=== PATIENT | female | born 1955 | race Caucasian/White ===

== ENCOUNTER → 2018-07-14 | Day surgery (SDC) | payer BC ==
[2018-07-10 14:25] VITALS: BMI 18.8
[~2018-07-14] MED LIST: LACTATED RINGERS 1,000 ML IV SCH; LIDOCAINE 1% 20 ML VIAL (10MG/ML) FOR IV START INTRADERMA ONE; PROPOFOL 10 MG/ML 20 ML VIAL IV ONE
[2018-07-14 08:06] VITALS: RESP 16; TEMP 96.9
--- NOTE | 2018-07-14 08:54 | P.GSHP ---
History of Present Illness H&P Date: 07/14/18 Chief Complaint: Screening colonoscopy This is a 62-year-old female who presents today for screening colonoscopy. Her last colonoscopy was over 8 years ago. She has a history of diverticulitis. Past Medical History Past Medical History: Thyroid Disorder Additional Past Medical History / Comment(s): MIGRAINE HEADACHE, History of Any Multi-Drug Resistant Organisms: None Reported Past Surgical History: Tubal Ligation Additional Past Surgical History / Comment(s): NASAL SURGERY , BUNIONECTOMY RIGHT FOOT Past Anesthesia/Blood Transfusion Reactions: Motion Sickness, Postoperative Nausea & Vomiting (PONV) Smoking Status: Never smoker - Past Family History Mother Family Medical History: No Reported History Medications and Allergies Home Medications Medication Instructions Recorded Confirmed Type Fluticasone Nasal [place] [Flonase 2 spr EA NOSTRIL DAILY PRN 07/10/18 07/14/18 History Nasal [place]] SUMAtriptan SUCCINATE [Imitrex] 50 mg PO BID PRN 07/10/18 07/14/18 History Thyroid,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 Thyroid 120] 60 mg PO MOWEFR 07/10/18 07/14/18 History Thyroid,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 Thyroid 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] 90 mg PO DAILY 07/10/18 07/14/18 History Allergies Allergy/AdvReac Type Severity Reaction Status Date / Time amoxicillin Allergy Rash/Hives Verified 07/14/18 07:55 Sulfa (Sulfonamide Allergy Rash/Hives Verified 07/14/18 07:55 Antibiotics) Surgical - Exam Vital Signs Temp Pulse Resp BP Pulse Ox 96.9 F L 82 16 188/86 98 07/14/18 08:04 07/14/18 08:04 07/14/18 08:04 07/14/18 08:04 07/14/18 08:04 - General well developed, no distress - Eyes PERRL - ENT normal pinna - Neck no masses - Respiratory normal expansion - Cardiovascular Rhythm: regular - Abdomen Abdomen: soft, non tender Assessment and Plan Assessment: We'll perform screening colonoscopy.
--- NOTE | 2018-07-14 09:13 | P.OP ---
Date of Procedure: 07/14/18 Preoperative Diagnosis: Screening colonoscopy Postoperative Diagnosis: Diverticulosis Procedure(s) Performed: Colonoscopy Anesthesia: MAC Surgeon: Joesph Mireles Pathology: none sent Condition: stable Disposition: PACU Description of Procedure: The patient's placed on the endoscopy table in the lateral position. She received IV sedation. Digital rectal exam was performed which revealed no abnormalities. Flexible colonoscope was then placed patient anus through the entire colon. The ileocecal valve sutures. The cecum, ascending and transverse colon appeared normal. In the descending; there is moderate diverticulosis. Scope was then brought back the rectum and this appeared normal. Scope was withdrawn for patient.
[2018-07-14 09:17] VITALS: BP 146/86; PULSE 76
== END | disposition home or self-care (01) ==
LOC: ORWHC2ENDO 07:42
PROVIDERS: ATTEND Surgery
DX: Z12.11 Encounter for screening for malignant neoplasm of colon (principal); K57.30 Diverticulosis of large intestine without perforation or abscess without bleeding; E07.9 Disorder of thyroid, unspecified; Z79.890 Hormone replacement therapy; G43.909 Migraine, unspecified, not intractable, without status migrainosus; Z88.0 Allergy status to penicillin; Z88.2 Allergy status to sulfonamides
CPT/HCPCS: J2704; G0121

== ENCOUNTER 2018-08-19 08:50 | Inpatient (IN) | payer BC ==
[2018-08-19] MEDS ORDERED: ONDANSETRON 4 MG/2 ML VIAL IVP STA (09:07)
[2018-08-19] MEDS ORDERED: MORPHINE SULFATE 4 MG/ML SYRINGE IV STA (09:07)
[2018-08-19] MEDS ORDERED: SODIUM CHLORIDE 0.9% 1,000 ML IV STA (09:07)
--- NOTE | 2018-08-19 09:09 | ED ---
Abdominal Pain HPI - General Chief Complaint: Abdominal Pain Stated Complaint: abd pain Time Seen by Provider: 08/19/18 09:07 Source: patient, RN notes reviewed, old records reviewed Mode of arrival: wheelchair Limitations: no limitations - History of Present Illness Initial Comments: This is a 8-year-old female the ER for evaluation. Patient has a for evaluation of abdominal pain severe epigastric and diffuse abdominal pain no radiation. Patient has no recent history of fever. She does have history of diverticulitis but no abdominal surgical history. No current diarrhea no blood in her stool, no nausea vomiting MD Complaint: abdominal pain -: hour(s) Location: diffuse, epigastric, suprapubic Radiation: LLQ Migration to: no migration Severity scale (1-10): 9 Quality: stabbing, aching, fullness Consistency: constant Improves With: nothing Worsens With: nothing Associated Symptoms: nausea, anorexia - Related Data Home Medications Medication Instructions Recorded Confirmed Fluticasone Nasal [place] [Flonase 2 spr EA NOSTRIL DAILY PRN 07/10/18 08/19/18 Nasal [place]] Thyroid,Pork [Metal Cnc Operator Thyroid 120] 60 mg PO DAILY 07/10/18 08/19/18 Cholecalciferol [Vitamin D3] 1,000 unit PO DAILY 08/19/18 08/19/18 Doxycycline Monohydrate [Monodox] 100 mg PO Q12HR 08/19/18 08/19/18 Levothyroxine Sodium [Synthroid] 25 mcg PO DAILY 08/19/18 08/19/18 Montelukast [Singulair] 10 mg PO DAILY 08/19/18 08/19/18 Multivitamin,Therapeutic [Thera] 1 tab PO DAILY 08/19/18 08/19/18 Naproxen Sodium [Aleve] 220 mg PO DAILY PRN 08/19/18 08/19/18 SUMAtriptan SUCCINATE [Sumatriptan 100 mg PO DAILY PRN 08/19/18 08/19/18 Succinate] Vitamin B Complex 1 cap PO DAILY 08/19/18 08/19/18 Allergies Allergy/AdvReac Type Severity Reaction Status Date / Time amoxicillin Allergy Rash/Hives Verified 08/19/18 10:43 Sulfa (Sulfonamide Allergy Rash/Hives Verified 08/19/18 10:43 Antibiotics) Review of Systems ROS Statement: Those systems with pertinent positive or pertinent negative responses have been documented in the HPI. ROS Other: All systems not noted in ROS Statement are negative. Past Medical History Past Medical History: Thyroid Disorder Additional Past Medical History / Comment(s): MIGRAINE HEADACHE, History of Any Multi-Drug Resistant Organisms: None Reported Past Surgical History: Tubal Ligation Additional Past Surgical History / Comment(s): NASAL SURGERY , BUNIONECTOMY RIGHT FOOT Past Anesthesia/Blood Transfusion Reactions: Motion Sickness, Postoperative Nausea & Vomiting (PONV) Past Psychological History: No Psychological Hx Reported Smoking Status: Never smoker Past Alcohol Use History: None Reported Past Drug Use History: None Reported - Past Family History Mother Family Medical History: No Reported History General Exam Limitations: no limitations General appearance: alert, in no apparent distress, anxious Head exam: Present: atraumatic, normocephalic, normal inspection Eye exam: Present: normal appearance, PERRL, EOMI. Absent: scleral icterus, conjunctival injection, periorbital swelling ENT exam: Present: normal exam, mucous membranes moist Neck exam: Present: normal inspection. Absent: tenderness, meningismus, lymphadenopathy Respiratory exam: Present: normal lung sounds bilaterally. Absent: respiratory distress, wheezes, rales, rhonchi, stridor Cardiovascular Exam: Present: regular rate, normal rhythm, normal heart sounds. Absent: systolic murmur, diastolic murmur, rubs, gallop, clicks GI/Abdominal exam: Present: soft, tenderness, normal bowel sounds. Absent: distended, guarding, rebound, rigid Extremities exam: Present: normal inspection, full ROM, normal capillary refill. Absent: tenderness, pedal edema, joint swelling, calf tenderness Back exam: Present: normal inspection Neurological exam: Present: alert, oriented X3, CN II-XII intact Psychiatric exam: Present: normal affect, normal mood Skin exam: Present: warm, dry, intact, normal color. Absent: rash Course Vital Signs 08/19/18 09:03 Temperature 97.6 F Pulse Rate 76 Respiratory 18 Rate Blood Pressure 126/67 O2 Sat by Pulse 98 Oximetry - Reevaluation(s) Reevaluation #1: 08/19/18 11:44 Medical records thoroughly reviewed Reevaluation #2: 08/19/18 11:44 Patient currently has adequate pain control, patient states she has both penicillin ALLERGY as well as refusing to take Levaquin Medical Decision Making - Medical Decision Making 62 female the ER for evasive severe abdominal pain. Positive diverticulitis with likely perforation, patient will be admitted IV antibiotics for surgery consult, patient does have relationship prior with Dr. Mireles - Lab Data Result diagrams: 08/19/18 09:30 08/19/18 09:30 Lab Results 08/19/18 08/19/18 08/19/18 Range/Units 09:30 09:30 09:30 WBC 9.1 (3.8-10.6) k/uL RBC 4.80 (3.80-5.40) m/uL Hgb 14.9 (11.4-16.0) gm/dL Hct 45.0 (34.0-46.0) % MCV 93.8 (80.0-100.0) fL MCH 31.1 (25.0-35.0) pg MCHC 33.1 (31.0-37.0) g/dL RDW 12.8 (11.5-15.5) % Plt Count 246 (150-450) k/uL Neutrophils % 88 % Lymphocytes % 7 % Monocytes % 4 % Eosinophils % 0 % Basophils % 0 % Neutrophils # 8.0 H (1.3-7.7) k/uL Lymphocytes # 0.6 L (1.0-4.8) k/uL Monocytes # 0.3 (0-1.0) k/uL Eosinophils # 0.0 (0-0.7) k/uL Basophils # 0.0 (0-0.2) k/uL Sodium 139 (137-145) mmol/L Potassium 4.3 (3.5-5.1) mmol/L Chloride 104 (98-107) mmol/L Carbon Dioxide 25 (22-30) mmol/L Anion Gap 10 mmol/L BUN 14 (7-17) mg/dL Creatinine 0.41 L (0.52-1.04) mg/dL Est GFR (CKD-EPI)AfAm >90 (>60 ml/min/1.73 sqM) Est GFR (CKD-EPI)NonAf >90 (>60 ml/min/1.73 sqM) Glucose 127 H (74-99) mg/dL Plasma Lactic Acid Mickey (0.7-2.0) mmol/L Calcium 9.6 (8.4-10.2) mg/dL Total Bilirubin 0.8 (0.2-1.3) mg/dL AST 29 (14-36) U/L ALT 37 (9-52) U/L Alkaline Phosphatase 54 (38-126) U/L Total Creatine Kinase (30-135) U/L CK-MB (CK-2) (0.0-2.4) ng/mL CK-MB (CK-2) Rel Index Troponin I (0.000-0.034) ng/mL Total Protein 6.9 (6.3-8.2) g/dL Albumin 4.1 (3.5-5.0) g/dL Amylase 48 (30-110) U/L Lipase 35 (23-300) U/L Urine Color Yellow Urine Appearance Clear (Clear) Urine pH 6.5 (5.0-8.0) Ur Specific [place] 1.013 (1.001-1.035) Urine Protein Negative (Negative) Urine Glucose (UA) Negative (Negative) Urine Ketones 1+ H (Negative) Urine Blood Negative (Negative) Urine Nitrite Negative (Negative) Urine Bilirubin Negative (Negative) Urine Urobilinogen <2.0 (<2.0) mg/dL Ur Leukocyte Esterase Negative (Negative) 08/19/18 08/19/18 Range/Units 09:30 09:30 WBC (3.8-10.6) k/uL RBC (3.80-5.40) m/uL Hgb (11.4-16.0) gm/dL Hct (34.0-46.0) % MCV (80.0-100.0) fL MCH (25.0-35.0) pg MCHC (31.0-37.0) g/dL RDW (11.5-15.5) % Plt Count (150-450) k/uL Neutrophils % % Lymphocytes % % Monocytes % % Eosinophils % % Basophils % % Neutrophils # (1.3-7.7) k/uL Lymphocytes # (1.0-4.8) k/uL Monocytes # (0-1.0) k/uL Eosinophils # (0-0.7) k/uL Basophils # (0-0.2) k/uL Sodium (137-145) mmol/L Potassium (3.5-5.1) mmol/L Chloride (98-107) mmol/L Carbon Dioxide (22-30) mmol/L Anion Gap mmol/L BUN (7-17) mg/dL Creatinine (0.52-1.04) mg/dL Est GFR (CKD-EPI)AfAm (>60 ml/min/1.73 sqM) Est GFR (CKD-EPI)NonAf (>60 ml/min/1.73 sqM) Glucose (74-99) mg/dL Plasma Lactic Acid Mickey 1.7 (0.7-2.0) mmol/L Calcium (8.4-10.2) mg/dL Total Bilirubin (0.2-1.3) mg/dL AST (14-36) U/L ALT (9-52) U/L Alkaline Phosphatase (38-126) U/L Total Creatine Kinase 29 L (30-135) U/L CK-MB (CK-2) 0.5 (0.0-2.4) ng/mL CK-MB (CK-2) Rel Index 1.7 Troponin I <0.012 (0.000-0.034) ng/mL Total Protein (6.3-8.2) g/dL Albumin (3.5-5.0) g/dL Amylase (30-110) U/L Lipase (23-300) U/L Urine Color Urine Appearance (Clear) Urine pH (5.0-8.0) Ur Specific [place] (1.001-1.035) Urine Protein (Negative) Urine Glucose (UA) (Negative) Urine Ketones (Negative) Urine Blood (Negative) Urine Nitrite (Negative) Urine Bilirubin (Negative) Urine Urobilinogen (<2.0) mg/dL Ur Leukocyte Esterase (Negative) - Radiology Data Radiology results: report reviewed (CT abdomen and pelvis is positive for diverticulitis with free air), image reviewed Disposition Clinical Impression: Diverticulitis, Abdominal pain Disposition: HOME SELF-CARE Condition: Serious Is patient prescribed a controlled substance at d/c from ED?: No Referrals: Libertad Cintron DO [Primary Care Provider] - 1-2 days
[2018-08-19 10:08] LABS: Appearance,Urine Clear (Clear); Bilirubin,Urine Negative (Negative); Blood,Urine Negative (Negative); Color,Urine Yellow; Glucose,Urine (UA) Negative (Negative); Ketones,Urine 1+ (Negative); Leukocyte Esterase,Urine Negative (Negative); Nitrite,Urine Negative (Negative); PH, Urine 6.5 (5.0-8.0); Protein,Urine Negative (Negative); Specific Gravity,Urine 1.013 (1.001-1.035); Urobilinogen,Urine <2.0 mg/dL (<2.0)
[2018-08-19 10:16] LABS: Basophils % (A) 0 %; Eosinophils % (A) 0 %; HGB 14.9 gm/dL (11.4-16.0); Lymphocytes # (A) 0.6 k/uL (1.0-4.8); Lymphocytes % (A) 7 %; MCH 31.1 pg (25.0-35.0); MCHC 33.1 g/dL (31.0-37.0); MCV 93.8 fL (80.0-100.0); Mean Platelet Volume 7.4; Monocytes # (A) 0.3 k/uL (0-1.0); Monocytes % (A) 4 %; Neutrophils % (A) 88 %; Platelet Count 246 k/uL (150-450); RDW 12.8 % (11.5-15.5); WBC 9.1 k/uL (3.8-10.6)
[2018-08-19 10:18] LABS: ALT 37 U/L (9-52); AST 29 U/L (14-36); Albumin 4.1 g/dL (3.5-5.0); Alkaline Phosphatase 54 U/L (38-126); Amylase 48 U/L (30-110); Anion Gap 10 mmol/L; Blood Urea Nitrogen 14 mg/dL (7-17); Calcium 9.6 mg/dL (8.4-10.2); Carbon Dioxide 25 mmol/L (22-30); Chloride 104 mmol/L (98-107); Glucose 127 mg/dL (74-99); Lipase 35 U/L (23-300); Potassium 4.3 mmol/L (3.5-5.1); Sodium 139 mmol/L (137-145); Total Bilirubin 0.8 mg/dL (0.2-1.3); Total Protein 6.9 g/dL (6.3-8.2)
[2018-08-19 10:36] LABS: Creatine Kinase 29 U/L (30-135)
--- NOTE | 2018-08-19 10:43 | CT ---
EXAMINATION TYPE: CT abdomen pelvis w con DATE OF EXAM: 08/19/2018 COMPARISON: NONE HISTORY: 62-year-old female with abdominal pain TECHNIQUE: Contiguous axial scanning of the abdomen and pelvis following administration of 100 ml Iso ottoniel 300 IV contrast. Delayed images through the kidneys and coronal/sagittal reconstructions perform ed. CT DLP: 482.7 mGycm Automated exposure control for dose reduction was used. FINDINGS: Heart normal size without pericardial effusion. Given atelectasis posterior lung bases. No pleural ef fusion. Slightly patulous distal esophagus. Prominent fluid distending the stomach. No focal liver lesion or biliary ductal dilatation. Portal venous system is patent. Gallbladder, adrenal glands, kidneys, and spleen appear within normal limits. Pancreas shows prominen ce to the main pancreatic duct at 2 mm which is within acceptable limits. No dilated small bowel, free fluid, or free air. Scattered nonenlarged mesenteric lymph nodes are dem onstrated. A number of mid small bowel loops show circumferential wall thickening and edematous appearance as do es the low-lying transverse colon. Mild circumferential wall thickening of the sigmoid colon as well. There is surrounding fat stranding, mesenteric edema, and mild interloop ascites and moderate pelvic ascites. There is intraperitoneal air collection in the left paramedian lower abdomen measuring 1.7 cm AP by 2 .2 cm wide by 3.0 cm craniocaudal, reference axial image 61 and coronal image 31. The exact origin of the free air is not clear, and may be from an irregular, inflamed small bowel loop just adjacent, ax ial image 63 or from the adjacent distal sigmoid, axial image 61. While there is sigmoid diverticulosis, the overall inflammation seems to involve more than just the c olon where diverticular change is demonstrated. Normal appendix. Bladder urine distended. Uterus with underlying calcified fibroids. Neither ovary well seen. Bones: Mild degenerative changes at the hips. No osseous destructive process. IMPRESSION: 1. MODERATE TO SEVERE ENTEROCOLITIS INVOLVING MULTIPLE SMALL BOWEL LOOPS, TRANSVERSE COLON, AND SIGMO ID COLON. WHILE THERE IS SIGMOID DIVERTICULOSIS, THE BOWEL INFLAMMATION APPEARS TO INVOLVE MULTIPLE A REAS. ACUTE DIVERTICULITIS WITH PERFORATION IS ALSO POSSIBLE BUT GIVEN THE MULTIPLE INVOLVED BOWEL LO OPS, IT MAY BE LESS LIKELY. CLINICALLY CORRELATE. 2. PERFORATION INTO THE INTRAPERITONEAL CAVITY OF THE LEFT PARAMEDIAN LOWER ABDOMEN. THE AIR COLLECTI ON MEASURES 3.0 CM. THERE IS MODERATE TO SEVERE ASSOCIATED MESENTERIC EDEMA/INFLAMMATION AND MODERATE PELVIC ASCITES. CRITICAL FINDINGS CALLED TO DR. MELENDEZ IN THE ER AT 10:40 AM.
[2018-08-19 10:48] LABS: Creatine Kinase MB 0.5 ng/mL (0.0-2.4); Troponin I <0.012 ng/mL (0.000-0.034)
[2018-08-19] MEDS ORDERED: SODIUM CHLORIDE 0.9% 1,000 ML IV ONE ×2 (11:32→20:32)
[2018-08-19] MEDS ORDERED: SODIUM CHLORIDE 0.9% 500 ML 500 ML IV STA (11:39)
[2018-08-19] MEDS ORDERED: CEFEPIME 2 GM in SODIUM CHLORIDE 0.9% 50 ML IVPB STA (11:41)
[2018-08-19] MEDS ORDERED: metroNIDAZOLE-NS PMX 500 MG in SALINE 1 100ML.BAG IVPB STA (11:41)
[2018-08-19] MEDS: MORPHINE SULFATE 4 MG/ML SYRINGE IVP PRN ×2 (11:56→16:02)
--- NOTE | 2018-08-19 13:00 | P.HPIM ---
History of Present Illness H&P Date: 08/19/18 Chief Complaint: Abdominal pain This is a 62-year-old female, patient of [facility]. She has a known past medical history of diverticulosis, hypothyroidism and migraines. Patient presents to the emergency room with complaints of severe abdominal pain throughout her whole abdomen that started around 2:00 this morning. She was having chills and nausea. No vomiting. Reports normal bowel movements. No blood in the stools. Computed tomography scan of the abdomen and pelvis shows moderate to severe enterocolitis involving multiple small bowel loops, transverse colon and sigmoid colon. There is sigmoid diverticulosis the bowel inflammation appears to involve multiple areas. Acute diverticulitis with perforation is also possible. Perforation into the intraperitoneal cavity of the left paramedian lower abdomen. Air collection measuring 3.0 cm. There is [id number] associated mesenteric edema/inflammation and moderate pelvic ascites. Patient was given cefepime and Flagyl in the ER. Morphine for pain. Surgery has been consulted. Patient denies any chest pain or shortness of breath. Denies any bowel movement changes or urinary symptoms. Patient was seen and examined in the ER. Review of Systems Please refer to HPI otherwise unremarkable Past Medical History Past Medical History: Thyroid Disorder Additional Past Medical History / Comment(s): Pt currently has sinus infection and started antibiotic yesterday, 2017. Other hx: Occasional migraines, infrequent raynaulds, diverticular disease, hypothyroid. History of Any Multi-Drug Resistant Organisms: None Reported Past Surgical History: Orthopedic Surgery, Tubal Ligation Additional Past Surgical History / Comment(s): 07/14/18 colonoscopy, previous colonoscopy, sinus surgery, jaw surgery for overbite, cunionectomy R foot. Past Anesthesia/Blood Transfusion Reactions: Motion Sickness, Postoperative Nausea & Vomiting (PONV) Past Psychological History: No Psychological Hx Reported Additional Psychological History / Comment(s): Pt resides with her spouse. 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 Smoking Status: Never smoker Past Alcohol Use History: None Reported Past Drug Use History: None Reported - Past Family History Mother Family Medical History: Coronary Artery Disease (CAD) Additional Family Medical History / Comment(s): Mother with CABG at the age of 72 yrs. Father Family Medical History: Congestive Heart Failure (CHF) Additional Family Medical History / Comment(s): Father of CHF at the age of 72 yrs. Medications and Allergies Home Medications Medication Instructions Recorded Confirmed Type Fluticasone Nasal [place] [Flonase 2 spr EA NOSTRIL DAILY PRN 07/10/18 08/19/18 History Nasal [place]] Thyroid,Pork [Lining Stamper Thyroid 120] 60 mg PO DAILY 07/10/18 08/19/18 History Cholecalciferol [Vitamin D3] 1,000 unit PO DAILY 08/19/18 08/19/18 History Doxycycline Monohydrate [Monodox] 100 mg PO Q12HR 08/19/18 08/19/18 History Levothyroxine Sodium [Synthroid] 25 mcg PO DAILY 08/19/18 08/19/18 History Montelukast [Singulair] 10 mg PO DAILY 08/19/18 08/19/18 History Multivitamin,Therapeutic [Thera] 1 tab PO DAILY 08/19/18 08/19/18 History Naproxen Sodium [Aleve] 220 mg PO DAILY PRN 08/19/18 08/19/18 History SUMAtriptan SUCCINATE [Sumatriptan 100 mg PO DAILY PRN 08/19/18 08/19/18 History Succinate] Vitamin B Complex 1 cap PO DAILY 08/19/18 08/19/18 History Allergies Allergy/AdvReac Type Severity Reaction Status Date / Time amoxicillin Allergy Rash/Hives Verified 08/19/18 10:43 Sulfa (Sulfonamide Allergy Rash/Hives Verified 08/19/18 10:43 Antibiotics) Physical Exam Vitals: Vital Signs Temp Pulse Resp BP Pulse Ox 08/19/18 11:30 147/84 98 08/19/18 11:00 18 168/89 98 08/19/18 10:00 18 160/96 96 08/19/18 09:45 99 08/19/18 09:03 97.6 F 76 18 126/67 98 Intake and Output 08/18/18 08/19/18 08/19/18 22:59 06:59 14:59 Other: Weight 52.163 kg Head normocephalic Neck supple Lungs clear to auscultation bilaterally no wheezing or crackles Heart regular rate and rhythm S1-S2, no rub or gallop Abdomen is diffuse tenderness distended hypoactive bowel sounds Extremities no edema Neuro alert and orientated to 3 Results CBC & Chem 7: 08/19/18 09:30 08/19/18 09:30 Labs: Abnormal Lab Results - Last 24 Hours (Table) 08/19/18 08/19/18 08/19/18 Range/Units 09:30 09:30 09:30 Neutrophils # 8.0 H (1.3-7.7) k/uL Lymphocytes # 0.6 L (1.0-4.8) k/uL Creatinine 0.41 L (0.52-1.04) mg/dL Glucose 127 H (74-99) mg/dL Total Creatine Kinase (30-135) U/L Urine Ketones 1+ H (Negative) 08/19/18 Range/Units 09:30 Neutrophils # (1.3-7.7) k/uL Lymphocytes # (1.0-4.8) k/uL Creatinine (0.52-1.04) mg/dL Glucose (74-99) mg/dL Total Creatine Kinase 29 L (30-135) U/L Urine Ketones (Negative) Thrombosis Risk Factor Assmnt - Choose All That Apply Any of the Below Risk Factors Present?: Yes Each Factor Represents 1 point: Age 41-60 years Other Risk Factors: No Other congenital or acquired thrombophilia - If yes, enter type in comment: No Thrombosis Risk Factor Assessment Total Risk Factor Score: 1 Thrombosis Risk Factor Assessment Level: Low Risk Assessment and Plan Assessment: 1. Abdominal pain: Computed tomography scan showing severe enterocolitis involving multiple small bowel loops transfer: And sigmoid colon. Concerns of a possible acute diverticulitis with perforation. Patient started on Flagyl and cefepime in the ER. Surgery has been consulted. She is currently nothing by mouth. Continue with IV fluids normal saline at 100 2. History of diverticulitis 3. Hypothyroidism: Resume Synthroid supplements. If patient remains nothing by mouth tomorrow will need to switch oral Synthroid to IV 4. History of migraines GI prophylaxis Protonix and DVT prophylaxis SCDs until seen by surgeon. Time with Patient: Greater than 30 (Greater than 60% of the total time spent in counseling and coordination of care.I performed an examination of the patient and discussed their management with the physician [facility]ulatory [facility]. I have reviewed the Physician [facility]ulatory [facility]'s notes and agree with the documented findings and plan of care)
--- NOTE | 2018-08-19 13:35 | P.GSCN ---
History of Present Illness Consult date: 08/19/18 Reason for Consult: Reason for consult abdominal pain Hospital course 62-year-old female presented on the day of admission to the emergency room with a chief complaint of developing diffuse abdominal pain that did not radiate started at 2:00 in the morning with fever and chills patient stated there was diffuse cramping. With a nausea sensation no emesis. Patient stated that she had normal bowel movements but there was no blood in the stool. Patient gives a history of diverticulitis but there is been no abdominal surgery. Patient stated the pain was mostly in the left lower quadrant described as a sharp stabbing achy type pain with a nausea sensation patient stated that she felt bloated. Patient did have a colonoscopy in June 2018 reviewing the report in the descending there was moderate diverticulosis. Transverse colon appeared normal cecum in the ascending appeared normal as well in the emergency room the white count was 9 hemoglobin 14.9 AST and ALT were not elevated electrolytes within normal limits started in the emergency room with IV Flagyl and cefeprime patient states that she is been treated in the past diverticulitis but is not been this severe. Past surgical history tubal ligation, bunionectomy right foot Computed tomography scan of the abdomen pelvis with contrast was obtained in the emergency room reviewing the report showed moderate to severe endocolitis involving multiple small bowel loops, transverse colon and sigmoid colon with sigmoid diverticulosis. The bowel inflammation appears to involve multiple areas acute diverticulitis with perforation is also possible given the multiple involved bowel loops. Perforation into the intraperitoneal cavity. Air collection measures 3 cm moderate pelvic ascites noted Review of Systems Refer to HPI otherwise unremarkable Past Medical History Past Medical History: Thyroid Disorder Additional Past Medical History / Comment(s): Pt currently has sinus infection and started antibiotic yesterday, 2017. Other hx: Occasional migraines, infrequent raynaulds, diverticular disease, hypothyroid. History of Any Multi-Drug Resistant Organisms: None Reported Past Surgical History: Orthopedic Surgery, Tubal Ligation Additional Past Surgical History / Comment(s): 07/14/18 colonoscopy, previous colonoscopy, sinus surgery, jaw surgery for overbite, cunionectomy R foot. Past Anesthesia/Blood Transfusion Reactions: Motion Sickness, Postoperative Nausea & Vomiting (PONV) Past Psychological History: No Psychological Hx Reported Additional Psychological History / Comment(s): Pt resides with her spouse. 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 Smoking Status: Never smoker Past Alcohol Use History: None Reported Past Drug Use History: None Reported - Past Family History Mother Family Medical History: Coronary Artery Disease (CAD) Additional Family Medical History / Comment(s): Mother with CABG at the age of 72 yrs. Father Family Medical History: Congestive Heart Failure (CHF) Additional Family Medical History / Comment(s): Father of CHF at the age of 72 yrs. Medications and Allergies Home Medications Medication Instructions Recorded Confirmed Type Fluticasone Nasal [place] [Flonase 2 spr EA NOSTRIL DAILY PRN 07/10/18 08/19/18 History Nasal [place]] Thyroid,Pork [Chandelier Maker Thyroid 120] 60 mg PO DAILY 07/10/18 08/19/18 History Cholecalciferol [Vitamin D3] 1,000 unit PO DAILY 08/19/18 08/19/18 History Doxycycline Monohydrate [Monodox] 100 mg PO Q12HR 08/19/18 08/19/18 History Levothyroxine Sodium [Synthroid] 25 mcg PO DAILY 08/19/18 08/19/18 History Montelukast [Singulair] 10 mg PO DAILY 08/19/18 08/19/18 History Multivitamin,Therapeutic [Thera] 1 tab PO DAILY 08/19/18 08/19/18 History Naproxen Sodium [Aleve] 220 mg PO DAILY PRN 08/19/18 08/19/18 History SUMAtriptan SUCCINATE [Sumatriptan 100 mg PO DAILY PRN 08/19/18 08/19/18 History Succinate] Vitamin B Complex 1 cap PO DAILY 08/19/18 08/19/18 History Allergies Allergy/AdvReac Type Severity Reaction Status Date / Time amoxicillin Allergy Rash/Hives Verified 08/19/18 10:43 Sulfa (Sulfonamide Allergy Rash/Hives Verified 08/19/18 10:43 Antibiotics) Surgical - Exam Vital Signs Temp Pulse Resp BP Pulse Ox 97.6 F 76 18 126/67 98 08/19/18 09:03 08/19/18 09:03 08/19/18 09:03 08/19/18 09:03 08/19/18 09:03 GENERAL APPEARANCE: 62 year old female patient is alert, oriented, in no acute distress. VITAL SIGNS: Reviewed HEENT: Head is normocephalic and atraumatic. Pupils are equal and reactive. The nares are patent. Oropharynx is clear without lesions. NECK: Supple without lymphadenopathy. Traches midline. HEART: S1, S2. Regular rate and rhythm. Denies chest pain LUNGS: No crackles or wheezes are heard. Air movement ABDOMEN: Diffuse abdominal tenderness with distention few hypoactive bowel tones nausea sensation no emesis no stooling no difficulty in urinating. EXTREMITIES: Normal skin color and turgor. No cyanosis, rash, ulceration, clubbing or edema. Radial pedal pulses are 2/4 bilaterally. NEUROLOGICAL: No focal deficits. Strength and sensation are grossly intact. Results - Labs 08/19/18 09:30 08/19/18 09:30 Abnormal Lab Results - Last 24 Hours (Table) 08/19/18 08/19/18 08/19/18 Range/Units 09:30 09:30 09:30 Neutrophils # 8.0 H (1.3-7.7) k/uL Lymphocytes # 0.6 L (1.0-4.8) k/uL Creatinine 0.41 L (0.52-1.04) mg/dL Glucose 127 H (74-99) mg/dL Total Creatine Kinase (30-135) U/L Urine Ketones 1+ H (Negative) 08/19/18 Range/Units 09:30 Neutrophils # (1.3-7.7) k/uL Lymphocytes # (1.0-4.8) k/uL Creatinine (0.52-1.04) mg/dL Glucose (74-99) mg/dL Total Creatine Kinase 29 L (30-135) U/L Urine Ketones (Negative) Diabetes panel 08/19/18 Range/Units 09:30 Sodium 139 (137-145) mmol/L Potassium 4.3 (3.5-5.1) mmol/L Chloride 104 (98-107) mmol/L Carbon Dioxide 25 (22-30) mmol/L BUN 14 (7-17) mg/dL Creatinine 0.41 L (0.52-1.04) mg/dL Glucose 127 H (74-99) mg/dL Calcium 9.6 (8.4-10.2) mg/dL AST 29 (14-36) U/L ALT 37 (9-52) U/L Alkaline Phosphatase 54 (38-126) U/L Total Protein 6.9 (6.3-8.2) g/dL Albumin 4.1 (3.5-5.0) g/dL Calcium panel 08/19/18 Range/Units 09:30 Calcium 9.6 (8.4-10.2) mg/dL Albumin 4.1 (3.5-5.0) g/dL Pituitary panel 08/19/18 Range/Units 09:30 Sodium 139 (137-145) mmol/L Potassium 4.3 (3.5-5.1) mmol/L Chloride 104 (98-107) mmol/L Carbon Dioxide 25 (22-30) mmol/L BUN 14 (7-17) mg/dL Creatinine 0.41 L (0.52-1.04) mg/dL Glucose 127 H (74-99) mg/dL Calcium 9.6 (8.4-10.2) mg/dL Adrenal panel 08/19/18 Range/Units 09:30 Sodium 139 (137-145) mmol/L Potassium 4.3 (3.5-5.1) mmol/L Chloride 104 (98-107) mmol/L Carbon Dioxide 25 (22-30) mmol/L BUN 14 (7-17) mg/dL Creatinine 0.41 L (0.52-1.04) mg/dL Glucose 127 H (74-99) mg/dL Calcium 9.6 (8.4-10.2) mg/dL Total Bilirubin 0.8 (0.2-1.3) mg/dL AST 29 (14-36) U/L ALT 37 (9-52) U/L Alkaline Phosphatase 54 (38-126) U/L Total Protein 6.9 (6.3-8.2) g/dL Albumin 4.1 (3.5-5.0) g/dL Assessment and Plan Assessment: Impression Present on admission left lower quadrant abdominal pain suspect due to acute diverticulitis possible perforation CAT scan of the abdomen and pelvis obtained in the emergency room report indicates severe enterocolitis involving multiple small bowel loops in the sigmoid colon History of diverticulitis July 14 2018 colonoscopy done report cecum ascending and transverse colon appeared normal and the descending moderate diverticulosis no evidence of diverticulitis Plan IV fluid for hydration Keep nothing by mouth except for ice chips Continue IV antibiotics cefepime and Flagyl as ordered DVT and GI prophylaxis Repeat labs in the morning We'll follow with you with further surgical recommendations pending clinical course Surgical consultation note dictated for Dr. childers The above impression and plan of care have been discussed and directed by signing physician. Henny Graham nurse practitioner acting as scribe for signing physician.
[2018-08-19] MEDS: LACTATED RINGERS 1,000 ML IV SCH ×3 (14:05→17:23)
[2018-08-19] MEDS: PANTOPRAZOLE 40 MG/10 ML VIAL IVP SCH (14:09)
[2018-08-19] MEDS ORDERED: MORPHINE SULFATE 4 MG/ML SYRINGE ONE (16:01)
[2018-08-19] MEDS: ACETAMINOPHEN TAB 325 MG TAB PO PRN (18:21)
[2018-08-19] MEDS: HYDROmorphone 1 MG/ML 1 ML SYRINGE IVP PRN ×2 (18:22→21:12)
[2018-08-19] MEDS: metroNIDAZOLE-NS PMX 500 MG in SALINE 1 100ML.BAG IVPB SCH (18:23)
[2018-08-19 20:03] LABS: ALT 42 U/L (9-52); AST 21 U/L (14-36); Albumin 3.3 g/dL (3.5-5.0); Alkaline Phosphatase 37 U/L (38-126); Anion Gap 9 mmol/L; Blood Urea Nitrogen 9 mg/dL (7-17); Calcium 8.7 mg/dL (8.4-10.2); Carbon Dioxide 21 mmol/L (22-30); Chloride 105 mmol/L (98-107); Glucose 95 mg/dL (74-99); Potassium 3.9 mmol/L (3.5-5.1); Sodium 135 mmol/L (137-145); Total Bilirubin 1.1 mg/dL (0.2-1.3)
[2018-08-19 20:13] LABS: Basophils % (A) 0 %; Eosinophils % (A) 1 %; HCT 40.3 % (34.0-46.0); HGB 13.2 gm/dL (11.4-16.0); Lymphocytes # (A) 0.6 k/uL (1.0-4.8); Lymphocytes % (A) 14 %; MCH 30.8 pg (25.0-35.0); MCHC 32.7 g/dL (31.0-37.0); MCV 94.1 fL (80.0-100.0); Mean Platelet Volume 7.4; Monocytes # (A) 0.2 k/uL (0-1.0); Monocytes % (A) 4 %; Neutrophils # (A) 3.5 k/uL (1.3-7.7); Neutrophils % (A) 80 %; Platelet Count 218 k/uL (150-450); RBC 4.28 m/uL (3.80-5.40); RDW 12.9 % (11.5-15.5); WBC 4.4 k/uL (3.8-10.6)
--- NOTE | 2018-08-19 20:33 | P.CNPUL ---
History of Present Illness Consult date: 08/19/18 Chief complaint: abdominal pain History of present illness: 62-year-old female patient with known history of diverticulosis who underwent a recent colonoscopy in June 2018 and she was told to have uncomplicated diverticulosis. She has had previous bouts of diverticulitis treated with antibiotics. This morning, the patient woke up with diffuse abdominal pain and the pain was rather crampy associated with some chills and fever. She was also nauseated without any significant emesis. She did have a loose liquidy bowel movements and non-since. No bloody bowel movement or any melanotic stool. The patient came into the hospital and she was given a CAT scan of the abdomen which showed moderate to severe enterocolitis involving the multiple small bowel loops and transverse colon and sigmoid colon. While there is sigmoid diverticulosis and mild the bowel inflammation appears to involve multiple areas. Acute diverticulitis with perforation is considered. Perforation into the intraperitoneal cavity of the left paramedian lower abdomen was suspected. There are collection measures about 3 cm in size. There was moderate to severe associated mesenteric edema and inflammation and moderate degree of pelvic ascites. The patient is currently in the intensive care unit. She got transferred due to concerns of sepsis. She is tachycardic and she is in sinus tachycardia with a heart rate of 110. She is maintaining a low blood pressure. Most recent BP reading is 159/91. Pulse ox 98% on room air. She is producing adequate amount of urine output in the Malik catheter was inserted. I saw this patient in the ICU. She had lower abdominal tenderness. She was uncomfortable. Her pain was controlled for now. She is receiving Dilaudid for pain control. She also and accommodation of cefepime and Flagyl. This is a broad-spectrum antibiotics covering for acute diverticulitis. The patient will be fluid resuscitated. General surgery consultation to the been obtained. Discussed the case with the general surgeon. Review of Systems Constitutional: Reports chills, Reports fever, Reports poor appetite, Reports weakness Eyes: denies blurred vision, denies bulging eye, denies decreased vision Ears: deny: decreased hearing, ear discharge, earache, tinnitus Ears, nose, mouth and throat: Denies headache, Denies sore throat Cardiovascular: Reports rapid heart beat Respiratory: Denies cough Gastrointestinal: Reports abdominal pain, Reports nausea Genitourinary: Denies dysuria, Denies hematuria Menstruation: Reports as per HPI Musculoskeletal: Reports as per HPI Musculoskeletal: absent: ankle pain, ankle stiffness, ankle swelling Integumentary: Denies pruritus, Denies rash Neurological: Reports as per HPI Psychiatric: Reports as per HPI Hematologic/Lymphatic: Reports as per HPI Allergic/Immunologic: Reports as per HPI Past Medical History Past Medical History: Thyroid Disorder Additional Past Medical History / Comment(s): Pt currently has sinus infection and started antibiotic yesterday, August 18, 2018. Other hx: Occasional migraines, infrequent raynaulds, diverticular disease, hypothyroid. History of Any Multi-Drug Resistant Organisms: None Reported Past Surgical History: Orthopedic Surgery, Tubal Ligation Additional Past Surgical History / Comment(s): 07/14/18 colonoscopy, previous colonoscopy, sinus surgery, jaw surgery for overbite, cunionectomy R foot. Past Anesthesia/Blood Transfusion Reactions: Motion Sickness, Postoperative Nausea & Vomiting (PONV) Past Psychological History: No Psychological Hx Reported Additional Psychological History / Comment(s): Pt resides with her spouse. 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 Smoking Status: Never smoker Past Alcohol Use History: None Reported Past Drug Use History: None Reported - Past Family History Mother Family Medical History: Coronary Artery Disease (CAD) Additional Family Medical History / Comment(s): Mother with CABG at the age of 72 yrs. Father Family Medical History: Congestive Heart Failure (CHF) Additional Family Medical History / Comment(s): Father of CHF at the age of 72 yrs. 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 Writing Professor Thyroid 120] 60 mg PO DAILY 07/10/18 08/19/18 History Cholecalciferol [Vitamin D3] 1,000 unit PO DAILY 08/19/18 08/19/18 History Doxycycline Monohydrate [Monodox] 100 mg PO Q12HR 08/19/18 08/19/18 History Levothyroxine Sodium [Synthroid] 25 mcg PO DAILY 08/19/18 08/19/18 History Montelukast [Singulair] 10 mg PO DAILY 08/19/18 08/19/18 History Multivitamin,Therapeutic [Thera] 1 tab PO DAILY 08/19/18 08/19/18 History Naproxen Sodium [Aleve] 220 mg PO DAILY PRN 08/19/18 08/19/18 History SUMAtriptan SUCCINATE [Sumatriptan 100 mg PO DAILY PRN 08/19/18 08/19/18 History Succinate] Vitamin B Complex 1 cap PO DAILY 08/19/18 08/19/18 History Allergies Allergy/AdvReac Type Severity Reaction Status Date / Time amoxicillin Allergy Rash/Hives Verified 08/19/18 10:43 Sulfa (Sulfonamide Allergy Rash/Hives Verified 08/19/18 10:43 Antibiotics) Physical Exam Vitals: Vital Signs Temp Pulse Pulse Pulse Resp BP BP 08/19/18 17:05 100.6 F H 110 H 18 163/80 08/19/18 16:00 120 H 20 08/19/18 12:00 20 159/91 08/19/18 11:30 147/84 08/19/18 11:00 18 168/89 08/19/18 10:00 18 160/96 08/19/18 09:45 08/19/18 09:03 97.6 F 76 18 126/67 Pulse Ox 08/19/18 17:05 98 08/19/18 16:00 08/19/18 12:00 98 08/19/18 11:30 98 08/19/18 11:00 98 08/19/18 10:00 96 08/19/18 09:45 99 08/19/18 09:03 98 Intake and Output 08/19/18 08/19/18 08/19/18 06:59 14:59 22:59 Other: Voiding Method Toilet Toilet # Voids 1 1 Weight 52.163 kg Gen. appearance the patient is awake, comfortable and mild degree of distress secondary to abdominal pain. He is a bit apprehensive and anxious. Head exam was generally normal. There was no scleral icterus or corneal arcus. Mucous membranes were moist. Neck was supple and without jugular venous distension, thyromegaly, or carotid bruits. Carotids were easily palpable bilaterally. There was no adenopathy. Lungs were clear to auscultation and percussion, and with normal diaphragmatic excursion. No wheezes or rales were noted. Cardiac exam revealed the PMI to be normally situated and sized. The rhythm was regular and no extrasystoles were noted during several minutes of auscultation. The first and second heart sounds were normal and physiologic splitting of the second heart sound was noted. There were no murmurs, rubs, clicks, or gallops. Examination of the abdomen showed diffuse abdominal tenderness with more tenderness in lower quadrants bilaterally. No rebound tenderness. No guarding. Bowel sounds are hypoactive at this point in time. No ascites. Examination of the extremities revealed easily palpable radial, femoral and pedal pulses. There was no cyanosis, clubbing or edema. Examination of the skin revealed no evidence of significant rashes, suspicious appearing nevi or other concerning lesions. Neurologically awake and alert and is no focal neurological deficits. Results - Laboratory Findings CBC and BMP: 08/19/18 19:30 08/19/18 19:30 Abnormal lab findings: Abnormal Labs 08/19/18 08/19/18 08/19/18 09:30 09:30 09:30 Neutrophils # 8.0 H Lymphocytes # 0.6 L Sodium Carbon Dioxide Creatinine 0.41 L Glucose 127 H Alkaline Phosphatase Total Creatine Kinase Total Protein Albumin Urine Ketones 1+ H 08/19/18 08/19/18 08/19/18 09:30 19:30 19:30 Neutrophils # Lymphocytes # 0.6 L Sodium 135 L Carbon Dioxide 21 L Creatinine 0.41 L Glucose Alkaline Phosphatase 37 L Total Creatine Kinase 29 L Total Protein 6.0 L Albumin 3.3 L Urine Ketones Assessment and Plan Plan: Assessment 1 acute abdominal pain likely secondary to an acute complicated diverticulosis with perforation. 2 acute febrile illness in a sedation with tachycardia secondary to above. Suspect intra-abdominal source of septicemia 3 history of diverticulosis 4 hypothyroidism 5 history of migraines Plan Give the patient 2 L of bolus of normal saline now. Continue the maintenance fluid to 150 mL an hour. Continue the current antibiotic coverage which included a combination of cefepime and Flagyl. Dilaudid for pain control. IV Tylenol for fever. Monitor the heart rate. Monitor blood pressure. Monitor urine output. Malik catheter was inserted. Consulted with general surgery. The patient will need surgery. I saw the patient is to be taken to surgery sooner and I shared this with the general surgeon. His opening was proceed with the medical treatment for now as long as the patient is somewhat stable and consider surgery within next 24-48 hours depending on her progress. In his opinion this may lower the risk of obtaining a diverticular colostomy. It is very much likely the patient may end up with a colectomy diverticular colostomy. I am going to keep this patient has his care unit. Monitor the progress. Communicative general surgery and make further decisions accordingly. We'll continue to follow. Condition is critical at this point in time.
[2018-08-19] MEDS: SODIUM CHLORIDE 0.9% 1,000 ML IV SCH (21:00)
[2018-08-19 23:45] LABS: Glucose,Whole Blood 70 mg/dL (75-99)
[2018-08-20] MEDS: CEFEPIME 2 GM in SODIUM CHLORIDE 0.9% 50 ML IVPB SCH ×2 (00:23→14:45)
[2018-08-20] MEDS: metroNIDAZOLE-NS PMX 500 MG in SALINE 1 100ML.BAG IVPB SCH ×4 (00:23→18:20)
--- NOTE | 2018-08-20 00:31 | CONS ---
CONSULTATION DATE OF SERVICE: 08/19/2018. REASON FOR CONSULTATION: Diverticulitis and antibiotic recommendation. HISTORY OF PRESENT ILLNESS: The patient is a 62-year-old female with past medical history significant for hypothyroidism, migraine headaches, and diverticulosis. The patient is presenting to the ER at [facility] with chief complaints of abdominal pain that started around 2 in the morning. The patient's pain has been mostly in the lower abdominal area, has been sharp in intensity with pain almost 10/10, and severe. No significant radiation of the pain. The pain has been associated with nausea but no vomiting. Has slightly watery diarrhea. No constipation. With these symptoms, the patient presented to the [facility] ER. The patient was treated by the ER physician. On arrival, the patient was afebrile, however, subsequently did spike a fever of 100.6 to 101.2. The patient has been tachycardic and also noticed to be slightly hypertensive this evening. The patient's white count was not significantly elevated. UA was negative. The patient did have a CT of the abdomen and pelvis obtained. This has been suggestive of [id number] diverticulitis involving multiple small bowel loops. Sigmoid diverticulitis with bowel inflammation appears to involve multiple areas. Acute diverticulitis with perforation is also a possibility. The patient has been admitted to the hospital for subsequent hospitalization because of her hypertension. She did have allergy to amoxicillin. The patient has been started on cefepime and Flagyl. Patient was consulted for further recommendation regarding antibiotic therapy. REVIEW OF SYSTEMS: CONSTITUTIONAL: Positive for weakness along with fever. EYES: No complaints. ENT: No complaints. RESPIRATORY: No complaints. CARDIOVASCULAR: No complaints. GENITOURINARY: No complaint. GASTROINTESTINAL: As per HPI. MUSCULOSKELETAL: No complaint. ENDOCRINE: No complaint. PSYCHOLOGICAL: No complaint. NEUROLOGIC: No complaint. PAST MEDICAL HISTORY: Positive for hypothyroidism, diverticulosis, migraine headaches. PAST SURGICAL HISTORY: Tubal ligation, colonoscopy, sinus surgery, , bunionectomy right foot, jaw surgery for overbite. SOCIAL HISTORY: No history of smoking, drinking or drug use. FAMILY HISTORY: Mother with history of colon disease, at age of 72. Father has congestive heart failure, at age of 72 as well. ALLERGIES: AMOXICILLIN, SULFA, mostly with rash. No history of anaphylaxis. MEDICATION: 1. Tylenol. 2. Cefepime 2 g every 12 hours. 3. Flonase. 4. Dilaudid. 5. Synthroid. 6. Flagyl. 7. Morphine sulfate. 8. Protonix. 9. [place] thyroid. EXAMINATION: Blood pressure is 139/70 with a pulse of 109, temperature 98.7, T-max 101.2. She is 93% on 2 L nasal cannula. GENERAL DESCRIPTION: A middle-aged female, lying in bed in no distress. No tachypnea or accessory muscle of respiration use. HEENT: No pallor or scleral icterus. Oral mucosa is dry. No pharyngeal erythema or thrush. NECK: Trachea central, no thyromegaly. LUNGS: Unlabored breathing. Clear to auscultation anteriorly. No wheeze or crackle. HEART: S1, S2. Regular. Tachycardic. ABDOMEN: Soft, mildly distended, tender in lower quadrant area. No guarding. No rigidity. EXTREMITIES: No edema of the feet. SKIN: No rash or mass palpable. NEUROLOGICAL: The patient is awake, alert, oriented x3. Mood and affect normal. LABS: Hemoglobin 13.2, white count 4.4 with a BUN of 9, creatinine 0.41. UA has been negative. The blood culture obtained currently pending. DIAGNOSTIC IMPRESSION AND PLAN: 1. Patient admitted to the hospital with significant abdominal pain along with nausea. The patient did have a fever, tachycardia, source likely acute sigmoid diverticulitis with possible perforation and the likely organism to cover enteric gram-negative both aerobes and anaerobes. 2. The patient with multiple antibiotic allergies that will limit the number of antibiotics that could be safely used. PLAN: 1. Patient will be treated with cefepime 2 g every 12 hours and Flagyl 500 every 8 hours and provided coverage for enteric gram-negative both aerobes and anaerobes. 2. Aggressive IV fluids. 3. Surgery is on the case. If the patient has any further deterioration in clinical condition, may benefit from laparotomy and possible diverting colostomy at which time deep culture should be obtained. 4. We will follow up on the clinical condition and further adjust medication if needed. Thank you for this consultation. Will follow this patient along with you. MMODL / IJN: [id number] /
[2018-08-20] MEDS: HYDROmorphone 1 MG/ML 1 ML SYRINGE IVP PRN ×6 (00:49→20:07)
[2018-08-20 01:44] LABS: Glucose,Whole Blood 79 mg/dL (75-99)
[2018-08-20] MEDS ORDERED: NALOXONE 0.4 MG/ML 1 ML VIAL IV PRN (04:21)
[2018-08-20] MEDS: LEVOTHYROXINE 25 MCG TAB PO SCH ×2 (05:37→09:09)
[2018-08-20] MEDS: SODIUM CHLORIDE 0.9% 1,000 ML IV SCH ×2 (05:39→18:20)
[2018-08-20 05:52] LABS: HCT 39.2 % (34.0-46.0); HGB 12.6 gm/dL (11.4-16.0); MCHC 32.2 g/dL (31.0-37.0); MCV 96.2 fL (80.0-100.0); Mean Platelet Volume 7.5; Platelet Count 194 k/uL (150-450); RBC 4.07 m/uL (3.80-5.40); RDW 12.9 % (11.5-15.5); WBC 6.6 k/uL (3.8-10.6)
[2018-08-20 06:02] LABS: ALT 27 U/L (9-52); AST 24 U/L (14-36); Albumin 2.6 g/dL (3.5-5.0); Alkaline Phosphatase 28 U/L (38-126); Anion Gap 8 mmol/L; Blood Urea Nitrogen 8 mg/dL (7-17); Calcium 7.9 mg/dL (8.4-10.2); Carbon Dioxide 19 mmol/L (22-30); Chloride 109 mmol/L (98-107); Glucose 80 mg/dL (74-99); Magnesium 1.5 mg/dL (1.6-2.3); Phosphorus 2.8 mg/dL (2.5-4.5); Potassium 3.9 mmol/L (3.5-5.1); Sodium 136 mmol/L (137-145); Total Bilirubin 1.2 mg/dL (0.2-1.3); Total Protein 5.1 g/dL (6.3-8.2)
[2018-08-20 06:39] LABS: Band Neutrophils % 33 %; Eosinophils # (M) 0.07 k/uL (0-0.7); Lymphocytes # (M) 1.45 k/uL (1.0-4.8); Metamyelocytes # (M) 0.07 k/uL (0); Metamyelocytes % 1 %; Monocytes # (M) 0.13 k/uL (0-1.0); Neutrophils % (M) 41 %; Nucleated Red Blood Cells 0 /100 WBC (0-0); Total Cells Counted 100
[2018-08-20] MEDS ORDERED: POTASSIUM CHLORIDE ER 20 MEQ TAB.ER PO SCH (07:00)
[2018-08-20] MEDS: MAGNESIUM SULFATE-D5W PMX 1 GM in DEXTROSE/WATER 1 100ML.BAG IVPB SCH ×2 (07:06→14:44)
[2018-08-20] MEDS: POTASSIUM CHLORIDE 10 MEQ in WATER FOR INJECTION 1 100ML.BAG IVPB SCH ×2 (07:07→12:10)
[2018-08-20] MEDS: PANTOPRAZOLE 40 MG/10 ML VIAL IVP SCH (08:48)
[2018-08-20] MEDS ORDERED: THYROID, PORK 30 MG TAB PO SCH (09:00)
[2018-08-20] MEDS: IOPAMIDOL-300 CONTRAST 30 ML VIAL (ORAL USE) PO PRN ×3 (09:10→11:00)
--- NOTE | 2018-08-20 11:02 | P.PN ---
Subjective Progress Note Date: 08/20/18 62-year-old female patient with known history of diverticulosis who underwent a recent colonoscopy in June 2018 and she was told to have uncomplicated diverticulosis. She has had previous bouts of diverticulitis treated with antibiotics. This morning, the patient woke up with diffuse abdominal pain and the pain was rather crampy associated with some chills and fever. She was also nauseated without any significant emesis. She did have a loose liquidy bowel movements and non-since. No bloody bowel movement or any melanotic stool. The patient came into the hospital and she was given a CAT scan of the abdomen which showed moderate to severe enterocolitis involving the multiple small bowel loops and transverse colon and sigmoid colon. While there is sigmoid diverticulosis and mild the bowel inflammation appears to involve multiple areas. Acute diverticulitis with perforation is considered. Perforation into the intraperitoneal cavity of the left paramedian lower abdomen was suspected. There are collection measures about 3 cm in size. There was moderate to severe associated mesenteric edema and inflammation and moderate degree of pelvic ascites. The patient is currently in the intensive care unit. She got transferred due to concerns of sepsis. She is tachycardic and she is in sinus tachycardia with a heart rate of 110. She is maintaining a low blood pressure. Most recent BP reading is 159/91. Pulse ox 98% on room air. She is producing adequate amount of urine output in the Malik catheter was inserted. I saw this patient in the ICU. She had lower abdominal tenderness. She was uncomfortable. Her pain was controlled for now. She is receiving Dilaudid for pain control. She also and accommodation of cefepime and Flagyl. This is a broad-spectrum antibiotics covering for acute diverticulitis. The patient will be fluid resuscitated. General surgery consultation to the been obtained. Discussed the case with the general surgeon. On today's evaluation of 08/20/2018, the patient is being seen for a follow-up. She remains on IV antibiotics with a combination of cefepime and Flagyl. She was resuscitated IV fluids. She is afebrile for now. She is also less tachycardic. Abdominal pain is still present mainly in the lower quadrant bilaterally and there is direct tenderness there. Case was discussed again with the general surgeon. The patient will have a repeat CAT scan of the abdomen and pelvis. Meanwhile, she is hemodynamically stable. No chest pain. No shortness of breath. No nausea. No vomiting. White cell count today is at 6.6. She has developed some non-anion gap metabolic acidosis with a bicarb level of 19. Lactic acid level from yesterday was at 0.9. Rest of the blood work and electrolytes were all within normal limits with normal renal function and the patient is receiving IV fluids with normal saline today to 150 mL an hour. Objective - Vital Signs Vital signs: Vital Signs Temp 98.2 F 08/20/18 08:00 Pulse 94 08/20/18 09:00 Resp 22 08/20/18 09:00 BP 127/69 08/20/18 09:00 Pulse Ox 94 L 08/20/18 09:00 Intake & Output 08/19/18 08/20/18 08/20/18 18:59 06:59 18:59 Intake Total 2550 350 Output Total 1355 245 Balance 1195 105 Weight 52.163 kg 66.6 kg Intake: IV 2550 350 Cefepime 2 gm In Sodium 50 Chloride 0.9% 50 ml @ 100 mls/hr IVPB Q12H [facility] Rx# :[id number] Sodium Chloride 0.9% 1, 1300 350 000 ml @ 100 mls/hr IV . Q10H ONE Rx#:[id number] Sodium Chloride 0.9% 1, 1000 000 ml @ 999 mls/hr IV . Q1H1M ONE Rx#:[id number] metroNIDAZOLE-NS PMX 500 200 mg In Saline 1 100ml.bag @ 100 mls/hr IVPB ONCE STA Rx#:[id number] Output: Urine 1355 245 Other: Voiding Method Toilet Indwelling Catheter Indwelling Catheter # Voids 1 - Exam Gen. appearance the patient is awake, comfortable and mild degree of distress secondary to abdominal pain. He is a bit apprehensive and anxious. Head exam was generally normal. There was no scleral icterus or corneal arcus. Mucous membranes were moist. Neck was supple and without jugular venous distension, thyromegaly, or carotid bruits. Carotids were easily palpable bilaterally. There was no adenopathy. Lungs were clear to auscultation and percussion, and with normal diaphragmatic excursion. No wheezes or rales were noted. Cardiac exam revealed the PMI to be normally situated and sized. The rhythm was regular and no extrasystoles were noted during several minutes of auscultation. The first and second heart sounds were normal and physiologic splitting of the second heart sound was noted. There were no murmurs, rubs, clicks, or gallops. Examination of the abdomen showed diffuse abdominal tenderness with more tenderness in lower quadrants bilaterally. No rebound tenderness. No guarding. Bowel sounds are hypoactive at this point in time. No ascites. Examination of the extremities revealed easily palpable radial, femoral and pedal pulses. There was no cyanosis, clubbing or edema. Examination of the skin revealed no evidence of significant rashes, suspicious appearing nevi or other concerning lesions. Neurologically awake and alert and is no focal neurological deficits. - Labs CBC & Chem 7: 08/20/18 05:08 08/20/18 05:08 Labs: Abnormal Lab Results - Last 24 Hours (Table) 08/19/18 08/19/18 08/19/18 Range/Units 19:30 19:30 23:42 Lymphocytes # 0.6 L (1.0-4.8) k/uL Metamyelocytes # (Man) (0) k/uL Sodium 135 L (137-145) mmol/L Chloride (98-107) mmol/L Carbon Dioxide 21 L (22-30) mmol/L Creatinine 0.41 L (0.52-1.04) mg/dL POC Glucose (mg/dL) 70 L (75-99) mg/dL Calcium (8.4-10.2) mg/dL Magnesium (1.6-2.3) mg/dL Alkaline Phosphatase 37 L (38-126) U/L Total Protein 6.0 L (6.3-8.2) g/dL Albumin 3.3 L (3.5-5.0) g/dL 08/20/18 08/20/18 Range/Units 05:08 05:08 Lymphocytes # (1.0-4.8) k/uL Metamyelocytes # (Man) 0.07 H (0) k/uL Sodium 136 L (137-145) mmol/L Chloride 109 H (98-107) mmol/L Carbon Dioxide 19 L (22-30) mmol/L Creatinine 0.40 L (0.52-1.04) mg/dL POC Glucose (mg/dL) (75-99) mg/dL Calcium 7.9 L (8.4-10.2) mg/dL Magnesium 1.5 L (1.6-2.3) mg/dL Alkaline Phosphatase 28 L (38-126) U/L Total Protein 5.1 L (6.3-8.2) g/dL Albumin 2.6 L (3.5-5.0) g/dL Microbiology - Last 24 Hours (Table) 08/19/18 09:30 Urine Culture - Preliminary Urine,Voided Assessment and Plan Plan: Assessment 1 acute abdominal pain likely secondary to an acute complicated diverticulitis with perforation. The patient is currently on a combination of cefepime and Flagyl. Was assessed his IV fluids. White cell count is not elevated. Lactic acid level is within normal limits and the patient has a mild component of non- anion gap metabolic acidosis. Surgeries on the case. 2 acute febrile illness in a sedation with tachycardia secondary to above. Suspect intra-abdominal source of septicemia 3 history of diverticulosis 4 hypothyroidism 5 history of migraines Plan Continue the maintenance fluid to 150 mL an hour. Continue the current antibiotic coverage which included a combination of cefepime and Flagyl. Dilaudid for pain control. IV Tylenol for fever. Monitor the heart rate. Monitor blood pressure. Monitor urine output. Malik catheter was inserted. We will repeat CAT scan of the abdomen and pelvis and discussed the case with surgery in regards to surgical intervention for a complicated perforated diverticulitis.
--- NOTE | 2018-08-20 11:24 | P.PN ---
Subjective Progress Note Date: 08/20/18 This is a 62-year-old female, patient of [facility]. She has a known past medical history of diverticulosis, hypothyroidism and migraines. Patient presents to the emergency room with complaints of severe abdominal pain throughout her whole abdomen that started around 2:00 this morning. She was having chills and nausea. No vomiting. Reports normal bowel movements. No blood in the stools. Computed tomography scan of the abdomen and pelvis shows moderate to severe enterocolitis involving multiple small bowel loops, transverse colon and sigmoid colon. There is sigmoid diverticulosis the bowel inflammation appears to involve multiple areas. Acute diverticulitis with perforation is also possible. Perforation into the intraperitoneal cavity of the left paramedian lower abdomen. Air collection measuring 3.0 cm. There is [id number] associated mesenteric edema/inflammation and moderate pelvic ascites. Patient was given cefepime and Flagyl in the ER. Morphine for pain. Surgery has been consulted. Patient denies any chest pain or shortness of breath. Denies any bowel movement changes or urinary symptoms. Patient was seen and examined in the ER. 08/20/2018 patient has moved to the intensive care unit last night due to elevated temperature and increased heart rate. At this time patient is still complaining of abdominal pain and right lower quadrant. Patient is being followed by critical care team Dr. amado and Dr. Mireles for surgical services. Plan for patient to get CAT scan today with contrast to assess whether patient will need surgical intervention. At this time patient denies chest pain or shortness breath. Denies urinary burning or frequency. Objective - Vital Signs Vital signs: Vital Signs Temp 98.2 F 08/20/18 08:00 Pulse 94 08/20/18 09:00 Resp 22 08/20/18 09:00 BP 127/69 08/20/18 09:00 Pulse Ox 94 L 08/20/18 09:00 Intake & Output 08/19/18 08/20/18 08/20/18 18:59 06:59 18:59 Intake Total 2550 350 Output Total 1355 245 Balance 1195 105 Weight 52.163 kg 66.6 kg Intake: IV 2550 350 Cefepime 2 gm In Sodium 50 Chloride 0.9% 50 ml @ 100 mls/hr IVPB Q12H [facility] Rx# :[id number] Sodium Chloride 0.9% 1, 1300 350 000 ml @ 100 mls/hr IV . Q10H [facility] Rx#:[id number] Sodium Chloride 0.9% 1, 1000 000 ml @ 999 mls/hr IV . Q1H1M [facility] Rx#:[id number] metroNIDAZOLE-NS PMX 500 200 mg In Saline 1 100ml.bag @ 100 mls/hr IVPB ONCE STA Rx#:[id number] Output: Urine 1355 245 Other: Voiding Method Toilet Indwelling Catheter Indwelling Catheter # Voids 1 - Exam Head normocephalic Neck supple Lungs clear to auscultation bilaterally no wheezing or crackles Heart regular rate and rhythm S1-S2, no rub or gallop Abdomen is diffuse tenderness distended hypoactive bowel sounds Extremities no edema Neuro alert and orientated to 3 - Labs CBC & Chem 7: 08/20/18 05:08 08/20/18 05:08 Labs: Abnormal Lab Results - Last 24 Hours (Table) 08/19/18 08/19/18 08/19/18 Range/Units 19:30 19:30 23:42 Lymphocytes # 0.6 L (1.0-4.8) k/uL Metamyelocytes # (Man) (0) k/uL Sodium 135 L (137-145) mmol/L Chloride (98-107) mmol/L Carbon Dioxide 21 L (22-30) mmol/L Creatinine 0.41 L (0.52-1.04) mg/dL POC Glucose (mg/dL) 70 L (75-99) mg/dL Calcium (8.4-10.2) mg/dL Magnesium (1.6-2.3) mg/dL Alkaline Phosphatase 37 L (38-126) U/L Total Protein 6.0 L (6.3-8.2) g/dL Albumin 3.3 L (3.5-5.0) g/dL 08/20/18 08/20/18 Range/Units 05:08 05:08 Lymphocytes # (1.0-4.8) k/uL Metamyelocytes # (Man) 0.07 H (0) k/uL Sodium 136 L (137-145) mmol/L Chloride 109 H (98-107) mmol/L Carbon Dioxide 19 L (22-30) mmol/L Creatinine 0.40 L (0.52-1.04) mg/dL POC Glucose (mg/dL) (75-99) mg/dL Calcium 7.9 L (8.4-10.2) mg/dL Magnesium 1.5 L (1.6-2.3) mg/dL Alkaline Phosphatase 28 L (38-126) U/L Total Protein 5.1 L (6.3-8.2) g/dL Albumin 2.6 L (3.5-5.0) g/dL Microbiology - Last 24 Hours (Table) 08/19/18 09:30 Urine Culture - Preliminary Urine,Voided Assessment and Plan Assessment: 1. Abdominal pain: Computed tomography scan showing severe enterocolitis involving multiple small bowel loops transfer: And sigmoid colon. Concerns of a possible acute diverticulitis with perforation. Patient started on Flagyl and cefepime in the ER. Surgery has been consulted. She is currently nothing by mouth. Continue with IV fluids normal saline at 100. Per infectious disease continue suppertime and Flagyl. Patient to get CAT scan with contrast today to assess if intervention is required. Dr. Long per critical care and Dr. Brock per surgical service are following closely. Blood and urine cultures pending 2. History of diverticulitis 3. Hypothyroidism: Resume Synthroid supplements. If patient remains nothing by mouth tomorrow will need to switch oral Synthroid to IV. Patient received oral dose of Synthroid on 08/20 4. History of migraines GI prophylaxis Protonix and DVT prophylaxis SCDs until seen by surgeon. 1. Abdominal pain: Computed tomography scan showing severe enterocolitis involving multiple small bowel loops transfer: And sigmoid colon. Concerns of a possible acute diverticulitis with perforation. Patient started on Flagyl and cefepime in the ER. Surgery has been consulted. She is currently nothing by mouth. Continue with IV fluids normal saline at 100 2. History of diverticulitis 3. Hypothyroidism: Resume Synthroid supplements. If patient remains nothing by mouth tomorrow will need to switch oral Synthroid to IV 4. History of migraines GI prophylaxis Protonix and DVT prophylaxis SCDs until seen by surgeon.
--- NOTE | 2018-08-20 12:11 | P.PN ---
Subjective Progress Note Date: 08/20/18 62-year-old female just returned from having a CAT scan of the abdomen and pelvis done patient states is a slight improvement with less abdominal pain. White count today is 6.6. Patient developed an episode last evening on the surgical unit became tachycardic hypotensive needed to be transferred to the ICU. Currently continues on IV Flagyl and Cefepime current heart rate is in the 90s total bili 1.2 AST ALT not elevated Objective - Vital Signs Vital signs: Vital Signs Temp 98.2 F 08/20/18 08:00 Pulse 94 08/20/18 09:00 Resp 22 08/20/18 09:00 BP 127/69 08/20/18 09:00 Pulse Ox 94 L 08/20/18 09:00 Intake & Output 08/19/18 08/20/18 08/20/18 18:59 06:59 18:59 Intake Total 2550 350 Output Total 1355 245 Balance 1195 105 Weight 52.163 kg 66.6 kg Intake: IV 2550 350 Cefepime 2 gm In Sodium 50 Chloride 0.9% 50 ml @ 100 mls/hr IVPB Q12H [facility] Rx# :[id number] Sodium Chloride 0.9% 1, 1300 350 000 ml @ 100 mls/hr IV . Q10H ONE Rx#:[id number] Sodium Chloride 0.9% 1, 1000 000 ml @ 999 mls/hr IV . Q1H1M [facility] Rx#:[id number] metroNIDAZOLE-NS PMX 500 200 mg In Saline 1 100ml.bag @ 100 mls/hr IVPB ONCE STA Rx#:[id number] Output: Urine 1355 245 Other: Voiding Method Toilet Indwelling Catheter Indwelling Catheter # Voids 1 - Exam Physical exam 62-year-old female just returned from the CAT scan department alert oriented in no acute distress Lungs adequate air movement bilaterally on room air sats 98% Heart S1-S2 audible irregular heart rate in the 90s mild tachycardia Abdomen less distended compared to prior assessment less tenderness. Hypoactive bowel tones no nausea no vomiting not passing gas no stool Extremities no edema - Labs CBC & Chem 7: 08/20/18 05:08 08/20/18 05:08 Labs: Abnormal Lab Results - Last 24 Hours (Table) 08/19/18 08/19/18 08/19/18 Range/Units 19:30 19:30 23:42 Lymphocytes # 0.6 L (1.0-4.8) k/uL Metamyelocytes # (Man) (0) k/uL Sodium 135 L (137-145) mmol/L Chloride (98-107) mmol/L Carbon Dioxide 21 L (22-30) mmol/L Creatinine 0.41 L (0.52-1.04) mg/dL POC Glucose (mg/dL) 70 L (75-99) mg/dL Calcium (8.4-10.2) mg/dL Magnesium (1.6-2.3) mg/dL Alkaline Phosphatase 37 L (38-126) U/L Total Protein 6.0 L (6.3-8.2) g/dL Albumin 3.3 L (3.5-5.0) g/dL 08/20/18 08/20/18 Range/Units 05:08 05:08 Lymphocytes # (1.0-4.8) k/uL Metamyelocytes # (Man) 0.07 H (0) k/uL Sodium 136 L (137-145) mmol/L Chloride 109 H (98-107) mmol/L Carbon Dioxide 19 L (22-30) mmol/L Creatinine 0.40 L (0.52-1.04) mg/dL POC Glucose (mg/dL) (75-99) mg/dL Calcium 7.9 L (8.4-10.2) mg/dL Magnesium 1.5 L (1.6-2.3) mg/dL Alkaline Phosphatase 28 L (38-126) U/L Total Protein 5.1 L (6.3-8.2) g/dL Albumin 2.6 L (3.5-5.0) g/dL Microbiology - Last 24 Hours (Table) 08/19/18 09:30 Urine Culture - Final Urine,Voided Assessment and Plan Assessment: Impression Present on admission left lower quadrant abdominal pain suspect due to acute complicated diverticulitis perforation with sepsis suspect intra-abdominal source of septicemia CAT scan of the abdomen and pelvis obtained in the emergency room report indicates severe enterocolitis involving multiple small bowel loops in the sigmoid colon History of diverticulitis July 14 2018 colonoscopy done report cecum ascending and transverse colon appeared normal and the descending moderate diverticulosis no evidence of diverticulitis Plan IV fluid for hydration Keep nothing by mouth except for ice chips Continue IV antibiotics cefepime and Flagyl as ordered DVT and GI prophylaxis Repeat labs in the morning Will follow up on the CAT scan of the abdomen pelvis with further surgical recommendations pending the result Continue recommendations by the flight operation coordinator The above impression and plan of care have been discussed and directed by signing physician. Henny Graham nurse practitioner acting as scribe for signing physician.
[2018-08-20 12:18] LABS: Glucose,Whole Blood 77 mg/dL (75-99)
--- NOTE | 2018-08-20 13:15 | CT ---
EXAMINATION TYPE: CT abdomen pelvis wo con DATE OF EXAM: 08/20/2018 COMPARISON: 08/19/2018 HISTORY: Possible perforated diverticula CT DLP: 361 mGycm Automated exposure control for dose reduction was used. TECHNIQUE: Helical acquisition of images was performed from the lung bases through the pelvis. FINDINGS: LUNG BASES: Contrast is seen within the distal esophagus which may relate to gastroesophageal reflux or delayed propulsion. There are new trace bilateral pleural effusions and associated bibasilar subse gmental atelectasis. LIVER/GB: Hepatic parenchyma is diffusely hypoattenuated in comparison to that of the spleen, most co mmonly seen in hepatic steatosis. This finding limits evaluation for hepatic masses. No gross evidenc e of hepatic mass is seen. No intrahepatic biliary ductal dilatation. No cholelithiasis. Vicarious ex cretion of contrast within the gallbladder is seen from recent CT. PANCREAS: Unremarkable unenhanced morphology. Prominence of the main pancreatic duct is unchanged and better appreciated on the enhanced CT of the previous day. SPLEEN: No significant abnormality is seen. ADRENALS: No significant abnormality is seen. KIDNEYS: No nephrolithiasis or hydronephrosis. FREE AIR: The focal collection of free air along the right lateral border of the sigmoid colon previ ously measuring up to 1.7 cm currently measures only 8 mm. ADENOPATHY: Evaluation for adenopathy is limited on noncontrast CT, however no gross evidence of mariia nopathy is seen within the abdomen or pelvis (greater than 1 cm short axis lymph nodes). URINARY BLADDER: Catheter seen within the urinary bladder and focus of air is likely from recent ins trumentation. OSSEOUS STRUCTURES: Mild multilevel degenerative changes of the spine are seen.. BOWEL: There are similar appearing phlegmonous changes surrounding the thickened sigmoid colon. Mese nteric congestion extends from the pelvis upward with multiple loops of edematous small bowel in the left mid abdomen and left lower quadrant. These are nondilated mildly up to 3.1 cm. There is a small bowel to small bowel focal intussusception seen in the left mid abdomen on coronal image 60 and axial images 49 through 45. There is mild pelvic ascites. OTHER: Calcified uterine leiomyoma seen within the uterus as there are dystrophic calcifications. IMPRESSION: 1. IMPROVED EXTRALUMINAL LOCULATED PERICOLONIC FOCI OF FREE AIR ALONG THE THICKENED AND INFLAMED SIGM OID COLON. SURROUNDING PHLEGMONOUS FAT STRANDING IS SIMILAR TO THE PRIOR WITH EXTENSIVE MESENTERIC CO NGESTION AND SMALL VOLUME PELVIC ASCITES. 2. SMALL BOWEL TO SMALL BOWEL INTUSSUSCEPTION, TYPICALLY CLINICALLY INSIGNIFICANT, WITHIN THE LEFT MA D ABDOMEN THERE ARE MULTIPLE MILDLY DILATED AND THICKENED LOOPS OF SMALL BOWEL IN THE LEFT MID ABD OMEN AND CENTRAL ABDOMEN SUGGESTING ENTERITIS AND ILEUS. THESE COULD BE REACTIVE. 3. NEW SMALL BILATERAL PLEURAL EFFUSIONS AND ASSOCIATED SUBSEGMENTAL COMPRESSIVE ATELECTASIS.
--- NOTE | 2018-08-20 16:41 | PN ---
PROGRESS NOTE DATE OF SERVICE: 08/20/2018. REASON FOR FOLLOWUP: Sepsis with acute diverticulitis, perforated. INTERVAL HISTORY: The patient is currently afebrile. Her abdominal pain has slightly decreased at about 5/10 compared to 10/10 yesterday. Slight nausea but no vomiting. Denies any chest pain or shortness of breath. No cough or significant diarrhea. EXAMINATION: Blood pressure is 147/78 with a pulse of 103 temperature 98. She is 94% on room air. General description is a middle-aged female lying in bed in no distress. Respiratory system: Unlabored breathing. Clear to auscultation anteriorly. Heart S1, S2, regular rate and rhythm. Abdomen soft, mildly distended, tender in lower quadrant area. No guarding or rigidity. Extremities are no edema of the feet. LABS: Hemoglobin is 12.5, white count 6.6 with a BUN of 8, creatinine 0.40. She did have a repeat CT which did show evidence of a sigmoid diverticulitis perforation, but no abscess. DIAGNOSTIC IMPRESSION AND PLAN: Patient with acute abdominal with acute sigmoid diverticulitis with perforation, but no drainable abscess. The patient is currently covered with cefepime and Flagyl because of her PENICILLIN ALLERGY that will be continued. We will watch her clinical course closely. Continue supportive care. MMODL / IJN: [id number] /
[2018-08-20 23:16] LABS: Glucose,Whole Blood 70 mg/dL (75-99)
[2018-08-20] MEDS ORDERED: DILTIAZEM DRIP BOLUS FROM BAG 1 MG SOLN IV ONE (23:35)
[2018-08-20] MEDS ORDERED: DEXTROSE 50%-WATER 50 ML SYRINGE IVP ONE (23:42)
[2018-08-20] MEDS: DILTIAZEM 50 MG in SODIUM CHLORIDE 0.9% 40 ML IV SCH ×2 (23:58→23:59)
[2018-08-21] MEDS: CEFEPIME 2 GM in SODIUM CHLORIDE 0.9% 50 ML IVPB SCH ×3 (00:14→23:44)
[2018-08-21] MEDS: metroNIDAZOLE-NS PMX 500 MG in SALINE 1 100ML.BAG IVPB SCH ×4 (00:15→18:29)
[2018-08-21 00:16] LABS: Glucose,Whole Blood 115 mg/dL (75-99)
[2018-08-21] MEDS: HYDROmorphone 1 MG/ML 1 ML SYRINGE IVP PRN ×4 (03:55→16:01)
[2018-08-21 04:49] LABS: Basophils % (A) 0 %; Eosinophils % (A) 0 %; HGB 12.1 gm/dL (11.4-16.0); Lymphocytes # (A) 0.7 k/uL (1.0-4.8); Lymphocytes % (A) 7 %; MCH 31.6 pg (25.0-35.0); MCHC 33.7 g/dL (31.0-37.0); MCV 93.7 fL (80.0-100.0); Mean Platelet Volume 7.7; Monocytes # (A) 0.3 k/uL (0-1.0); Monocytes % (A) 3 %; Neutrophils # (A) 8.6 k/uL (1.3-7.7); Neutrophils % (A) 88 %; Platelet Count 188 k/uL (150-450); RBC 3.84 m/uL (3.80-5.40); RDW 12.8 % (11.5-15.5); WBC 9.8 k/uL (3.8-10.6)
[2018-08-21 05:10] LABS: ALT 31 U/L (9-52); AST 28 U/L (14-36); Albumin 2.6 g/dL (3.5-5.0); Alkaline Phosphatase 52 U/L (38-126); Anion Gap 11 mmol/L; Blood Urea Nitrogen 7 mg/dL (7-17); Calcium 7.9 mg/dL (8.4-10.2); Carbon Dioxide 15 mmol/L (22-30); Chloride 106 mmol/L (98-107); Glucose 87 mg/dL (74-99); Phosphorus 1.5 mg/dL (2.5-4.5); Potassium 3.5 mmol/L (3.5-5.1); Sodium 132 mmol/L (137-145); Total Bilirubin 0.6 mg/dL (0.2-1.3); Total Protein 5.1 g/dL (6.3-8.2)
[2018-08-21] MEDS: POTASSIUM CHLORIDE ER 20 MEQ TAB.ER PO SCH ×2 (06:04→06:57)
[2018-08-21] MEDS: LEVOTHYROXINE 25 MCG TAB PO SCH (06:04)
[2018-08-21] MEDS: SODIUM CHLORIDE 0.9% 1,000 ML IV SCH ×3 (06:04→09:35)
[2018-08-21 06:34] LABS: Glucose,Whole Blood 85 mg/dL (75-99)
[2018-08-21] MEDS: POTASSIUM PHOSPHATE 10 MMOL in SODIUM CHLORIDE 0.9% 250 ML IV SCH ×2 (06:53→10:30)
[2018-08-21] MEDS: PANTOPRAZOLE 40 MG/10 ML VIAL IVP SCH (08:06)
[2018-08-21] MEDS: THYROID, PORK 30 MG TAB PO SCH (08:12)
[2018-08-21] MEDS ORDERED: THYROID, PORK 30 MG TAB PO SCH (09:00)
[2018-08-21] MEDS: FLUTICASONE 50MCG/SPRAY NASAL 16GM EA NOSTRIL PRN ×2 (09:00→21:56)
--- NOTE | 2018-08-21 10:38 | XR ---
EXAMINATION TYPE: XR chest 1V portable DATE OF EXAM: 08/21/2018 COMPARISON: NONE HISTORY: Shortness of breath with exertion TECHNIQUE: Single frontal view of the chest is obtained. FINDINGS: Patient is rotated. Question some patchy retrocardiac density, blunting of the left costop hrenic angle. Interstitium is mildly increased. There is no evident pneumothorax. Heart size within n ormal limits accounting for technique. The aorta is dense. There are overlying cardiac leads. IMPRESSION: Possible basilar atelectasis versus pneumonia and associated effusion. Correlate to excl ude volume overload, there may be underlying COPD.
[2018-08-21] MEDS: DEXTROSE 5% IN WATER 1,000 ML with SODIUM BICARB (1 MEQ/ML) 150 ML IV SCH (11:25)
--- NOTE | 2018-08-21 11:41 | P.PN ---
Subjective Progress Note Date: 08/21/18 This is a 62-year-old female, patient of [facility]. She has a known past medical history of diverticulosis, hypothyroidism and migraines. Patient presents to the emergency room with complaints of severe abdominal pain throughout her whole abdomen that started around 2:00 this morning. She was having chills and nausea. No vomiting. Reports normal bowel movements. No blood in the stools. Computed tomography scan of the abdomen and pelvis shows moderate to severe enterocolitis involving multiple small bowel loops, transverse colon and sigmoid colon. There is sigmoid diverticulosis the bowel inflammation appears to involve multiple areas. Acute diverticulitis with perforation is also possible. Perforation into the intraperitoneal cavity of the left paramedian lower abdomen. Air collection measuring 3.0 cm. There is [id number] associated mesenteric edema/inflammation and moderate pelvic ascites. Patient was given cefepime and Flagyl in the ER. Morphine for pain. Surgery has been consulted. Patient denies any chest pain or shortness of breath. Denies any bowel movement changes or urinary symptoms. Patient was seen and examined in the ER. 08/20/2018 patient has moved to the intensive care unit last night due to elevated temperature and increased heart rate. At this time patient is still complaining of abdominal pain and right lower quadrant. Patient is being followed by critical care team Dr. amado and Dr. Mireles for surgical services. Plan for patient to get CAT scan today with contrast to assess whether patient will need surgical intervention. At this time patient denies chest pain or shortness breath. Denies urinary burning or frequency. 08/21/2018 patient remains in the ICU. She went to [facility] relation with rapid ventricular response last night. She required to be placed on a Cardizem drip. She's converted to sinus rhythm. Cardizem is currently turned off. And cardiology has been consulted. Patient's computed tomography scan of the abdomen and pelvis shows improvement in the free air. No surgery is scheduled at this time. Continue with antibiotics. Patient denies any chest pain or shortness of breath. Reports some improvement in her abdominal pain and distention. Denies any nausea or vomiting. She reports passing gas. No bowel movement. Has Malik catheter in place Objective - Vital Signs Vital signs: Vital Signs Temp 98.5 F 08/21/18 08:00 Pulse 81 08/21/18 10:45 Resp 14 08/21/18 10:45 BP 135/38 08/21/18 10:45 Pulse Ox 96 08/21/18 10:45 Intake & Output 08/20/18 08/21/18 08/21/18 18:59 06:59 18:59 Intake Total 3050 2053.750 1021.333 Output Total 1465 1455 485 Balance 1585 598.750 536.333 Weight 64.9 kg Intake: IV 1650 2050 925 Cefepime 2 gm In Sodium 50 Chloride 0.9% 50 ml @ 100 mls/hr IVPB Q12H [facility] Rx# :[id number] Potassium Chloride 10 meq 100 In Water For Injection 1 100ml.bag @ 100 mls/hr IVPB Q1H [facility] Rx#: [id number] Potassium Phosphate 10 625 mmol In Sodium Chloride 0 .9% 250 ml @ 125 mls/hr IV Q2H [facility] Rx#:[id number] Sodium Chloride 0.9% 1, 350 000 ml @ 100 mls/hr IV . Q10H [facility] Rx#:[id number] Sodium Chloride 0.9% 1, 1200 1800 300 000 ml @ 150 mls/hr IV . Q6H40M [facility] Rx#:[id number] metroNIDAZOLE-NS PMX 500 100 100 mg In Saline 1 100ml.bag @ 100 mls/hr IVPB ONCE [facility] Rx#:[id number] Intake, IV Titration 200 3.750 46.333 Amount Diltiazem 50 mg In Sodium 3.750 46.333 Chloride 0.9% 40 ml @ Per Protocol IV .Q0M [facility] Rx#:[id number] Magnesium Sulfate-D5w Pmx 100 1 gm In Dextrose/Water 1 100ml.bag @ 100 mls/hr IVPB Q1H [facility] Rx#: [id number] Potassium Chloride 10 meq 100 In Water For Injection 1 100ml.bag @ 100 mls/hr IVPB Q1H [facility] Rx#: [id number] Oral 1200 50 Output: Urine 1465 1455 485 Other: Voiding Method Indwelling Catheter Indwelling Catheter Indwelling Catheter - Exam Head normocephalic Neck supple Lungs clear to auscultation bilaterally no wheezing or crackles Heart regular rate and rhythm S1-S2, no rub or gallop Abdomen is soft mildly distended but softer. Positive hypoactive bowel sounds diffuse tenderness Extremities no edema Neuro alert and orientated to 3 - Labs CBC & Chem 7: 08/21/18 04:06 08/21/18 04:06 Labs: Abnormal Lab Results - Last 24 Hours (Table) 08/20/18 08/21/18 08/21/18 Range/Units 23:14 00:14 04:06 Neutrophils # 8.6 H (1.3-7.7) k/uL Lymphocytes # 0.7 L (1.0-4.8) k/uL Sodium (137-145) mmol/L Carbon Dioxide (22-30) mmol/L Creatinine (0.52-1.04) mg/dL POC Glucose (mg/dL) 70 L 115 H (75-99) mg/dL Calcium (8.4-10.2) mg/dL Phosphorus (2.5-4.5) mg/dL Total Protein (6.3-8.2) g/dL Albumin (3.5-5.0) g/dL TSH (0.465-4.680) mIU/L 08/21/18 08/21/18 Range/Units 04:06 04:06 Neutrophils # (1.3-7.7) k/uL Lymphocytes # (1.0-4.8) k/uL Sodium 132 L (137-145) mmol/L Carbon Dioxide 15 L (22-30) mmol/L Creatinine 0.37 L (0.52-1.04) mg/dL POC Glucose (mg/dL) (75-99) mg/dL Calcium 7.9 L (8.4-10.2) mg/dL Phosphorus 1.5 L (2.5-4.5) mg/dL Total Protein 5.1 L (6.3-8.2) g/dL Albumin 2.6 L (3.5-5.0) g/dL TSH <0.015 L (0.465-4.680) mIU/L Microbiology - Last 24 Hours (Table) 08/19/18 19:30 Blood Culture - Preliminary Blood No Growth after 24 hours 08/19/18 09:30 Urine Culture - Final Urine,Voided Assessment and Plan Assessment: 1. Acute complicated diverticulitis perforation with sepsis: Computed tomography scan showing severe enterocolitis involving multiple small bowel loops transverse colon And sigmoid colon. Concerns of a possible acute diverticulitis with perforation. Patient started on Flagyl and cefepime in the ER. Repeat computed tomography scan the abdomen and pelvis showing improvement and he free air. She has been evaluated by surgical service. No surgery at this time. Continue with antibiotics. Followed by infectious disease. Blood cultures remain negative 2. History of diverticulitis 3. Hypothyroidism: Continue Synthroid 4. History of migraines 5. New onset of atrial fibrillation with rapid ventricular response. Patient did require Cardizem drip. converted to sinus rhythm. Cardiology consulted. Check thyroid studies. Await cardiology recommendations regarding anticoagulation 6. Hypophosphatemia. Patient received phosphorus supplement. GI prophylaxis Protonix and DVT prophylaxis SCDs until seen by surgeon. I performed an examination of the patient and discussed their management with the physician Art[employer] Breeding [employer]ributor. I have reviewed the Physician Artificial Breeding Distributor's notes and agree with the documented findings and plan of care
[2018-08-21 11:55] LABS: Glucose,Whole Blood 139 mg/dL (75-99)
[2018-08-21 11:56] LABS: T4, Free (Free Thyroxine) 1.33 ng/dL (0.78-2.19)
[2018-08-21] MEDS: ACETAMINOPHEN TAB 325 MG TAB PO PRN ×2 (11:58→21:49)
--- NOTE | 2018-08-21 14:22 | P.PN ---
Subjective Progress Note Date: 08/21/18 62-year-old female patient with known history of diverticulosis who underwent a recent colonoscopy in June 2018 and she was told to have uncomplicated diverticulosis. She has had previous bouts of diverticulitis treated with antibiotics. This morning, the patient woke up with diffuse abdominal pain and the pain was rather crampy associated with some chills and fever. She was also nauseated without any significant emesis. She did have a loose liquidy bowel movements and non-since. No bloody bowel movement or any melanotic stool. The patient came into the hospital and she was given a CAT scan of the abdomen which showed moderate to severe enterocolitis involving the multiple small bowel loops and transverse colon and sigmoid colon. While there is sigmoid diverticulosis and mild the bowel inflammation appears to involve multiple areas. Acute diverticulitis with perforation is considered. Perforation into the intraperitoneal cavity of the left paramedian lower abdomen was suspected. There are collection measures about 3 cm in size. There was moderate to severe associated mesenteric edema and inflammation and moderate degree of pelvic ascites. The patient is currently in the intensive care unit. She got transferred due to concerns of sepsis. She is tachycardic and she is in sinus tachycardia with a heart rate of 110. She is maintaining a low blood pressure. Most recent BP reading is 159/91. Pulse ox 98% on room air. She is producing adequate amount of urine output in the Malik catheter was inserted. I saw this patient in the ICU. She had lower abdominal tenderness. She was uncomfortable. Her pain was controlled for now. She is receiving Dilaudid for pain control. She also and accommodation of cefepime and Flagyl. This is a broad-spectrum antibiotics covering for acute diverticulitis. The patient will be fluid resuscitated. General surgery consultation to the been obtained. Discussed the case with the general surgeon. On today's evaluation of 08/20/2018, the patient is being seen for a follow-up. She remains on IV antibiotics with a combination of cefepime and Flagyl. She was resuscitated IV fluids. She is afebrile for now. She is also less tachycardic. Abdominal pain is still present mainly in the lower quadrant bilaterally and there is direct tenderness there. Case was discussed again with the general surgeon. The patient will have a repeat CAT scan of the abdomen and pelvis. Meanwhile, she is hemodynamically stable. No chest pain. No shortness of breath. No nausea. No vomiting. White cell count today is at 6.6. She has developed some non-anion gap metabolic acidosis with a bicarb level of 19. Lactic acid level from yesterday was at 0.9. Rest of the blood work and electrolytes were all within normal limits with normal renal function and the patient is receiving IV fluids with normal saline today to 150 mL an hour. On 08/21/2008 and I'm seeing this patient for a follow-up. She has no specific complaints. Earlier last night, around midnight, the patient went into atrial fibrillation with rapid ventricular response. She was loaded and maintain on Cardizem drip for rate control. Subsequently this morning at around 6:00 she converted back to normal sinus rhythm. She is free of any chest pain. Her abdominal pain is still present although the less severity. She has no significant nausea. She is not passing any flatus or bowel movements. No abdominal distention patient remains on a combination of cefepime and Flagyl. She has developed a component of non-anion gap metabolic acidosis. Serum bicarb is down to 15 with an anion gap of 11. The blood culture is negative. Hemoglobin is at 12.1 with a release count of 9.8. The follow-up CAT scan of the abdomen and pelvis that was done yesterday showed improved extraluminal loculated pericolonic foci of free air along the thickened and inflamed sigmoid colon. There is surrounding phlegmonous fats stranding which is similar to the previous CAT scan findings along with extensive mesenteric congestion and small volume pelvic ascites. There is also small bowel dilatation and thickening in the left mid abdomen and the central abdomen consistent with enteritis and also concerning for intussusception. There was also new small bilateral pleural effusion. Discussed the findings general surgery. The plan is to continue with antibiotics and watchful waiting. Phosphorus is to be replaced. Objective - Vital Signs Vital signs: Vital Signs Temp 98.6 F 08/21/18 12:00 Pulse 91 08/21/18 13:00 Resp 19 08/21/18 13:00 BP 159/82 08/21/18 13:00 Pulse Ox 96 08/21/18 13:00 Intake & Output 08/20/18 08/21/18 08/21/18 18:59 06:59 18:59 Intake Total 3050 2053.750 1546.333 Output Total 1465 1455 785 Balance 1585 598.750 761.333 Weight 64.9 kg Intake: IV 1650 2050 1450 Cefepime 2 gm In Sodium 50 50 Chloride 0.9% 50 ml @ 100 mls/hr IVPB Q12H [facility] Rx# :[id number] Dextrose 5% in Water 1, 150 000 ml @ 75 mls/hr IV . [id number] [facility] with Sodium Bicarb (1 Meq/ml) 150 ml Rx#:[id number] Potassium Chloride 10 meq 100 In Water For Injection 1 100ml.bag @ 100 mls/hr IVPB Q1H [facility] Rx#: [id number] Potassium Phosphate 10 625 mmol In Sodium Chloride 0 .9% 250 ml @ 125 mls/hr IV Q2H [facility] Rx#:[id number] Sodium Chloride 0.9% 1, 350 000 ml @ 100 mls/hr IV . Q10H [facility] Rx#:[id number] Sodium Chloride 0.9% 1, 1200 1800 525 000 ml @ 75 mls/hr IV . [id number] [facility] Rx#:[id number] metroNIDAZOLE-NS PMX 500 100 100 100 mg In Saline 1 100ml.bag @ 100 mls/hr IVPB ONCE [facility] Rx#:[id number] Intake, IV Titration 200 3.750 46.333 Amount Diltiazem 50 mg In Sodium 3.750 46.333 Chloride 0.9% 40 ml @ Per Protocol IV .Q0M [facility] Rx#:[id number] Magnesium Sulfate-D5w Pmx 100 1 gm In Dextrose/Water 1 100ml.bag @ 100 mls/hr IVPB Q1H [facility] Rx#: [id number] Potassium Chloride 10 meq 100 In Water For Injection 1 100ml.bag @ 100 mls/hr IVPB Q1H [facility] Rx#: [id number] Oral 1200 50 Output: Urine 1465 1455 785 Other: Voiding Method Indwelling Catheter Indwelling Catheter Indwelling Catheter # Voids 1 - Exam Gen. appearance the patient is awake, comfortable and mild degree of distress secondary to abdominal pain. He is a bit apprehensive and anxious. Head exam was generally normal. There was no scleral icterus or corneal arcus. Mucous membranes were moist. Neck was supple and without jugular venous distension, thyromegaly, or carotid bruits. Carotids were easily palpable bilaterally. There was no adenopathy. Lungs were clear to auscultation and percussion, and with normal diaphragmatic excursion. No wheezes or rales were noted. Cardiac exam revealed the PMI to be normally situated and sized. The rhythm was regular and no extrasystoles were noted during several minutes of auscultation. The first and second heart sounds were normal and physiologic splitting of the second heart sound was noted. There were no murmurs, rubs, clicks, or gallops. Examination of the abdomen showed diffuse abdominal tenderness with more tenderness in lower quadrants bilaterally. No rebound tenderness. No guarding. Bowel sounds are hypoactive at this point in time. No ascites. Overall abdominal tenderness is improved compared to yesterday. No bowel sounds. No abdominal distention. Examination of the extremities revealed easily palpable radial, femoral and pedal pulses. There was no cyanosis, clubbing or edema. Examination of the skin revealed no evidence of significant rashes, suspicious appearing nevi or other concerning lesions. Neurologically awake and alert and is no focal neurological deficits. - Labs CBC & Chem 7: 08/21/18 04:06 08/21/18 04:06 Labs: Abnormal Lab Results - Last 24 Hours (Table) 08/20/18 08/21/18 08/21/18 Range/Units 23:14 00:14 04:06 Neutrophils # 8.6 H (1.3-7.7) k/uL Lymphocytes # 0.7 L (1.0-4.8) k/uL Sodium (137-145) mmol/L Carbon Dioxide (22-30) mmol/L Creatinine (0.52-1.04) mg/dL POC Glucose (mg/dL) 70 L 115 H (75-99) mg/dL Calcium (8.4-10.2) mg/dL Phosphorus (2.5-4.5) mg/dL Total Protein (6.3-8.2) g/dL Albumin (3.5-5.0) g/dL TSH (0.465-4.680) mIU/L 08/21/18 08/21/18 08/21/18 Range/Units 04:06 04:06 11:52 Neutrophils # (1.3-7.7) k/uL Lymphocytes # (1.0-4.8) k/uL Sodium 132 L (137-145) mmol/L Carbon Dioxide 15 L (22-30) mmol/L Creatinine 0.37 L (0.52-1.04) mg/dL POC Glucose (mg/dL) 139 H (75-99) mg/dL Calcium 7.9 L (8.4-10.2) mg/dL Phosphorus 1.5 L (2.5-4.5) mg/dL Total Protein 5.1 L (6.3-8.2) g/dL Albumin 2.6 L (3.5-5.0) g/dL TSH <0.015 L (0.465-4.680) mIU/L Microbiology - Last 24 Hours (Table) 08/19/18 19:30 Blood Culture - Preliminary Blood No Growth after 24 hours 08/19/18 09:30 Urine Culture - Final Urine,Voided Assessment and Plan Plan: Assessment 1 acute abdominal pain likely secondary to an acute complicated diverticulitis with perforation. The patient is currently on a combination of cefepime and Flagyl. The patient had a follow-up CAT scan that showed some resumption of the intra-abdominal free air. However, there is still phlegmonous fat stranding and extensive mesenteric congestion and small volume pelvic ascites, extensive diverticulosis/diverticulitis involving the sigmoid colon in addition to multiple areas of small bowel dilation consistent with either enteritis or intussusception. The patient remains nothing by mouth. Abdominal pain has subsided compared to yesterday. 2 acute febrile illness in a sedation with tachycardia secondary to above. Suspect intra-abdominal source of septicemia 3 history of diverticulosis 4 hypothyroidism 5 history of migraines 6 paroxysmal atrial fibrillation currently back into normal sinus rhythm. Plan Continue the maintenance fluid to 150 mL an hour. Continue the current antibiotic coverage which included a combination of cefepime and Flagyl. Dilaudid for pain control. IV Tylenol for fever. The patient will have her TSH and free T4 checked. We'll check the echocardiogram. General surgeries on the case. The plan for now is to offer antibiotics still her acute diverticulitis settles in possibly surgery at a later stage depending on her progress and outcome. She is doing well. She is hemodynamically stable. She is back to normal sinus rhythm. Continue to follow.
--- NOTE | 2018-08-21 15:26 | P.PN ---
Subjective Progress Note Date: 08/21/18 62-year-old female seen today rounds. Patient states she did pass gas no stool no nausea no vomiting less abdominal pain the abdominal x-ray CAT scan showed improvement in the free air currently no surgery at this time continue to monitor Objective - Vital Signs Vital signs: Vital Signs Temp 98.6 F 08/21/18 12:00 Pulse 86 08/21/18 14:00 Resp 26 H 08/21/18 14:00 BP 144/73 08/21/18 14:00 Pulse Ox 97 08/21/18 14:00 Intake & Output 08/20/18 08/21/18 08/21/18 18:59 06:59 18:59 Intake Total 3050 2053.750 1696.333 Output Total 1465 1455 785 Balance 1585 598.750 911.333 Weight 64.9 kg Intake: IV 1650 2050 1600 Cefepime 2 gm In Sodium 50 50 Chloride 0.9% 50 ml @ 100 mls/hr IVPB Q12H [facility] Rx# :[id number] Dextrose 5% in Water 1, 225 000 ml @ 75 mls/hr IV . [id number] [facility] with Sodium Bicarb (1 Meq/ml) 150 ml Rx#:[id number] Potassium Chloride 10 meq 100 In Water For Injection 1 100ml.bag @ 100 mls/hr IVPB Q1H [facility] Rx#: [id number] Potassium Phosphate 10 625 mmol In Sodium Chloride 0 .9% 250 ml @ 125 mls/hr IV Q2H [facility] Rx#:[id number] Sodium Chloride 0.9% 1, 350 000 ml @ 100 mls/hr IV . Q10H [facility] Rx#:[id number] Sodium Chloride 0.9% 1, 1200 1800 600 000 ml @ 75 mls/hr IV . [id number] [facility] Rx#:[id number] metroNIDAZOLE-NS PMX 500 100 100 100 mg In Saline 1 100ml.bag @ 100 mls/hr IVPB ONCE [facility] Rx#:[id number] Intake, IV Titration 200 3.750 46.333 Amount Diltiazem 50 mg In Sodium 3.750 46.333 Chloride 0.9% 40 ml @ Per Protocol IV .Q0M [facility] Rx#:[id number] Magnesium Sulfate-D5w Pmx 100 1 gm In Dextrose/Water 1 100ml.bag @ 100 mls/hr IVPB Q1H [facility] Rx#: [id number] Potassium Chloride 10 meq 100 In Water For Injection 1 100ml.bag @ 100 mls/hr IVPB Q1H [facility] Rx#: [id number] Oral 1200 50 Output: Urine 1465 1455 785 Other: Voiding Method Indwelling Catheter Indwelling Catheter Indwelling Catheter # Voids 1 - Exam Physical exam 62-year-old female no acute distress a noted improvement in the abdominal discomfort Lungs adequate air movement bilaterally on room air sats 98% Heart S1-S2 audible irregular heart rate in the 90s mild tachycardia Abdomen less distended compared to prior assessment less tenderness. Hypoactive bowel tones no nausea no vomiting passing gas no stool Extremities no edema - Labs CBC & Chem 7: 08/21/18 04:06 08/21/18 04:06 Labs: Abnormal Lab Results - Last 24 Hours (Table) 08/20/18 08/21/18 08/21/18 Range/Units 23:14 00:14 04:06 Neutrophils # 8.6 H (1.3-7.7) k/uL Lymphocytes # 0.7 L (1.0-4.8) k/uL Sodium (137-145) mmol/L Carbon Dioxide (22-30) mmol/L Creatinine (0.52-1.04) mg/dL POC Glucose (mg/dL) 70 L 115 H (75-99) mg/dL Calcium (8.4-10.2) mg/dL Phosphorus (2.5-4.5) mg/dL Total Protein (6.3-8.2) g/dL Albumin (3.5-5.0) g/dL TSH (0.465-4.680) mIU/L 08/21/18 08/21/18 08/21/18 Range/Units 04:06 04:06 11:52 Neutrophils # (1.3-7.7) k/uL Lymphocytes # (1.0-4.8) k/uL Sodium 132 L (137-145) mmol/L Carbon Dioxide 15 L (22-30) mmol/L Creatinine 0.37 L (0.52-1.04) mg/dL POC Glucose (mg/dL) 139 H (75-99) mg/dL Calcium 7.9 L (8.4-10.2) mg/dL Phosphorus 1.5 L (2.5-4.5) mg/dL Total Protein 5.1 L (6.3-8.2) g/dL Albumin 2.6 L (3.5-5.0) g/dL TSH <0.015 L (0.465-4.680) mIU/L Microbiology - Last 24 Hours (Table) 08/19/18 19:30 Blood Culture - Preliminary Blood No Growth after 24 hours 08/19/18 09:30 Urine Culture - Final Urine,Voided Assessment and Plan Assessment: Impression Present on admission left lower quadrant abdominal pain suspect due to acute complicated diverticulitis perforation with sepsis suspect intra-abdominal source of septicemia CAT scan of the abdomen and pelvis obtained in the emergency room report indicates severe enterocolitis involving multiple small bowel loops in the sigmoid colon History of diverticulitis July 14 2018 colonoscopy done report cecum ascending and transverse colon appeared normal and the descending moderate diverticulosis no evidence of diverticulitis Plan IV fluid for hydration Bariatric clear diet Continue IV antibiotics cefepime and Flagyl as ordered per infectious disease recommendation DVT and GI prophylaxis Repeat labs in the morning The above impression and plan of care have been discussed and directed by signing physician. Henny Graham nurse practitioner acting as scribe for signing physician.
--- NOTE | 2018-08-21 16:08 | P.CRDCN ---
History of Present Illness Consult date: 08/21/18 Requesting physician: Kwadwo Ball Consult reason: atrial fibrillation History of present illness: this is a 62-year-old female with known history of diverticulosis who underwent a recent colonoscopy in June and was told to have uncomplicated diverticulosis. Patient has had prior bouts of diverticulitis treated with antibiotics. She has history of hypothyroidism as well. Patient presented to the hospital on this occasion with diffuse abdominal pain with some associated chills and fever, she also apparently was quite nauseated without any emesis. A CAT scan of the abdomen was performed on arrival here which revealed moderate to severe enterocolitis involving multiple small bowel loops and transverse colon as well as sigmoid colon. Sigmoid diverticulosis and mild bowel inflammation appears to have involvedmultiple areas. Acute diverticulitis with perforation is considered. Perforation into the intra-peritoneal cavity of the left. Medium lower abdomen is suspected with concerns for sepsis. There was also moderate to severe associated mesenteric edema and inflammation and moderate degree of pelvic ascites. Patient is currently in the intensive care unit. Cardiology consultation was requested because of an episode of atrial fibrillationlast evening, patient is currently in normal sinus rhythm, she converted around 6 AM this morning. Complaining of significant abdominal discomfort at the time of my examination.blood pressure 144/70 with a heart rate in the 80s, 97% on room air. Respirations 26.White blood cell count 9.8, hemoglobin 12.1, platelet count 188. Sodium 132, potassium 3.5, BUN 7, creatinine 0.3. Magnesium is 2.0.TSH came back at 0.015, free T4 was normal at 1.3.EKG performed on arrival here showed a normal sinus rhythm with no acute changes.chest x-ray shows possible basilar atelectasis versus pneumonia and associated effusion.blood culture negative. Follow-up CAT scan of the abdomen and pelvis showed improvement in an extraluminal loculated pericolonic foci or free air along with thickened and inflamed sigmoid colon. There is surrounding phlegmonous fat stranding which is similar to the prior CAT scan findings with extensive mesenteric congestion and small volume pelvic ascites. There is also small bowel dilated dictation and thickening in the left mid abdomen in the central abdomen consistent with enteritis and concerning for intussusception. New small bilateral pleural effusions also noted. The plan at this point his continue watching and continue current antibiotics. Echocardiogram with Doppler study has been performed. Past Medical History Past Medical History: Thyroid Disorder Additional Past Medical History / Comment(s): Pt currently has sinus infection and started antibiotic yesterday, August 18, 2018. Other hx: Occasional migraines, infrequent raynaulds, diverticular disease, hypothyroid. History of Any Multi-Drug Resistant Organisms: None Reported Past Surgical History: Orthopedic Surgery, Tubal Ligation Additional Past Surgical History / Comment(s): 07/14/18 colonoscopy, previous colonoscopy, sinus surgery, jaw surgery for overbite, cunionectomy R foot. Past Anesthesia/Blood Transfusion Reactions: Motion Sickness, Postoperative Nausea & Vomiting (PONV) Past Psychological History: No Psychological Hx Reported Additional Psychological History / Comment(s): Pt resides with her spouse. 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 Smoking Status: Never smoker Past Alcohol Use History: None Reported Past Drug Use History: None Reported - Past Family History Mother Family Medical History: Coronary Artery Disease (CAD) Additional Family Medical History / Comment(s): Mother with CABG at the age of 72 yrs. Father Family Medical History: Congestive Heart Failure (CHF) Additional Family Medical History / Comment(s): Father of CHF at the age of 72 yrs. Medications and Allergies Home Medications Medication Instructions Recorded Confirmed Type Fluticasone Nasal [place] [Flonase 2 spr EA NOSTRIL DAILY PRN 07/10/18 08/19/18 History Nasal [place]] Thyroid,Pork [Care Management Assistant Thyroid 120] 60 mg PO MOWEFR 07/10/18 08/20/18 History Cholecalciferol [Vitamin D3] 1,000 unit PO DAILY 08/19/18 08/19/18 History Doxycycline Monohydrate [Monodox] 100 mg PO Q12HR 08/19/18 08/19/18 History Levothyroxine Sodium [Synthroid] 25 mcg PO DAILY 08/19/18 08/19/18 History Montelukast [Singulair] 10 mg PO DAILY 08/19/18 08/19/18 History Multivitamin,Therapeutic [Thera] 1 tab PO DAILY 08/19/18 08/19/18 History Naproxen Sodium [Aleve] 220 mg PO DAILY PRN 08/19/18 08/19/18 History SUMAtriptan SUCCINATE [Sumatriptan 100 mg PO DAILY PRN 08/19/18 08/19/18 History Succinate] Vitamin B Complex 1 cap PO DAILY 08/19/18 08/19/18 History Thyroid,Pork [Thyroid] 180 mg PO DAILY 08/20/18 08/21/18 History Allergies Allergy/AdvReac Type Severity Reaction Status Date / Time amoxicillin Allergy Rash/Hives Verified 08/19/18 10:43 Sulfa (Sulfonamide Allergy Rash/Hives Verified 08/19/18 10:43 Antibiotics) Physical Exam Vitals: Vital Signs Temp Pulse Pulse Resp BP Pulse Ox 08/21/18 15:30 86 20 97 08/21/18 14:00 86 26 H 144/73 97 08/21/18 13:00 91 19 159/82 96 08/21/18 12:00 98.6 F 92 70 19 120/65 94 L 08/21/18 11:00 82 24 135/38 96 08/21/18 10:45 81 14 135/38 96 08/21/18 10:00 80 18 128/62 93 L 08/21/18 09:00 75 20 126/70 97 08/21/18 08:00 98.5 F 80 26 H 114/62 96 08/21/18 07:45 70 20 08/21/18 07:30 76 15 124/63 95 08/21/18 07:00 95 16 132/93 94 L 08/21/18 06:30 86 14 118/60 93 L 08/21/18 06:00 87 15 112/95 93 L 08/21/18 05:30 107 H 15 113/62 92 L 08/21/18 05:00 101 H 19 120/71 95 08/21/18 04:30 98 18 137/87 95 08/21/18 04:10 111 H 23 137/87 95 08/21/18 04:00 98.5 F 102 H 114 H 23 137/90 95 08/21/18 03:50 112 H 21 137/90 93 L 08/21/18 03:40 106 H 19 137/90 94 L 08/21/18 03:30 107 H 19 117/73 94 L 08/21/18 03:20 110 H 18 122/76 95 08/21/18 03:10 131 H 19 125/75 94 L 08/21/18 03:00 117 H 19 132/74 93 L 08/21/18 02:50 109 H 19 144/93 93 L 08/21/18 02:40 122 H 21 131/86 95 08/21/18 02:30 120 H 21 118/68 94 L 08/21/18 02:20 110 H 18 118/78 93 L 08/21/18 02:10 130 H 22 108/68 93 L 08/21/18 02:00 121 H 19 110/65 94 L 08/21/18 01:50 105 H 21 110/63 94 L 08/21/18 01:40 131 H 19 114/60 94 L 08/21/18 01:30 128 H 21 120/74 95 08/21/18 01:20 147 H 21 132/87 94 L 08/21/18 01:10 126 H 24 130/89 94 L 08/21/18 01:00 126 H 17 128/88 94 L 08/21/18 00:50 25 H 135/81 92 L 08/21/18 00:40 154 H 25 H 128/72 93 L 08/21/18 00:30 116 H 19 134/74 93 L 08/21/18 00:20 152 H 18 138/83 94 L 08/21/18 00:10 149 H 19 133/87 94 L 08/21/18 00:00 99.1 F 161 H 121 H 26 H 128/79 93 L 08/20/18 23:50 154 H 19 93 L 08/20/18 23:40 172 H 23 94 L 08/20/18 23:30 181 H 21 131/97 94 L 08/20/18 23:20 154 H 19 95 08/20/18 23:11 168 H 22 147/96 94 L 08/20/18 23:00 99.6 F 176 H 26 H 133/66 94 L 08/20/18 22:00 99 24 152/74 93 L 08/20/18 21:00 102 H 16 154/77 94 L 08/20/18 20:00 99 F 100 98 19 156/72 96 08/20/18 19:00 104 H 22 163/78 95 08/20/18 18:00 91 20 134/66 96 08/20/18 17:00 97 16 155/82 95 08/20/18 16:00 96 15 148/72 92 L Intake and Output 08/21/18 08/21/18 08/21/18 06:59 14:59 22:59 Intake Total 1815.013 6507.333 Output Total 960 785 Balance 493.750 911.333 Intake: IV 1450 1600 Cefepime 2 gm In Sodium 50 50 Chloride 0.9% 50 ml @ 100 mls/hr IVPB Q12H [facility] Rx# :[id number] Dextrose 5% in Water 1, 225 000 ml @ 75 mls/hr IV . [id number] [facility] with Sodium Bicarb (1 Meq/ml) 150 ml Rx#:[id number] Potassium Chloride 10 meq 100 In Water For Injection 1 100ml.bag @ 100 mls/hr IVPB Q1H [facility] Rx#: [id number] Potassium Phosphate 10 625 mmol In Sodium Chloride 0 .9% 250 ml @ 125 mls/hr IV Q2H [facility] Rx#:[id number] Sodium Chloride 0.9% 1, 1200 600 000 ml @ 75 mls/hr IV . [id number] [facility] Rx#:[id number] metroNIDAZOLE-NS PMX 500 100 100 mg In Saline 1 100ml.bag @ 100 mls/hr IVPB ONCE STA Rx#:[id number] Intake, IV Titration 3.750 46.333 Amount Diltiazem 50 mg In Sodium 3.750 46.333 Chloride 0.9% 40 ml @ Per Protocol IV .Q0M [facility] Rx#:[id number] Oral 50 Output: Urine 960 785 Other: Voiding Method Indwelling Catheter Indwelling Catheter # Voids 1 Weight 64.9 kg PHYSICAL EXAMINATION: GENERAL:62-year-old female complaining of mild abdominal discomfort at the time of my examination. HEENT: Head is atraumatic, normocephalic. Pupils equal, round. Sclera anicteric. Conjunctiva are clear. Mucous membranes of the mouth are moist. Neck is supple. There is no elevated jugular venous pressure.] bruit is heard. HEART EXAMINATION: [Heart S1, S2 normal. No murmur or gallop heard.] CHEST EXAMINATION:[ Lungs are clear to auscultation and precussion. No chest wall tenderness is noted on palpation or with deep breathing.] ABDOMEN:examination of the abdomen reveals diffuse abdominal tenderness with more tenderness in the lower quadrants bilaterally. No rebound tenderness. No guarding. Bowel sounds are hypoactive. EXTREMITIES:[ 2+ peripheral pulses with no evidence of peripheral edema and no calf tenderness noted]. NEUROLOGIC [patient is awake, alert and oriented ?-3.] . Results 08/21/18 04:06 08/21/18 04:06 Cardiac Enzymes 08/21/18 Range/Units 04:06 AST 28 (14-36) U/L CBC 08/21/18 Range/Units 04:06 WBC 9.8 (3.8-10.6) k/uL RBC 3.84 (3.80-5.40) m/uL Hgb 12.1 (11.4-16.0) gm/dL Hct 36.0 (34.0-46.0) % Plt Count 188 (150-450) k/uL Comprehensive Metabolic Panel 08/21/18 Range/Units 04:06 Sodium 132 L (137-145) mmol/L Potassium 3.5 (3.5-5.1) mmol/L Chloride 106 (98-107) mmol/L Carbon Dioxide 15 L (22-30) mmol/L BUN 7 (7-17) mg/dL Creatinine 0.37 L (0.52-1.04) mg/dL Glucose 87 (74-99) mg/dL Calcium 7.9 L (8.4-10.2) mg/dL AST 28 (14-36) U/L ALT 31 (9-52) U/L Alkaline Phosphatase 52 (38-126) U/L Total Protein 5.1 L (6.3-8.2) g/dL Albumin 2.6 L (3.5-5.0) g/dL Current Medications Generic Name Dose Route Start Last Admin Trade Name Freq PRN Reason Stop Dose Admin Acetaminophen 650 mg 08/19/18 17:53 08/21/18 11:58 Tylenol Tab PO 650 mg Q4HR PRN Administration Fever and/ or Pain Fluticasone Propionate 2 spray 08/19/18 12:47 08/21/18 09:00 Flonase Nasal [place] EA NOSTRIL 2 spray DAILY PRN Administration Allergy Symptoms Hydromorphone HCl 1 mg 08/19/18 17:52 08/21/18 14:41 Dilaudid IVP 1 mg Q2HR PRN Administration Pain Cefepime HCl 2 gm/ Sodium 50 mls @ 100 mls/hr 08/20/18 00:00 08/21/18 12:04 Chloride IVPB 100 mls/hr Q12H [facility] Administration Metronidazole 500 mg/ IV 100 mls @ 100 mls/hr 08/19/18 18:00 08/21/18 13:22 Solution IVPB 100 mls/hr Q6HR [facility] Administration Sodium Chloride 1,000 mls @ 75 mls/hr 08/19/18 22:30 08/21/18 09:35 Saline 0.9% IV 75 mls/hr .[id number] [facility] Administration Diltiazem HCl 50 mg/ Sodium 50 mls @ 0 mls/hr 08/20/18 23:45 08/21/18 07:19 Chloride IV Infused .Q0M [facility] Titration Protocol Per Protocol Sodium Bicarbonate 150 ml/ 1,150 mls @ 75 mls/hr 08/21/18 10:00 08/21/18 11: 25 Dextrose/Water IV 75 mls/hr .[id number] [facility] Administration Levothyroxine Sodium 25 mcg 08/20/18 06:30 08/21/18 06:04 Synthroid PO 25 mcg DAILY@0630 [facility] Administration Morphine Sulfate 4 mg 08/19/18 11:39 08/19/18 16:02 Morphine Sulfate (Inj) IVP 4 mg Q4HR PRN Administration Pain Naloxone HCl 0.2 mg 08/20/18 04:21 Narcan IV Q2M PRN Opioid Reversal Pantoprazole Sodium 40 mg 08/19/18 13:00 08/21/18 08:06 Protonix IVP 40 mg DAILY [facility] Administration Thyroid 240 mg 08/22/18 09:00 08/21/18 08:12 [place] Thyroid PO 180 mg MoWeFr [facility] Administration Thyroid 180 mg 08/21/18 09:00 08/21/18 08:25 [place] Thyroid PO 180 mg [id number] [facility] Administration Intake and Output 08/21/18 08/21/18 08/21/18 06:59 14:59 22:59 Intake Total 0030.359 9242.333 Output Total 960 785 Balance 493.750 911.333 Intake: IV 1450 1600 Cefepime 2 gm In Sodium 50 50 Chloride 0.9% 50 ml @ 100 mls/hr IVPB Q12H [facility] Rx# :[id number] Dextrose 5% in Water 1, 225 000 ml @ 75 mls/hr IV . [id number] [facility] with Sodium Bicarb (1 Meq/ml) 150 ml Rx#:[id number] Potassium Chloride 10 meq 100 In Water For Injection 1 100ml.bag @ 100 mls/hr IVPB Q1H [facility] Rx#: [id number] Potassium Phosphate 10 625 mmol In Sodium Chloride 0 .9% 250 ml @ 125 mls/hr IV Q2H [facility] Rx#:[id number] Sodium Chloride 0.9% 1, 1200 600 000 ml @ 75 mls/hr IV . [id number] [facility] Rx#:[id number] metroNIDAZOLE-NS PMX 500 100 100 mg In Saline 1 100ml.bag @ 100 mls/hr IVPB ONCE STA Rx#:[id number] Intake, IV Titration 3.750 46.333 Amount Diltiazem 50 mg In Sodium 3.750 46.333 Chloride 0.9% 40 ml @ Per Protocol IV .Q0M [facility] Rx#:[id number] Oral 50 Output: Urine 960 785 Other: Voiding Method Indwelling Catheter Indwelling Catheter # Voids 1 Weight 64.9 kg 08/21/18 04:06 08/21/18 04:06 EKG Interpretations (text) EKG shows normal sinus rhythm with no acute changes. Assessment and Plan Plan: Assessment and plan #1 acute abdominal pain likely secondary to an acute complicated diverticulitis with perforation. The patient is currently on a combination of cefepime and Flagyl. The patient had a follow-up CAT scan that showed some resumption of the intra-abdominal free air. However, there is still phlegmonous fat stranding and extensive mesenteric congestion and small volume pelvic ascites, extensive diverticulosis/diverticulitis involving the sigmoid colon in addition to multiple areas of small bowel dilation consistent with either enteritis or intussusception. The patient remains nothing by mouth. #2 acute febrile illness in a sedation with tachycardia secondary to above. Suspect intra-abdominal source of septicemia #3 history of diverticulosis #4 hypothyroidism #5 history of migraines #6 paroxysmal atrial fibrillation currently back into normal sinus rhythm. Plan An echocardiogram with Doppler study will be obtained.patient is currently maintaining normal sinus rhythm with a heart rate in the 70s. TSH level was low but free T4 was normal. We will continue to follow. DNP note has been reviewed, I agree with a documented findings and plan of care. Patient was seen and examined.
--- NOTE | 2018-08-21 16:24 | ECHOF ---
Referral Reason:Afib MEASUREMENTS -------- HEIGHT: 165.1 cm WEIGHT: 64.9 kg BP: 126/70 IVSd: 0.9 cm (0.6 - 1.1) LVIDd: 3.8 cm (3.9 - 5.3) LVPWd: 0.9 cm (0.6 - 1.1) IVSs: 1.3 cm LVIDs: 2.1 cm LVPWs: 1.5 cm LA Diam: 3.1 cm (2.7 - 3.8) RVIDd: 2.7 cm (< 3.3) LAESV Index (A-L): 19.32 ml/m Ao Diam: 2.7 cm (2.0 - 3.7) AV Cusp: 1.9 cm (1.5 - 2.6) EPSS: 0.3 cm MV E Juan Manuel: 1.05 m/s MV DecT: 175 ms MV A Juan Manuel: 0.75 m/s MV E/A Ratio: 1.40 RAP: 5.00 mmHg RVSP: 20.98 mmHg MV EF SLOPE: 105.91 mm/s (70 - 150) MV EXCURSION: 1.41 cm (> 18.000) FINDINGS -------- Sinus rhythm. This was a technically good study. The left ventricular size is normal. Left ventricular wall thickness is normal. Overall left vent ricular systolic function is normal with, an EF between 60 - 65 %. The right ventricle is normal in size. Normal LA size by volume 22+/-6 ml/m2. The right atrium is normal in size. The aortic valve is trileaflet and appears structurally normal. There is trace mitral regurgitation. Mild tricuspid regurgitation present. Right ventricular systolic pressure is normal at < 35 mmHg. There is no pulmonic regurgitation present. The aortic root size is normal. Normal inferior vena cava with normal inspiratory collapse consistent with estimated right atrial pre ssure of 5 mmHg. The inferior vena cava is mildly dilated. There is no pericardial effusion. CONCLUSIONS -------- 1. Sinus rhythm. 2. This was a technically good study. 3. The left ventricular size is normal. 4. Left ventricular wall thickness is normal. 5. Overall left ventricular systolic function is normal with, an EF between 60 - 65 %. 6. The right ventricle is normal in size. 7. Normal LA size by volume 22+/-6 ml/m2. 8. The right atrium is normal in size. 9. The aortic valve is trileaflet and appears structurally normal. 10. There is trace mitral regurgitation. 11. Mild tricuspid regurgitation present. 12. Right ventricular systolic pressure is normal at < 35 mmHg. 13. There is no pulmonic regurgitation present. 14. The aortic root size is normal. 15. Normal inferior vena cava with normal inspiratory collapse consistent with estimated right atrial pressure of 5 mmHg. 16. The inferior vena cava is mildly dilated. 17. There is no pericardial effusion. THREAD SEPARATOR: VERONICA Fournier
[2018-08-21 18:20] LABS: Glucose,Whole Blood 127 mg/dL (75-99)
[2018-08-22] MEDS: metroNIDAZOLE-NS PMX 500 MG in SALINE 1 100ML.BAG IVPB SCH ×4 (00:53→21:13)
[2018-08-22] MEDS: SODIUM CHLORIDE 0.9% 1,000 ML IV SCH ×3 (00:55→21:09)
[2018-08-22] MEDS: DEXTROSE 5% IN WATER 1,000 ML with SODIUM BICARB (1 MEQ/ML) 150 ML IV SCH (03:32)
[2018-08-22 06:05] LABS: ALT 32 U/L (9-52); AST 26 U/L (14-36); Albumin 2.6 g/dL (3.5-5.0); Alkaline Phosphatase 69 U/L (38-126); Anion Gap 7 mmol/L; Blood Urea Nitrogen 3 mg/dL (7-17); Carbon Dioxide 25 mmol/L (22-30); Chloride 105 mmol/L (98-107); Glucose 116 mg/dL (74-99); Magnesium 1.9 mg/dL (1.6-2.3); Potassium 3.1 mmol/L (3.5-5.1); Sodium 137 mmol/L (137-145); Total Bilirubin 0.8 mg/dL (0.2-1.3); Total Protein 5.2 g/dL (6.3-8.2)
[2018-08-22 06:15] LABS: Basophils % (A) 0 %; Eosinophils # (A) 0.1 k/uL (0-0.7); Eosinophils % (A) 1 %; HCT 35.7 % (34.0-46.0); HGB 11.9 gm/dL (11.4-16.0); Lymphocytes # (A) 0.9 k/uL (1.0-4.8); Lymphocytes % (A) 7 %; MCH 30.9 pg (25.0-35.0); MCHC 33.4 g/dL (31.0-37.0); MCV 92.6 fL (80.0-100.0); Mean Platelet Volume 7.7; Monocytes # (A) 0.4 k/uL (0-1.0); Monocytes % (A) 3 %; Neutrophils # (A) 10.7 k/uL (1.3-7.7); Neutrophils % (A) 87 %; Platelet Count 191 k/uL (150-450); RBC 3.85 m/uL (3.80-5.40); RDW 12.8 % (11.5-15.5); WBC 12.2 k/uL (3.8-10.6)
[2018-08-22 06:18] LABS: Phosphorus 0.9 mg/dL (2.5-4.5)
[2018-08-22] MEDS ORDERED: Phosphorus Replacement Protoco 1 EACH MISC MISCELLANE PRN (06:24)
--- NOTE | 2018-08-22 07:39 | P.PN ---
Subjective Progress Note Date: 08/22/18 Principal diagnosis: Paroxysmal atrial fibrillation This is a pleasant 70 year old female patient who was admitted to the hospital with acute complicated diverticulitis with perforation. Currently the patient is on antibiotic and the plan is to pursue a conservative approach at this point and no surgery. We requested to see the patient because she did have a brief episode of atrial fibrillation with RVR yesterday and she converted back to normal sinus mechanism. Since then she has been maintaining normal sinus mechanism. No history of atrial fibrillation, coronary artery disease, hypertension, or dyslipidemia but the patient does have thyroid disorder. On follow-up with her today, August 222017, she continues to have intermittent bouts of abdominal discomfort. She continues to be on liquid diet. Conservative medical approach regarding the diverticulitis is to be continued. No plan for surgery at this point. She has been maintaining normal sinus mechanism so far. The blood pressure has been elevated intermittently and is likely secondary to her severe abdominal discomfort. I am going to start the patient on metoprolol at 12.5 mg by mouth twice a day trying to keep the patient in normal sinus mechanism. I would hold on any anticoagulation at this point in view of the possible perforation in the abdomen. We will follow- up on the echocardiogram as well as. Objective - Vital Signs Vital signs: Vital Signs Temp 97.9 F 08/22/18 04:00 Pulse 90 08/22/18 06:10 Resp 16 08/22/18 06:10 BP 187/96 08/22/18 06:10 Pulse Ox 94 L 08/21/18 22:10 Intake & Output 08/21/18 08/22/18 08/22/18 18:59 06:59 18:59 Intake Total 2396.333 2200 Output Total 786 Balance 1290.940 1231 Weight 64.9 kg Intake: IV 2300 1800 Cefepime 2 gm In Sodium 50 Chloride 0.9% 50 ml @ 100 mls/hr IVPB Q12H [facility] Rx# :[id number] Dextrose 5% in Water 1, 525 900 000 ml @ 75 mls/hr IV . [id number] [facility] with Sodium Bicarb (1 Meq/ml) 150 ml Rx#:[id number] Potassium Phosphate 10 625 mmol In Sodium Chloride 0 .9% 250 ml @ 125 mls/hr IV Q2H [facility] Rx#:[id number] Sodium Chloride 0.9% 1, 900 900 000 ml @ 75 mls/hr IV . [id number] [facility] Rx#:[id number] metroNIDAZOLE-NS PMX 500 200 mg In Saline 1 100ml.bag @ 100 mls/hr IVPB ONCE STA Rx#:[id number] Intake, IV Titration 46.333 Amount Diltiazem 50 mg In Sodium 46.333 Chloride 0.9% 40 ml @ Per Protocol IV .Q0M [facility] Rx#:[id number] Oral 50 400 Output: Urine 785 Urine/Stool Mix 1 Other: Voiding Method Indwelling Catheter Bedside Commode # Voids 1 1 # Bowel Movements 1 - Constitutional General appearance: Present: mild distress - Respiratory Respiratory: bilateral: diminished - Cardiovascular Rhythm: regular Heart sounds: normal: S1, S2 - Labs CBC & Chem 7: 08/22/18 05:29 08/22/18 05:29 Labs: Abnormal Lab Results - Last 24 Hours (Table) 08/21/18 08/21/18 08/21/18 Range/Units 04:06 11:52 18:19 WBC (3.8-10.6) k/uL Neutrophils # (1.3-7.7) k/uL Lymphocytes # (1.0-4.8) k/uL Potassium (3.5-5.1) mmol/L BUN (7-17) mg/dL Creatinine (0.52-1.04) mg/dL Glucose (74-99) mg/dL POC Glucose (mg/dL) 139 H 127 H (75-99) mg/dL Calcium (8.4-10.2) mg/dL Phosphorus (2.5-4.5) mg/dL Total Protein (6.3-8.2) g/dL Albumin (3.5-5.0) g/dL TSH <0.015 L (0.465-4.680) mIU/L 08/22/18 08/22/18 Range/Units 05:29 05:29 WBC 12.2 H (3.8-10.6) k/uL Neutrophils # 10.7 H (1.3-7.7) k/uL Lymphocytes # 0.9 L (1.0-4.8) k/uL Potassium 3.1 L (3.5-5.1) mmol/L BUN 3 L (7-17) mg/dL Creatinine 0.31 L (0.52-1.04) mg/dL Glucose 116 H (74-99) mg/dL POC Glucose (mg/dL) (75-99) mg/dL Calcium 8.0 L (8.4-10.2) mg/dL Phosphorus 0.9 L* (2.5-4.5) mg/dL Total Protein 5.2 L (6.3-8.2) g/dL Albumin 2.6 L (3.5-5.0) g/dL TSH (0.465-4.680) mIU/L Microbiology - Last 24 Hours (Table) 08/19/18 19:30 Blood Culture - Preliminary Blood No Growth after 48 hours Assessment and Plan Assessment: Assessment #1 acute abdominal discomfort #2 acute febrile illness secondary to diverticulitis #3 possible perforation in the colon #4 paroxysmal atrial fibrillation #5 thyroid disorder Plan #1 the patient has been maintaining normal sinus mechanism #2 start the patient on metoprolol at 12.5 mg by mouth twice a day #3 hold on any kind of anticoagulation in view of the perforation #4 follow-up on the echocardiogram #5 follow-up with the patient. Thank you for allowing us participate in her care and we will continue following up with the patient
[2018-08-22] MEDS ORDERED: POTASSIUM CHLORIDE 20 MEQ in WATER FOR INJECTION 1 100ML.BAG IVPB SCH (09:00)
[2018-08-22] MEDS ORDERED: METOPROLOL TARTRATE 25 MG TAB PO SCH (09:00)
[2018-08-22] MEDS: PANTOPRAZOLE 40 MG/10 ML VIAL IVP SCH (09:18)
[2018-08-22] MEDS: POTASSIUM PHOSPHATE 10 MMOL in SODIUM CHLORIDE 0.9% 250 ML IV SCH ×3 (09:19→14:56)
[2018-08-22] MEDS: LEVOTHYROXINE 25 MCG TAB PO SCH (09:20)
[2018-08-22] MEDS: THYROID, PORK 30 MG TAB PO SCH (09:21)
--- NOTE | 2018-08-22 11:35 | P.PN ---
Subjective Progress Note Date: 08/22/18 This is a 62-year-old female, patient of [facility]. She has a known past medical history of diverticulosis, hypothyroidism and migraines. Patient presents to the emergency room with complaints of severe abdominal pain throughout her whole abdomen that started around 2:00 this morning. She was having chills and nausea. No vomiting. Reports normal bowel movements. No blood in the stools. Computed tomography scan of the abdomen and pelvis shows moderate to severe enterocolitis involving multiple small bowel loops, transverse colon and sigmoid colon. There is sigmoid diverticulosis the bowel inflammation appears to involve multiple areas. Acute diverticulitis with perforation is also possible. Perforation into the intraperitoneal cavity of the left paramedian lower abdomen. Air collection measuring 3.0 cm. There is [id number] associated mesenteric edema/inflammation and moderate pelvic ascites. Patient was given cefepime and Flagyl in the ER. Morphine for pain. Surgery has been consulted. Patient denies any chest pain or shortness of breath. Denies any bowel movement changes or urinary symptoms. Patient was seen and examined in the ER. 08/20/2018 patient has moved to the intensive care unit last night due to elevated temperature and increased heart rate. At this time patient is still complaining of abdominal pain and right lower quadrant. Patient is being followed by critical care team Dr. amado and Dr. Mireles for surgical services. Plan for patient to get CAT scan today with contrast to assess whether patient will need surgical intervention. At this time patient denies chest pain or shortness breath. Denies urinary burning or frequency. 08/21/2018 patient remains in the ICU. She went to atrophic relation with rapid ventricular response last night. She required to be placed on a Cardizem drip. She's converted to sinus rhythm. Cardizem is currently turned off. And cardiology has been consulted. Patient's computed tomography scan of the abdomen and pelvis shows improvement in the free air. No surgery is scheduled at this time. Continue with antibiotics. Patient denies any chest pain or shortness of breath. Reports some improvement in her abdominal pain and distention. Denies any nausea or vomiting. She reports passing gas. No bowel movement. Has Malik catheter in place On 08/22/2018 patient remains in the intensive care unit. Heart rate is currently controlled. She has been started on Lopressor per cardiology services. No inspiration at this time per cardiology due to perforation. This time patient denies chest pain or shortness breath. Patient is having loose stools. C. diff will be ordered. Patient denies any urinary burning or frequency Objective - Vital Signs Vital signs: Vital Signs Temp 97.6 F 08/22/18 08:01 Pulse 67 08/22/18 11:00 Resp 16 08/22/18 11:00 BP 159/86 08/22/18 11:00 Pulse Ox 96 08/22/18 11:00 Intake & Output 08/21/18 08/22/18 08/22/18 18:59 06:59 18:59 Intake Total 2396.333 2200 1405 Output Total 786 6 Balance 8866.064 7345 1399 Weight 64.9 kg Intake: IV 2300 1800 925 Cefepime 2 gm In Sodium 50 Chloride 0.9% 50 ml @ 100 mls/hr IVPB Q12H [facility] Rx# :[id number] Dextrose 5% in Water 1, 525 900 300 000 ml @ 75 mls/hr IV . [id number] [facility] with Sodium Bicarb (1 Meq/ml) 150 ml Rx#:[id number] Potassium Phosphate 10 625 mmol In Sodium Chloride 0 .9% 250 ml @ 125 mls/hr IV Q2H [facility] Rx#:[id number] Potassium Phosphate 10 250 mmol In Sodium Chloride 0 .9% 250 ml @ 125 mls/hr IV Q2H [facility] Rx#:[id number] Sodium Chloride 0.9% 1, 900 900 375 000 ml @ 75 mls/hr IV . [id number] [facility] Rx#:[id number] metroNIDAZOLE-NS PMX 500 200 mg In Saline 1 100ml.bag @ 100 mls/hr IVPB ONCE STA Rx#:[id number] Intake, IV Titration 46.333 Amount Diltiazem 50 mg In Sodium 46.333 Chloride 0.9% 40 ml @ Per Protocol IV .Q0M [facility] Rx#:[id number] Oral 50 400 480 Output: Urine 785 Urine/Stool Mix 1 6 Other: Voiding Method Indwelling Catheter Bedside Commode Bedside Commode # Voids 1 1 1 # Bowel Movements 1 - Exam Head normocephalic Neck supple Lungs clear to auscultation bilaterally no wheezing or crackles Heart regular rate and rhythm S1-S2, no rub or gallop Abdomen is diffuse tenderness distended hypoactive bowel sounds Extremities no edema Neuro alert and orientated to 3 - Labs CBC & Chem 7: 08/22/18 05:29 08/22/18 05:29 Labs: Abnormal Lab Results - Last 24 Hours (Table) 08/21/18 08/21/18 08/22/18 Range/Units 11:52 18:19 05:29 WBC 12.2 H (3.8-10.6) k/uL Neutrophils # 10.7 H (1.3-7.7) k/uL Lymphocytes # 0.9 L (1.0-4.8) k/uL Potassium (3.5-5.1) mmol/L BUN (7-17) mg/dL Creatinine (0.52-1.04) mg/dL Glucose (74-99) mg/dL POC Glucose (mg/dL) 139 H 127 H (75-99) mg/dL Calcium (8.4-10.2) mg/dL Phosphorus (2.5-4.5) mg/dL Total Protein (6.3-8.2) g/dL Albumin (3.5-5.0) g/dL 08/22/18 Range/Units 05:29 WBC (3.8-10.6) k/uL Neutrophils # (1.3-7.7) k/uL Lymphocytes # (1.0-4.8) k/uL Potassium 3.1 L (3.5-5.1) mmol/L BUN 3 L (7-17) mg/dL Creatinine 0.31 L (0.52-1.04) mg/dL Glucose 116 H (74-99) mg/dL POC Glucose (mg/dL) (75-99) mg/dL Calcium 8.0 L (8.4-10.2) mg/dL Phosphorus 0.9 L* (2.5-4.5) mg/dL Total Protein 5.2 L (6.3-8.2) g/dL Albumin 2.6 L (3.5-5.0) g/dL Microbiology - Last 24 Hours (Table) 08/19/18 19:30 Blood Culture - Preliminary Blood No Growth after 48 hours Assessment and Plan Assessment: 1. Acute complicated diverticulitis perforation with sepsis: Computed tomography scan showing severe enterocolitis involving multiple small bowel loops transverse colon And sigmoid colon. Concerns of a possible acute diverticulitis with perforation. Patient started on Flagyl and cefepime in the ER. Repeat computed tomography scan the abdomen and pelvis showing improvement and he free air. She has been evaluated by surgical service. No surgery at this time. Continue with antibiotics. Followed by infectious disease. Blood cultures remain negative. She is reporting that she is having loose stools. C. diff has been ordered. Bariatric clear liquid diet surgical services 2. History of diverticulitis 3. Hypothyroidism: Continue Synthroid TSH 0.015 and free T4 1 33. Patient states she does take both Synthroid and a more Alexis thyroid at home. Patient reports that she was getting treated for hypothyroidism. Patient states she does currently have her thyroid. Will DC Alexis thyroid at. this time 4. History of migraines 5. New onset of atrial fibrillation with rapid ventricular response. Patient did require Cardizem drip. converted to sinus rhythm. Per cardiology services patient will be started on Lopressor. Hold on any kind of anticoagulation In view of the perforation. 6. Hypophosphatemia. Patient received phosphorus supplement. Phosphorus 0.9. Phosphorus will be replaced per protocol 7. Hypokalemia. Potassium 3.1. Will replace per protocol GI prophylaxis Protonix and DVT prophylaxis SCDs until seen by surgeon. I performed an examination of the patient and discussed their management with the Nurse Practitioner. I have reviewed the Nurse Practitioner's notes and agree with the documented findings and plan of care
--- NOTE | 2018-08-22 11:50 | P.PN ---
Subjective Progress Note Date: 08/22/18 62-year-old female seen on rounds up on a bedside commode states less abdominal pain but does have increased cramping when having bowel movement. Patient states that she has had several loose stools this morning urinating with no difficulty reviewed the labs potassium 3.1 and phosphorus low at 0.9 which replacement is being given currently being followed by cardiology heart rate controlled on a beta kymberly per cardiology recommendations Objective - Vital Signs Vital signs: Vital Signs Temp 97.6 F 08/22/18 08:01 Pulse 67 08/22/18 11:00 Resp 16 08/22/18 11:00 BP 159/86 08/22/18 11:00 Pulse Ox 96 08/22/18 11:00 Intake & Output 08/21/18 08/22/18 08/22/18 18:59 06:59 18:59 Intake Total 2396.333 2200 1405 Output Total 786 6 Balance 5249.551 7324 1399 Weight 64.9 kg Intake: IV 2300 1800 925 Cefepime 2 gm In Sodium 50 Chloride 0.9% 50 ml @ 100 mls/hr IVPB Q12H [facility] Rx# :[id number] Dextrose 5% in Water 1, 525 900 300 000 ml @ 75 mls/hr IV . [id number] [facility] with Sodium Bicarb (1 Meq/ml) 150 ml Rx#:[id number] Potassium Phosphate 10 625 mmol In Sodium Chloride 0 .9% 250 ml @ 125 mls/hr IV Q2H [facility] Rx#:[id number] Potassium Phosphate 10 250 mmol In Sodium Chloride 0 .9% 250 ml @ 125 mls/hr IV Q2H [facility] Rx#:[id number] Sodium Chloride 0.9% 1, 900 900 375 000 ml @ 75 mls/hr IV . [id number] [facility] Rx#:[id number] metroNIDAZOLE-NS PMX 500 200 mg In Saline 1 100ml.bag @ 100 mls/hr IVPB ONCE STA Rx#:[id number] Intake, IV Titration 46.333 Amount Diltiazem 50 mg In Sodium 46.333 Chloride 0.9% 40 ml @ Per Protocol IV .Q0M [facility] Rx#:[id number] Oral 50 400 480 Output: Urine 785 Urine/Stool Mix 1 6 Other: Voiding Method Indwelling Catheter Bedside Commode Bedside Commode # Voids 1 1 1 # Bowel Movements 1 - Exam Physical exam 62-year-old female no acute distress a noted improvement in the abdominal discomfort Lungs adequate air movement bilaterally on room air sats 98% Heart S1-S2 audible irregular heart rate in the 90s mild tachycardia Abdomen less distended compared to prior assessment less tenderness. Hypoactive bowel tones no nausea no vomiting passing gas no stool Extremities no edema - Labs CBC & Chem 7: 08/22/18 05:29 08/22/18 05:29 Labs: Abnormal Lab Results - Last 24 Hours (Table) 08/21/18 08/21/18 08/22/18 Range/Units 11:52 18:19 05:29 WBC 12.2 H (3.8-10.6) k/uL Neutrophils # 10.7 H (1.3-7.7) k/uL Lymphocytes # 0.9 L (1.0-4.8) k/uL Potassium (3.5-5.1) mmol/L BUN (7-17) mg/dL Creatinine (0.52-1.04) mg/dL Glucose (74-99) mg/dL POC Glucose (mg/dL) 139 H 127 H (75-99) mg/dL Calcium (8.4-10.2) mg/dL Phosphorus (2.5-4.5) mg/dL Total Protein (6.3-8.2) g/dL Albumin (3.5-5.0) g/dL 08/22/18 Range/Units 05:29 WBC (3.8-10.6) k/uL Neutrophils # (1.3-7.7) k/uL Lymphocytes # (1.0-4.8) k/uL Potassium 3.1 L (3.5-5.1) mmol/L BUN 3 L (7-17) mg/dL Creatinine 0.31 L (0.52-1.04) mg/dL Glucose 116 H (74-99) mg/dL POC Glucose (mg/dL) (75-99) mg/dL Calcium 8.0 L (8.4-10.2) mg/dL Phosphorus 0.9 L* (2.5-4.5) mg/dL Total Protein 5.2 L (6.3-8.2) g/dL Albumin 2.6 L (3.5-5.0) g/dL Microbiology - Last 24 Hours (Table) 08/19/18 19:30 Blood Culture - Preliminary Blood No Growth after 48 hours Assessment and Plan Assessment: Impression Present on admission left lower quadrant abdominal pain suspect due to acute complicated diverticulitis perforation with sepsis suspect intra-abdominal source of septicemia CAT scan of the abdomen and pelvis obtained in the emergency room report indicates severe enterocolitis involving multiple small bowel loops in the sigmoid colon History of diverticulitis July 14 2018 colonoscopy done report cecum ascending and transverse colon appeared normal and the descending moderate diverticulosis no evidence of diverticulitis Electrolyte abnormality hypo-kalemia and hypophosphorous New-onset of atrial fibrillation with rapid ventricular response Frequent loose stools we'll obtain stool for C. diff to rule out Plan IV fluid for hydration Bariatric clear diet Continue IV antibiotics cefepime and Flagyl as ordered per infectious disease recommendation DVT and GI prophylaxis Repeat labs in the morning The above impression and plan of care have been discussed and directed by signing physician. Henny Graham nurse practitioner acting as scribe for signing physician.
[2018-08-22 11:58] LABS: Glucose,Whole Blood 92 mg/dL (75-99)
[2018-08-22] MEDS: HYDROmorphone 1 MG/ML 1 ML SYRINGE IVP PRN ×2 (12:37→17:01)
[2018-08-22] MEDS: CEFEPIME 2 GM in SODIUM CHLORIDE 0.9% 50 ML IVPB SCH ×2 (12:38→23:26)
--- NOTE | 2018-08-22 13:37 | P.PN ---
Subjective Progress Note Date: 08/22/18 Principal diagnosis: Acute abdominal pain likely secondary to acute, complicated diverticulitis with perforation. 62-year-old female patient with known history of diverticulosis who underwent a recent colonoscopy in June 2018 and she was told to have uncomplicated diverticulosis. She has had previous bouts of diverticulitis treated with antibiotics. This morning, the patient woke up with diffuse abdominal pain and the pain was rather crampy associated with some chills and fever. She was also nauseated without any significant emesis. She did have a loose liquidy bowel movements and non-since. No bloody bowel movement or any melanotic stool. The patient came into the hospital and she was given a CAT scan of the abdomen which showed moderate to severe enterocolitis involving the multiple small bowel loops and transverse colon and sigmoid colon. While there is sigmoid diverticulosis and mild the bowel inflammation appears to involve multiple areas. Acute diverticulitis with perforation is considered. Perforation into the intraperitoneal cavity of the left paramedian lower abdomen was suspected. There are collection measures about 3 cm in size. There was moderate to severe associated mesenteric edema and inflammation and moderate degree of pelvic ascites. The patient is currently in the intensive care unit. She got transferred due to concerns of sepsis. She is tachycardic and she is in sinus tachycardia with a heart rate of 110. She is maintaining a low blood pressure. Most recent BP reading is 159/91. Pulse ox 98% on room air. She is producing adequate amount of urine output in the Malik catheter was inserted. I saw this patient in the ICU. She had lower abdominal tenderness. She was uncomfortable. Her pain was controlled for now. She is receiving Dilaudid for pain control. She also and accommodation of cefepime and Flagyl. This is a broad-spectrum antibiotics covering for acute diverticulitis. The patient will be fluid resuscitated. General surgery consultation to the been obtained. Discussed the case with the general surgeon. On today's evaluation of 08/20/2018, the patient is being seen for a follow-up. She remains on IV antibiotics with a combination of cefepime and Flagyl. She was resuscitated IV fluids. She is afebrile for now. She is also less tachycardic. Abdominal pain is still present mainly in the lower quadrant bilaterally and there is direct tenderness there. Case was discussed again with the general surgeon. The patient will have a repeat CAT scan of the abdomen and pelvis. Meanwhile, she is hemodynamically stable. No chest pain. No shortness of breath. No nausea. No vomiting. White cell count today is at 6.6. She has developed some non-anion gap metabolic acidosis with a bicarb level of 19. Lactic acid level from yesterday was at 0.9. Rest of the blood work and electrolytes were all within normal limits with normal renal function and the patient is receiving IV fluids with normal saline today to 150 mL an hour. On 08/21/2008 and I'm seeing this patient for a follow-up. She has no specific complaints. Earlier last night, around midnight, the patient went into atrial fibrillation with rapid ventricular response. She was loaded and maintain on Cardizem drip for rate control. Subsequently this morning at around 6:00 she converted back to normal sinus rhythm. She is free of any chest pain. Her abdominal pain is still present although the less severity. She has no significant nausea. She is not passing any flatus or bowel movements. No abdominal distention patient remains on a combination of cefepime and Flagyl. She has developed a component of non-anion gap metabolic acidosis. Serum bicarb is down to 15 with an anion gap of 11. The blood culture is negative. Hemoglobin is at 12.1 with a release count of 9.8. The follow-up CAT scan of the abdomen and pelvis that was done yesterday showed improved extraluminal loculated pericolonic foci of free air along the thickened and inflamed sigmoid colon. There is surrounding phlegmonous fats stranding which is similar to the previous CAT scan findings along with extensive mesenteric congestion and small volume pelvic ascites. There is also small bowel dilatation and thickening in the left mid abdomen and the central abdomen consistent with enteritis and also concerning for intussusception. There was also new small bilateral pleural effusion. Discussed the findings general surgery. The plan is to continue with antibiotics and watchful waiting. Phosphorus is to be replaced. The patient is seen again today 08/22/2018 in follow-up in the intensive care unit. She is currently resting fairly comfortably in bed. She is awake and alert in no acute distress. She is having soft bowel movements. Tolerating a bariatric clear liquid diet. She has been afebrile. Maintaining good O2 saturations in the 90s on room air. Hemodynamically stable. She has remained in normal sinus rhythm. Echocardiogram revealed preserved left ventricular systolic function with ejection fraction 60-65%. No significant valvular abnormality. No pulmonary hypertension. Blood and urine cultures reveal no growth. White count 12.2. Hemoglobin 11.9. Creatinine 0.31. Calcium 8.0. Phosphorus 0.9. Potassium 3.1. Bicarb 25. She remains on cefepime and Flagyl. 0.9 normal saline at 75 ML's per hour. Phosphorus and potassium being replaced. Bicarb drip to be discontinued. Objective - Vital Signs Vital signs: Vital Signs Temp 99.8 F H 08/22/18 12:00 Pulse 80 08/22/18 12:00 Resp 18 08/22/18 12:00 BP 167/87 08/22/18 12:00 Pulse Ox 95 08/22/18 12:00 Intake & Output 08/21/18 08/22/18 08/22/18 18:59 06:59 18:59 Intake Total 2396.333 2200 1605 Output Total 786 7 Balance 0942.823 3277 1598 Weight 64.9 kg 64.9 kg Intake: IV 2300 1800 1125 Cefepime 2 gm In Sodium 50 Chloride 0.9% 50 ml @ 100 mls/hr IVPB Q12H [facility] Rx# :[id number] Dextrose 5% in Water 1, 525 900 300 000 ml @ 75 mls/hr IV . [id number] [facility] with Sodium Bicarb (1 Meq/ml) 150 ml Rx#:[id number] Potassium Phosphate 10 625 mmol In Sodium Chloride 0 .9% 250 ml @ 125 mls/hr IV Q2H [facility] Rx#:[id number] Potassium Phosphate 10 375 mmol In Sodium Chloride 0 .9% 250 ml @ 125 mls/hr IV Q2H [facility] Rx#:[id number] Sodium Chloride 0.9% 1, 900 900 450 000 ml @ 75 mls/hr IV . [id number] [facility] Rx#:[id number] metroNIDAZOLE-NS PMX 500 200 mg In Saline 1 100ml.bag @ 100 mls/hr IVPB ONCE STA Rx#:[id number] Intake, IV Titration 46.333 Amount Diltiazem 50 mg In Sodium 46.333 Chloride 0.9% 40 ml @ Per Protocol IV .Q0M [facility] Rx#:[id number] Oral 50 400 480 Output: Urine 785 Urine/Stool Mix 1 7 Other: Voiding Method Indwelling Catheter Bedside Commode Bedside Commode # Voids 1 1 1 # Bowel Movements 1 - Exam GENERAL EXAM: Alert, active, comfortable in no apparent distress. HEAD: Normocephalic. EYES: Normal reaction of pupils, equal size. NOSE: Clear with pink turbinates. THROAT: No erythema or exudates. NECK: No masses, no JVD. CHEST: No chest wall deformity. LUNGS: Equal air entry with no crackles, wheeze, rhonchi or dullness. CVS: S1 and S2 normal with no audible murmur, regular rhythm. ABDOMEN: Some tenderness in the left lower quadrant. No hepatosplenomegaly, normal bowel sounds, no guarding or rigidity. SPINE: No scoliosis or deformity SKIN: No rashes CENTRAL NERVOUS SYSTEM: No focal deficits, tone is normal in all 4 extremities. EXTREMITIES: There is no peripheral edema. No clubbing, no cyanosis. Peripheral pulses are intact. - Labs CBC & Chem 7: 08/22/18 05:29 08/22/18 05:29 Labs: Abnormal Lab Results - Last 24 Hours (Table) 08/21/18 08/22/18 08/22/18 Range/Units 18:19 05:29 05:29 WBC 12.2 H (3.8-10.6) k/uL Neutrophils # 10.7 H (1.3-7.7) k/uL Lymphocytes # 0.9 L (1.0-4.8) k/uL Potassium 3.1 L (3.5-5.1) mmol/L BUN 3 L (7-17) mg/dL Creatinine 0.31 L (0.52-1.04) mg/dL Glucose 116 H (74-99) mg/dL POC Glucose (mg/dL) 127 H (75-99) mg/dL Calcium 8.0 L (8.4-10.2) mg/dL Phosphorus 0.9 L* (2.5-4.5) mg/dL Total Protein 5.2 L (6.3-8.2) g/dL Albumin 2.6 L (3.5-5.0) g/dL Microbiology - Last 24 Hours (Table) 08/19/18 19:30 Blood Culture - Preliminary Blood No Growth after 48 hours Assessment and Plan Assessment: Assessment 1 acute abdominal pain likely secondary to an acute complicated diverticulitis with perforation. The patient is currently on a combination of cefepime and Flagyl. The patient had a follow-up CAT scan that showed some resumption of the intra-abdominal free air. However, there is still phlegmonous fat stranding and extensive mesenteric congestion and small volume pelvic ascites, extensive diverticulosis/diverticulitis involving the sigmoid colon in addition to multiple areas of small bowel dilation consistent with either enteritis or intussusception. Tolerating full liquids. Abdominal pain has subsided compared to yesterday. 2 acute febrile illness in a sedation with tachycardia secondary to above. Suspect intra-abdominal source of septicemia 3 history of diverticulosis 4 hypothyroidism 5 history of migraines 6 paroxysmal atrial fibrillation currently back into normal sinus rhythm. Plan we'll and The patient was seen and evaluated by Dr. Edwards. She is currently stable from the pulmonary and critical care standpoint and will be transferred out of the intensive care unit today. We'll discontinue the bicarb drip. Check for C. difficile colitis. Increase her activity as tolerated. No plans for surgical intervention at this time. We'll continue to follow. I, the cosigning physician, performed a history & physical examination of the patient. Lungs sounds are clear. Maintaining good O2 saturations in the 90s on room air. I discussed the assessment and plan of care with my nurse practitioner, Nicole Rodriguez. I attest to the above note as dictated by her.
--- NOTE | 2018-08-22 15:45 | P.PN ---
Subjective Progress Note Date: 08/22/18 62-year-old female patient with known history of diverticulosis who underwent a recent colonoscopy in June 2018 and she was told to have uncomplicated diverticulosis. She has had previous bouts of diverticulitis treated with antibiotics. This morning, the patient woke up with diffuse abdominal pain and the pain was rather crampy associated with some chills and fever. She was also nauseated without any significant emesis. She did have a loose liquidy bowel movements and non-since. No bloody bowel movement or any melanotic stool. The patient came into the hospital and she was given a CAT scan of the abdomen which showed moderate to severe enterocolitis involving the multiple small bowel loops and transverse colon and sigmoid colon. While there is sigmoid diverticulosis and mild the bowel inflammation appears to involve multiple areas. Acute diverticulitis with perforation is considered. Perforation into the intraperitoneal cavity of the left paramedian lower abdomen was suspected. There are collection measures about 3 cm in size. There was moderate to severe associated mesenteric edema and inflammation and moderate degree of pelvic ascites. The patient is currently in the intensive care unit. She got transferred due to concerns of sepsis. She is tachycardic and she is in sinus tachycardia with a heart rate of 110. She is maintaining a low blood pressure. Most recent BP reading is 159/91. Pulse ox 98% on room air. She is producing adequate amount of urine output in the Malik catheter was inserted. I saw this patient in the ICU. She had lower abdominal tenderness. She was uncomfortable. Her pain was controlled for now. She is receiving Dilaudid for pain control. She also and accommodation of cefepime and Flagyl. This is a broad-spectrum antibiotics covering for acute diverticulitis. The patient will be fluid resuscitated. General surgery consultation to the been obtained. Discussed the case with the general surgeon. On today's evaluation of 08/20/2018, the patient is being seen for a follow-up. She remains on IV antibiotics with a combination of cefepime and Flagyl. She was resuscitated IV fluids. She is afebrile for now. She is also less tachycardic. Abdominal pain is still present mainly in the lower quadrant bilaterally and there is direct tenderness there. Case was discussed again with the general surgeon. The patient will have a repeat CAT scan of the abdomen and pelvis. Meanwhile, she is hemodynamically stable. No chest pain. No shortness of breath. No nausea. No vomiting. White cell count today is at 6.6. She has developed some non-anion gap metabolic acidosis with a bicarb level of 19. Lactic acid level from yesterday was at 0.9. Rest of the blood work and electrolytes were all within normal limits with normal renal function and the patient is receiving IV fluids with normal saline today to 150 mL an hour. On 08/21/2008 and I'm seeing this patient for a follow-up. She has no specific complaints. Earlier last night, around midnight, the patient went into atrial fibrillation with rapid ventricular response. She was loaded and maintain on Cardizem drip for rate control. Subsequently this morning at around 6:00 she converted back to normal sinus rhythm. She is free of any chest pain. Her abdominal pain is still present although the less severity. She has no significant nausea. She is not passing any flatus or bowel movements. No abdominal distention patient remains on a combination of cefepime and Flagyl. She has developed a component of non-anion gap metabolic acidosis. Serum bicarb is down to 15 with an anion gap of 11. The blood culture is negative. Hemoglobin is at 12.1 with a release count of 9.8. The follow-up CAT scan of the abdomen and pelvis that was done yesterday showed improved extraluminal loculated pericolonic foci of free air along the thickened and inflamed sigmoid colon. There is surrounding phlegmonous fats stranding which is similar to the previous CAT scan findings along with extensive mesenteric congestion and small volume pelvic ascites. There is also small bowel dilatation and thickening in the left mid abdomen and the central abdomen consistent with enteritis and also concerning for intussusception. There was also new small bilateral pleural effusion. Discussed the findings general surgery. The plan is to continue with antibiotics and watchful waiting. Phosphorus is to be replaced. On 08/22/2018, Lorna is ambulating pH is taking some clear liquid diet. She had liquidy bowel movements yesterday. Abdomen is chemical machine tender and probably slightly improved compared to yesterday. There are some bowel sounds on examination. No fever. No chills. Hemodynamically stable. Cardiac rhythm remains sinus. The patient was started on metoprolol 25 g by mouth twice a day. I'll cardiac exam showed no acute abnormalities and the thyroid function test showed evidence of sick euthyroid. No nausea. No vomiting. No emesis. She remains on a combination of IV cefepime and Flagyl. No other significant events overnight. General surgeries on the case. Regular still treating this patient conservatively. Objective - Vital Signs Vital signs: Vital Signs Temp 99.8 F H 08/22/18 12:00 Pulse 90 08/22/18 15:00 Resp 24 08/22/18 15:00 BP 159/91 08/22/18 15:00 Pulse Ox 96 08/22/18 15:00 Intake & Output 08/21/18 08/22/18 08/22/18 18:59 06:59 18:59 Intake Total 2396.333 2200 2355 Output Total 786 7 Balance 9627.167 1844 2348 Weight 64.9 kg 64.9 kg Intake: IV 2300 1800 1875 Cefepime 2 gm In Sodium 50 50 Chloride 0.9% 50 ml @ 100 mls/hr IVPB Q12H RICARDO Rx# :[id number] Dextrose 5% in Water 1, 525 900 300 000 ml @ 75 mls/hr IV . [id number] RICARDO with Sodium Bicarb (1 Meq/ml) 150 ml Rx#:[id number] Potassium Phosphate 10 625 mmol In Sodium Chloride 0 .9% 250 ml @ 125 mls/hr IV Q2H RICARDO Rx#:[id number] Potassium Phosphate 10 750 mmol In Sodium Chloride 0 .9% 250 ml @ 125 mls/hr IV Q2H RICARDO Rx#:[id number] Sodium Chloride 0.9% 1, 900 900 675 000 ml @ 75 mls/hr IV . [id number] RICARDO Rx#:[id number] metroNIDAZOLE-NS PMX 500 200 100 mg In Saline 1 100ml.bag @ 100 mls/hr IVPB ONCE STA Rx#:[id number] Intake, IV Titration 46.333 Amount Diltiazem 50 mg In Sodium 46.333 Chloride 0.9% 40 ml @ Per Protocol IV .Q0M RICARDO Rx#:[id number] Oral 50 400 480 Output: Urine 785 Urine/Stool Mix 1 7 Other: Voiding Method Indwelling Catheter Bedside Commode Bedside Commode # Voids 1 1 0 # Bowel Movements 1 - Exam Gen. appearance the patient is awake, comfortable and mild degree of distress secondary to abdominal pain. Otherwise she is doing well and the patient is able to communicate without any major difficulties and she is alert and awake. No other significant events over the past 24 hours. Head exam was generally normal. There was no scleral icterus or corneal arcus. Mucous membranes were moist. Neck was supple and without jugular venous distension, thyromegaly, or carotid bruits. Carotids were easily palpable bilaterally. There was no adenopathy. Lungs were clear to auscultation and percussion, and with normal diaphragmatic excursion. No wheezes or rales were noted. Cardiac exam revealed the PMI to be normally situated and sized. The rhythm was regular and no extrasystoles were noted during several minutes of auscultation. The first and second heart sounds were normal and physiologic splitting of the second heart sound was noted. There were no murmurs, rubs, clicks, or gallops. Examination of the abdomen showed diffuse abdominal tenderness with more tenderness in lower quadrants bilaterally. No rebound tenderness. No guarding. Bowel sounds are hypoactive at this point in time. No ascites. Overall abdominal tenderness is improved compared to yesterday. No bowel sounds. No abdominal distention. Examination of the extremities revealed easily palpable radial, femoral and pedal pulses. There was no cyanosis, clubbing or edema. Examination of the skin revealed no evidence of significant rashes, suspicious appearing nevi or other concerning lesions. Neurologically awake and alert and is no focal neurological deficits. - Labs CBC & Chem 7: 08/22/18 05:29 08/22/18 05:29 Labs: Abnormal Lab Results - Last 24 Hours (Table) 08/21/18 08/22/18 08/22/18 Range/Units 18:19 05:29 05:29 WBC 12.2 H (3.8-10.6) k/uL Neutrophils # 10.7 H (1.3-7.7) k/uL Lymphocytes # 0.9 L (1.0-4.8) k/uL Potassium 3.1 L (3.5-5.1) mmol/L BUN 3 L (7-17) mg/dL Creatinine 0.31 L (0.52-1.04) mg/dL Glucose 116 H (74-99) mg/dL POC Glucose (mg/dL) 127 H (75-99) mg/dL Calcium 8.0 L (8.4-10.2) mg/dL Phosphorus 0.9 L* (2.5-4.5) mg/dL Total Protein 5.2 L (6.3-8.2) g/dL Albumin 2.6 L (3.5-5.0) g/dL Microbiology - Last 24 Hours (Table) 08/19/18 19:30 Blood Culture - Preliminary Blood No Growth after 48 hours Assessment and Plan Plan: Assessment 1 acute abdominal pain likely secondary to an acute complicated diverticulitis with perforation. The patient is currently on a combination of cefepime and Flagyl. The patient had a follow-up CAT scan that showed some resumption of the intra-abdominal free air. However, there is still phlegmonous fat stranding and extensive mesenteric congestion and small volume pelvic ascites, extensive diverticulosis/diverticulitis involving the sigmoid colon in addition to multiple areas of small bowel dilation consistent with either enteritis or intussusception. Patient is currently taken liquid diet. She is producing some liquidy bowel movements. Abdominal pain is still present although somewhat improved compared to yesterday. No significant leukocytosis. Hemodynamically stable. 2 acute febrile illness in a sedation with tachycardia secondary to above. Suspect intra-abdominal source of septicemia. Note that the patient is afebrile. The patient also had improvement in the white cell count is down to 12. 3 history of diverticulosis 4 hypothyroidism 5 history of migraines 6 paroxysmal atrial fibrillation currently back into normal sinus rhythm. Plan Patient is currently on appropriate antibiotic coverage with accommodation of cefepime and Flagyl. Continue antibiotic treatment. Ambulate. She is a patient can be advanced on her liquid diet. For now this needs to be a very slow advance. Cardiac status is stable. She remains in a normal sinus rhythm. Echocardiogram was noted. Continuous the medications. She may be moved to a MedSur unit under the supervision of general surgery.
[2018-08-22] MEDS ORDERED: METOPROLOL TARTRATE 25 MG TAB PO STA (16:55)
[2018-08-22] MEDS: METOPROLOL TARTRATE 50 MG TAB PO SCH (21:02)
[2018-08-23] MEDS: metroNIDAZOLE-NS PMX 500 MG in SALINE 1 100ML.BAG IVPB SCH ×3 (01:06→11:54)
[2018-08-23] MEDS: ACETAMINOPHEN TAB 325 MG TAB PO PRN (01:06)
[2018-08-23] MEDS ORDERED: METOPROLOL TARTRATE 50 MG TAB PO STA (03:59)
--- NOTE | 2018-08-23 04:03 | PN ---
PROGRESS NOTE DATE OF SERVICE: 08/22/2018. REASON FOR FOLLOWUP: Acute sigmoid diverticulitis with perforation. INTERVAL HISTORY: The patient is afebrile. She did mention she was having some abdominal pain last night with slight worsening compared to initial improvement. She has been started on clear liquid diet. worsening of pain to oral intake. She continues to have some loose stools but no blood or mucus in it. Denies any chest pain, shortness of breath or cough and no urinary symptoms. EXAMINATION: Blood pressure is 153/87 with a pulse of 74, temperature 97.9. She is 97% on room air. General description is a middle aged female lying in bed in no distress. Respiratory system: Unlabored breathing. Clear to auscultation anteriorly. Heart S1, S2. Regular rate and rhythm. ABDOMEN: Distended and tender. EXTREMITIES: No edema of the feet. LABS: Hemoglobin is 11.8, white count 12.8 with a BUN of 30, creatinine 0.31. Blood culture has been negative. DIAGNOSTIC IMPRESSION AND PLAN: Patient with acute sigmoid diverticulitis with perforation. The patient at this time currently covered with Cefepime and Flagyl because of allergies. We will monitor her clinical course closely. Continue supportive care. MMODL / IJN: [id number] /
[2018-08-23 05:02] LABS: Basophils % (A) 0 %; Eosinophils # (A) 0.2 k/uL (0-0.7); Eosinophils % (A) 1 %; HCT 38.2 % (34.0-46.0); HGB 12.7 gm/dL (11.4-16.0); Lymphocytes # (A) 1.4 k/uL (1.0-4.8); Lymphocytes % (A) 10 %; MCH 30.6 pg (25.0-35.0); MCHC 33.4 g/dL (31.0-37.0); MCV 91.7 fL (80.0-100.0); Mean Platelet Volume 7.5; Monocytes # (A) 0.7 k/uL (0-1.0); Monocytes % (A) 5 %; Neutrophils # (A) 12.2 k/uL (1.3-7.7); Neutrophils % (A) 82 %; Platelet Count 220 k/uL (150-450); RBC 4.16 m/uL (3.80-5.40); RDW 13.2 % (11.5-15.5); WBC 14.9 k/uL (3.8-10.6)
[2018-08-23 05:14] LABS: ALT 33 U/L (9-52); AST 23 U/L (14-36); Albumin 2.7 g/dL (3.5-5.0); Alkaline Phosphatase 81 U/L (38-126); Anion Gap 10 mmol/L; Blood Urea Nitrogen 3 mg/dL (7-17); Carbon Dioxide 22 mmol/L (22-30); Chloride 106 mmol/L (98-107); Glucose 89 mg/dL (74-99); Magnesium 1.8 mg/dL (1.6-2.3); Phosphorus 2.1 mg/dL (2.5-4.5); Sodium 138 mmol/L (137-145); Total Bilirubin 0.7 mg/dL (0.2-1.3); Total Protein 5.3 g/dL (6.3-8.2)
[2018-08-23] MEDS: LEVOTHYROXINE 25 MCG TAB PO SCH (06:13)
[2018-08-23] MEDS ORDERED: Potassium Replacement Protocol 1 EACH MISC MISCELLANE PRN (07:27)
[2018-08-23] MEDS: SODIUM CHLORIDE 0.9% 1,000 ML IV SCH (08:38)
[2018-08-23] MEDS: POTASSIUM CHLORIDE ER 20 MEQ TAB.ER PO SCH ×2 (08:38→10:09)
[2018-08-23] MEDS: METOPROLOL TARTRATE 50 MG TAB PO SCH ×2 (08:38→20:50)
[2018-08-23] MEDS: PANTOPRAZOLE 40 MG/10 ML VIAL IVP SCH (08:38)
[2018-08-23] MEDS: HYDROmorphone 1 MG/ML 1 ML SYRINGE IVP PRN ×3 (08:39→20:50)
--- NOTE | 2018-08-23 09:56 | P.PN ---
Subjective Progress Note Date: 08/23/18 Principal diagnosis: Diverticulitis The patient states he has some increased pain today. She feels bloated. He has had bowel movements. Objective - Vital Signs Vital signs: Vital Signs Temp 98.2 F 08/23/18 04:00 Pulse 76 08/23/18 06:00 Resp 13 08/23/18 06:00 BP 89/57 08/23/18 06:00 Pulse Ox 95 08/23/18 00:00 Intake & Output 08/22/18 08/23/18 08/23/18 18:59 06:59 18:59 Intake Total 2580 375 Output Total 7 Balance 2573 375 Weight 64.9 kg 65 kg Intake: IV 2100 375 Cefepime 2 gm In Sodium 50 Chloride 0.9% 50 ml @ 100 mls/hr IVPB Q12H [facility] Rx# :[id number] Dextrose 5% in Water 1, 300 000 ml @ 75 mls/hr IV . [id number] R[facility]O with Sodium Bicarb (1 Meq/ml) 150 ml Rx#:[id number] Potassium Phosphate 10 750 mmol In Sodium Chloride 0 .9% 250 ml @ 125 mls/hr IV Q2H R[facility] Rx#:[id number] Sodium Chloride 0.9% 1, 900 375 000 ml @ 75 mls/hr IV . [id number] R[facility]O Rx#:[id number] metroNIDAZOLE-NS PMX 500 100 mg In Saline 1 100ml.bag @ 100 mls/hr IVPB ONCE STA Rx#:[id number] Oral 480 Output: Urine/Stool Mix 7 Other: Voiding Method Bedside Commode Bedside Commode # Voids 0 1 # Bowel Movements 1 - Gastrointestinal Gastrointestinal Comment(s): Abdomen soft. There is some tenderness in the right left lower quadrant. - Labs CBC & Chem 7: 08/23/18 04:38 08/23/18 04:38 Labs: Abnormal Lab Results - Last 24 Hours (Table) 08/23/18 08/23/18 Range/Units 04:38 04:38 WBC 14.9 H (3.8-10.6) k/uL Neutrophils # 12.2 H (1.3-7.7) k/uL Potassium 3.0 L (3.5-5.1) mmol/L BUN 3 L (7-17) mg/dL Creatinine 0.33 L (0.52-1.04) mg/dL Calcium 8.0 L (8.4-10.2) mg/dL Phosphorus 2.1 L (2.5-4.5) mg/dL Total Protein 5.3 L (6.3-8.2) g/dL Albumin 2.7 L (3.5-5.0) g/dL Microbiology - Last 24 Hours (Table) 08/19/18 19:30 Blood Culture - Preliminary Blood No Growth after 72 hours Assessment and Plan Plan: Diverticulitis with microperforation. Patient has had some improvement however she still has significant pain. If her pain persists she will undergo exploratory laparotomy with sigmoid colectomy and end colostomy in a.m.
[2018-08-23] MEDS: FLECAINIDE 50 MG TAB PO SCH ×2 (11:09→20:50)
[2018-08-23] MEDS: CEFEPIME 2 GM in SODIUM CHLORIDE 0.9% 50 ML IVPB SCH (11:09)
--- NOTE | 2018-08-23 11:23 | PN ---
PROGRESS NOTE Mrs. Wright is a 62-year-old female who presented with abdominal discomfort, was found to have diverticulitis. She had episode of paroxysmal atrial fibrillation. She had an episode of atrial fibrillation yesterday. She is feeling well this morning. She is back in sinus mechanism. She has no chest discomfort. She has no dizziness or palpitation. She has some nausea. She continues to be on the oral beta kymberly. MEDICATION: Her medication at this time includes metoprolol 50 mg twice a day and she is on Cardizem drip. PHYSICAL EXAMINATION: Blood pressure 152/80 with a heart rate in the 70s. LUNGS: Clear. HEART: Regular rate and rhythm. S1, S2. No S3. No rub. ABDOMEN: Soft. Mild tenderness in the lower quadrant. EXTREMITIES: No edema. LAB DATA: BUN and creatinine 33 and 0.33, potassium 3.0, hemoglobin of 4.16. IMPRESSION: 1. Abdominal discomfort with diverticulitis and perforation. 2. Paroxysmal atrial fibrillation, back in sinus mechanism. RECOMMENDATIONS: From the cardiac standpoint, will replace her potassium. Will continue on the present dose of beta kymberly. I will add to her regimen flecainide, hoping to maintain sinus mechanism. The patient is not a candidate for anticoagulation at this point because of her abdominal issues. MMODL / IJN: [id number] /
[2018-08-23] MEDS: POTASSIUM CHLORIDE 10 MEQ in WATER FOR INJECTION 1 100ML.BAG IVPB SCH ×2 (12:58→16:19)
--- NOTE | 2018-08-23 14:10 | P.PN ---
Subjective Progress Note Date: 08/23/18 62-year-old female patient with known history of diverticulosis who underwent a recent colonoscopy in June 2018 and she was told to have uncomplicated diverticulosis. She has had previous bouts of diverticulitis treated with antibiotics. This morning, the patient woke up with diffuse abdominal pain and the pain was rather crampy associated with some chills and fever. She was also nauseated without any significant emesis. She did have a loose liquidy bowel movements and non-since. No bloody bowel movement or any melanotic stool. The patient came into the hospital and she was given a CAT scan of the abdomen which showed moderate to severe enterocolitis involving the multiple small bowel loops and transverse colon and sigmoid colon. While there is sigmoid diverticulosis and mild the bowel inflammation appears to involve multiple areas. Acute diverticulitis with perforation is considered. Perforation into the intraperitoneal cavity of the left paramedian lower abdomen was suspected. There are collection measures about 3 cm in size. There was moderate to severe associated mesenteric edema and inflammation and moderate degree of pelvic ascites. The patient is currently in the intensive care unit. She got transferred due to concerns of sepsis. She is tachycardic and she is in sinus tachycardia with a heart rate of 110. She is maintaining a low blood pressure. Most recent BP reading is 159/91. Pulse ox 98% on room air. She is producing adequate amount of urine output in the Malik catheter was inserted. I saw this patient in the ICU. She had lower abdominal tenderness. She was uncomfortable. Her pain was controlled for now. She is receiving Dilaudid for pain control. She also and accommodation of cefepime and Flagyl. This is a broad-spectrum antibiotics covering for acute diverticulitis. The patient will be fluid resuscitated. General surgery consultation to the been obtained. Discussed the case with the general surgeon. On today's evaluation of 08/20/2018, the patient is being seen for a follow-up. She remains on IV antibiotics with a combination of cefepime and Flagyl. She was resuscitated IV fluids. She is afebrile for now. She is also less tachycardic. Abdominal pain is still present mainly in the lower quadrant bilaterally and there is direct tenderness there. Case was discussed again with the general surgeon. The patient will have a repeat CAT scan of the abdomen and pelvis. Meanwhile, she is hemodynamically stable. No chest pain. No shortness of breath. No nausea. No vomiting. White cell count today is at 6.6. She has developed some non-anion gap metabolic acidosis with a bicarb level of 19. Lactic acid level from yesterday was at 0.9. Rest of the blood work and electrolytes were all within normal limits with normal renal function and the patient is receiving IV fluids with normal saline today to 150 mL an hour. On 08/21/2008 and I'm seeing this patient for a follow-up. She has no specific complaints. Earlier last night, around midnight, the patient went into atrial fibrillation with rapid ventricular response. She was loaded and maintain on Cardizem drip for rate control. Subsequently this morning at around 6:00 she converted back to normal sinus rhythm. She is free of any chest pain. Her abdominal pain is still present although the less severity. She has no significant nausea. She is not passing any flatus or bowel movements. No abdominal distention patient remains on a combination of cefepime and Flagyl. She has developed a component of non-anion gap metabolic acidosis. Serum bicarb is down to 15 with an anion gap of 11. The blood culture is negative. Hemoglobin is at 12.1 with a release count of 9.8. The follow-up CAT scan of the abdomen and pelvis that was done yesterday showed improved extraluminal loculated pericolonic foci of free air along the thickened and inflamed sigmoid colon. There is surrounding phlegmonous fats stranding which is similar to the previous CAT scan findings along with extensive mesenteric congestion and small volume pelvic ascites. There is also small bowel dilatation and thickening in the left mid abdomen and the central abdomen consistent with enteritis and also concerning for intussusception. There was also new small bilateral pleural effusion. Discussed the findings general surgery. The plan is to continue with antibiotics and watchful waiting. Phosphorus is to be replaced. On 08/22/2018, Lorna is ambulating pH is taking some clear liquid diet. She had liquidy bowel movements yesterday. Abdomen is char filter tank tender and probably slightly improved compared to yesterday. There are some bowel sounds on examination. No fever. No chills. Hemodynamically stable. Cardiac rhythm remains sinus. The patient was started on metoprolol 25 g by mouth twice a day. I'll cardiac exam showed no acute abnormalities and the thyroid function test showed evidence of sick euthyroid. No nausea. No vomiting. No emesis. She remains on a combination of IV cefepime and Flagyl. No other significant events overnight. General surgeries on the case. Regular still treating this patient conservatively. On 08/23/2018, this patient is having on and off pain. Sometimes the severity of the pain is worse over time she feels better. She is having liquidy bowel movements. Overnight she had another episode of atrial fibrillation with rapid ventricular response. She was given oral metoprolol 50 mg an additional dose. She subsequently converted spontaneously to normal sinus rhythm. No chest pain. No palpitation. No nausea. No vomiting. No fever. No chills. No significant leukocytosis at this point in time. White cell count is 14.9. She has hypokalemia and the potassium level is normal placed. He also had a low phosphorus level which is being replaced. Objective - Vital Signs Vital signs: Vital Signs Temp 98.2 F 08/23/18 12:00 Pulse 73 08/23/18 12:00 Resp 19 08/23/18 12:00 BP 147/89 08/23/18 12:00 Pulse Ox 95 08/23/18 12:00 Intake & Output 08/22/18 08/23/18 08/23/18 18:59 06:59 18:59 Intake Total 2580 375 600 Output Total 7 Balance 2573 375 600 Weight 64.9 kg 65 kg Intake: IV 2100 375 600 Cefepime 2 gm In Sodium 50 Chloride 0.9% 50 ml @ 100 mls/hr IVPB Q12H RICARDO Rx# :[id number] Dextrose 5% in Water 1, 300 000 ml @ 75 mls/hr IV . [id number] RICARDO with Sodium Bicarb (1 Meq/ml) 150 ml Rx#:[id number] Potassium Phosphate 10 750 mmol In Sodium Chloride 0 .9% 250 ml @ 125 mls/hr IV Q2H RICARDO Rx#:[id number] Sodium Chloride 0.9% 1, 900 375 600 000 ml @ 75 mls/hr IV . [id number] RICARDO Rx#:[id number] metroNIDAZOLE-NS PMX 500 100 mg In Saline 1 100ml.bag @ 100 mls/hr IVPB ONCE STA Rx#:[id number] Oral 480 Output: Urine/Stool Mix 7 Other: Voiding Method Bedside Commode Bedside Commode # Voids 0 1 2 # Bowel Movements 1 - Exam Gen. appearance the patient is awake, comfortable and mild degree of distress secondary to abdominal pain. Otherwise she is doing well and the patient is able to communicate without any major difficulties and she is alert and awake. No other significant events over the past 24 hours. Head exam was generally normal. There was no scleral icterus or corneal arcus. Mucous membranes were moist. Neck was supple and without jugular venous distension, thyromegaly, or carotid bruits. Carotids were easily palpable bilaterally. There was no adenopathy. Lungs were clear to auscultation and percussion, and with normal diaphragmatic excursion. No wheezes or rales were noted. Cardiac exam revealed the PMI to be normally situated and sized. The rhythm was regular and no extrasystoles were noted during several minutes of auscultation. The first and second heart sounds were normal and physiologic splitting of the second heart sound was noted. There were no murmurs, rubs, clicks, or gallops. Examination of the abdomen showed diffuse abdominal tenderness with more tenderness in lower quadrants bilaterally. No rebound tenderness. No guarding. Bowel sounds are hypoactive at this point in time. No ascites. Overall abdominal tenderness is improved compared to yesterday. No bowel sounds. No abdominal distention. Examination of the extremities revealed easily palpable radial, femoral and pedal pulses. There was no cyanosis, clubbing or edema. Examination of the skin revealed no evidence of significant rashes, suspicious appearing nevi or other concerning lesions. Neurologically awake and alert and is no focal neurological deficits. - Labs CBC & Chem 7: 08/23/18 04:38 08/23/18 11:07 Labs: Abnormal Lab Results - Last 24 Hours (Table) 08/23/18 08/23/18 08/23/18 Range/Units 04:38 04:38 11:07 WBC 14.9 H (3.8-10.6) k/uL Neutrophils # 12.2 H (1.3-7.7) k/uL Potassium 3.0 L 3.4 L (3.5-5.1) mmol/L BUN 3 L (7-17) mg/dL Creatinine 0.33 L (0.52-1.04) mg/dL Calcium 8.0 L (8.4-10.2) mg/dL Phosphorus 2.1 L (2.5-4.5) mg/dL Total Protein 5.3 L (6.3-8.2) g/dL Albumin 2.7 L (3.5-5.0) g/dL Microbiology - Last 24 Hours (Table) 08/19/18 19:30 Blood Culture - Preliminary Blood No Growth after 72 hours Assessment and Plan Plan: Assessment 1 acute abdominal pain likely secondary to an acute complicated diverticulitis with perforation. The patient is currently on a combination of cefepime and Flagyl. The patient had a follow-up CAT scan that showed some resumption of the intra-abdominal free air. However, there is still phlegmonous fat stranding and extensive mesenteric congestion and small volume pelvic ascites, extensive diverticulosis/diverticulitis involving the sigmoid colon in addition to multiple areas of small bowel dilation consistent with either enteritis or intussusception. Patient is currently taken liquid diet. She is producing some liquidy bowel movements. Abdominal pain is still present although somewhat improved compared to yesterday. No significant leukocytosis. Hemodynamically stable. Note that the patient is not fully recovered. The patient is still having on and off pain. Unable to advance her diet any further. She is having liquidy bowel movements. No significant leukocytosis. No hypotension. No signs of any septicemia. 2 mild leukocytosis 3 history of diverticulosis 4 hypothyroidism 5 history of migraines 6 paroxysmal atrial fibrillation currently back into normal sinus rhythm. Plan Continue antibiotic treatment. The patient has on and off abdominal pain and she is not fully recovered. Discussed it is a general surgery. Possible expiratory laparotomy and sigmoid colectomy with the next 24-48 hours. We'll continue to follow.
--- NOTE | 2018-08-23 16:29 | P.PN ---
Subjective Progress Note Date: 08/23/18 This is a 62-year-old female, patient of [facility]. She has a known past medical history of diverticulosis, hypothyroidism and migraines. Patient presents to the emergency room with complaints of severe abdominal pain throughout her whole abdomen that started around 2:00 this morning. She was having chills and nausea. No vomiting. Reports normal bowel movements. No blood in the stools. Computed tomography scan of the abdomen and pelvis shows moderate to severe enterocolitis involving multiple small bowel loops, transverse colon and sigmoid colon. There is sigmoid diverticulosis the bowel inflammation appears to involve multiple areas. Acute diverticulitis with perforation is also possible. Perforation into the intraperitoneal cavity of the left paramedian lower abdomen. Air collection measuring 3.0 cm. There is [id number] associated mesenteric edema/inflammation and moderate pelvic ascites. Patient was given cefepime and Flagyl in the ER. Morphine for pain. Surgery has been consulted. Patient denies any chest pain or shortness of breath. Denies any bowel movement changes or urinary symptoms. Patient was seen and examined in the ER. 08/20/2018 patient has moved to the intensive care unit last night due to elevated temperature and increased heart rate. At this time patient is still complaining of abdominal pain and right lower quadrant. Patient is being followed by critical care team Dr. amado and Dr. Mireles for surgical services. Plan for patient to get CAT scan today with contrast to assess whether patient will need surgical intervention. At this time patient denies chest pain or shortness breath. Denies urinary burning or frequency. 08/21/2018 patient remains in the ICU. She went to atrophic relation with rapid ventricular response last night. She required to be placed on a Cardizem drip. She's converted to sinus rhythm. Cardizem is currently turned off. And cardiology has been consulted. Patient's computed tomography scan of the abdomen and pelvis shows improvement in the free air. No surgery is scheduled at this time. Continue with antibiotics. Patient denies any chest pain or shortness of breath. Reports some improvement in her abdominal pain and distention. Denies any nausea or vomiting. She reports passing gas. No bowel movement. Has Malik catheter in place On 08/22/2018 patient remains in the intensive care unit. Heart rate is currently controlled. She has been started on Lopressor per cardiology services. No inspiration at this time per cardiology due to perforation. This time patient denies chest pain or shortness breath. Patient is having loose stools. C. diff will be ordered. Patient denies any urinary burning or frequency. On 08/23/2018 patient is alert and oriented 3 she was seen and examined in the intensive care unit she was evaluated earlier by surgery and plan is to proceed with surgery in a.m. tomorrow she is still complaining of bilateral lower quadrant abdominal pain otherwise no complaints at this time no chest pain no shortness of breath no palpitation no cough and no urinary symptoms Objective - Vital Signs Vital signs: Vital Signs Temp 97.8 F 08/23/18 16:00 Pulse 76 08/23/18 16:00 Resp 19 08/23/18 16:00 BP 144/81 08/23/18 16:00 Pulse Ox 96 08/23/18 16:00 Intake & Output 08/22/18 08/23/18 08/23/18 18:59 06:59 18:59 Intake Total 2580 375 600 Output Total 7 Balance 2573 375 600 Weight 64.9 kg 65 kg Intake: IV 2100 375 600 Cefepime 2 gm In Sodium 50 Chloride 0.9% 50 ml @ 100 mls/hr IVPB Q12H [facility] Rx# :[id number] Dextrose 5% in Water 1, 300 000 ml @ 75 mls/hr IV . [id number] RICARDO with Sodium Bicarb (1 Meq/ml) 150 ml Rx#:[id number] Potassium Phosphate 10 750 mmol In Sodium Chloride 0 .9% 250 ml @ 125 mls/hr IV Q2H RICARDO Rx#:[id number] Sodium Chloride 0.9% 1, 900 375 600 000 ml @ 75 mls/hr IV . [id number] RICARDO Rx#:[id number] metroNIDAZOLE-NS PMX 500 100 mg In Saline 1 100ml.bag @ 100 mls/hr IVPB ONCE STA Rx#:[id number] Oral 480 Output: Urine/Stool Mix 7 Other: Voiding Method Bedside Commode Bedside Commode # Voids 0 1 2 # Bowel Movements 1 - Exam Head normocephalic and atraumatic Neck supple no JVD no goiter Lungs clear to auscultation bilaterally no wheezing or crackles Heart regular rate and rhythm S1-S2, no rub or gallop Abdomen is diffuse tenderness distended hypoactive bowel sounds, mostly tenderness in the right lower quadrant and left lower quadrant Extremities no edema no cyanosis or clubbing Neuro alert and orientated to 3 no gross focal deficit - Labs CBC & Chem 7: 08/23/18 04:38 08/23/18 11:07 Labs: Abnormal Lab Results - Last 24 Hours (Table) 08/23/18 08/23/18 08/23/18 Range/Units 04:38 04:38 11:07 WBC 14.9 H (3.8-10.6) k/uL Neutrophils # 12.2 H (1.3-7.7) k/uL Potassium 3.0 L 3.4 L (3.5-5.1) mmol/L BUN 3 L (7-17) mg/dL Creatinine 0.33 L (0.52-1.04) mg/dL Calcium 8.0 L (8.4-10.2) mg/dL Phosphorus 2.1 L (2.5-4.5) mg/dL Total Protein 5.3 L (6.3-8.2) g/dL Albumin 2.7 L (3.5-5.0) g/dL Microbiology - Last 24 Hours (Table) 08/19/18 19:30 Blood Culture - Preliminary Blood No Growth after 72 hours Assessment and Plan Plan: 1. Acute complicated diverticulitis perforation with sepsis: Computed tomography scan showing severe enterocolitis involving multiple small bowel loops transverse colon And sigmoid colon. Concerns of a possible acute diverticulitis with perforation. Patient started on Flagyl and cefepime in the ER. Repeat computed tomography scan the abdomen and pelvis showing improvement and he free air. She has been evaluated by surgical service. No surgery at this time. Continue with antibiotics. Followed by infectious disease. Blood cultures remain negative. She is reporting that she is having loose stools. C. diff has been ordered. Bariatric clear liquid diet surgical services 2. History of diverticulitis 3. Hypothyroidism: Continue Synthroid TSH 0.015 and free T4 1 33. Patient states she does take both Synthroid and a more [place] thyroid at home. Patient reports that she was getting treated for hypothyroidism. Patient states she does currently have her thyroid. Will DC [place] thyroid at. this time 4. History of migraines 5. New onset of atrial fibrillation with rapid ventricular response. Patient did require Cardizem drip. converted to sinus rhythm. Per cardiology services patient will be started on Lopressor. Hold on any kind of anticoagulation In view of the perforation. 6. Hypophosphatemia. Patient received phosphorus supplement. Phosphorus 0.9. Phosphorus will be replaced per protocol 7. Hypokalemia. Potassium 3.1. Will replace per protocol GI prophylaxis Protonix and DVT prophylaxis SCDs until seen by surgeon.
[2018-08-23] MEDS: metroNIDAZOLE 500 MG TAB PO SCH ×2 (18:07→22:48)
[2018-08-24] MEDS: CEFEPIME 2 GM in SODIUM CHLORIDE 0.9% 50 ML IVPB SCH ×2 (00:22→12:59)
[2018-08-24 05:52] LABS: Basophils % (A) 0 %; Eosinophils # (A) 0.1 k/uL (0-0.7); Eosinophils % (A) 1 %; HCT 37.3 % (34.0-46.0); HGB 12.5 gm/dL (11.4-16.0); Lymphocytes # (A) 1.7 k/uL (1.0-4.8); Lymphocytes % (A) 13 %; MCH 30.9 pg (25.0-35.0); MCHC 33.5 g/dL (31.0-37.0); MCV 92.1 fL (80.0-100.0); Mean Platelet Volume 7.5; Monocytes # (A) 0.5 k/uL (0-1.0); Monocytes % (A) 4 %; Neutrophils # (A) 10.1 k/uL (1.3-7.7); Neutrophils % (A) 78 %; Platelet Count 228 k/uL (150-450); RBC 4.05 m/uL (3.80-5.40); RDW 13.2 % (11.5-15.5); WBC 12.9 k/uL (3.8-10.6)
[2018-08-24 06:03] LABS: Anion Gap 10 mmol/L; Blood Urea Nitrogen 5 mg/dL (7-17); Calcium 7.8 mg/dL (8.4-10.2); Carbon Dioxide 21 mmol/L (22-30); Chloride 103 mmol/L (98-107); Glucose 70 mg/dL (74-99); Magnesium 1.8 mg/dL (1.6-2.3); Potassium 3.6 mmol/L (3.5-5.1); Sodium 134 mmol/L (137-145)
[2018-08-24] MEDS ORDERED: DEXAMETHASONE SOD PHOSPHATE 10 MG/ML 1 ML VIAL IV ONE (06:37)
[2018-08-24] MEDS ORDERED: ONDANSETRON 4 MG/2 ML VIAL IVP ONE (06:37)
[2018-08-24] MEDS ORDERED: MIDAZOLAM 2 MG/2 ML VIAL IV PRN (06:37)
[2018-08-24] MEDS ORDERED: HYDROmorphone 1 MG/ML 1 ML SYRINGE IVP PRN ×2 (06:37→10:07)
[2018-08-24] MEDS ORDERED: PANTOPRAZOLE 40 MG TABLET PO SCH (07:30)
--- NOTE | 2018-08-24 07:45 | PN ---
PROGRESS NOTE DATE OF SERVICE: 08/23/2018. REASON FOR FOLLOWUP: Acute sigmoid diverticulitis with perforation. INTERVAL HISTORY: The patient is afebrile. The patient apparently did have abdominal pain this morning from around 4:30 until 1. Pain has been intensity of about 7, mostly in the upper abdominal area. The patient denies having any further nausea, vomiting and did not have any bowel movement. EXAMINATION: Blood pressure is 151/81 with a pulse of 75, temperature of 97.8. She is 93% on room air. General description is a middle aged female lying in bed in no distress. Respiratory system unlabored breathing. Clear to auscultation anteriorly. Heart S1, S2. Regular rate and rhythm. ABDOMEN: Soft. Mild tenderness lower quadrant area. No guarding or rigidity. LABS: Hemoglobin is 12.7, white count 14.9. His BUN of 20, creatinine 0.33. Blood culture has been negative so far. DIAGNOSTIC IMPRESSION AND PLAN: Patient with acute sigmoid diverticulitis with perforation. The patient seemed to have some clinical rumination. However, did have worsening abdominal pain today. The patient to be evaluated by surgeon tomorrow and if recurrence of pain, may be considered for exploratory laparotomy and diverting colostomy. She will continue with the at this point. All questions and concerns were answered. Continue supportive care. MMODL / IJN: [id number] /
[2018-08-24] MEDS: LEVOTHYROXINE 25 MCG TAB PO SCH (07:57)
[2018-08-24] MEDS: SODIUM CHLORIDE 0.9% 1,000 ML IV SCH ×3 (08:00→22:16)
[2018-08-24] MEDS ORDERED: LIDOCAINE 1% INJ 10MG/ML (20 ML MDV) ONE (08:13)
[2018-08-24] MEDS ORDERED: SUCCINYLCHOLINE CHLORIDE 100 MG/5 ML SYR IV ONE (08:13)
[2018-08-24] MEDS ORDERED: PROPOFOL 10 MG/ML 20 ML VIAL IV ONE (08:13)
[2018-08-24] MEDS ORDERED: MIDAZOLAM 2 MG/2 ML VIAL ONE (08:13)
[2018-08-24] MEDS ORDERED: NEOSTIGMINE 1 MG/ML 10 ML VIAL ONE (08:13)
[2018-08-24] MEDS ORDERED: ROCURONIUM BROMIDE 10 MG/ML 10 ML VIAL IV ONE (08:13)
[2018-08-24] MEDS ORDERED: GLYCOPYRROLATE 0.2 MG/ML 2 ML VIAL ONE (08:13)
[2018-08-24] MEDS ORDERED: fentaNYL (PF) 50 MCG/ML 2 ML AMP ONE (08:13)
[2018-08-24] MEDS ORDERED: IV FLUID CONTINUATION 1,000 ML IV ONE (08:13)
[2018-08-24] MEDS ORDERED: NALOXONE 0.4 MG/ML 1 ML VIAL IV PRN (08:49)
[2018-08-24] MEDS ORDERED: ROPIVACAINE 250 MG, HYDROMORPHONE (PF) 5 MG in SODIUM CHLORIDE 0.9% 200 ML EPIDURAL PRN (08:49)
[2018-08-24] MEDS ORDERED: METOCLOPRAMIDE 5 MG/ML 2 ML VIAL IVP PRN (10:07)
[2018-08-24] MEDS ORDERED: ONDANSETRON 4 MG/2 ML VIAL IVP PRN (10:07)
--- NOTE | 2018-08-24 10:18 | P.OP ---
Date of Procedure: 08/24/18 Preoperative Diagnosis: Perforated diverticulitis Postoperative Diagnosis: Referred after colitis Interloop abscess Procedure(s) Performed: Exploratory laparotomy Sigmoid colectomy And colostomy drainage of interloop abscess Anesthesia: LISANDRA Surgeon: Joesph Mireles Estimated Blood Loss (ml): 20 Pathology: other (Sigmoid colon) Condition: stable Disposition: PACU Description of Procedure: The patient's placed on the operating table in supine position. She received general anesthesia. Her abdomen was prepped and draped in usual sterile fashion. The abdomen was entered through a low midline incision. The Bookwalter retractors placed a wound. The small bowel was examined. There appeared to be some dilatation of small bowel. There were several small interloop abscesses located in the pelvis. These were drained. There was a larger serous collection in the pelvis and this was drained. At this point the sigmoid colon was mobilized. There appeared to be an obvious area of inflammation of the sigmoid colon where the suspected perforated diverticulitis was located. The proximal sigmoid colon was transected with a GI stapler. Using the Enseal device the mesentery of the bowel was divided. And then using the contour stapler the rectum was transected. The abdomen was irrigated. There is no bleeding seen. The suitable spot for the colostomy was chosen on the left abdominal wall. The fascia was closed with looped #1 PDS suture. Skin was closed rosalinda. The colostomy was matured with 3-0 Vicryl. Patient top procedure well and was sent back to the ICU in stable condition.
[2018-08-24] MEDS: fentaNYL (PF) 50 MCG/ML 2 ML AMP IV ONE ×3 (10:30→10:47)
[2018-08-24] MEDS ORDERED: LACTATED RINGERS 1,000 ML IV ONE (10:41)
[2018-08-24] MEDS ORDERED: KETOROLAC 30 MG/ML 1 ML VIAL IVP ONE (10:51)
[2018-08-24] MEDS: MAGNESIUM SULFATE-D5W PMX 1 GM in DEXTROSE/WATER 1 100ML.BAG IVPB SCH ×2 (11:59→14:59)
[2018-08-24] MEDS: D5-0.45% NACL WITH KCL 20MEQ/L 1,000 ML IV SCH ×2 (12:08→20:12)
[2018-08-24] MEDS: POTASSIUM CHLORIDE 10 MEQ in WATER FOR INJECTION 1 100ML.BAG IVPB SCH ×2 (12:46→12:47)
[2018-08-24] MEDS: FLECAINIDE 50 MG TAB PO SCH ×2 (12:59→22:16)
[2018-08-24] MEDS: metroNIDAZOLE 500 MG TAB PO SCH ×5 (12:59→22:16)
[2018-08-24] MEDS: METOPROLOL TARTRATE 50 MG TAB PO SCH ×2 (12:59→22:16)
--- NOTE | 2018-08-24 13:34 | P.PN ---
Subjective Progress Note Date: 08/24/18 62-year-old female patient with known history of diverticulosis who underwent a recent colonoscopy in June 2018 and she was told to have uncomplicated diverticulosis. She has had previous bouts of diverticulitis treated with antibiotics. This morning, the patient woke up with diffuse abdominal pain and the pain was rather crampy associated with some chills and fever. She was also nauseated without any significant emesis. She did have a loose liquidy bowel movements and non-since. No bloody bowel movement or any melanotic stool. The patient came into the hospital and she was given a CAT scan of the abdomen which showed moderate to severe enterocolitis involving the multiple small bowel loops and transverse colon and sigmoid colon. While there is sigmoid diverticulosis and mild the bowel inflammation appears to involve multiple areas. Acute diverticulitis with perforation is considered. Perforation into the intraperitoneal cavity of the left paramedian lower abdomen was suspected. There are collection measures about 3 cm in size. There was moderate to severe associated mesenteric edema and inflammation and moderate degree of pelvic ascites. The patient is currently in the intensive care unit. She got transferred due to concerns of sepsis. She is tachycardic and she is in sinus tachycardia with a heart rate of 110. She is maintaining a low blood pressure. Most recent BP reading is 159/91. Pulse ox 98% on room air. She is producing adequate amount of urine output in the Malik catheter was inserted. I saw this patient in the ICU. She had lower abdominal tenderness. She was uncomfortable. Her pain was controlled for now. She is receiving Dilaudid for pain control. She also and accommodation of cefepime and Flagyl. This is a broad-spectrum antibiotics covering for acute diverticulitis. The patient will be fluid resuscitated. General surgery consultation to the been obtained. Discussed the case with the general surgeon. On today's evaluation of 08/20/2018, the patient is being seen for a follow-up. She remains on IV antibiotics with a combination of cefepime and Flagyl. She was resuscitated IV fluids. She is afebrile for now. She is also less tachycardic. Abdominal pain is still present mainly in the lower quadrant bilaterally and there is direct tenderness there. Case was discussed again with the general surgeon. The patient will have a repeat CAT scan of the abdomen and pelvis. Meanwhile, she is hemodynamically stable. No chest pain. No shortness of breath. No nausea. No vomiting. White cell count today is at 6.6. She has developed some non-anion gap metabolic acidosis with a bicarb level of 19. Lactic acid level from yesterday was at 0.9. Rest of the blood work and electrolytes were all within normal limits with normal renal function and the patient is receiving IV fluids with normal saline today to 150 mL an hour. On 08/21/2008 and I'm seeing this patient for a follow-up. She has no specific complaints. Earlier last night, around midnight, the patient went into atrial fibrillation with rapid ventricular response. She was loaded and maintain on Cardizem drip for rate control. Subsequently this morning at around 6:00 she converted back to normal sinus rhythm. She is free of any chest pain. Her abdominal pain is still present although the less severity. She has no significant nausea. She is not passing any flatus or bowel movements. No abdominal distention patient remains on a combination of cefepime and Flagyl. She has developed a component of non-anion gap metabolic acidosis. Serum bicarb is down to 15 with an anion gap of 11. The blood culture is negative. Hemoglobin is at 12.1 with a release count of 9.8. The follow-up CAT scan of the abdomen and pelvis that was done yesterday showed improved extraluminal loculated pericolonic foci of free air along the thickened and inflamed sigmoid colon. There is surrounding phlegmonous fats stranding which is similar to the previous CAT scan findings along with extensive mesenteric congestion and small volume pelvic ascites. There is also small bowel dilatation and thickening in the left mid abdomen and the central abdomen consistent with enteritis and also concerning for intussusception. There was also new small bilateral pleural effusion. Discussed the findings general surgery. The plan is to continue with antibiotics and watchful waiting. Phosphorus is to be replaced. On 08/22/2018, Lorna is ambulating pH is taking some clear liquid diet. She had liquidy bowel movements yesterday. Abdomen is marble machine tender and probably slightly improved compared to yesterday. There are some bowel sounds on examination. No fever. No chills. Hemodynamically stable. Cardiac rhythm remains sinus. The patient was started on metoprolol 25 g by mouth twice a day. I'll cardiac exam showed no acute abnormalities and the thyroid function test showed evidence of sick euthyroid. No nausea. No vomiting. No emesis. She remains on a combination of IV cefepime and Flagyl. No other significant events overnight. General surgeries on the case. Regular still treating this patient conservatively. On 08/23/2018, this patient is having on and off pain. Sometimes the severity of the pain is worse over time she feels better. She is having liquidy bowel movements. Overnight she had another episode of atrial fibrillation with rapid ventricular response. She was given oral metoprolol 50 mg an additional dose. She subsequently converted spontaneously to normal sinus rhythm. No chest pain. No palpitation. No nausea. No vomiting. No fever. No chills. No significant leukocytosis at this point in time. White cell count is 14.9. She has hypokalemia and the potassium level is normal placed. He also had a low phosphorus level which is being replaced. On 08/24/2018, the patient was taken to the operating room by general surgery. The patient underwent expiratory laparotomy, sigmoid colectomy and colostomy. Estimated blood loss was 20 mL. The patient was found to have Enterobacter lobe abscesses and colitis. The patient is back to the intensive care unit. She is hemodynamically stable. She is nothing by mouth. Colostomy site is noted and is clean for now. Surgical wound site is clean. The patient has epidural bupivacaine and Dilaudid for pain control. She has also an NG tube in place. Output is minimal. No nausea. No vomiting. No abdominal pain. She is quite stable for now. Awake and alert and she is following commands and answering questions appropriately and the cardiac rhythm remains sinus. No other issues for now. The patient is on IV cefepime and Flagyl as broad- spectrum antibiotic coverage. Objective - Vital Signs Vital signs: Vital Signs Temp 98.5 F 08/24/18 10:02 Pulse 73 08/24/18 11:15 Resp 18 08/24/18 11:15 BP 148/78 08/24/18 11:15 Pulse Ox 97 08/24/18 11:00 Intake & Output 08/23/18 08/24/18 08/24/18 18:59 06:59 18:59 Intake Total 1200 1250 1275 Output Total 7765 931 Balance 1200 -875 344 Weight 63.3 kg Intake: IV 1200 1250 1275 Cefepime 2 gm In Sodium 100 Chloride 0.9% 50 ml @ 100 mls/hr IVPB Q12H [facility] Rx# :[id number] D5-0.45% NaCl with KCl 125 20Meq/l 1,000 ml @ 125 mls/hr IV .Q8H [facility] Rx#: [id number] Potassium Chloride 10 meq 100 In Water For Injection 1 100ml.bag @ 100 mls/hr IVPB Q1H [facility] Rx#: [id number] Sodium Chloride 0.9% 1, 1200 1050 150 000 ml @ 75 mls/hr IV . [id number] [facility] Rx#:[id number] Output: Urine 2125 910 Stool 1 Estimated Blood Loss 20 Other: Voiding Method Bedside Commode Bedside Commode Bedside Commode # Voids 4 - Exam Gen. appearance the patient is awake, conscious and alert and not confused. Head exam was generally normal. There was no scleral icterus or corneal arcus. Mucous membranes were moist. Neck was supple and without jugular venous distension, thyromegaly, or carotid bruits. Carotids were easily palpable bilaterally. There was no adenopathy. Lungs were clear to auscultation and percussion, and with normal diaphragmatic excursion. No wheezes or rales were noted. Cardiac exam revealed the PMI to be normally situated and sized. The rhythm was regular and no extrasystoles were noted during several minutes of auscultation. The first and second heart sounds were normal and physiologic splitting of the second heart sound was noted. There were no murmurs, rubs, clicks, or gallops. Examination of the abdomen shows that the patient has a clean wound site and the dressing is dry clean and intact. The patient has a JOAQUINA drain. The patient also has a colostomy and no output in the colostomy bag yet. No direct tenderness. No rebound tenderness no guarding. Bowel sounds are hypoactive at this point in time. Examination of the extremities revealed easily palpable radial, femoral and pedal pulses. There was no cyanosis, clubbing or edema. Examination of the skin revealed no evidence of significant rashes, suspicious appearing nevi or other concerning lesions. Neurologically awake and alert and is no focal neurological deficits. - Labs CBC & Chem 7: 08/24/18 05:03 08/24/18 05:03 Labs: Abnormal Lab Results - Last 24 Hours (Table) 08/24/18 08/24/18 Range/Units 05:03 05:03 WBC 12.9 H (3.8-10.6) k/uL Neutrophils # 10.1 H (1.3-7.7) k/uL Sodium 134 L (137-145) mmol/L Carbon Dioxide 21 L (22-30) mmol/L BUN 5 L (7-17) mg/dL Creatinine 0.35 L (0.52-1.04) mg/dL Glucose 70 L (74-99) mg/dL Calcium 7.8 L (8.4-10.2) mg/dL Phosphorus 2.0 L (2.5-4.5) mg/dL Microbiology - Last 24 Hours (Table) 08/19/18 19:30 Blood Culture - Preliminary Blood No Growth after 96 hours Assessment and Plan Plan: Assessment 1 acute abdominal pain likely secondary to an acute complicated diverticulitis with perforation. The patient is currently on a combination of cefepime and Flagyl. The patient had a follow-up CAT scan that showed some resumption of the intra-abdominal free air. However, there is still phlegmonous fat stranding and extensive mesenteric congestion and small volume pelvic ascites, extensive diverticulosis/diverticulitis involving the sigmoid colon in addition to multiple areas of small bowel dilation consistent with either enteritis or intussusception. The patient was given antibiotic therapy for the past 4-5 days. Unfortunately there was no major improvement and the patient was unable to get back to her normal feeds and she'll continue to have abdominal pain and discomfort. Based on that, the patient was taken to the operating room and she underwent a sigmoid colectomy and end colostomy. The patient is currently postop day #0. She has an epidural catheter in place and she has adequate being control. She is hemodynamically stable. No other significant events postop and she is currently in the intensive care units. 2 mild leukocytosis 3 history of diverticulosis 4 hypothyroidism 5 history of migraines 6 paroxysmal atrial fibrillation currently back into normal sinus rhythm. Plan Epidural for pain control. Monitor hemodynamics. Continue IV fluids. Replace electrolytes. IV cefepime and Flagyl regarding her complicated perforated diverticulitis. Incentive spirometer. Nothing by mouth for now. Keep NG tube in place. I did a cardiac rhythm and the patient is currently in sinus rhythm. We'll continue to follow.
[2018-08-24 13:36] LABS: Basophils # (A) 0.1 k/uL (0-0.2); Basophils % (A) 0 %; Eosinophils % (A) 0 %; HCT 47.1 % (34.0-46.0); HGB 15.3 gm/dL (11.4-16.0); Lymphocytes # (A) 0.9 k/uL (1.0-4.8); Lymphocytes % (A) 4 %; MCH 30.4 pg (25.0-35.0); MCHC 32.4 g/dL (31.0-37.0); MCV 93.6 fL (80.0-100.0); Monocytes # (A) 0.5 k/uL (0-1.0); Monocytes % (A) 3 %; Neutrophils # (A) 18.5 k/uL (1.3-7.7); Neutrophils % (A) 91 %; Platelet Count 264 k/uL (150-450); RBC 5.03 m/uL (3.80-5.40); RDW 13.3 % (11.5-15.5); WBC 20.3 k/uL (3.8-10.6)
[2018-08-24 13:53] LABS: Anion Gap 15 mmol/L; Blood Urea Nitrogen 5 mg/dL (7-17); Calcium 7.4 mg/dL (8.4-10.2); Carbon Dioxide 17 mmol/L (22-30); Chloride 105 mmol/L (98-107); Glucose 69 mg/dL (74-99); Potassium 3.8 mmol/L (3.5-5.1); Sodium 137 mmol/L (137-145)
--- NOTE | 2018-08-24 15:25 | P.PN ---
Subjective Progress Note Date: 08/24/18 This is a 62-year-old female, patient of [facility]. She has a known past medical history of diverticulosis, hypothyroidism and migraines. Patient presents to the emergency room with complaints of severe abdominal pain throughout her whole abdomen that started around 2:00 this morning. She was having chills and nausea. No vomiting. Reports normal bowel movements. No blood in the stools. Computed tomography scan of the abdomen and pelvis shows moderate to severe enterocolitis involving multiple small bowel loops, transverse colon and sigmoid colon. There is sigmoid diverticulosis the bowel inflammation appears to involve multiple areas. Acute diverticulitis with perforation is also possible. Perforation into the intraperitoneal cavity of the left paramedian lower abdomen. Air collection measuring 3.0 cm. There is [id number] associated mesenteric edema/inflammation and moderate pelvic ascites. Patient was given cefepime and Flagyl in the ER. Morphine for pain. Surgery has been consulted. Patient denies any chest pain or shortness of breath. Denies any bowel movement changes or urinary symptoms. Patient was seen and examined in the ER. 08/20/2018 patient has moved to the intensive care unit last night due to elevated temperature and increased heart rate. At this time patient is still complaining of abdominal pain and right lower quadrant. Patient is being followed by critical care team Dr. amado and Dr. Mireles for surgical services. Plan for patient to get CAT scan today with contrast to assess whether patient will need surgical intervention. At this time patient denies chest pain or shortness breath. Denies urinary burning or frequency. 08/21/2018 patient remains in the ICU. She went to atrophic relation with rapid ventricular response last night. She required to be placed on a Cardizem drip. She's converted to sinus rhythm. Cardizem is currently turned off. And cardiology has been consulted. Patient's computed tomography scan of the abdomen and pelvis shows improvement in the free air. No surgery is scheduled at this time. Continue with antibiotics. Patient denies any chest pain or shortness of breath. Reports some improvement in her abdominal pain and distention. Denies any nausea or vomiting. She reports passing gas. No bowel movement. Has Malik catheter in place On 08/22/2018 patient remains in the intensive care unit. Heart rate is currently controlled. She has been started on Lopressor per cardiology services. No inspiration at this time per cardiology due to perforation. This time patient denies chest pain or shortness breath. Patient is having loose stools. C. diff will be ordered. Patient denies any urinary burning or frequency. On 08/23/2018 patient is alert and oriented 3 she was seen and examined in the intensive care unit she was evaluated earlier by surgery and plan is to proceed with surgery in a.m. tomorrow she is still complaining of bilateral lower quadrant abdominal pain otherwise no complaints at this time no chest pain no shortness of breath no palpitation no cough and no urinary symptoms On 08/24/2018, today the patient underwent expiratory laparotomy, sigmoid colectomy and colostomy. Patient remains nothing by mouth Colostomy site is noted and is clean for now. Surgical wound site is clean. The patient has epidural for pain control. She has also an NG tube in place. There is no fever or chills no headache no dizziness no chest pain no shortness of breath no cough no nausea or vomiting no abdominal pain and no urinary symptoms Objective - Vital Signs Vital signs: Vital Signs Temp 98.5 F 08/24/18 12:00 Pulse 78 08/24/18 14:00 Resp 12 08/24/18 14:00 BP 106/68 08/24/18 14:00 Pulse Ox 90 L 08/24/18 14:00 Intake & Output 08/23/18 08/24/18 08/24/18 18:59 06:59 18:59 Intake Total 1200 1250 1275 Output Total 2125 931 Balance 1200 -875 344 Weight 63.3 kg Intake: IV 1200 1250 1275 Cefepime 2 gm In Sodium 100 Chloride 0.9% 50 ml @ 100 mls/hr IVPB Q12H [facility] Rx# :[id number] D5-0.45% NaCl with KCl 125 20Meq/l 1,000 ml @ 125 mls/hr IV .Q8H [facility] Rx#: [id number] Potassium Chloride 10 meq 100 In Water For Injection 1 100ml.bag @ 100 mls/hr IVPB Q1H [facility] Rx#: [id number] Sodium Chloride 0.9% 1, 1200 1050 150 000 ml @ 75 mls/hr IV . [id number] [facility] Rx#:[id number] Output: Urine 2125 910 Stool 1 Estimated Blood Loss 20 Other: Voiding Method Bedside Commode Bedside Commode Bedside Commode # Voids 4 - Exam Head normocephalic and atraumatic Neck supple no JVD no goiter Lungs clear to auscultation bilaterally no wheezing or crackles Heart regular rate and rhythm S1-S2, no rub or gallop Abdomen is diffuse tenderness distended hypoactive bowel sounds, mostly tenderness in the right lower quadrant and left lower quadrant Extremities no edema no cyanosis or clubbing Neuro alert and orientated to 3 no gross focal deficit - Labs CBC & Chem 7: 08/24/18 11:41 08/24/18 11:41 Labs: Abnormal Lab Results - Last 24 Hours (Table) 08/24/18 08/24/18 08/24/18 Range/Units 05:03 05:03 11:41 WBC 12.9 H 20.3 H (3.8-10.6) k/uL Hct 47.1 H (34.0-46.0) % Neutrophils # 10.1 H 18.5 H (1.3-7.7) k/uL Lymphocytes # 0.9 L (1.0-4.8) k/uL Sodium 134 L (137-145) mmol/L Carbon Dioxide 21 L (22-30) mmol/L BUN 5 L (7-17) mg/dL Creatinine 0.35 L (0.52-1.04) mg/dL Glucose 70 L (74-99) mg/dL Calcium 7.8 L (8.4-10.2) mg/dL Phosphorus 2.0 L (2.5-4.5) mg/dL 08/24/18 Range/Units 11:41 WBC (3.8-10.6) k/uL Hct (34.0-46.0) % Neutrophils # (1.3-7.7) k/uL Lymphocytes # (1.0-4.8) k/uL Sodium (137-145) mmol/L Carbon Dioxide 17 L (22-30) mmol/L BUN 5 L (7-17) mg/dL Creatinine 0.35 L (0.52-1.04) mg/dL Glucose 69 L (74-99) mg/dL Calcium 7.4 L (8.4-10.2) mg/dL Phosphorus (2.5-4.5) mg/dL Microbiology - Last 24 Hours (Table) 08/19/18 19:30 Blood Culture - Preliminary Blood No Growth after 96 hours Assessment and Plan Plan: 1. Acute complicated diverticulitis perforation with sepsis: Computed tomography scan showing severe enterocolitis involving multiple small bowel loops transverse colon And sigmoid colon. Concerns of a possible acute diverticulitis with perforation. Patient started on Flagyl and cefepime in the ER. Repeat computed tomography scan the abdomen and pelvis showing improvement and he free air. She has been evaluated by surgical service. Patient underwent surgery this morning details as above 2. History of diverticulitis 3. Hypothyroidism: Continue Synthroid TSH 0.015 and free T4 1 33. Patient states she does take both Synthroid and a more [place] thyroid at home. Patient reports that she was getting treated for hypothyroidism. Patient states she does currently have her thyroid. Will DC [place] thyroid at. this time 4. History of migraines 5. New onset of atrial fibrillation with rapid ventricular response. Patient did require Cardizem drip. converted to sinus rhythm. Per cardiology services patient will be started on Lopressor. Hold on any kind of anticoagulation In view of the perforation. 6. Hypophosphatemia. Patient received phosphorus supplement. Phosphorus 0.9. Phosphorus will be replaced per protocol 7. Hypokalemia. Potassium 3.1. Will replace per protocol GI prophylaxis Protonix and DVT prophylaxis SCDs until seen by surgeon.
[2018-08-24] MEDS: BENZOCAINE/MENTHOL LOZENG 1 EACH LOZENGE MUCOUS MEM PRN (16:26)
[2018-08-24] MEDS: HEPARIN SODIUM,PORCINE 5,000 UNIT/ML 1 ML VIAL SQ SCH (16:26)
[2018-08-24] MEDS: FAMOTIDINE 20 MG/2 ML VIAL IV SCH (22:15)
[2018-08-25] MEDS: CEFEPIME 2 GM in SODIUM CHLORIDE 0.9% 50 ML IVPB SCH ×2 (00:17→13:05)
[2018-08-25] MEDS: HEPARIN SODIUM,PORCINE 5,000 UNIT/ML 1 ML VIAL SQ SCH ×3 (00:18→16:47)
[2018-08-25] MEDS: D5-0.45% NACL WITH KCL 20MEQ/L 1,000 ML IV SCH ×4 (02:41→22:43)
[2018-08-25 05:16] LABS: Basophils % (A) 0 %; Eosinophils % (A) 0 %; HCT 37.2 % (34.0-46.0); HGB 12.4 gm/dL (11.4-16.0); Lymphocytes # (A) 1.3 k/uL (1.0-4.8); Lymphocytes % (A) 9 %; MCHC 33.2 g/dL (31.0-37.0); MCV 93.2 fL (80.0-100.0); Mean Platelet Volume 7.3; Monocytes # (A) 0.6 k/uL (0-1.0); Monocytes % (A) 4 %; Neutrophils # (A) 11.8 k/uL (1.3-7.7); Neutrophils % (A) 84 %; Platelet Count 287 k/uL (150-450); RBC 3.99 m/uL (3.80-5.40); RDW 13.5 % (11.5-15.5)
[2018-08-25 05:21] LABS: Anion Gap 4 mmol/L; Blood Urea Nitrogen 4 mg/dL (7-17); Calcium 7.2 mg/dL (8.4-10.2); Carbon Dioxide 23 mmol/L (22-30); Chloride 106 mmol/L (98-107); Glucose 179 mg/dL (74-99); Magnesium 2.5 mg/dL (1.6-2.3); Phosphorus 1.7 mg/dL (2.5-4.5); Potassium 4.4 mmol/L (3.5-5.1); Sodium 133 mmol/L (137-145)
--- NOTE | 2018-08-25 06:25 | P.PN ---
Progress Note - Text Progress Note Date: 08/25/18 Patient is doing well this morning. She reports minimal amounts of pain with her epidural catheter. She is postop day 1 and catheter today 2. Epidural running at 7 mL/h 0.1% bupivacaine with 20 g of Dilaudid. Last night she had left leg weakness and epidural catheter was turned down from 10 amounts to 70 miles per hour and all her numbness and weakness in the left leg resolved. She has full motor strength in bilateral lower extremities is morning. She continues to have a Malik catheter per The surgery team. She has not Ambulated. We will continue the epidural catheter at the current settings. We will follow up with the patient tomorrow
[2018-08-25] MEDS: LEVOTHYROXINE 25 MCG TAB PO SCH (06:38)
--- NOTE | 2018-08-25 08:45 | PN ---
PROGRESS NOTE DATE OF SERVICE: 08/24/2018. REASON FOR FOLLOWUP: Acute diverticulitis with perforation. INTERVAL HISTORY: The patient is afebrile. The patient was taken to the OR this morning, status post laparotomy and diverting colostomy and drainage of the interloop abscess. No wound cultures obtained. The patient seen in the postop period where the patient's abdominal pain is currently controlled with pain medication. Denies significant nausea, vomiting. Denies having any chest pain, shortness of breath or cough. EXAMINATION: Blood pressure 102/55 with a pulse of 88, temperature 98.3. She is 94% on 2 L nasal cannula. General description is a middle-aged female lying in bed in no distress. Respiratory system: Unlabored breathing. Clear to auscultation anteriorly. Heart S1, S2. Regular rate and rhythm. ABDOMEN: Soft, mildly tender. No guarding or rigidity. LABS: Hemoglobin is 15.2, white count 20,000. BUN of 5. Creatinine . Blood culture has been negative. DIAGNOSTIC IMPRESSION AND PLAN: Patient with acute sigmoid diverticulitis with perforation and abscess, status post diverting colostomy. Patient at this time to continue cefepime and Flagyl because of antibiotic allergy. Discharge will depend upon clinical response. Continue supportive care. MMODL / IJN: [id number] /
[2018-08-25] MEDS: METOPROLOL TARTRATE 50 MG TAB PO SCH ×2 (09:35→20:56)
[2018-08-25] MEDS: metroNIDAZOLE 500 MG TAB PO SCH ×4 (09:35→22:43)
[2018-08-25] MEDS: FAMOTIDINE 20 MG/2 ML VIAL IV SCH ×2 (09:35→20:56)
[2018-08-25] MEDS: FLECAINIDE 50 MG TAB PO SCH ×2 (09:35→21:49)
[2018-08-25] MEDS: SODIUM CHLORIDE 0.9% 1,000 ML IV SCH (10:13)
[2018-08-25 10:22] VITALS: BMI 24.2
--- NOTE | 2018-08-25 10:24 | PN ---
PROGRESS NOTE Mrs. Wright is a 62-year-old female who presented with abdominal discomfort and was found to have diverticulitis with persistent discomfort that required surgical intervention yesterday. She had episode of paroxysmal atrial fibrillation, but continues to be in sinus mechanism at this time. She has no symptoms of chest pain, but she is complaining of the abdominal discomfort. She denies any dizziness or palpitation. Her breathing has been stable. She has an NG tube and she underwent sigmoid colectomy and colostomy yesterday. She has been given her medication through the NG tube and continues to be on flecainide 50 mg twice a day and metoprolol tartrate 50 mg twice a day. PHYSICAL EXAMINATION: Blood pressure 101/50 with a heart rate in the 70s. LUNGS: Clear. HEART: Regular rate and rhythm, S1, S2. No S3. No rub. ABDOMEN: Soft. Mild tenderness. Colostomy bag noted. Hypoactive bowel sounds. EXTREMITIES: No edema. LAB DATA: Revealed a magnesium of 2.5, BUN and creatinine 40 and 0.36, potassium 4.4, hemoglobin of 12.4, white blood cell of 14,000. IMPRESSION: 1. Status post sigmoid resection and colostomy. 2. Paroxysmal atrial fibrillation. RECOMMENDATION: From the cardiac standpoint, will continue present therapy. Continue to increase her level activity as tolerated. Continue incentive spirometry. Will follow her rhythm and depending on that, further recommendation will be made. MMODL / IJN: [id number] /
--- NOTE | 2018-08-25 10:42 | P.PN ---
Subjective Progress Note Date: 08/25/18 This is a 62-year-old female, patient of [facility]. She has a known past medical history of diverticulosis, hypothyroidism and migraines. Patient presents to the emergency room with complaints of severe abdominal pain throughout her whole abdomen that started around 2:00 this morning. She was having chills and nausea. No vomiting. Reports normal bowel movements. No blood in the stools. Computed tomography scan of the abdomen and pelvis shows moderate to severe enterocolitis involving multiple small bowel loops, transverse colon and sigmoid colon. There is sigmoid diverticulosis the bowel inflammation appears to involve multiple areas. Acute diverticulitis with perforation is also possible. Perforation into the intraperitoneal cavity of the left paramedian lower abdomen. Air collection measuring 3.0 cm. There is [id number] associated mesenteric edema/inflammation and moderate pelvic ascites. Patient was given cefepime and Flagyl in the ER. Morphine for pain. Surgery has been consulted. Patient denies any chest pain or shortness of breath. Denies any bowel movement changes or urinary symptoms. Patient was seen and examined in the ER. 08/20/2018 patient has moved to the intensive care unit last night due to elevated temperature and increased heart rate. At this time patient is still complaining of abdominal pain and right lower quadrant. Patient is being followed by critical care team Dr. amado and Dr. Mireles for surgical services. Plan for patient to get CAT scan today with contrast to assess whether patient will need surgical intervention. At this time patient denies chest pain or shortness breath. Denies urinary burning or frequency. 08/21/2018 patient remains in the ICU. She went to atrophic relation with rapid ventricular response last night. She required to be placed on a Cardizem drip. She's converted to sinus rhythm. Cardizem is currently turned off. And cardiology has been consulted. Patient's computed tomography scan of the abdomen and pelvis shows improvement in the free air. No surgery is scheduled at this time. Continue with antibiotics. Patient denies any chest pain or shortness of breath. Reports some improvement in her abdominal pain and distention. Denies any nausea or vomiting. She reports passing gas. No bowel movement. Has Malik catheter in place On 08/22/2018 patient remains in the intensive care unit. Heart rate is currently controlled. She has been started on Lopressor per cardiology services. No inspiration at this time per cardiology due to perforation. This time patient denies chest pain or shortness breath. Patient is having loose stools. C. diff will be ordered. Patient denies any urinary burning or frequency. On 08/23/2018 patient is alert and oriented 3 she was seen and examined in the intensive care unit she was evaluated earlier by surgery and plan is to proceed with surgery in a.m. tomorrow she is still complaining of bilateral lower quadrant abdominal pain otherwise no complaints at this time no chest pain no shortness of breath no palpitation no cough and no urinary symptoms On 08/24/2018, today the patient underwent expiratory laparotomy, sigmoid colectomy and colostomy. Patient remains nothing by mouth Colostomy site is noted and is clean for now. Surgical wound site is clean. The patient has epidural for pain control. She has also an NG tube in place. There is no fever or chills no headache no dizziness no chest pain no shortness of breath no cough no nausea or vomiting no abdominal pain and no urinary symptoms On 08/25/2018 patient is postop day 1 status post expiratory lap with sigmoid colectomy and colostomy. Patient is currently sitting up in chair. Patient is complaining of some incisional pain. Patient remains nothing by mouth. At this time patient has NG tube in place. Patient denies chest pain or shortness of breath. Patient denies nausea vomiting or diarrhea. Denies any urinary frequency Objective - Vital Signs Vital signs: Vital Signs Temp 98.1 F 08/25/18 08:00 Pulse 84 08/25/18 09:00 Resp 16 08/25/18 09:00 BP 122/69 08/25/18 09:00 Pulse Ox 97 08/25/18 08:00 Intake & Output 08/24/18 08/25/18 08/25/18 18:59 06:59 18:59 Intake Total 2725 2400 800 Output Total 1366 865 300 Balance 1359 1535 500 Weight 66 kg 66 kg Intake: IV 2725 2400 800 Cefepime 2 gm In Sodium 50 Chloride 0.9% 50 ml @ 100 mls/hr IVPB Q12H [facility] Rx# :[id number] D5-0.45% NaCl with KCl 875 1500 500 20Meq/l 1,000 ml @ 125 mls/hr IV .Q8H [facility] Rx#: [id number] Magnesium Sulfate-D5w Pmx 200 1 gm In Dextrose/Water 1 100ml.bag @ 100 mls/hr IVPB Q1H [facility] Rx#: [id number] Sodium Chloride 0.9% 1, 600 900 300 000 ml @ 75 mls/hr IV . [id number] [facility] Rx#:[id number] Output: Gastric Drainage 100 Drainage 205 110 Abdomen 205 110 Urine 1140 655 300 Stool 1 Estimated Blood Loss 20 Other: Voiding Method Bedside Commode Bedside Commode Indwelling Catheter Indwelling Catheter - Exam Head normocephalic Neck supple Lungs clear to auscultation bilaterally no wheezing or crackles Heart regular rate and rhythm S1-S2, no rub or gallop Abdomen is diffuse tenderness distended hypoactive bowel sounds. NG tube in place. Dressing clean dry and intact Extremities no edema Neuro alert and orientated to 3 - Labs CBC & Chem 7: 08/25/18 04:24 08/25/18 04:24 Labs: Abnormal Lab Results - Last 24 Hours (Table) 08/24/18 08/24/18 08/25/18 Range/Units 11:41 11:41 04:24 WBC 20.3 H (3.8-10.6) k/uL Hct 47.1 H (34.0-46.0) % Neutrophils # 18.5 H (1.3-7.7) k/uL Lymphocytes # 0.9 L (1.0-4.8) k/uL Sodium 133 L (137-145) mmol/L Carbon Dioxide 17 L (22-30) mmol/L BUN 5 L 4 L (7-17) mg/dL Creatinine 0.35 L 0.36 L (0.52-1.04) mg/dL Glucose 69 L 179 H (74-99) mg/dL Calcium 7.4 L 7.2 L (8.4-10.2) mg/dL Phosphorus 1.7 L (2.5-4.5) mg/dL Magnesium 2.5 H (1.6-2.3) mg/dL 08/25/18 Range/Units 04:24 WBC 14.0 H (3.8-10.6) k/uL Hct (34.0-46.0) % Neutrophils # 11.8 H (1.3-7.7) k/uL Lymphocytes # (1.0-4.8) k/uL Sodium (137-145) mmol/L Carbon Dioxide (22-30) mmol/L BUN (7-17) mg/dL Creatinine (0.52-1.04) mg/dL Glucose (74-99) mg/dL Calcium (8.4-10.2) mg/dL Phosphorus (2.5-4.5) mg/dL Magnesium (1.6-2.3) mg/dL Microbiology - Last 24 Hours (Table) 08/19/18 19:30 Blood Culture - Preliminary Blood No Growth after 120 hours Assessment and Plan Assessment: 1. Acute complicated diverticulitis perforation with sepsis: Computed tomography scan showing severe enterocolitis involving multiple small bowel loops transverse colon And sigmoid colon. Concerns of a possible acute diverticulitis with perforation. Patient started on Flagyl and cefepime in the ER. Repeat computed tomography scan the abdomen and pelvis showing improvement and he free air. She is currently postop day 1 status post surgery lap with sigmoid colectomy with colostomy. Patient remains on cefepime and Flagyl for antibiotics. Infectious disease 2. History of diverticulitis 3. Hypothyroidism: Continue Synthroid TSH 0.015 and free T4 1 33. Patient states she does take both Synthroid and a more [place] thyroid at home. Patient reports that she was getting treated for hypothyroidism. Patient states she does currently have her thyroid. Will DC [place] thyroid at. this time 4. History of migraines 5. New onset of atrial fibrillation with rapid ventricular response. Patient did require Cardizem drip. converted to sinus rhythm. Per cardiology services patient will be started on Lopressor. Hold on any kind of anticoagulation In view of the perforation. 6. Hypophosphatemia. Patient received phosphorus supplement. Phosphorus 0.9. Phosphorus will be replaced per protocol 7. Hypokalemia. Potassium 3.1. Will replace per protocol. Resolved GI prophylaxis Protonix and DVT prophylaxis heparin. I performed an examination of the patient and discussed their management with the Nurse Practitioner. I have reviewed the Nurse Practitioner's notes and agree with the documented findings and plan of care
--- NOTE | 2018-08-25 11:07 | P.PN ---
Subjective Progress Note Date: 08/25/18 Principal diagnosis: Acute diverticulitis with perforation, status post sigmoid colectomy and end colostomy, postoperative day #1 62-year-old female patient with known history of diverticulosis who underwent a recent colonoscopy in June 2018 and she was told to have uncomplicated diverticulosis. She has had previous bouts of diverticulitis treated with antibiotics. This morning, the patient woke up with diffuse abdominal pain and the pain was rather crampy associated with some chills and fever. She was also nauseated without any significant emesis. She did have a loose liquidy bowel movements and non-since. No bloody bowel movement or any melanotic stool. The patient came into the hospital and she was given a CAT scan of the abdomen which showed moderate to severe enterocolitis involving the multiple small bowel loops and transverse colon and sigmoid colon. While there is sigmoid diverticulosis and mild the bowel inflammation appears to involve multiple areas. Acute diverticulitis with perforation is considered. Perforation into the intraperitoneal cavity of the left paramedian lower abdomen was suspected. There are collection measures about 3 cm in size. There was moderate to severe associated mesenteric edema and inflammation and moderate degree of pelvic ascites. The patient is currently in the intensive care unit. She got transferred due to concerns of sepsis. She is tachycardic and she is in sinus tachycardia with a heart rate of 110. She is maintaining a low blood pressure. Most recent BP reading is 159/91. Pulse ox 98% on room air. She is producing adequate amount of urine output in the Malik catheter was inserted. I saw this patient in the ICU. She had lower abdominal tenderness. She was uncomfortable. Her pain was controlled for now. She is receiving Dilaudid for pain control. She also and accommodation of cefepime and Flagyl. This is a broad-spectrum antibiotics covering for acute diverticulitis. The patient will be fluid resuscitated. General surgery consultation to the been obtained. Discussed the case with the general surgeon. On 08/24/2018, the patient was taken to the operating room by general surgery. The patient underwent expiratory laparotomy, sigmoid colectomy and colostomy. Estimated blood loss was 20 mL. The patient was found to have Enterobacter lobe abscesses and colitis. The patient is back to the intensive care unit. She is hemodynamically stable. She is nothing by mouth. Colostomy site is noted and is clean for now. Surgical wound site is clean. The patient has epidural bupivacaine and Dilaudid for pain control. She has also an NG tube in place. Output is minimal. No nausea. No vomiting. No abdominal pain. She is quite stable for now. Awake and alert and she is following commands and answering questions appropriately and the cardiac rhythm remains sinus. No other issues for now. The patient is on IV cefepime and Flagyl as broad- spectrum antibiotic coverage. On 08/25/2018, patient is status post exploratory laparotomy, sigmoid colostomy and colectomy. Patient is not in the ICU, hemodynamically stable, did not require any pressors, denies any shortness of breath, denies any abdominal pain , continues to have epidural for pain control. Continues to have nasogastric tube in place, doing great overall. Remains in sinus rhythm, remains on antibiotics in the form of cefepime and Flagyl. Labs were reviewed, WBC count is coming down to 14.0-4.4, basic metabolic profile is normal, renal profile is normal. Objective - Vital Signs Vital signs: Vital Signs Temp 98.1 F 08/25/18 08:00 Pulse 84 08/25/18 09:00 Resp 16 08/25/18 09:00 BP 122/69 08/25/18 09:00 Pulse Ox 97 08/25/18 08:00 Intake & Output 08/24/18 08/25/18 08/25/18 18:59 06:59 18:59 Intake Total 2725 2400 800 Output Total 1366 865 300 Balance 1359 1535 500 Weight 66 kg 66 kg Intake: IV 2725 2400 800 Cefepime 2 gm In Sodium 50 Chloride 0.9% 50 ml @ 100 mls/hr IVPB Q12H [facility] Rx# :[id number] D5-0.45% NaCl with KCl 875 1500 500 20Meq/l 1,000 ml @ 125 mls/hr IV .Q8H [facility] Rx#: [id number] Magnesium Sulfate-D5w Pmx 200 1 gm In Dextrose/Water 1 100ml.bag @ 100 mls/hr IVPB Q1H [facility] Rx#: [id number] Sodium Chloride 0.9% 1, 600 900 300 000 ml @ 75 mls/hr IV . [id number] [facility] Rx#:[id number] Output: Gastric Drainage 100 Drainage 205 110 Abdomen 205 110 Urine 1140 655 300 Stool 1 Estimated Blood Loss 20 Other: Voiding Method Bedside Commode Bedside Commode Indwelling Catheter Indwelling Catheter - Exam Physical Exam: Revealed a 62-year-old female in no distress. Head: Atraumatic, normocephalic. Nasogastric tube is intact. HEENT:[Neck is supple.] [No neck masses.] [No thyromegaly.] [No JVD.] PERRLA, EOMI, dry mucous membranes noted. Chest: [Clear throughout, no crackles, no rhonchi, no wheezes.] Cardiac Exam: [Normal S1 and S2, no S3 gallop, no murmur.] Abdomen: [Soft, slightly tender, clean wound site and dressing noted to be intact, JOAQUINA drain remains in place, colostomy is noted with minimal output noted. No rebound, no guarding, hypoactive bowel sounds. Extremities: [No clubbing, no edema, no cyanosis.] Neurological Exam: [No focal neurologic deficit.] Skin: No rashes. Psychiatric: Normal mood, affect, and mental status examination. - Labs CBC & Chem 7: 08/25/18 04:24 08/25/18 04:24 Labs: Abnormal Lab Results - Last 24 Hours (Table) 08/24/18 08/24/18 08/25/18 Range/Units 11:41 11:41 04:24 WBC 20.3 H (3.8-10.6) k/uL Hct 47.1 H (34.0-46.0) % Neutrophils # 18.5 H (1.3-7.7) k/uL Lymphocytes # 0.9 L (1.0-4.8) k/uL Sodium 133 L (137-145) mmol/L Carbon Dioxide 17 L (22-30) mmol/L BUN 5 L 4 L (7-17) mg/dL Creatinine 0.35 L 0.36 L (0.52-1.04) mg/dL Glucose 69 L 179 H (74-99) mg/dL Calcium 7.4 L 7.2 L (8.4-10.2) mg/dL Phosphorus 1.7 L (2.5-4.5) mg/dL Magnesium 2.5 H (1.6-2.3) mg/dL 08/25/18 Range/Units 04:24 WBC 14.0 H (3.8-10.6) k/uL Hct (34.0-46.0) % Neutrophils # 11.8 H (1.3-7.7) k/uL Lymphocytes # (1.0-4.8) k/uL Sodium (137-145) mmol/L Carbon Dioxide (22-30) mmol/L BUN (7-17) mg/dL Creatinine (0.52-1.04) mg/dL Glucose (74-99) mg/dL Calcium (8.4-10.2) mg/dL Phosphorus (2.5-4.5) mg/dL Magnesium (1.6-2.3) mg/dL Microbiology - Last 24 Hours (Table) 08/19/18 19:30 Blood Culture - Preliminary Blood No Growth after 120 hours Assessment and Plan Assessment: Impression: 1 acute diverticulitis with perforation, status post sigmoid colectomy and colostomy. 2 paroxysmal atrial fibrillation, presently in normal sinus rhythm 3 hypothyroidism on replacement therapy 4 history of diverticulosis 6 acute peritonitis secondary to acute diverticulitis and perforation. Recommendation: Continue present treatment plan including fluids, antibiotics, continue to monitor hemodynamics, consider transferring the patient down to a surgical floor. We will continue to follow. Continue GI and DVT prophylaxis Time with Patient: Less than 30
[2018-08-25] MEDS ORDERED: SODIUM PHOSPHATE 10 MMOL in SODIUM CHLORIDE 0.9% 250 ML IVPB SCH (13:00)
[2018-08-25] MEDS ORDERED: SODIUM GLYCEROPHOSPHATE 20 MMOL in SODIUM CHLORIDE 0.9% 250 ML IV ONE (13:00)
--- NOTE | 2018-08-25 14:15 | PN ---
PROGRESS NOTE DATE OF SERVICE: 08/05/2018 REASON FOR FOLLOWUP: Secondary peritonitis from ruptured sigmoid diverticulitis. INTERVAL HISTORY: The patient is currently afebrile. Her abdominal pain has slightly eased off, controlled with pain medication. Denies having nausea, vomiting. Main complaint has been NG tube and the discomfort from it. No chest pain, shortness of breath or cough and no urinary symptoms. PHYSICAL EXAMINATION: Blood pressure is 122/69 with a pulse of 84, temperature 98.1, she is 97% on 2 L nasal cannula. General description is a middle-aged female, up in the chair in no distress. RESPIRATORY SYSTEM: Unlabored breathing with decreased breath sounds in the bases, no wheeze. HEART: S1, S2. Regular rate and rhythm. ABDOMEN: Soft. No guarding or rigidity. LABS: Hemoglobin 12.4, white count of 14,000, BUN of 4, creatinine 0.36. DIAGNOSTIC IMPRESSION AND PLAN: Patient with acute sigmoid diverticulitis with perforation and secondary peritonitis, status post diverting colostomy. The patient at this time to continue with cefepime and Flagyl. Depending upon the clinical response, antibiotic will be adjusted further. Continue supportive care. present at bedside. Questions were answered. MMODL / IJN: [id number] /
[2018-08-25] MEDS: ACETAMINOPHEN TAB 325 MG TAB PO PRN (14:54)
--- NOTE | 2018-08-25 16:27 | P.PN ---
Progress Note - Text Progress Note Date: 08/25/18 A she was transferred out of the ICU today. She has minimal complete the pain. She has some complaints of discomfort from the nasogastric tube. On exam her vital signs are stable. Her abdomen soft. Stoma is pink. There is no gas in her colostomy. Status post sigmoid colectomy with end colostomy. Patient remained nothing by mouth. Her nasogastric tube will be removed today.
[2018-08-26] MEDS: HEPARIN SODIUM,PORCINE 5,000 UNIT/ML 1 ML VIAL SQ SCH ×4 (00:16→22:52)
[2018-08-26] MEDS: CEFEPIME 2 GM in SODIUM CHLORIDE 0.9% 50 ML IVPB SCH ×3 (00:16→22:52)
[2018-08-26] MEDS: SODIUM CHLORIDE 0.9% 1,000 ML IV SCH ×2 (01:28→20:24)
[2018-08-26] MEDS: LEVOTHYROXINE 25 MCG TAB PO SCH (06:01)
[2018-08-26] MEDS: D5-0.45% NACL WITH KCL 20MEQ/L 1,000 ML IV SCH ×3 (06:01→23:48)
[2018-08-26] MEDS: METOPROLOL TARTRATE 50 MG TAB PO SCH ×2 (07:47→20:00)
[2018-08-26] MEDS: FLECAINIDE 50 MG TAB PO SCH ×2 (07:47→20:00)
[2018-08-26] MEDS: FAMOTIDINE 20 MG/2 ML VIAL IV SCH ×2 (07:47→20:00)
[2018-08-26] MEDS: metroNIDAZOLE 500 MG TAB PO SCH ×4 (07:48→22:52)
[2018-08-26 08:08] LABS: Basophils # (A) 0.1 k/uL (0-0.2); Basophils % (A) 1 %; Eosinophils # (A) 0.4 k/uL (0-0.7); Eosinophils % (A) 3 %; HCT 40.4 % (34.0-46.0); HGB 13.3 gm/dL (11.4-16.0); Lymphocytes # (A) 1.7 k/uL (1.0-4.8); Lymphocytes % (A) 16 %; MCH 31.3 pg (25.0-35.0); MCV 94.7 fL (80.0-100.0); Mean Platelet Volume 7.5; Monocytes # (A) 0.4 k/uL (0-1.0); Monocytes % (A) 4 %; Neutrophils # (A) 7.7 k/uL (1.3-7.7); Neutrophils % (A) 72 %; Platelet Count 338 k/uL (150-450); RBC 4.27 m/uL (3.80-5.40); RDW 13.5 % (11.5-15.5); WBC 10.7 k/uL (3.8-10.6)
[2018-08-26 08:27] LABS: ALT 23 U/L (9-52); AST 27 U/L (14-36); Albumin 2.5 g/dL (3.5-5.0); Alkaline Phosphatase 51 U/L (38-126); Anion Gap 7 mmol/L; Blood Urea Nitrogen <2 mg/dL (7-17); Calcium 7.6 mg/dL (8.4-10.2); Carbon Dioxide 21 mmol/L (22-30); Chloride 108 mmol/L (98-107); Glucose 104 mg/dL (74-99); Potassium 4.4 mmol/L (3.5-5.1); Sodium 136 mmol/L (137-145); Total Bilirubin 0.6 mg/dL (0.2-1.3); Total Protein 5.2 g/dL (6.3-8.2)
--- NOTE | 2018-08-26 11:34 | P.PN ---
Subjective Progress Note Date: 08/26/18 Principal diagnosis: Acute diverticulitis with perforation, status post sigmoid colectomy and end colostomy, postop day 2 62-year-old female patient with known history of diverticulosis who underwent a recent colonoscopy in June 2018 and she was told to have uncomplicated diverticulosis. She has had previous bouts of diverticulitis treated with antibiotics. This morning, the patient woke up with diffuse abdominal pain and the pain was rather crampy associated with some chills and fever. She was also nauseated without any significant emesis. She did have a loose liquidy bowel movements and non-since. No bloody bowel movement or any melanotic stool. The patient came into the hospital and she was given a CAT scan of the abdomen which showed moderate to severe enterocolitis involving the multiple small bowel loops and transverse colon and sigmoid colon. While there is sigmoid diverticulosis and mild the bowel inflammation appears to involve multiple areas. Acute diverticulitis with perforation is considered. Perforation into the intraperitoneal cavity of the left paramedian lower abdomen was suspected. There are collection measures about 3 cm in size. There was moderate to severe associated mesenteric edema and inflammation and moderate degree of pelvic ascites. The patient is currently in the intensive care unit. She got transferred due to concerns of sepsis. She is tachycardic and she is in sinus tachycardia with a heart rate of 110. She is maintaining a low blood pressure. Most recent BP reading is 159/91. Pulse ox 98% on room air. She is producing adequate amount of urine output in the Malik catheter was inserted. I saw this patient in the ICU. She had lower abdominal tenderness. She was uncomfortable. Her pain was controlled for now. She is receiving Dilaudid for pain control. She also and accommodation of cefepime and Flagyl. This is a broad-spectrum antibiotics covering for acute diverticulitis. The patient will be fluid resuscitated. General surgery consultation to the been obtained. Discussed the case with the general surgeon. On 08/24/2018, the patient was taken to the operating room by general surgery. The patient underwent expiratory laparotomy, sigmoid colectomy and colostomy. Estimated blood loss was 20 mL. The patient was found to have Enterobacter lobe abscesses and colitis. The patient is back to the intensive care unit. She is hemodynamically stable. She is nothing by mouth. Colostomy site is noted and is clean for now. Surgical wound site is clean. The patient has epidural bupivacaine and Dilaudid for pain control. She has also an NG tube in place. Output is minimal. No nausea. No vomiting. No abdominal pain. She is quite stable for now. Awake and alert and she is following commands and answering questions appropriately and the cardiac rhythm remains sinus. No other issues for now. The patient is on IV cefepime and Flagyl as broad- spectrum antibiotic coverage. On 08/25/2018, patient is status post exploratory laparotomy, sigmoid colostomy and colectomy. Patient is not in the ICU, hemodynamically stable, did not require any pressors, denies any shortness of breath, denies any abdominal pain , continues to have epidural for pain control. Continues to have nasogastric tube in place, doing great overall. Remains in sinus rhythm, remains on antibiotics in the form of cefepime and Flagyl. Labs were reviewed, WBC count is coming down to 14.0-4.4, basic metabolic profile is normal, renal profile is normal. On 08/26/2018 patient seen in follow-up medical surgical floor. She is sitting up in the recliner, she is having mild to moderate amount of incisional discomfort, but no acute distress. Denies any shortness of breath, denies any chest pain, room air pulse ox is 98%, afebrile. Lung sounds are clear to auscultation, patient was encouraged to work with her incentive spirometry, she states she is able to achieve 1500 on the today. Midline incision is clean dry and intact, distal portion is draining small amount of serous drainage, no stool or gas per colostomy. Bowel sounds are absent. Patient is nothing by mouth except for ice chips. No nausea or vomiting. Fever or chills, today's labs have been reviewed, the PVCs down to 10.7, hemoglobin is 13.3, sodium is 136, potassium is 4.4, chloride is 108, CO2 is 21, BUN is 2 and creatinine is 0.40. Blood and urine cultures remain negative thus far. Patient is covered with antibiotics including cefepime. Nasogastric tube has been discontinued. Her abdomen is soft. Stoma is pink Objective - Vital Signs Vital signs: Vital Signs Temp 98.1 F 08/26/18 07:31 Pulse 76 08/26/18 08:00 Resp 16 08/26/18 00:38 BP 193/83 08/26/18 07:31 Pulse Ox 98 08/26/18 07:31 Intake & Output 08/25/18 08/26/18 08/26/18 18:59 06:59 18:59 Intake Total 1276.25 1350 Output Total 725 180 Balance 551.25 1170 Weight 66 kg Intake: IV 1156.25 1350 Cefepime 2 gm In Sodium 50 100 Chloride 0.9% 50 ml @ 100 mls/hr IVPB Q12H [facility] Rx# :[id number] D5-0.45% NaCl with KCl 625 1250 20Meq/l 1,000 ml @ 125 mls/hr IV .Q8H [facility] Rx#: [id number] Sodium Chloride 0.9% 1, 450 000 ml @ 75 mls/hr IV . [id number] [facility] Rx#:[id number] Sodium Glycerophosphate 31.25 20 mmol In Sodium Chloride 0.9% 250 ml @ 31 .25 mls/hr IV ONCE ONE Rx #:[id number] Oral 120 Output: Drainage 50 80 Abdomen 50 80 Urine 675 100 Other: Voiding Method Toilet Bedside Commode # Voids 2 - Exam Physical Exam: Revealed a 62-year-old female in no distress. Head: Atraumatic, normocephalic. Nasogastric tube is intact. HEENT:[Neck is supple.] [No neck masses.] [No thyromegaly.] [No JVD.] PERRLA, EOMI, dry mucous membranes noted. Chest: [Clear throughout, no crackles, no rhonchi, no wheezes.] Cardiac Exam: [Normal S1 and S2, no S3 gallop, no murmur.] Abdomen: [Soft, slightly tender, clean wound site and dressing noted to be intact, JOAQUINA drain remains in place, colostomy is noted with minimal output noted , no gas, no stool. No rebound, no guarding, hypoactive bowel sounds. Extremities: [No clubbing, no edema, no cyanosis.] Neurological Exam: [No focal neurologic deficit.] Skin: No rashes. Psychiatric: Normal mood, affect, and mental status examination. - Labs CBC & Chem 7: 08/26/18 07:16 08/26/18 07:16 Labs: Abnormal Lab Results - Last 24 Hours (Table) 08/26/18 08/26/18 Range/Units 07:16 07:16 WBC 10.7 H (3.8-10.6) k/uL Sodium 136 L (137-145) mmol/L Chloride 108 H (98-107) mmol/L Carbon Dioxide 21 L (22-30) mmol/L BUN <2 L (7-17) mg/dL Creatinine 0.40 L (0.52-1.04) mg/dL Glucose 104 H (74-99) mg/dL Calcium 7.6 L (8.4-10.2) mg/dL Total Protein 5.2 L (6.3-8.2) g/dL Albumin 2.5 L (3.5-5.0) g/dL Microbiology - Last 24 Hours (Table) 08/19/18 19:30 Blood Culture - Final Blood No Growth after 144 hours Assessment and Plan Plan: 1 acute diverticulitis with perforation, status post sigmoid colectomy and colostomy, postop day 2 2 paroxysmal atrial fibrillation, presently in normal sinus rhythm 3 hypothyroidism on replacement therapy 4 history of diverticulosis 6 acute peritonitis secondary to acute diverticulitis and perforation. Plan: Continue present treatment plan, continue current antibiotic coverage, deep breathing and coughing, incentive spirometry use. Ambulation. GI and DVT prophylaxis. Pain control. We'll continue to follow I performed a history & physical examination of the patient and discussed their management with my nurse practitioner, Jennifer Tyler. I reviewed the nurse practitioner's note and agree with the documented findings and plan of care. Lung sounds are clear. The findings and the impression was discussed with the patient. I attest to the documentation by the nurse practitioner. Time with Patient: Less than 30
--- NOTE | 2018-08-26 11:40 | P.PN ---
Subjective Progress Note Date: 08/26/18 This is a 62-year-old female, patient of [facility]. She has a known past medical history of diverticulosis, hypothyroidism and migraines. Patient presents to the emergency room with complaints of severe abdominal pain throughout her whole abdomen that started around 2:00 this morning. She was having chills and nausea. No vomiting. Reports normal bowel movements. No blood in the stools. Computed tomography scan of the abdomen and pelvis shows moderate to severe enterocolitis involving multiple small bowel loops, transverse colon and sigmoid colon. There is sigmoid diverticulosis the bowel inflammation appears to involve multiple areas. Acute diverticulitis with perforation is also possible. Perforation into the intraperitoneal cavity of the left paramedian lower abdomen. Air collection measuring 3.0 cm. There is [id number] associated mesenteric edema/inflammation and moderate pelvic ascites. Patient was given cefepime and Flagyl in the ER. Morphine for pain. Surgery has been consulted. Patient denies any chest pain or shortness of breath. Denies any bowel movement changes or urinary symptoms. Patient was seen and examined in the ER. 08/20/2018 patient has moved to the intensive care unit last night due to elevated temperature and increased heart rate. At this time patient is still complaining of abdominal pain and right lower quadrant. Patient is being followed by critical care team Dr. amado and Dr. Mireles for surgical services. Plan for patient to get CAT scan today with contrast to assess whether patient will need surgical intervention. At this time patient denies chest pain or shortness breath. Denies urinary burning or frequency. 08/21/2018 patient remains in the ICU. She went to atrophic relation with rapid ventricular response last night. She required to be placed on a Cardizem drip. She's converted to sinus rhythm. Cardizem is currently turned off. And cardiology has been consulted. Patient's computed tomography scan of the abdomen and pelvis shows improvement in the free air. No surgery is scheduled at this time. Continue with antibiotics. Patient denies any chest pain or shortness of breath. Reports some improvement in her abdominal pain and distention. Denies any nausea or vomiting. She reports passing gas. No bowel movement. Has Malik catheter in place On 08/22/2018 patient remains in the intensive care unit. Heart rate is currently controlled. She has been started on Lopressor per cardiology services. No inspiration at this time per cardiology due to perforation. This time patient denies chest pain or shortness breath. Patient is having loose stools. C. diff will be ordered. Patient denies any urinary burning or frequency. On 08/23/2018 patient is alert and oriented 3 she was seen and examined in the intensive care unit she was evaluated earlier by surgery and plan is to proceed with surgery in a.m. tomorrow she is still complaining of bilateral lower quadrant abdominal pain otherwise no complaints at this time no chest pain no shortness of breath no palpitation no cough and no urinary symptoms On 08/24/2018, today the patient underwent expiratory laparotomy, sigmoid colectomy and colostomy. Patient remains nothing by mouth Colostomy site is noted and is clean for now. Surgical wound site is clean. The patient has epidural for pain control. She has also an NG tube in place. There is no fever or chills no headache no dizziness no chest pain no shortness of breath no cough no nausea or vomiting no abdominal pain and no urinary symptoms On 08/25/2018 patient is postop day 1 status post expiratory lap with sigmoid colectomy and colostomy. Patient is currently sitting up in chair. Patient is complaining of some incisional pain. Patient remains nothing by mouth. At this time patient has NG tube in place. Patient denies chest pain or shortness of breath. Patient denies nausea vomiting or diarrhea. Denies any urinary frequency On 08/26/2018 patient is postop day 2 status post exploratory lap with sigmoid colectomy and colostomy. Patient is currently sitting up in chair. Patient is feeling slightly improved. NG tube and epidural have been removed. Patient denies chest pain or shortness of breath. Patient denies any urinary burning or frequency. Patient denies nausea vomiting or diarrhea Objective - Vital Signs Vital signs: Vital Signs Temp 98.1 F 08/26/18 07:31 Pulse 76 08/26/18 08:00 Resp 16 08/26/18 00:38 BP 193/83 08/26/18 07:31 Pulse Ox 98 08/26/18 07:31 Intake & Output 08/25/18 08/26/18 08/26/18 18:59 06:59 18:59 Intake Total 1276.25 1350 Output Total 725 180 Balance 551.25 1170 Weight 66 kg Intake: IV 1156.25 1350 Cefepime 2 gm In Sodium 50 100 Chloride 0.9% 50 ml @ 100 mls/hr IVPB Q12H [facility] Rx# :[id number] D5-0.45% NaCl with KCl 625 1250 20Meq/l 1,000 ml @ 125 mls/hr IV .Q8H [facility] Rx#: [id number] Sodium Chloride 0.9% 1, 450 000 ml @ 75 mls/hr IV . [id number] [facility] Rx#:[id number] Sodium Glycerophosphate 31.25 20 mmol In Sodium Chloride 0.9% 250 ml @ 31 .25 mls/hr IV ONCE ONE Rx #:[id number] Oral 120 Output: Drainage 50 80 Abdomen 50 80 Urine 675 100 Other: Voiding Method Toilet Bedside Commode # Voids 2 - Exam Head normocephalic Neck supple Lungs clear to auscultation bilaterally no wheezing or crackles Heart regular rate and rhythm S1-S2, no rub or gallop Abdomen is diffuse tenderness distended hypoactive bowel sounds. NG tube in place. Dressing clean dry and intact Extremities no edema Neuro alert and orientated to 3 - Labs CBC & Chem 7: 08/26/18 07:16 08/26/18 07:16 Labs: Abnormal Lab Results - Last 24 Hours (Table) 08/26/18 08/26/18 Range/Units 07:16 07:16 WBC 10.7 H (3.8-10.6) k/uL Sodium 136 L (137-145) mmol/L Chloride 108 H (98-107) mmol/L Carbon Dioxide 21 L (22-30) mmol/L BUN <2 L (7-17) mg/dL Creatinine 0.40 L (0.52-1.04) mg/dL Glucose 104 H (74-99) mg/dL Calcium 7.6 L (8.4-10.2) mg/dL Total Protein 5.2 L (6.3-8.2) g/dL Albumin 2.5 L (3.5-5.0) g/dL Microbiology - Last 24 Hours (Table) 08/19/18 19:30 Blood Culture - Final Blood No Growth after 144 hours Assessment and Plan Assessment: 1. Acute complicated diverticulitis perforation with sepsis: Computed tomography scan showing severe enterocolitis involving multiple small bowel loops transverse colon And sigmoid colon. Concerns of a possible acute diverticulitis with perforation. Patient started on Flagyl and cefepime in the ER. Repeat computed tomography scan the abdomen and pelvis showing improvement and he free air. She is currently postop day 2 status post surgery lap with sigmoid colectomy with colostomy. Patient remains on cefepime and Flagyl for antibiotics per infectious disease 2. History of diverticulitis 3. Hypothyroidism: Continue Synthroid TSH 0.015 and free T4 1 33. Patient states she does take both Synthroid and a more [place] thyroid at home. Patient reports that she was getting treated for hypothyroidism. Patient states she does currently have her thyroid. Will DC [place] thyroid at. this time 4. History of migraines 5. New onset of atrial fibrillation with rapid ventricular response. Patient did require Cardizem drip. converted to sinus rhythm. Per cardiology services patient will be started on Lopressor. Hold on any kind of anticoagulation In view of the perforation. Per cardiology services will follow rhythm and depending on that further recommendation will be made 6. Hypophosphatemia. Patient received phosphorus supplement. Phosphorus 0.9. Phosphorus will be replaced per protocol 7. Hypokalemia. Potassium 3.1. Will replace per protocol. Resolved GI prophylaxis Protonix and DVT prophylaxis heparin. I performed an examination of the patient and discussed their management with the Nurse Practitioner. I have reviewed the Nurse Practitioner's notes and agree with the documented findings and plan of care
--- NOTE | 2018-08-26 13:15 | P.PN ---
Subjective Mrs. Wright is seen and examined sitting up in the chair with at the bedside. She initially presented to the hospital with symptoms of abdominal discomfort and was found to have diverticulitis that required surgical intervention. Earlier in her hospitalization she had an episode of paroxysmal atrial fibrillation. She converted back to sinus on her own. Then had another episode of a-fib and was started on flecanide. She continues to remain in sinus mechanism at this time. Past medical history significant only for hypothyroidism prior to arrival. She denies symptoms of chest discomfort, shortness of breath, dizziness or palpitations. Her NG tube was removed and she continues to be nothing by mouth. Currently maintained on flecainide 50 mg twice a day and Lopressor 50 mg twice a day. Blood pressure this morning 193/ 83 heart rate 70 afebrile maintaining oxygen saturation on room air. Laboratory data reviewed, WBC 10.7, hgb 13.3, plt 338, sodium 136, potassium 4.4, creatinine 0.4. GENERAL: Well-appearing, well-nourished and in no acute distress. NECK: Supple without JVD or thyromegaly. LUNGS: Breath sounds clear to auscultation bilaterally. Respiration equal and unlabored. No wheezes, rales or rhonchi. HEART: Regular rate and rhythm without murmurs, rubs or gallops. S1 and S2 heard. EXTREMITIES: Normal range of motion, no edema. No clubbing or cyanosis. Peripheral pulses intact. ASSESSMENT Status post sigmoid resection and colostomy Paroxysmal atrial fibrillation currently maintaining sinus mechanism Hypothyroidism PLAN Repeat blood pressure, will consider adding antihypertensive if continues to be elevated. Continue to increase activity as tolerated and encouraged to use incentive spirometry. We will continue to follow and make recommendations accordingly. Nurse Practitioner note has been reviewed, I agree with a documented findings and plan of care. Patient was seen and examined. Objective - Vital Signs Vital signs: Vital Signs Temp 98.1 F 08/26/18 07:31 Pulse 76 08/26/18 08:00 Resp 16 08/26/18 00:38 BP 193/83 08/26/18 07:31 Pulse Ox 98 08/26/18 07:31 Intake & Output 08/25/18 08/26/18 08/26/18 18:59 06:59 18:59 Intake Total 1276.25 1350 Output Total 725 180 Balance 551.25 1170 Weight 66 kg Intake: IV 1156.25 1350 Cefepime 2 gm In Sodium 50 100 Chloride 0.9% 50 ml @ 100 mls/hr IVPB Q12H [facility] Rx# :[id number] D5-0.45% NaCl with KCl 625 1250 20Meq/l 1,000 ml @ 125 mls/hr IV .Q8H [facility] Rx#: [id number] Sodium Chloride 0.9% 1, 450 000 ml @ 75 mls/hr IV . [id number] [facility] Rx#:[id number] Sodium Glycerophosphate 31.25 20 mmol In Sodium Chloride 0.9% 250 ml @ 31 .25 mls/hr IV [facility] Rx #:[id number] Oral 120 Output: Drainage 50 80 Abdomen 50 80 Urine 675 100 Other: Voiding Method Toilet Bedside Commode # Voids 2 - Labs CBC & Chem 7: 08/26/18 07:16 08/26/18 07:16 Labs: Abnormal Lab Results - Last 24 Hours (Table) 08/26/18 08/26/18 Range/Units 07:16 07:16 WBC 10.7 H (3.8-10.6) k/uL Sodium 136 L (137-145) mmol/L Chloride 108 H (98-107) mmol/L Carbon Dioxide 21 L (22-30) mmol/L BUN <2 L (7-17) mg/dL Creatinine 0.40 L (0.52-1.04) mg/dL Glucose 104 H (74-99) mg/dL Calcium 7.6 L (8.4-10.2) mg/dL Total Protein 5.2 L (6.3-8.2) g/dL Albumin 2.5 L (3.5-5.0) g/dL Microbiology - Last 24 Hours (Table) 08/19/18 19:30 Blood Culture - Final Blood No Growth after 144 hours
--- NOTE | 2018-08-26 13:21 | P.PN ---
Subjective Progress Note Date: 08/26/18 62-year-old female sitting up in bed. Patient states IV pain medication does cause dizziness lightheadedness patient states she has been up ambulating in the room no bowel movement not passing gas JOAQUINA drain in place. Surgical dressing dry. Labs were reviewed. Currently is denying dizziness lightheadedness chest pain or shortness of breath. Postop 24 of August exploratory laparotomy, sigmoid colectomy, end colostomy , drainage of interloop abscess Objective - Vital Signs Vital signs: Vital Signs Temp 98.1 F 08/26/18 07:31 Pulse 76 08/26/18 08:00 Resp 16 08/26/18 00:38 BP 193/83 08/26/18 07:31 Pulse Ox 98 08/26/18 07:31 Intake & Output 08/25/18 08/26/18 08/26/18 18:59 06:59 18:59 Intake Total 1276.25 1350 Output Total 725 180 Balance 551.25 1170 Weight 66 kg Intake: IV 1156.25 1350 Cefepime 2 gm In Sodium 50 100 Chloride 0.9% 50 ml @ 100 mls/hr IVPB Q12H [facility] Rx# :[id number] D5-0.45% NaCl with KCl 625 1250 20Meq/l 1,000 ml @ 125 mls/hr IV .Q8H [facility] Rx#: [id number] Sodium Chloride 0.9% 1, 450 000 ml @ 75 mls/hr IV . [id number] [facility] Rx#:[id number] Sodium Glycerophosphate 31.25 20 mmol In Sodium Chloride 0.9% 250 ml @ 31 .25 mls/hr IV ONCE ONE Rx #:[id number] Oral 120 Output: Drainage 50 80 Abdomen 50 80 Urine 675 100 Other: Voiding Method Toilet Bedside Commode # Voids 2 - Exam Physical exam 62-year-old female sitting up in a chair currently nothing by mouth Lungs adequate air movement bilaterally on room air sats 98% denies shortness of breath Heart S1-S2 audible denies chest pain Abdomen surgical dressings dry Hypoactive bowel tones no nausea no vomiting passing gas no stool Extremities no edema - Labs CBC & Chem 7: 08/26/18 07:16 08/26/18 07:16 Labs: Abnormal Lab Results - Last 24 Hours (Table) 08/26/18 08/26/18 Range/Units 07:16 07:16 WBC 10.7 H (3.8-10.6) k/uL Sodium 136 L (137-145) mmol/L Chloride 108 H (98-107) mmol/L Carbon Dioxide 21 L (22-30) mmol/L BUN <2 L (7-17) mg/dL Creatinine 0.40 L (0.52-1.04) mg/dL Glucose 104 H (74-99) mg/dL Calcium 7.6 L (8.4-10.2) mg/dL Total Protein 5.2 L (6.3-8.2) g/dL Albumin 2.5 L (3.5-5.0) g/dL Microbiology - Last 24 Hours (Table) 08/19/18 19:30 Blood Culture - Final Blood No Growth after 144 hours Assessment and Plan Assessment: Impression Present on admission left lower quadrant abdominal pain suspect due to acute complicated diverticulitis perforation with sepsis suspect intra-abdominal source of septicemia CAT scan of the abdomen and pelvis obtained in the emergency room report indicates severe enterocolitis involving multiple small bowel loops in the sigmoid colon History of diverticulitis July 14 2018 colonoscopy done report cecum ascending and transverse colon appeared normal and the descending moderate diverticulosis no evidence of diverticulitis Electrolyte abnormality hypo-kalemia and hypophosphorous New-onset of atrial fibrillation with rapid ventricular response Frequent loose stools we'll obtain stool for C. diff to rule out Paroxysmal atrial fibrillation cardiology following current maintaining sinus rhythm Postop August 24 exploratory laparotomy, sigmoid colectomy, end colostomy drainage of interloop abscess for perforated diverticulitis Plan IV fluid for hydration Keep nothing by mouth Continue IV antibiotics cefepime and Flagyl as ordered per infectious disease recommendation DVT and GI prophylaxis Repeat labs in the morning Continue recommendations by medicine and cardiology service The above impression and plan of care have been discussed and directed by signing physician. Henny Graham nurse practitioner acting as scribe for signing physician.
[2018-08-26] MEDS: BENZOCAINE/MENTHOL LOZENG 1 EACH LOZENGE MUCOUS MEM PRN (15:04)
[2018-08-26] MEDS: hydrALAZINE HCL 20 MG/ML 1 ML VIAL IVP PRN ×2 (15:10→20:50)
[2018-08-26] MEDS: HYDROcodone/APAP 7.5-325MG 1 EACH TAB PO PRN ×2 (17:47→23:48)
--- NOTE | 2018-08-26 23:40 | PN ---
PROGRESS NOTE DATE OF SERVICE: 08/26/2018. REASON FOR FOLLOWUP: sigmoid diverticulitis with pelvic abscess. INTERVAL HISTORY: The patient is afebrile. has been discontinued. Abdominal pain is currently controlled with pain medication. Denies having nausea, vomiting. No chest pain, shortness of breath or cough. EXAMINATION: Blood pressure is 165/81 with a pulse of 80, temperature 98.1 she is 97% on room air. General description is a middle-aged female up in the chair in no distress. Respiratory system: Unlabored breathing. Clear to auscultation anteriorly. Heart S1, S2. Regular rate and rhythm. Abdomen soft. No tenderness. LABS: Hemoglobin is 13.8, white count 10.7, BUN of 12, creatinine 0.40. DIAGNOSTIC IMPRESSION AND PLAN: Patient with acute sigmoid diverticulitis, question pelvic abscess, status post diverting colostomy. The patient is currently covered on cefepime and Flagyl that will be continued depending what clinical response will determine discharge antibiotics, more likely IV for short course. Continue supportive care. MMODL / IJN: [id number] /
[2018-08-27] MEDS: SODIUM CHLORIDE 0.9% 1,000 ML IV SCH ×2 (00:42→17:08)
[2018-08-27] MEDS: LEVOTHYROXINE 25 MCG TAB PO SCH (06:06)
[2018-08-27] MEDS: metroNIDAZOLE 500 MG TAB PO SCH ×4 (08:23→21:27)
[2018-08-27] MEDS: METOPROLOL TARTRATE 50 MG TAB PO SCH ×2 (08:23→21:27)
[2018-08-27] MEDS: HYDROcodone/APAP 7.5-325MG 1 EACH TAB PO PRN ×3 (08:23→22:50)
[2018-08-27] MEDS: FLECAINIDE 50 MG TAB PO SCH ×2 (08:23→21:27)
[2018-08-27] MEDS: FAMOTIDINE 20 MG/2 ML VIAL IV SCH ×2 (08:24→21:27)
[2018-08-27] MEDS: HEPARIN SODIUM,PORCINE 5,000 UNIT/ML 1 ML VIAL SQ SCH ×3 (08:24→23:41)
[2018-08-27 09:49] LABS: Basophils # (A) 0.1 k/uL (0-0.2); Basophils % (A) 1 %; Eosinophils # (A) 0.4 k/uL (0-0.7); Eosinophils % (A) 3 %; HCT 46.6 % (34.0-46.0); HGB 15.2 gm/dL (11.4-16.0); Lymphocytes # (A) 2.6 k/uL (1.0-4.8); Lymphocytes % (A) 20 %; MCH 30.7 pg (25.0-35.0); MCHC 32.5 g/dL (31.0-37.0); MCV 94.3 fL (80.0-100.0); Mean Platelet Volume 7.3; Monocytes # (A) 0.8 k/uL (0-1.0); Monocytes % (A) 6 %; Neutrophils # (A) 8.4 k/uL (1.3-7.7); Neutrophils % (A) 67 %; Platelet Count 458 k/uL (150-450); RBC 4.94 m/uL (3.80-5.40); RDW 13.7 % (11.5-15.5); WBC 12.6 k/uL (3.8-10.6)
[2018-08-27 10:06] LABS: Albumin 2.9 g/dL (3.5-5.0); Anion Gap 7 mmol/L; Blood Urea Nitrogen <2 mg/dL (7-17); Calcium 8.2 mg/dL (8.4-10.2); Carbon Dioxide 27 mmol/L (22-30); Chloride 104 mmol/L (98-107); Glucose 99 mg/dL (74-99); Phosphorus 2.7 mg/dL (2.5-4.5); Sodium 138 mmol/L (137-145); Total Bilirubin 0.7 mg/dL (0.2-1.3); Total Protein 6.3 g/dL (6.3-8.2)
[2018-08-27 10:29] LABS: ALT 26 U/L (9-52); AST 38 U/L (14-36); Alkaline Phosphatase 64 U/L (38-126); Potassium 4.4 mmol/L (3.5-5.1)
--- NOTE | 2018-08-27 12:09 | P.PN ---
Subjective Progress Note Date: 08/27/18 62-year-old female seen this morning sitting up in a chair. Patient states urinating no difficulty no nausea no vomiting oral pain medication effective for pain control. States is passing gas no stool from the ostomy. JOAQUINA drain in place serous drainage. Surgical dressing dry abdomen nondistended nontender patient states she's hungry tolerating clear liquids status post exploratory lap with sigmoid colectomy and end colostomy. Drainage of interloop abscess done on 24 of August Objective - Vital Signs Vital signs: Vital Signs Temp 96.3 F L 08/27/18 00:48 Pulse 66 08/27/18 08:00 Resp 17 08/27/18 08:30 BP 170/90 08/27/18 08:00 Pulse Ox 98 08/27/18 08:00 Intake & Output 08/26/18 08/27/18 08/27/18 18:59 06:59 18:59 Intake Total 2024 Output Total 91 15 Balance -2009 Intake: IV 875 D5-0.45% NaCl with KCl 875 20Meq/l 1,000 ml @ 125 mls/hr IV .Q8H RICARDO Rx#: [id number] Intake, IV Titration 750 Amount D5-0.45% NaCl with KCl 750 20Meq/l 1,000 ml @ 125 mls/hr IV .Q8H RICARDO Rx#: [id number] Oral 400 Output: Drainage 90 15 Abdomen 90 15 Stool 1 Other: Voiding Method Toilet Toilet Bedside Commode Bedside Commode # Voids 5 3 - Exam Physical exam 62-year-old female sitting up in a chair tolerating clear liquid diet Lungs adequate air movement bilaterally on room air sats 98% denies shortness of breath Heart S1-S2 audible denies chest pain Abdomen surgical dressings dry Hypoactive bowel tones no nausea no vomiting passing gas no stool JOAQUINA drain in place ostomy small brown liquid small amount gas in the pouch stoma is red tolerating clear liquid Extremities no edema - Labs CBC & Chem 7: 08/27/18 08:32 08/27/18 08:32 Labs: Abnormal Lab Results - Last 24 Hours (Table) 08/27/18 08/27/18 Range/Units 08:32 08:32 WBC 12.6 H (3.8-10.6) k/uL Hct 46.6 H (34.0-46.0) % Plt Count 458 H (150-450) k/uL Neutrophils # 8.4 H (1.3-7.7) k/uL BUN <2 L (7-17) mg/dL Creatinine 0.37 L (0.52-1.04) mg/dL Calcium 8.2 L (8.4-10.2) mg/dL AST 38 H (14-36) U/L Albumin 2.9 L (3.5-5.0) g/dL Assessment and Plan Assessment: Impression Present on admission left lower quadrant abdominal pain suspect due to acute complicated diverticulitis perforation with sepsis suspect intra-abdominal source of septicemia CAT scan of the abdomen and pelvis obtained in the emergency room report indicates severe enterocolitis involving multiple small bowel loops in the sigmoid colon History of diverticulitis July 14 2018 colonoscopy done report cecum ascending and transverse colon appeared normal and the descending moderate diverticulosis no evidence of diverticulitis Electrolyte abnormality hypo-kalemia and hypophosphorous New-onset of atrial fibrillation with rapid ventricular response Frequent loose stools we'll obtain stool for C. diff to rule out Paroxysmal atrial fibrillation cardiology following current maintaining sinus rhythm Postop August 24 exploratory laparotomy, sigmoid colectomy, end colostomy drainage of interloop abscess for perforated diverticulitis Plan Increase activity IV fluid for hydration Clear liquid diet advance once bowel function resumes Continue IV antibiotics cefepime and Flagyl as ordered per infectious disease recommendation DVT and GI prophylaxis Repeat labs in the morning Continue recommendations by medicine and cardiology service The above impression and plan of care have been discussed and directed by signing physician. Henny Graham nurse practitioner acting as scribe for signing physician.
--- NOTE | 2018-08-27 12:37 | P.PN ---
Subjective Progress Note Date: 08/27/18 This is a 62-year-old female, patient of [facility]. She has a known past medical history of diverticulosis, hypothyroidism and migraines. Patient presents to the emergency room with complaints of severe abdominal pain throughout her whole abdomen that started around 2:00 this morning. She was having chills and nausea. No vomiting. Reports normal bowel movements. No blood in the stools. Computed tomography scan of the abdomen and pelvis shows moderate to severe enterocolitis involving multiple small bowel loops, transverse colon and sigmoid colon. There is sigmoid diverticulosis the bowel inflammation appears to involve multiple areas. Acute diverticulitis with perforation is also possible. Perforation into the intraperitoneal cavity of the left paramedian lower abdomen. Air collection measuring 3.0 cm. There is [id number] associated mesenteric edema/inflammation and moderate pelvic ascites. Patient was given cefepime and Flagyl in the ER. Morphine for pain. Surgery has been consulted. Patient denies any chest pain or shortness of breath. Denies any bowel movement changes or urinary symptoms. Patient was seen and examined in the ER. 08/20/2018 patient has moved to the intensive care unit last night due to elevated temperature and increased heart rate. At this time patient is still complaining of abdominal pain and right lower quadrant. Patient is being followed by critical care team Dr. amado and Dr. Mireles for surgical services. Plan for patient to get CAT scan today with contrast to assess whether patient will need surgical intervention. At this time patient denies chest pain or shortness breath. Denies urinary burning or frequency. 08/21/2018 patient remains in the ICU. She went to atrophic relation with rapid ventricular response last night. She required to be placed on a Cardizem drip. She's converted to sinus rhythm. Cardizem is currently turned off. And cardiology has been consulted. Patient's computed tomography scan of the abdomen and pelvis shows improvement in the free air. No surgery is scheduled at this time. Continue with antibiotics. Patient denies any chest pain or shortness of breath. Reports some improvement in her abdominal pain and distention. Denies any nausea or vomiting. She reports passing gas. No bowel movement. Has Malik catheter in place On 08/22/2018 patient remains in the intensive care unit. Heart rate is currently controlled. She has been started on Lopressor per cardiology services. No inspiration at this time per cardiology due to perforation. This time patient denies chest pain or shortness breath. Patient is having loose stools. C. diff will be ordered. Patient denies any urinary burning or frequency. On 08/23/2018 patient is alert and oriented 3 she was seen and examined in the intensive care unit she was evaluated earlier by surgery and plan is to proceed with surgery in a.m. tomorrow she is still complaining of bilateral lower quadrant abdominal pain otherwise no complaints at this time no chest pain no shortness of breath no palpitation no cough and no urinary symptoms On 08/24/2018, today the patient underwent expiratory laparotomy, sigmoid colectomy and colostomy. Patient remains nothing by mouth Colostomy site is noted and is clean for now. Surgical wound site is clean. The patient has epidural for pain control. She has also an NG tube in place. There is no fever or chills no headache no dizziness no chest pain no shortness of breath no cough no nausea or vomiting no abdominal pain and no urinary symptoms On 08/25/2018 patient is postop day 1 status post expiratory lap with sigmoid colectomy and colostomy. Patient is currently sitting up in chair. Patient is complaining of some incisional pain. Patient remains nothing by mouth. At this time patient has NG tube in place. Patient denies chest pain or shortness of breath. Patient denies nausea vomiting or diarrhea. Denies any urinary frequency On 08/26/2018 patient is postop day 2 status post exploratory lap with sigmoid colectomy and colostomy. Patient is currently sitting up in chair. Patient is feeling slightly improved. NG tube and epidural have been removed. Patient denies chest pain or shortness of breath. Patient denies any urinary burning or frequency. Patient denies nausea vomiting or diarrhea On 08/27/2018 patient is currently postop day 3 from exploratory left colectomy and colostomy. Patient is alert and oriented 3. Patient is currently sitting up in chair. Patient denies any complaints at this time. Patient denies chest pain shortness breath. Patient denies any urinary burning or frequency. Patient denies nausea vomiting or diarrhea. Patient currently on clear liquid diet per surgical services. Remains on cefepime and Flagyl per infectious disease. Objective - Vital Signs Vital signs: Vital Signs Temp 96.3 F L 08/27/18 00:48 Pulse 66 08/27/18 08:00 Resp 17 08/27/18 08:30 BP 170/90 08/27/18 08:00 Pulse Ox 98 08/27/18 08:00 Intake & Output 08/26/18 08/27/18 08/27/18 18:59 06:59 18:59 Intake Total 2024 Output Total 91 15 Balance -2009 Intake: IV 875 D5-0.45% NaCl with KCl 875 20Meq/l 1,000 ml @ 125 mls/hr IV .Q8H RICARDO Rx#: [id number] Intake, IV Titration 750 Amount D5-0.45% NaCl with KCl 750 20Meq/l 1,000 ml @ 125 mls/hr IV .Q8H RICARDO Rx#: [id number] Oral 400 Output: Drainage 90 15 Abdomen 90 15 Stool 1 Other: Voiding Method Toilet Toilet Bedside Commode Bedside Commode # Voids 5 3 - Exam Head normocephalic Neck supple Lungs clear to auscultation bilaterally no wheezing or crackles Heart regular rate and rhythm S1-S2, no rub or gallop Abdomen is diffuse tenderness distended hypoactive bowel sounds. JOAQUINA drain placed ostomy small brown liquid small amount stoma is pink Extremities no edema Neuro alert and orientated to 3 - Labs CBC & Chem 7: 08/27/18 08:32 08/27/18 08:32 Labs: Abnormal Lab Results - Last 24 Hours (Table) 08/27/18 08/27/18 Range/Units 08:32 08:32 WBC 12.6 H (3.8-10.6) k/uL Hct 46.6 H (34.0-46.0) % Plt Count 458 H (150-450) k/uL Neutrophils # 8.4 H (1.3-7.7) k/uL BUN <2 L (7-17) mg/dL Creatinine 0.37 L (0.52-1.04) mg/dL Calcium 8.2 L (8.4-10.2) mg/dL AST 38 H (14-36) U/L Albumin 2.9 L (3.5-5.0) g/dL Assessment and Plan Assessment: 1. Acute complicated diverticulitis perforation with sepsis: Computed tomography scan showing severe enterocolitis involving multiple small bowel loops transverse colon And sigmoid colon. Concerns of a possible acute diverticulitis with perforation. Patient started on Flagyl and cefepime in the ER. Repeat computed tomography scan the abdomen and pelvis showing improvement and he free air. She is currently postop day 3 status post surgery lap with sigmoid colectomy with colostomy. Patient remains on cefepime and Flagyl for antibiotics per infectious disease 2. History of diverticulitis 3. Hypothyroidism: Continue Synthroid TSH 0.015 and free T4 1 33. Patient states she does take both Synthroid and a more [place] thyroid at home. Patient reports that she was getting treated for hypothyroidism. Patient states she does currently have her thyroid. Will DC [place] thyroid at. this time 4. History of migraines 5. New onset of atrial fibrillation with rapid ventricular response. Patient did require Cardizem drip. converted to sinus rhythm. Per cardiology services patient will be started on Lopressor. Hold on any kind of anticoagulation In view of the perforation. Per cardiology services will follow rhythm and depending on that further recommendation will be made 6. Hypophosphatemia. Patient received phosphorus supplement. Phosphorus 0.9. Phosphorus will be replaced per protocol 7. Hypokalemia. Potassium 3.1. Will replace per protocol. Resolved 8. Hypertension. Patient maintained on Lopressor. Hydralazine when necessary added GI prophylaxis Protonix and DVT prophylaxis heparin. I performed an examination of the patient and discussed their management with the Nurse Practitioner. I have reviewed the Nurse Practitioner's notes and agree with the documented findings and plan of care
[2018-08-27] MEDS: D5-0.45% NACL WITH KCL 20MEQ/L 1,000 ML IV SCH ×2 (12:38→17:08)
[2018-08-27] MEDS: amLODIPine 10 MG TAB PO SCH (12:38)
[2018-08-27] MEDS: CEFEPIME 2 GM in SODIUM CHLORIDE 0.9% 50 ML IVPB SCH ×2 (12:38→23:41)
--- NOTE | 2018-08-27 13:05 | PN ---
PROGRESS NOTE DATE OF SERVICE: 08/27/2018 REASON FOR FOLLOW UP: Secondary peritonitis from perforated sigmoid diverticulitis and abdominal abscess. INTERVAL HISTORY: The patient is currently afebrile. She is breathing comfortably. The patient did have a colostomy bag. Abdominal pain is currently controlled with pain medication. Denies having any chest pain, shortness of breath or cough. PHYSICAL EXAMINATION: Blood pressure 141/60 with a pulse of 61, temperature 98.3, she is 98% on room air. General description is a middle-aged female, lying in bed in no distress. RESPIRATORY SYSTEM: Unlabored breathing, clear to auscultation anteriorly. HEART: S1, S2. Regular rate and rhythm. The patient is clean with no cellulitis. LABS: Hemoglobin is 15.1, white count of 12.6, BUN of 2, creatinine 0.37. DIAGNOSTIC IMPRESSION AND PLAN: Patient with abdominal abscess from perforated sigmoid diverticulitis in view of extensive infection. Patient may benefit from a midline and outpatient IV Rocephin 2 g with oral Flagyl for another 10 days for which midline will be placed. All the questions were answered. MMODL / IJN: [id number] /
--- NOTE | 2018-08-27 13:21 | P.PN ---
Subjective Progress Note Date: 08/27/18 Principal diagnosis: Acute diverticulitis with perforation, status post sigmoid colectomy and end colostomy, postop day 2 62-year-old female patient with known history of diverticulosis who underwent a recent colonoscopy in June 2018 and she was told to have uncomplicated diverticulosis. She has had previous bouts of diverticulitis treated with antibiotics. This morning, the patient woke up with diffuse abdominal pain and the pain was rather crampy associated with some chills and fever. She was also nauseated without any significant emesis. She did have a loose liquidy bowel movements and non-since. No bloody bowel movement or any melanotic stool. The patient came into the hospital and she was given a CAT scan of the abdomen which showed moderate to severe enterocolitis involving the multiple small bowel loops and transverse colon and sigmoid colon. While there is sigmoid diverticulosis and mild the bowel inflammation appears to involve multiple areas. Acute diverticulitis with perforation is considered. Perforation into the intraperitoneal cavity of the left paramedian lower abdomen was suspected. There are collection measures about 3 cm in size. There was moderate to severe associated mesenteric edema and inflammation and moderate degree of pelvic ascites. The patient is currently in the intensive care unit. She got transferred due to concerns of sepsis. She is tachycardic and she is in sinus tachycardia with a heart rate of 110. She is maintaining a low blood pressure. Most recent BP reading is 159/91. Pulse ox 98% on room air. She is producing adequate amount of urine output in the Malik catheter was inserted. I saw this patient in the ICU. She had lower abdominal tenderness. She was uncomfortable. Her pain was controlled for now. She is receiving Dilaudid for pain control. She also and accommodation of cefepime and Flagyl. This is a broad-spectrum antibiotics covering for acute diverticulitis. The patient will be fluid resuscitated. General surgery consultation to the been obtained. Discussed the case with the general surgeon. On 08/24/2018, the patient was taken to the operating room by general surgery. The patient underwent expiratory laparotomy, sigmoid colectomy and colostomy. Estimated blood loss was 20 mL. The patient was found to have Enterobacter lobe abscesses and colitis. The patient is back to the intensive care unit. She is hemodynamically stable. She is nothing by mouth. Colostomy site is noted and is clean for now. Surgical wound site is clean. The patient has epidural bupivacaine and Dilaudid for pain control. She has also an NG tube in place. Output is minimal. No nausea. No vomiting. No abdominal pain. She is quite stable for now. Awake and alert and she is following commands and answering questions appropriately and the cardiac rhythm remains sinus. No other issues for now. The patient is on IV cefepime and Flagyl as broad- spectrum antibiotic coverage. On 08/25/2018, patient is status post exploratory laparotomy, sigmoid colostomy and colectomy. Patient is not in the ICU, hemodynamically stable, did not require any pressors, denies any shortness of breath, denies any abdominal pain , continues to have epidural for pain control. Continues to have nasogastric tube in place, doing great overall. Remains in sinus rhythm, remains on antibiotics in the form of cefepime and Flagyl. Labs were reviewed, WBC count is coming down to 14.0-4.4, basic metabolic profile is normal, renal profile is normal. On 08/26/2018 patient seen in follow-up medical surgical floor. She is sitting up in the recliner, she is having mild to moderate amount of incisional discomfort, but no acute distress. Denies any shortness of breath, denies any chest pain, room air pulse ox is 98%, afebrile. Lung sounds are clear to auscultation, patient was encouraged to work with her incentive spirometry, she states she is able to achieve 1500 on the today. Midline incision is clean dry and intact, distal portion is draining small amount of serous drainage, no stool or gas per colostomy. Bowel sounds are absent. Patient is nothing by mouth except for ice chips. No nausea or vomiting. Fever or chills, today's labs have been reviewed, the PVCs down to 10.7, hemoglobin is 13.3, sodium is 136, potassium is 4.4, chloride is 108, CO2 is 21, BUN is 2 and creatinine is 0.40. Blood and urine cultures remain negative thus far. Patient is covered with antibiotics including cefepime. Nasogastric tube has been discontinued. Her abdomen is soft. Stoma is pink On 08/27/2018 patient seen in follow-up on medical surgical floor. She is sitting up in the recliner, in no acute distress, she states she started passing gas and small amount of stool through her colostomy. No nausea no vomiting, no fever or chills, no difficulty breathing, no chest pain. Mid abdominal incision is clean dry and intact, covered with a dressing, Dez is pink. The dressings and the ostomy appliance has been changed this morning. Able to achieve 1250 on incentive spirometry today, diminished breath sounds over right posterior lower base, some limited crackles at the left lower base. Room air pulse ox is 98%, afebrile. Cultures remain negative, patient is covered with a combination of cefepime and Flagyl, ID service is following, pain is under reasonable control. Objective - Vital Signs Vital signs: Vital Signs Temp 96.3 F L 08/27/18 00:48 Pulse 66 08/27/18 08:00 Resp 17 08/27/18 08:30 BP 170/90 08/27/18 08:00 Pulse Ox 98 08/27/18 08:00 Intake & Output 08/26/18 08/27/18 08/27/18 18:59 06:59 18:59 Intake Total 2024 Output Total 91 15 Balance -91 2009 Intake: IV 875 D5-0.45% NaCl with KCl 875 20Meq/l 1,000 ml @ 125 mls/hr IV .Q8H RICARDO Rx#: [id number] Intake, IV Titration 750 Amount D5-0.45% NaCl with KCl 750 20Meq/l 1,000 ml @ 125 mls/hr IV .Q8H RICARDO Rx#: [id number] Oral 400 Output: Drainage 90 15 Abdomen 90 15 Stool 1 Other: Voiding Method Toilet Toilet Bedside Commode Bedside Commode # Voids 5 3 - Exam Physical Exam: Revealed a 62-year-old female in no distress. Head: Atraumatic, normocephalic. Nasogastric tube is intact. HEENT:[Neck is supple.] [No neck masses.] [No thyromegaly.] [No JVD.] PERRLA, EOMI, dry mucous membranes noted. Chest: [Clear throughout, no crackles, no rhonchi, no wheezes.] Cardiac Exam: [Normal S1 and S2, no S3 gallop, no murmur.] Abdomen: [Soft, slightly tender, clean wound site and dressing noted to be intact, JOAQUINA drain remains in place, colostomy is noted with minimal output noted , no gas, no stool. No rebound, no guarding, hypoactive bowel sounds. Ostomy appliance has been changed today, but reportedly patient is passing small amount of stool and gas Extremities: [No clubbing, no edema, no cyanosis.] Neurological Exam: [No focal neurologic deficit.] Skin: No rashes. Psychiatric: Normal mood, affect, and mental status examination. - Labs CBC & Chem 7: 08/27/18 08:32 08/27/18 08:32 Labs: Abnormal Lab Results - Last 24 Hours (Table) 08/27/18 08/27/18 Range/Units 08:32 08:32 WBC 12.6 H (3.8-10.6) k/uL Hct 46.6 H (34.0-46.0) % Plt Count 458 H (150-450) k/uL Neutrophils # 8.4 H (1.3-7.7) k/uL BUN <2 L (7-17) mg/dL Creatinine 0.37 L (0.52-1.04) mg/dL Calcium 8.2 L (8.4-10.2) mg/dL AST 38 H (14-36) U/L Albumin 2.9 L (3.5-5.0) g/dL Assessment and Plan Plan: 1 acute diverticulitis with perforation, status post sigmoid colectomy and colostomy, postop day 3 2 paroxysmal atrial fibrillation, presently in normal sinus rhythm 3 hypothyroidism on replacement therapy 4 history of diverticulosis 6 acute peritonitis secondary to acute diverticulitis and perforation. Plan: Patient denies any shortness of breath, vital signs are stable, no fever or chills, she is working on her incentive spirometry. Her colostomy is starting to produce gas and small amount of stool, no nausea or vomiting, anticipate initiation of diet soon. Antibiotics per ID service recommendations, no acute pulmonary or critical care issues at this time, we will follow with the patient on as-needed basis I performed a history & physical examination of the patient and discussed their management with my nurse practitioner, Jennifer Tyler. I reviewed the nurse practitioner's note and agree with the documented findings and plan of care. Lung sounds are clear. The findings and the impression was discussed with the patient. I attest to the documentation by the nurse practitioner. Time with Patient: Less than 30
--- NOTE | 2018-08-27 15:11 | PN ---
PROGRESS NOTE Patient is admitted to the hospital with diverticulitis with rupture, had an episode of atrial fibrillation. Has remained in sinus rhythm since. She is still not able to pass gas consistently. Denies chest pain or difficulty breathing. PHYSICAL EXAMINATION: On exam, her blood pressures are poorly controlled. Chest is clear to auscultation and percussion. Heart exam reveals first and second heart sounds. No gallop. Exam of extremities did not reveal any edema. ASSESSMENT: 1. Paroxysmal atrial fibrillation. 2. Uncontrolled hypertension. PLAN: I am going to start the patient on amlodipine 10 mg daily for optimal blood pressure control. Continue the flecainide that she is on to keep her in sinus rhythm. MMODL / IJN: [id number] /
[2018-08-28] MEDS: D5-0.45% NACL WITH KCL 20MEQ/L 1,000 ML IV SCH ×3 (01:15→21:17)
[2018-08-28] MEDS: SODIUM CHLORIDE 0.9% 1,000 ML IV SCH ×2 (06:11→19:56)
[2018-08-28] MEDS: metroNIDAZOLE 500 MG TAB PO SCH ×4 (07:42→21:19)
[2018-08-28] MEDS: METOPROLOL TARTRATE 50 MG TAB PO SCH ×2 (07:42→21:20)
[2018-08-28] MEDS: amLODIPine 10 MG TAB PO SCH (07:43)
[2018-08-28] MEDS: LEVOTHYROXINE 25 MCG TAB PO SCH (07:43)
[2018-08-28] MEDS: FAMOTIDINE 20 MG/2 ML VIAL IV SCH (07:43)
[2018-08-28] MEDS: FLECAINIDE 50 MG TAB PO SCH ×2 (07:43→21:19)
[2018-08-28] MEDS: HEPARIN SODIUM,PORCINE 5,000 UNIT/ML 1 ML VIAL SQ SCH ×2 (07:43→17:07)
[2018-08-28 07:46] LABS: Basophils % (A) 0 %; Eosinophils # (A) 0.6 k/uL (0-0.7); Eosinophils % (A) 4 %; HCT 40.1 % (34.0-46.0); HGB 13.5 gm/dL (11.4-16.0); Lymphocytes # (A) 2.7 k/uL (1.0-4.8); Lymphocytes % (A) 18 %; MCH 31.3 pg (25.0-35.0); MCHC 33.7 g/dL (31.0-37.0); MCV 92.9 fL (80.0-100.0); Mean Platelet Volume 7.6; Monocytes # (A) 0.6 k/uL (0-1.0); Monocytes % (A) 4 %; Neutrophils # (A) 10.6 k/uL (1.3-7.7); Neutrophils % (A) 71 %; Platelet Count 530 k/uL (150-450); RBC 4.31 m/uL (3.80-5.40); RDW 13.8 % (11.5-15.5); WBC 14.9 k/uL (3.8-10.6)
[2018-08-28 07:54] LABS: ALT 30 U/L (9-52); AST 28 U/L (14-36); Albumin 2.6 g/dL (3.5-5.0); Alkaline Phosphatase 54 U/L (38-126); Anion Gap 7 mmol/L; Blood Urea Nitrogen 3 mg/dL (7-17); Calcium 8.4 mg/dL (8.4-10.2); Carbon Dioxide 23 mmol/L (22-30); Chloride 105 mmol/L (98-107); Glucose 85 mg/dL (74-99); Potassium 4.5 mmol/L (3.5-5.1); Sodium 135 mmol/L (137-145); Total Bilirubin 0.6 mg/dL (0.2-1.3); Total Protein 5.6 g/dL (6.3-8.2)
--- NOTE | 2018-08-28 10:22 | P.PN ---
Subjective Progress Note Date: 08/28/18 8-year-old female sitting up in a chair. Patient states he tolerated the diet is hungry. A moderate amount of brown stool noted in the ostomy. Patient states passing gas no nausea no vomiting. Surgical dressing site dry ostomy teaching has been initiated. JOAQUINA drain in place serous drainage. Patients being followed by infectious disease Dr. Sanon recommendations for midline outpatient IV Rocephin with oral Flagyl for another 10 days patient aware of the plan of care status post exploratory lap with sigmoid colectomy and end colostomy. Drainage of interloop abscess done on 24 of August Objective - Vital Signs Vital signs: Vital Signs Temp 97.9 F 08/28/18 00:54 Pulse 64 08/28/18 07:40 Resp 17 08/28/18 07:40 BP 155/76 08/28/18 07:40 Pulse Ox 97 08/28/18 07:40 Intake & Output 08/27/18 08/28/18 08/28/18 18:59 06:59 18:59 Intake Total 1175 560 Output Total 10 20 Balance -10 1155 560 Weight 66 kg Intake: IV 925 Cefepime 2 gm In Sodium 50 Chloride 0.9% 50 ml @ 100 mls/hr IVPB Q12H [facility] Rx# :[id number] D5-0.45% NaCl with KCl 875 20Meq/l 1,000 ml @ 125 mls/hr IV .Q8H [facility] Rx#: [id number] Oral 250 560 Output: Drainage 20 Abdomen 20 Stool 10 Other: Voiding Method Toilet Toilet Toilet Bedside Commode Bedside Commode Bedside Commode # Voids 2 # Bowel Movements 1 - Exam Physical exam 62-year-old female sitting up in a chair tolerating full liquid states is hungry asking diet to be advanced Lungs adequate air movement bilaterally on room air sats 98% denies shortness of breath Heart S1-S2 audible denies chest pain Abdomen surgical dressings dry active bowel tones no nausea no vomiting passing gas moderate amount brown stool in the ostomy bag JOAQUINA drain in place nondistended nontender Extremities no edema - Labs CBC & Chem 7: 08/28/18 06:36 08/28/18 06:36 Labs: Abnormal Lab Results - Last 24 Hours (Table) 10/31/18 11/01/18 11/01/18 Range/Units 08:32 06:36 06:36 WBC 14.9 H (3.8-10.6) k/uL Plt Count 530 H (150-450) k/uL Neutrophils # 10.6 H (1.3-7.7) k/uL Sodium 135 L (137-145) mmol/L BUN <2 L 3 L (7-17) mg/dL Creatinine 0.37 L 0.42 L (0.52-1.04) mg/dL Calcium 8.2 L (8.4-10.2) mg/dL AST 38 H (14-36) U/L Total Protein 5.6 L (6.3-8.2) g/dL Albumin 2.9 L 2.6 L (3.5-5.0) g/dL Assessment and Plan Assessment: Impression Present on admission left lower quadrant abdominal pain suspect due to acute complicated diverticulitis perforation with sepsis suspect intra-abdominal source of septicemia CAT scan of the abdomen and pelvis obtained in the emergency room report indicates severe enterocolitis involving multiple small bowel loops in the sigmoid colon History of diverticulitis July 14 2018 colonoscopy done report cecum ascending and transverse colon appeared normal and the descending moderate diverticulosis no evidence of diverticulitis Electrolyte abnormality hypo-kalemia and hypophosphorous New-onset of atrial fibrillation with rapid ventricular response Frequent loose stools we'll obtain stool for C. diff to rule out Paroxysmal atrial fibrillation cardiology following current maintaining sinus rhythm Postop August 24 exploratory laparotomy, sigmoid colectomy, end colostomy drainage of interloop abscess for perforated diverticulitis Plan Continue ostomy teaching Increase activity IV fluid for hydration Advance diet Continue IV antibiotics cefepime and Flagyl as ordered per infectious disease recommendation DVT and GI prophylaxis Repeat labs in the morning Continue recommendations by medicine and cardiology service The above impression and plan of care have been discussed and directed by signing physician. Henny Graham nurse practitioner acting as scribe for signing physician.
--- NOTE | 2018-08-28 10:30 | P.PN ---
Subjective Progress Note Date: 08/28/18 This is a 62-year-old female, patient of [facility]. She has a known past medical history of diverticulosis, hypothyroidism and migraines. Patient presents to the emergency room with complaints of severe abdominal pain throughout her whole abdomen that started around 2:00 this morning. She was having chills and nausea. No vomiting. Reports normal bowel movements. No blood in the stools. Computed tomography scan of the abdomen and pelvis shows moderate to severe enterocolitis involving multiple small bowel loops, transverse colon and sigmoid colon. There is sigmoid diverticulosis the bowel inflammation appears to involve multiple areas. Acute diverticulitis with perforation is also possible. Perforation into the intraperitoneal cavity of the left paramedian lower abdomen. Air collection measuring 3.0 cm. There is [id number] associated mesenteric edema/inflammation and moderate pelvic ascites. Patient was given cefepime and Flagyl in the ER. Morphine for pain. Surgery has been consulted. Patient denies any chest pain or shortness of breath. Denies any bowel movement changes or urinary symptoms. Patient was seen and examined in the ER. 08/20/2018 patient has moved to the intensive care unit last night due to elevated temperature and increased heart rate. At this time patient is still complaining of abdominal pain and right lower quadrant. Patient is being followed by critical care team Dr. amado and Dr. Mireles for surgical services. Plan for patient to get CAT scan today with contrast to assess whether patient will need surgical intervention. At this time patient denies chest pain or shortness breath. Denies urinary burning or frequency. 08/21/2018 patient remains in the ICU. She went to atrophic relation with rapid ventricular response last night. She required to be placed on a Cardizem drip. She's converted to sinus rhythm. Cardizem is currently turned off. And cardiology has been consulted. Patient's computed tomography scan of the abdomen and pelvis shows improvement in the free air. No surgery is scheduled at this time. Continue with antibiotics. Patient denies any chest pain or shortness of breath. Reports some improvement in her abdominal pain and distention. Denies any nausea or vomiting. She reports passing gas. No bowel movement. Has Malik catheter in place On 08/22/2018 patient remains in the intensive care unit. Heart rate is currently controlled. She has been started on Lopressor per cardiology services. No inspiration at this time per cardiology due to perforation. This time patient denies chest pain or shortness breath. Patient is having loose stools. C. diff will be ordered. Patient denies any urinary burning or frequency. On 08/23/2018 patient is alert and oriented 3 she was seen and examined in the intensive care unit she was evaluated earlier by surgery and plan is to proceed with surgery in a.m. tomorrow she is still complaining of bilateral lower quadrant abdominal pain otherwise no complaints at this time no chest pain no shortness of breath no palpitation no cough and no urinary symptoms On 08/24/2018, today the patient underwent expiratory laparotomy, sigmoid colectomy and colostomy. Patient remains nothing by mouth Colostomy site is noted and is clean for now. Surgical wound site is clean. The patient has epidural for pain control. She has also an NG tube in place. There is no fever or chills no headache no dizziness no chest pain no shortness of breath no cough no nausea or vomiting no abdominal pain and no urinary symptoms On 08/25/2018 patient is postop day 1 status post expiratory lap with sigmoid colectomy and colostomy. Patient is currently sitting up in chair. Patient is complaining of some incisional pain. Patient remains nothing by mouth. At this time patient has NG tube in place. Patient denies chest pain or shortness of breath. Patient denies nausea vomiting or diarrhea. Denies any urinary frequency On 08/26/2018 patient is postop day 2 status post exploratory lap with sigmoid colectomy and colostomy. Patient is currently sitting up in chair. Patient is feeling slightly improved. NG tube and epidural have been removed. Patient denies chest pain or shortness of breath. Patient denies any urinary burning or frequency. Patient denies nausea vomiting or diarrhea On 08/27/2018 patient is currently postop day 3 from exploratory left colectomy and colostomy. Patient is alert and oriented 3. Patient is currently sitting up in chair. Patient denies any complaints at this time. Patient denies chest pain shortness breath. Patient denies any urinary burning or frequency. Patient denies nausea vomiting or diarrhea. Patient currently on clear liquid diet per surgical services. Remains on cefepime and Flagyl per infectious disease. On 08/28/2018 patient is postop day 4. Patient is alert and oriented 3 sitting up in chair. Patient states abdominal pain is minimum at this time. Patient is having liquid stool in ostomy bag. Patient is on full liquid diet. Infectious disease recommending midline placement for IV antibiotics upon discharge. Physical therapy also consulted at this time. Objective - Vital Signs Vital signs: Vital Signs Temp 97.9 F 08/28/18 00:54 Pulse 64 08/28/18 07:40 Resp 17 08/28/18 07:40 BP 155/76 08/28/18 07:40 Pulse Ox 97 08/28/18 07:40 Intake & Output 08/27/18 08/28/18 08/28/18 18:59 06:59 18:59 Intake Total 1175 560 Output Total 10 20 Balance -10 1155 560 Weight 66 kg Intake: IV 925 Cefepime 2 gm In Sodium 50 Chloride 0.9% 50 ml @ 100 mls/hr IVPB Q12H [facility] Rx# :[id number] D5-0.45% NaCl with KCl 875 20Meq/l 1,000 ml @ 125 mls/hr IV .Q8H [facility] Rx#: [id number] Oral 250 560 Output: Drainage 20 Abdomen 20 Stool 10 Other: Voiding Method Toilet Toilet Toilet Bedside Commode Bedside Commode Bedside Commode # Voids 2 # Bowel Movements 1 - Exam Head normocephalic Neck supple Lungs clear to auscultation bilaterally no wheezing or crackles Heart regular rate and rhythm S1-S2, no rub or gallop Abdomen is diffuse tenderness distended hypoactive bowel sounds. JOAQUINA drain placed ostomy small brown liquid small amount stoma is pink Extremities no edema Neuro alert and orientated to 3 - Labs CBC & Chem 7: 08/28/18 06:36 08/28/18 06:36 Labs: Abnormal Lab Results - Last 24 Hours (Table) 08/27/18 08/28/18 08/28/18 Range/Units 08:32 06:36 06:36 WBC 14.9 H (3.8-10.6) k/uL Plt Count 530 H (150-450) k/uL Neutrophils # 10.6 H (1.3-7.7) k/uL Sodium 135 L (137-145) mmol/L BUN <2 L 3 L (7-17) mg/dL Creatinine 0.37 L 0.42 L (0.52-1.04) mg/dL Calcium 8.2 L (8.4-10.2) mg/dL AST 38 H (14-36) U/L Total Protein 5.6 L (6.3-8.2) g/dL Albumin 2.9 L 2.6 L (3.5-5.0) g/dL Assessment and Plan Assessment: 1. Acute complicated diverticulitis perforation with sepsis: Computed tomography scan showing severe enterocolitis involving multiple small bowel loops transverse colon And sigmoid colon. Concerns of a possible acute diverticulitis with perforation. Patient started on Flagyl and cefepime in the ER. Repeat computed tomography scan the abdomen and pelvis showing improvement and he free air. She is currently postop day 3 status post surgery lap with sigmoid colectomy with colostomy. Patient remains on cefepime and Flagyl for antibiotics per infectious disease. Infectious disease recommending midline placement for IV Rocephin and by mouth Flagyl upon discharge. 2. History of diverticulitis 3. Hypothyroidism: Continue Synthroid TSH 0.015 and free T4 1 33. Patient states she does take both Synthroid and a more [place] thyroid at home. Patient reports that she was getting treated for hypothyroidism. Patient states she does currently have her thyroid. Will DC [place] thyroid at. this time 4. History of migraines 5. New onset of atrial fibrillation with rapid ventricular response. Patient did require Cardizem drip. converted to sinus rhythm. Per cardiology services patient will be started on Lopressor. Hold on any kind of anticoagulation In view of the perforation. Per cardiology services will follow rhythm and depending on that further recommendation will be made 6. Hypophosphatemia. Patient received phosphorus supplement. Phosphorus 0.9. Phosphorus will be replaced per protocol 7. Hypokalemia. Potassium 3.1. Will replace per protocol. Resolved 8. Hypertension. Patient maintained on Lopressor. Hydralazine when necessary added GI prophylaxis Protonix and DVT prophylaxis heparin. I performed an examination of the patient and discussed their management with the Nurse Practitioner. I have reviewed the Nurse Practitioner's notes and agree with the documented findings and plan of care Physical therapy has been consulted Midline order placed
[2018-08-28] MEDS: CEFEPIME 2 GM in SODIUM CHLORIDE 0.9% 50 ML IVPB SCH (13:10)
[2018-08-28] MEDS: ACETAMINOPHEN TAB 325 MG TAB PO PRN ×2 (17:05→21:19)
[2018-08-28] MEDS: FLUCONAZOLE 100 MG TAB PO SCH (17:05)
[2018-08-28] MEDS: FAMOTIDINE 20 MG TAB PO SCH (21:20)
--- NOTE | 2018-08-28 21:54 | PN ---
PROGRESS NOTE DATE OF SERVICE: 08/28/2018 REASON FOR FOLLOWUP: Secondary peritonitis from perforated sigmoid diverticulitis. INTERVAL HISTORY: The patient is afebrile. She did have occasional pain after eating. Pain is more of a dull aching pain. No nausea or vomiting, though. Denies having any chest pain, shortness of breath or cough. PHYSICAL EXAMINATION: Blood pressure 112/62 with a pulse of 68, temperature 98.3 8. She is 98% on room air. General description is a middle-aged female up in the room in no distress. RESPIRATORY SYSTEM: Unlabored breathing. Clear to auscultation. HEART: S1, S2. Regular rate and rhythm. ABDOMEN: Soft. Mild tenderness. LABS: Hemoglobin is 13.5, white count up to 14.9 today with a BUN of 3, creatinine 0.42. DIAGNOSTIC IMPRESSION AND PLAN: Patient with abdominal abscess from a perforated sigmoid diverticulitis, status post diverting colostomy. Patient seems to have a slight jump in her white count at this time. We will add Diflucan 200 mg orally daily to continue with the cefepime and Flagyl. If the patient's white count continues to improve, she will be able to finish therapy with IV Rocephin, p.o. Cipro and Flagyl for another 10 days with close outpatient followup. Prescription has been sent to the patient's pharmacy. Continue with supportive care. MMODL / IJN: [id number] /
[2018-08-29] MEDS: CEFEPIME 2 GM in SODIUM CHLORIDE 0.9% 50 ML IVPB SCH ×2 (00:06→11:51)
[2018-08-29] MEDS: HEPARIN SODIUM,PORCINE 5,000 UNIT/ML 1 ML VIAL SQ SCH ×2 (00:06→07:22)
[2018-08-29] MEDS: D5-0.45% NACL WITH KCL 20MEQ/L 1,000 ML IV SCH ×3 (03:03→20:04)
[2018-08-29] MEDS: LEVOTHYROXINE 25 MCG TAB PO SCH (05:58)
[2018-08-29 07:02] LABS: Basophils # (A) 0.1 k/uL (0-0.2); Basophils % (A) 0 %; Eosinophils # (A) 0.6 k/uL (0-0.7); Eosinophils % (A) 4 %; HCT 42.9 % (34.0-46.0); HGB 13.6 gm/dL (11.4-16.0); Lymphocytes # (A) 2.9 k/uL (1.0-4.8); Lymphocytes % (A) 18 %; MCH 30.1 pg (25.0-35.0); MCHC 31.8 g/dL (31.0-37.0); MCV 94.6 fL (80.0-100.0); Mean Platelet Volume 7.2; Monocytes # (A) 0.7 k/uL (0-1.0); Monocytes % (A) 4 %; Neutrophils # (A) 11.2 k/uL (1.3-7.7); Neutrophils % (A) 71 %; Platelet Count 497 k/uL (150-450); RBC 4.53 m/uL (3.80-5.40); RDW 13.8 % (11.5-15.5); WBC 15.9 k/uL (3.8-10.6)
[2018-08-29 07:12] LABS: ALT 26 U/L (9-52); AST 29 U/L (14-36); Albumin 2.9 g/dL (3.5-5.0); Alkaline Phosphatase 57 U/L (38-126); Anion Gap 9 mmol/L; Blood Urea Nitrogen 6 mg/dL (7-17); Calcium 8.6 mg/dL (8.4-10.2); Carbon Dioxide 23 mmol/L (22-30); Chloride 103 mmol/L (98-107); Glucose 92 mg/dL (74-99); Potassium 4.8 mmol/L (3.5-5.1); Sodium 135 mmol/L (137-145); Total Bilirubin 0.6 mg/dL (0.2-1.3); Total Protein 5.9 g/dL (6.3-8.2)
[2018-08-29] MEDS: SODIUM CHLORIDE 0.9% 1,000 ML IV SCH (07:26)
--- NOTE | 2018-08-29 09:42 | P.PN ---
Progress Note - Text 08/29 `905am 62 yr old female s/p abdominal procedure with Dr valenzuela,pt had an epidural catheter for post op pain control.i was called last night by the nurse with regards tosome yellow sero sanguineous fliud seeping out of the epidural site. iasked her to put a dressing on the site and i examined it this morning.no discharge noted, site looked fine with no swelling ,no inflammation noted. asked the nurse to put a band aid.
--- NOTE | 2018-08-29 09:54 | P.PN ---
Subjective Progress Note Date: 08/29/18 This is a 62-year-old female, patient of [facility]. She has a known past medical history of diverticulosis, hypothyroidism and migraines. Patient presents to the emergency room with complaints of severe abdominal pain throughout her whole abdomen that started around 2:00 this morning. She was having chills and nausea. No vomiting. Reports normal bowel movements. No blood in the stools. Computed tomography scan of the abdomen and pelvis shows moderate to severe enterocolitis involving multiple small bowel loops, transverse colon and sigmoid colon. There is sigmoid diverticulosis the bowel inflammation appears to involve multiple areas. Acute diverticulitis with perforation is also possible. Perforation into the intraperitoneal cavity of the left paramedian lower abdomen. Air collection measuring 3.0 cm. There is [id number] associated mesenteric edema/inflammation and moderate pelvic ascites. Patient was given cefepime and Flagyl in the ER. Morphine for pain. Surgery has been consulted. Patient denies any chest pain or shortness of breath. Denies any bowel movement changes or urinary symptoms. Patient was seen and examined in the ER. 08/20/2018 patient has moved to the intensive care unit last night due to elevated temperature and increased heart rate. At this time patient is still complaining of abdominal pain and right lower quadrant. Patient is being followed by critical care team Dr. amado and Dr. Mireles for surgical services. Plan for patient to get CAT scan today with contrast to assess whether patient will need surgical intervention. At this time patient denies chest pain or shortness breath. Denies urinary burning or frequency. 08/21/2018 patient remains in the ICU. She went to atrophic relation with rapid ventricular response last night. She required to be placed on a Cardizem drip. She's converted to sinus rhythm. Cardizem is currently turned off. And cardiology has been consulted. Patient's computed tomography scan of the abdomen and pelvis shows improvement in the free air. No surgery is scheduled at this time. Continue with antibiotics. Patient denies any chest pain or shortness of breath. Reports some improvement in her abdominal pain and distention. Denies any nausea or vomiting. She reports passing gas. No bowel movement. Has Malik catheter in place On 08/22/2018 patient remains in the intensive care unit. Heart rate is currently controlled. She has been started on Lopressor per cardiology services. No inspiration at this time per cardiology due to perforation. This time patient denies chest pain or shortness breath. Patient is having loose stools. C. diff will be ordered. Patient denies any urinary burning or frequency. On 08/23/2018 patient is alert and oriented 3 she was seen and examined in the intensive care unit she was evaluated earlier by surgery and plan is to proceed with surgery in a.m. tomorrow she is still complaining of bilateral lower quadrant abdominal pain otherwise no complaints at this time no chest pain no shortness of breath no palpitation no cough and no urinary symptoms On 08/24/2018, today the patient underwent expiratory laparotomy, sigmoid colectomy and colostomy. Patient remains nothing by mouth Colostomy site is noted and is clean for now. Surgical wound site is clean. The patient has epidural for pain control. She has also an NG tube in place. There is no fever or chills no headache no dizziness no chest pain no shortness of breath no cough no nausea or vomiting no abdominal pain and no urinary symptoms On 08/25/2018 patient is postop day 1 status post expiratory lap with sigmoid colectomy and colostomy. Patient is currently sitting up in chair. Patient is complaining of some incisional pain. Patient remains nothing by mouth. At this time patient has NG tube in place. Patient denies chest pain or shortness of breath. Patient denies nausea vomiting or diarrhea. Denies any urinary frequency On 08/26/2018 patient is postop day 2 status post exploratory lap with sigmoid colectomy and colostomy. Patient is currently sitting up in chair. Patient is feeling slightly improved. NG tube and epidural have been removed. Patient denies chest pain or shortness of breath. Patient denies any urinary burning or frequency. Patient denies nausea vomiting or diarrhea On 08/27/2018 patient is currently postop day 3 from exploratory left colectomy and colostomy. Patient is alert and oriented 3. Patient is currently sitting up in chair. Patient denies any complaints at this time. Patient denies chest pain shortness breath. Patient denies any urinary burning or frequency. Patient denies nausea vomiting or diarrhea. Patient currently on clear liquid diet per surgical services. Remains on cefepime and Flagyl per infectious disease. On 08/28/2018 patient is postop day 4. Patient is alert and oriented 3 sitting up in chair. Patient states abdominal pain is minimum at this time. Patient is having liquid stool in ostomy bag. Patient is on full liquid diet. Infectious disease recommending midline placement for IV antibiotics upon discharge. Physical therapy also consulted at this time. On 08/29/2018 patient is currently postop day 5. Patient's current ostomy nurse. Patient is alert and oriented 3. Patient has been up walking the halls with . Patient reports minimal pain in abdomen. White blood cell is increasing to 15.9. Infectious disease following and adding Diflucan. Patient is complaining of urinary burning. Urinary analysis has been ordered. Patient denies chest pain or shortness of breath. Patient denies vomiting or diarrhea. Patient has been tolerating diet. Small amount of stool noted to ostomy bag. Objective - Vital Signs Vital signs: Vital Signs Temp 97.8 F 08/29/18 07:27 Pulse 73 08/29/18 07:27 Resp 16 08/29/18 07:27 BP 108/70 08/29/18 07:27 Pulse Ox 97 08/29/18 07:27 Intake & Output 08/28/18 08/29/18 08/29/18 18:59 06:59 18:59 Intake Total 1040 550 Output Total 60 200 Balance 1040 490 -200 Intake: IV 100 Cefepime 2 gm In Sodium 100 Chloride 0.9% 50 ml @ 100 mls/hr IVPB Q12H [facility] Rx# :[id number] Oral 1040 450 Output: Drainage 60 Abdomen 60 Urine 100 Stool 100 Other: Voiding Method Toilet Toilet Bedside Commode Bedside Commode # Voids 1 - Exam Head normocephalic Neck supple Lungs clear to auscultation bilaterally no wheezing or crackles Heart regular rate and rhythm S1-S2, no rub or gallop Abdomen is diffuse tenderness distended hypoactive bowel sounds. JOAQUINA drain placed ostomy small brown liquid small amount stoma is pink Extremities no edema Neuro alert and orientated to 3 - Labs CBC & Chem 7: 08/29/18 06:22 08/29/18 06:22 Labs: Abnormal Lab Results - Last 24 Hours (Table) 08/29/18 08/29/18 Range/Units 06:22 06:22 WBC 15.9 H (3.8-10.6) k/uL Plt Count 497 H (150-450) k/uL Neutrophils # 11.2 H (1.3-7.7) k/uL Sodium 135 L (137-145) mmol/L BUN 6 L (7-17) mg/dL Creatinine 0.46 L (0.52-1.04) mg/dL Total Protein 5.9 L (6.3-8.2) g/dL Albumin 2.9 L (3.5-5.0) g/dL Assessment and Plan Assessment: 1. Acute complicated diverticulitis perforation with sepsis: Computed tomography scan showing severe enterocolitis involving multiple small bowel loops transverse colon And sigmoid colon. Concerns of a possible acute diverticulitis with perforation. Patient started on Flagyl and cefepime in the ER. Repeat computed tomography scan the abdomen and pelvis showing improvement and he free air. She is currently postop day 5 status post surgery lap with sigmoid colectomy with colostomy. Patient remains on cefepime and Flagyl for antibiotics per infectious disease. Infectious disease recommending midline placement for IV Rocephin and by mouth Flagyl and Cipro for another 10 days outpatient per infectious disease. Patient had midline placed yesterday. 2. History of diverticulitis 3. Hypothyroidism: Continue Synthroid TSH 0.015 and free T4 1 33. Patient states she does take both Synthroid and a more [place] thyroid at home. Patient reports that she was getting treated for hypothyroidism. Patient states she does currently have her thyroid. Will DC [place] thyroid at. this time 4. History of migraines 5. New onset of atrial fibrillation with rapid ventricular response. Patient did require Cardizem drip. converted to sinus rhythm. Per cardiology services patient will be started on Lopressor. Hold on any kind of anticoagulation In view of the perforation. Per cardiology services will follow rhythm and depending on that further recommendation will be made 6. Hypophosphatemia. Patient received phosphorus supplement. Phosphorus 0.9. Phosphorus will be replaced per protocol 7. Hypokalemia. Potassium 3.1. Will replace per protocol. Resolved 8. Hypertension. Patient maintained on Lopressor. Hydralazine when necessary added 9. Leukocytosis. Infectious disease is following. Diflucan has been added. Patient is complaining about burning with urination. Urinalysis has been ordered. GI prophylaxis Protonix and DVT prophylaxis heparin. I performed an examination of the patient and discussed their management with the Nurse Practitioner. I have reviewed the Nurse Practitioner's notes and agree with the documented findings and plan of care Physical therapy has been consulted Patient planning to be discharged home when cleared
[2018-08-29] MEDS: IOPAMIDOL-300 CONTRAST 30 ML VIAL (ORAL USE) PO PRN ×2 (10:22→11:44)
[2018-08-29] MEDS: ACETAMINOPHEN TAB 325 MG TAB PO PRN ×2 (10:24→20:09)
[2018-08-29] MEDS: METOPROLOL TARTRATE 50 MG TAB PO SCH ×2 (10:24→20:10)
[2018-08-29] MEDS: metroNIDAZOLE 500 MG TAB PO SCH ×4 (10:25→22:19)
[2018-08-29] MEDS: FAMOTIDINE 20 MG TAB PO SCH ×2 (10:25→20:10)
[2018-08-29] MEDS: FLUCONAZOLE 100 MG TAB PO SCH (10:25)
[2018-08-29] MEDS: FLECAINIDE 50 MG TAB PO SCH ×2 (10:25→20:10)
[2018-08-29] MEDS: amLODIPine 10 MG TAB PO SCH (11:52)
[2018-08-29 12:29] LABS: Appearance,Urine Clear (Clear); Bilirubin,Urine Negative (Negative); Blood,Urine Negative (Negative); Color,Urine Yellow; Glucose,Urine (UA) Negative (Negative); Ketones,Urine Negative (Negative); Leukocyte Esterase,Urine Negative (Negative); Nitrite,Urine Negative (Negative); Protein,Urine Negative (Negative); Specific Gravity,Urine 1.006 (1.001-1.035); Urobilinogen,Urine <2.0 mg/dL (<2.0)
--- NOTE | 2018-08-29 12:45 | P.PN ---
Subjective Progress Note Date: 08/29/18 62-year-old female sitting up in a chair seen this morning at the bedside. Patient is scheduled for a computed tomography scan abdomen and pelvis with oral contrast due to an elevated white count of 15.9. Was 14.9 yesterday. Moderate amount of brown stool in the ostomy bag. Abdomen soft nondistended. Infectious disease following patient. Patient does report burning on urination with frequency and urgency afebrile states noted improvement in the abdominal pain "did not even need to take pain medication the pain is not that bad" status post exploratory lap with sigmoid colectomy end colostomy. Drainage of interloop abscess done on 24 of August Objective - Vital Signs Vital signs: Vital Signs Temp 97.8 F 08/29/18 07:27 Pulse 73 08/29/18 07:27 Resp 16 08/29/18 07:27 BP 108/70 08/29/18 07:27 Pulse Ox 97 08/29/18 07:27 Intake & Output 08/28/18 08/29/18 08/29/18 18:59 06:59 18:59 Intake Total 1040 550 Output Total 60 300 Balance 1040 490 -300 Intake: IV 100 Cefepime 2 gm In Sodium 100 Chloride 0.9% 50 ml @ 100 mls/hr IVPB Q12H [facility] Rx# :[id number] Oral 1040 450 Output: Drainage 60 Abdomen 60 Urine 100 Stool 200 Other: Voiding Method Toilet Toilet Toilet Bedside Commode Bedside Commode Bedside Commode # Voids 1 - Exam Physical exam 62-year-old female sitting up in a chair appearing in no acute distress. Denying abdominal pain when questioning. Lungs adequate air movement bilaterally on room air sats 98% denies shortness of breath Heart S1-S2 audible denies chest pain Abdomen surgical dressings dry active bowel tones no nausea no vomiting passing gas moderate amount brown stool in the ostomy bag JOAQUINA drain in place nondistended nontender Extremities no edema - Labs CBC & Chem 7: 08/29/18 06:22 08/29/18 06:22 Labs: Abnormal Lab Results - Last 24 Hours (Table) 08/29/18 08/29/18 Range/Units 06:22 06:22 WBC 15.9 H (3.8-10.6) k/uL Plt Count 497 H (150-450) k/uL Neutrophils # 11.2 H (1.3-7.7) k/uL Sodium 135 L (137-145) mmol/L BUN 6 L (7-17) mg/dL Creatinine 0.46 L (0.52-1.04) mg/dL Total Protein 5.9 L (6.3-8.2) g/dL Albumin 2.9 L (3.5-5.0) g/dL Assessment and Plan Assessment: Impression Present on admission left lower quadrant abdominal pain suspect due to acute complicated diverticulitis perforation with sepsis suspect intra-abdominal source of septicemia CAT scan of the abdomen and pelvis obtained in the emergency room report indicates severe enterocolitis involving multiple small bowel loops in the sigmoid colon History of diverticulitis July 14 2018 colonoscopy done report cecum ascending and transverse colon appeared normal and the descending moderate diverticulosis no evidence of diverticulitis Electrolyte abnormality hypo-kalemia and hypophosphorous New-onset of atrial fibrillation with rapid ventricular response Frequent loose stools we'll obtain stool for C. diff to rule out Paroxysmal atrial fibrillation cardiology following current maintaining sinus rhythm Postop August 24 exploratory laparotomy, sigmoid colectomy, end colostomy drainage of interloop abscess for perforated diverticulitis Plan Follow up on the computed tomography scan abdomen and pelvis pending Continue ostomy teaching Increase activity IV fluid for hydration Advance diet Continue antibiotics per infectious disease recommendation DVT and GI prophylaxis Repeat labs in the morning Continue recommendations by medicine and cardiology service The above impression and plan of care have been discussed and directed by signing physician. Henny Graham nurse practitioner acting as scribe for signing physician.
--- NOTE | 2018-08-29 12:50 | CT ---
EXAMINATION TYPE: CT abdomen pelvis w con DATE OF EXAM: 08/29/2018 HISTORY: Post-op perforated diverticulitis CT DLP: 522.9mGycm Automated Exposure Control for Dose Reduction was Utilized. CONTRAST: CT scan of the abdomen and pelvis is performed with IV Contrast, patient injected with 100 mL of Isov ue 300. COMPARISON: 08/20/2018. FINDINGS: LUNG BASES: There is a small right pleural effusion with associated right basilar atelectasis. LIVER/GB: Hepatic parenchyma is diffusely hypoattenuated in comparison to that of the spleen, most co mmonly seen in hepatic steatosis. This finding limits evaluation for hepatic masses. No gross evidenc e of hepatic mass is seen. No intrahepatic biliary ductal dilatation. No cholelithiasis PANCREAS: Prominence of the main pancreatic duct is better appreciated on the prior exams. SPLEEN: No significant abnormality is seen. ADRENALS: No significant abnormality is seen. KIDNEYS: No significant abnormality is seen. BOWEL: Phlegmonous changes are seen within the pelvis with surgical drain in the posterior cul-de-sac and small amount of free fluid seen. No focal fluid collection to suggest abscess at this time. Left mid abdomen diverting ostomy has been performed status post colonic resection. Small bowel loops are mildly prominent however contrast extends into the colon and towards the ostomy. Therefore findings are likely related to postoperative ileus. High density is seen posterior to the right rectus musculature measuring 3.4 x 1.5 cm and extending i n craniocaudal dimension approximately 8 cm. This may represent postsurgical hematoma. UTERUS/ADNEXA: Calcified uterine leiomyomas are seen. LYMPH NODES: Evaluation for adenopathy is limited on noncontrast CT, however no greater than [address] axis lymph nodes are seen. OSSEOUS STRUCTURES: There are again mild degenerative changes of the spine. OTHER: Foci of free air within the urinary bladder likely relate to recent instrumentation, status po st surgery and probable Malik catheter placement. IMPRESSION: 1. Elongated high density region posterior to the right rectus abdominal muscle appearing as a hemato ma. This appears uniform and does not appear to be free flowing to represent noncontaining hemorrhage . Trending hemoglobin and hematocrit is recommended as there is small volume free fluid within the pe lvis. 2. Status post partial colonic resection from perforated diverticulitis with surgical drain in the pe lvis and no evidence of peritoneal abscess.
--- NOTE | 2018-08-29 16:40 | PN ---
PROGRESS NOTE DATE OF SERVICE: 08/29/2018 REASON FOR FOLLOWUP: Abdominal abscess from ruptured sigmoid diverticulitis. INTERVAL HISTORY: The patient is afebrile. Her abdominal pain is currently controlled with pain medication. Patient denies having any nausea or vomiting. Denies having any chest pain, shortness of breath or cough. She was complaining of some urinary symptoms of burning. She was also noted to have a slight jump in her white count to 15.9, for which the UA was done as well as CT of abdomen and pelvis. PHYSICAL EXAMINATION: Blood pressure 108/88 with a pulse of 59, temperature 97.9. She is 97% on room air. General description is a middle-aged female up in the bed in no distress. RESPIRATORY SYSTEM: Unlabored breathing. Clear to auscultation anteriorly. HEART: S1, S2. Regular rate and rhythm. ABDOMEN: Soft. Minimal tenderness. No guarding or rigidity. EXTREMITIES: No edema of the feet. LABS: Hemoglobin is 13.6, white count 15.9 with a BUN of 6, creatinine 0.46. UA has been negative. CT of abdomen and pelvis was completed which shows evidence of a rectus sheath hematoma; no evidence of any intraabdominal abscess. DIAGNOSTIC IMPRESSION AND PLAN: Patient with abdominal abscess from a perforated sigmoid diverticulitis, status post diverting colostomy. Blood culture negative. No OR culture. The patient has been on cefepime and Flagyl with elevated white count more likely related to rectus sheath hematoma, as there was no evidence of any intraabdominal or peritoneal abscess. Antibiotic will be transitioned to Rocephin 2 grams daily which if arranged for home she should be able to continue with that in addition to the oral Flagyl. All her questions and concerns were answered. MMODL / IJN: [id number] /
[2018-08-30] MEDS: CEFEPIME 2 GM in SODIUM CHLORIDE 0.9% 50 ML IVPB SCH ×3 (00:21→23:38)
[2018-08-30] MEDS: D5-0.45% NACL WITH KCL 20MEQ/L 1,000 ML IV SCH ×3 (02:33→22:03)
[2018-08-30] MEDS: LEVOTHYROXINE 25 MCG TAB PO SCH (06:16)
[2018-08-30] MEDS: ACETAMINOPHEN TAB 325 MG TAB PO PRN ×3 (06:18→17:36)
[2018-08-30 08:04] LABS: Basophils # (A) 0.1 k/uL (0-0.2); Basophils % (A) 1 %; Eosinophils # (A) 0.5 k/uL (0-0.7); Eosinophils % (A) 3 %; HCT 45.3 % (34.0-46.0); HGB 14.4 gm/dL (11.4-16.0); Lymphocytes # (A) 2.9 k/uL (1.0-4.8); Lymphocytes % (A) 18 %; MCH 30.3 pg (25.0-35.0); MCHC 31.8 g/dL (31.0-37.0); MCV 95.3 fL (80.0-100.0); Mean Platelet Volume 7.2; Monocytes # (A) 0.8 k/uL (0-1.0); Monocytes % (A) 5 %; Neutrophils # (A) 10.7 k/uL (1.3-7.7); Neutrophils % (A) 69 %; Platelet Count 681 k/uL (150-450); RBC 4.76 m/uL (3.80-5.40); RDW 14.1 % (11.5-15.5); WBC 15.5 k/uL (3.8-10.6)
[2018-08-30 08:22] LABS: ALT 29 U/L (9-52); AST 42 U/L (14-36); Albumin 3.2 g/dL (3.5-5.0); Alkaline Phosphatase 54 U/L (38-126); Anion Gap 11 mmol/L; Blood Urea Nitrogen 9 mg/dL (7-17); Calcium 8.7 mg/dL (8.4-10.2); Carbon Dioxide 24 mmol/L (22-30); Chloride 102 mmol/L (98-107); Glucose 88 mg/dL (74-99); Sodium 137 mmol/L (137-145); Total Bilirubin 0.6 mg/dL (0.2-1.3); Total Protein 6.4 g/dL (6.3-8.2)
[2018-08-30] MEDS: metroNIDAZOLE 500 MG TAB PO SCH ×4 (10:14→22:08)
[2018-08-30] MEDS: FLUCONAZOLE 100 MG TAB PO SCH (10:14)
[2018-08-30] MEDS: FLECAINIDE 50 MG TAB PO SCH (10:15)
[2018-08-30] MEDS: METOPROLOL TARTRATE 50 MG TAB PO SCH ×2 (10:15→22:08)
[2018-08-30] MEDS: FAMOTIDINE 20 MG TAB PO SCH ×2 (10:15→22:09)
--- NOTE | 2018-08-30 12:23 | P.PN ---
Subjective Progress Note Date: 08/30/18 Principal diagnosis: Diverticulitis Patient feeling better today. Minimal discomfort. JOAQUINA drain has not been maintaining its suction. White blood cell count 15.5. Good ostomy function. Tolerating diet. Objective - Vital Signs Vital signs: Vital Signs Temp 97.8 F 08/30/18 10:11 Pulse 84 08/30/18 10:11 Resp 16 08/30/18 10:11 BP 104/69 08/30/18 10:11 Pulse Ox 97 08/30/18 10:11 Intake & Output 08/29/18 08/30/18 08/30/18 18:59 06:59 18:59 Intake Total 690 1140 237 Output Total 300 25 Balance 390 1115 237 Weight 66 kg Intake: IV 50 100 Cefepime 2 gm In Sodium 50 100 Chloride 0.9% 50 ml @ 100 mls/hr IVPB Q12H [facility] Rx# :[id number] Oral 640 1040 237 Output: Drainage 25 Abdomen 25 Urine 100 Stool 200 Other: Voiding Method Toilet Toilet Bedside Commode # Voids 2 - Exam Abdomen: Soft, nondistended, dressing intact, JOAQUINA drain partly out. - Labs CBC & Chem 7: 08/30/18 06:45 08/30/18 06:45 Labs: Abnormal Lab Results - Last 24 Hours (Table) 08/30/18 08/30/18 Range/Units 06:45 06:45 WBC 15.5 H (3.8-10.6) k/uL Plt Count 681 H (150-450) k/uL Neutrophils # 10.7 H (1.3-7.7) k/uL Creatinine 0.51 L (0.52-1.04) mg/dL AST 42 H (14-36) U/L Albumin 3.2 L (3.5-5.0) g/dL Assessment and Plan (1) Diverticulitis Narrative/Plan: Patient overall doing better. Continue antibiotics. Repeat CBC tomorrow. Remove the JOAQUINA drain. Current Visit: Yes Status: Acute Code(s): K57.92 - DVTRCLI OF INTEST, PART UNSP, W/O PERF OR ABSCESS W/O BLEED SNOMED Code(s): 093408133
[2018-08-30] MEDS: amLODIPine 10 MG TAB PO SCH (13:22)
--- NOTE | 2018-08-30 15:59 | P.PN ---
Subjective Progress Note Date: 08/30/18 This is a 62-year-old female, patient of [facility]. She has a known past medical history of diverticulosis, hypothyroidism and migraines. Patient presents to the emergency room with complaints of severe abdominal pain throughout her whole abdomen that started around 2:00 this morning. She was having chills and nausea. No vomiting. Reports normal bowel movements. No blood in the stools. Computed tomography scan of the abdomen and pelvis shows moderate to severe enterocolitis involving multiple small bowel loops, transverse colon and sigmoid colon. There is sigmoid diverticulosis the bowel inflammation appears to involve multiple areas. Acute diverticulitis with perforation is also possible. Perforation into the intraperitoneal cavity of the left paramedian lower abdomen. Air collection measuring 3.0 cm. There is [id number] associated mesenteric edema/inflammation and moderate pelvic ascites. Patient was given cefepime and Flagyl in the ER. Morphine for pain. Surgery has been consulted. Patient denies any chest pain or shortness of breath. Denies any bowel movement changes or urinary symptoms. Patient was seen and examined in the ER. 08/20/2018 patient has moved to the intensive care unit last night due to elevated temperature and increased heart rate. At this time patient is still complaining of abdominal pain and right lower quadrant. Patient is being followed by critical care team Dr. amado and Dr. Mireles for surgical services. Plan for patient to get CAT scan today with contrast to assess whether patient will need surgical intervention. At this time patient denies chest pain or shortness breath. Denies urinary burning or frequency. 08/21/2018 patient remains in the ICU. She went to atrophic relation with rapid ventricular response last night. She required to be placed on a Cardizem drip. She's converted to sinus rhythm. Cardizem is currently turned off. And cardiology has been consulted. Patient's computed tomography scan of the abdomen and pelvis shows improvement in the free air. No surgery is scheduled at this time. Continue with antibiotics. Patient denies any chest pain or shortness of breath. Reports some improvement in her abdominal pain and distention. Denies any nausea or vomiting. She reports passing gas. No bowel movement. Has Malik catheter in place On 08/22/2018 patient remains in the intensive care unit. Heart rate is currently controlled. She has been started on Lopressor per cardiology services. No inspiration at this time per cardiology due to perforation. This time patient denies chest pain or shortness breath. Patient is having loose stools. C. diff will be ordered. Patient denies any urinary burning or frequency. On 08/23/2018 patient is alert and oriented 3 she was seen and examined in the intensive care unit she was evaluated earlier by surgery and plan is to proceed with surgery in a.m. tomorrow she is still complaining of bilateral lower quadrant abdominal pain otherwise no complaints at this time no chest pain no shortness of breath no palpitation no cough and no urinary symptoms On 08/24/2018, today the patient underwent expiratory laparotomy, sigmoid colectomy and colostomy. Patient remains nothing by mouth Colostomy site is noted and is clean for now. Surgical wound site is clean. The patient has epidural for pain control. She has also an NG tube in place. There is no fever or chills no headache no dizziness no chest pain no shortness of breath no cough no nausea or vomiting no abdominal pain and no urinary symptoms On 08/25/2018 patient is postop day 1 status post expiratory lap with sigmoid colectomy and colostomy. Patient is currently sitting up in chair. Patient is complaining of some incisional pain. Patient remains nothing by mouth. At this time patient has NG tube in place. Patient denies chest pain or shortness of breath. Patient denies nausea vomiting or diarrhea. Denies any urinary frequency On 08/26/2018 patient is postop day 2 status post exploratory lap with sigmoid colectomy and colostomy. Patient is currently sitting up in chair. Patient is feeling slightly improved. NG tube and epidural have been removed. Patient denies chest pain or shortness of breath. Patient denies any urinary burning or frequency. Patient denies nausea vomiting or diarrhea On 08/27/2018 patient is currently postop day 3 from exploratory left colectomy and colostomy. Patient is alert and oriented 3. Patient is currently sitting up in chair. Patient denies any complaints at this time. Patient denies chest pain shortness breath. Patient denies any urinary burning or frequency. Patient denies nausea vomiting or diarrhea. Patient currently on clear liquid diet per surgical services. Remains on cefepime and Flagyl per infectious disease. On 08/28/2018 patient is postop day 4. Patient is alert and oriented 3 sitting up in chair. Patient states abdominal pain is minimum at this time. Patient is having liquid stool in ostomy bag. Patient is on full liquid diet. Infectious disease recommending midline placement for IV antibiotics upon discharge. Physical therapy also consulted at this time. On 08/29/2018 patient is currently postop day 5. Patient's current ostomy nurse. Patient is alert and oriented 3. Patient has been up walking the halls with . Patient reports minimal pain in abdomen. White blood cell is increasing to 15.9. Infectious disease following and adding Diflucan. Patient is complaining of urinary burning. Urinary analysis has been ordered. Patient denies chest pain or shortness of breath. Patient denies vomiting or diarrhea. Patient has been tolerating diet. Small amount of stool noted to ostomy bag. On 08/30/2018 patient is postoperative day #6 she is alert and oriented 3 in no apparent distress she is still complaining of abdominal pain otherwise she denies any complaints there is no fever or chills no nausea or vomiting patient is able to tolerate diet well she is able to ambulate she is passing gas and having stool white blood count is a little bit down to 15.5 Objective - Vital Signs Vital signs: Vital Signs Temp 97.9 F 08/30/18 14:05 Pulse 58 L 08/30/18 14:05 Resp 16 08/30/18 10:11 BP 109/64 08/30/18 14:05 Pulse Ox 98 08/30/18 14:05 Intake & Output 08/29/18 08/30/18 08/30/18 18:59 06:59 18:59 Intake Total 690 1140 237 Output Total 300 25 Balance 390 1115 237 Weight 66 kg Intake: IV 50 100 Cefepime 2 gm In Sodium 50 100 Chloride 0.9% 50 ml @ 100 mls/hr IVPB Q12H [facility] Rx# :[id number] Oral 640 1040 237 Output: Drainage 25 Abdomen 25 Urine 100 Stool 200 Other: Voiding Method Toilet Toilet Bedside Commode # Voids 2 - Exam Head normocephalic and atraumatic Neck supple no JVD no goiter Lungs clear to auscultation bilaterally no wheezing or crackles Heart regular rate and rhythm S1-S2, no rub or gallop Abdomen is diffuse tenderness distended hypoactive bowel sounds, mostly tenderness in the right lower quadrant and left lower quadrant Extremities no edema no cyanosis or clubbing Neuro alert and orientated to 3 no gross focal deficit - Labs CBC & Chem 7: 08/30/18 06:45 08/30/18 06:45 Labs: Abnormal Lab Results - Last 24 Hours (Table) 08/30/18 08/30/18 Range/Units 06:45 06:45 WBC 15.5 H (3.8-10.6) k/uL Plt Count 681 H (150-450) k/uL Neutrophils # 10.7 H (1.3-7.7) k/uL Creatinine 0.51 L (0.52-1.04) mg/dL AST 42 H (14-36) U/L Albumin 3.2 L (3.5-5.0) g/dL Assessment and Plan Plan: 1. Acute complicated diverticulitis perforation with sepsis: Computed tomography scan showing severe enterocolitis involving multiple small bowel loops transverse colon And sigmoid colon. Concerns of a possible acute diverticulitis with perforation. Patient started on Flagyl and cefepime in the ER. Repeat computed tomography scan the abdomen and pelvis showing improvement and he free air. She is currently postop day 5 status post surgery lap with sigmoid colectomy with colostomy. Patient remains on cefepime and Flagyl for antibiotics per infectious disease. Infectious disease recommending midline placement for IV Rocephin and by mouth Flagyl and Cipro for another 10 days outpatient per infectious disease. Patient had midline placed yesterday. 2. History of diverticulitis 3. Hypothyroidism: Continue Synthroid TSH 0.015 and free T4 1 33. Patient states she does take both Synthroid and a more [place] thyroid at home. Patient reports that she was getting treated for hypothyroidism. Patient states she does currently have her thyroid. Will DC [place] thyroid at. this time 4. History of migraines 5. New onset of atrial fibrillation with rapid ventricular response. Patient did require Cardizem drip. converted to sinus rhythm. Per cardiology services patient will be started on Lopressor. Hold on any kind of anticoagulation In view of the perforation. Per cardiology services will follow rhythm and depending on that further recommendation will be made 6. Hypophosphatemia. Patient received phosphorus supplement. Phosphorus 0.9. Phosphorus will be replaced per protocol 7. Hypokalemia. Potassium 3.1. Will replace per protocol. Resolved 8. Hypertension. Patient maintained on Lopressor. Hydralazine when necessary added 9. Leukocytosis. Infectious disease is following. Diflucan has been added. Patient is complaining about burning with urination. Urinalysis has been ordered. GI prophylaxis Protonix and DVT prophylaxis heparin. I performed an examination of the patient and discussed their management with the Nurse Practitioner. I have reviewed the Nurse Practitioner's notes and agree with the documented findings and plan of care
[2018-08-30] MEDS ORDERED: ZOLPIDEM 5 MG TAB PO PRN (18:31)
[2018-08-31] MEDS: FLECAINIDE 50 MG TAB PO SCH ×3 (00:18→21:26)
[2018-08-31] MEDS: D5-0.45% NACL WITH KCL 20MEQ/L 1,000 ML IV SCH ×3 (04:10→18:48)
[2018-08-31] MEDS: ACETAMINOPHEN TAB 325 MG TAB PO PRN ×2 (05:53→21:28)
[2018-08-31] MEDS: LEVOTHYROXINE 25 MCG TAB PO SCH (05:53)
[2018-08-31 07:56] LABS: Basophils # (A) 0.1 k/uL (0-0.2); Basophils % (A) 1 %; Eosinophils # (A) 0.3 k/uL (0-0.7); Eosinophils % (A) 2 %; HCT 45.5 % (34.0-46.0); HGB 14.1 gm/dL (11.4-16.0); Lymphocytes # (A) 2.6 k/uL (1.0-4.8); Lymphocytes % (A) 17 %; MCH 30.3 pg (25.0-35.0); Monocytes # (A) 0.7 k/uL (0-1.0); Monocytes % (A) 4 %; Neutrophils # (A) 11.1 k/uL (1.3-7.7); Neutrophils % (A) 72 %; Platelet Count 765 k/uL (150-450); RBC 4.64 m/uL (3.80-5.40); RDW 14.5 % (11.5-15.5); WBC 15.3 k/uL (3.8-10.6)
[2018-08-31 08:16] LABS: ALT 23 U/L (9-52); AST 27 U/L (14-36); Albumin 3.4 g/dL (3.5-5.0); Alkaline Phosphatase 56 U/L (38-126); Anion Gap 10 mmol/L; Blood Urea Nitrogen 11 mg/dL (7-17); Carbon Dioxide 26 mmol/L (22-30); Chloride 101 mmol/L (98-107); Glucose 101 mg/dL (74-99); Potassium 4.8 mmol/L (3.5-5.1); Sodium 137 mmol/L (137-145); Total Bilirubin 0.5 mg/dL (0.2-1.3); Total Protein 6.8 g/dL (6.3-8.2)
[2018-08-31 09:21] LABS: Poikilocytosis (M) Present; Toxic Granulation Present
[2018-08-31] MEDS: FLUCONAZOLE 100 MG TAB PO SCH (10:14)
[2018-08-31] MEDS: FAMOTIDINE 20 MG TAB PO SCH ×2 (10:14→21:26)
[2018-08-31] MEDS: METOPROLOL TARTRATE 50 MG TAB PO SCH ×2 (10:14→21:26)
[2018-08-31] MEDS: metroNIDAZOLE 500 MG TAB PO SCH ×4 (10:14→21:26)
[2018-08-31] MEDS: amLODIPine 10 MG TAB PO SCH (10:16)
[2018-08-31] MEDS: CEFEPIME 2 GM in SODIUM CHLORIDE 0.9% 50 ML IVPB SCH (13:03)
--- NOTE | 2018-08-31 15:08 | P.PN ---
Subjective Progress Note Date: 08/31/18 This is a 62-year-old female, patient of [employer] She has a known past medical history of diverticulosis, hypothyroidism and migraines. Patient presents to the emergency room with complaints of severe abdominal pain throughout her whole abdomen that started around 2:00 this morning. She was having chills and nausea. No vomiting. Reports normal bowel movements. No blood in the stools. Computed tomography scan of the abdomen and pelvis shows moderate to severe enterocolitis involving multiple small bowel loops, transverse colon and sigmoid colon. There is sigmoid diverticulosis the bowel inflammation appears to involve multiple areas. Acute diverticulitis with perforation is also possible. Perforation into the intraperitoneal cavity of the left paramedian lower abdomen. Air collection measuring 3.0 cm. There is [id number] associated mesenteric edema/inflammation and moderate pelvic ascites. Patient was given cefepime and Flagyl in the ER. Morphine for pain. Surgery has been consulted. Patient denies any chest pain or shortness of breath. Denies any bowel movement changes or urinary symptoms. Patient was seen and examined in the ER. 08/20/2018 patient has moved to the intensive care unit last night due to elevated temperature and increased heart rate. At this time patient is still complaining of abdominal pain and right lower quadrant. Patient is being followed by critical care team Dr. amado and Dr. Mireles for surgical services. Plan for patient to get CAT scan today with contrast to assess whether patient will need surgical intervention. At this time patient denies chest pain or shortness breath. Denies urinary burning or frequency. 08/21/2018 patient remains in the ICU. She went to atrophic relation with rapid ventricular response last night. She required to be placed on a Cardizem drip. She's converted to sinus rhythm. Cardizem is currently turned off. And cardiology has been consulted. Patient's computed tomography scan of the abdomen and pelvis shows improvement in the free air. No surgery is scheduled at this time. Continue with antibiotics. Patient denies any chest pain or shortness of breath. Reports some improvement in her abdominal pain and distention. Denies any nausea or vomiting. She reports passing gas. No bowel movement. Has Malik catheter in place On 08/22/2018 patient remains in the intensive care unit. Heart rate is currently controlled. She has been started on Lopressor per cardiology services. No inspiration at this time per cardiology due to perforation. This time patient denies chest pain or shortness breath. Patient is having loose stools. C. diff will be ordered. Patient denies any urinary burning or frequency. On 08/23/2018 patient is alert and oriented 3 she was seen and examined in the intensive care unit she was evaluated earlier by surgery and plan is to proceed with surgery in a.m. tomorrow she is still complaining of bilateral lower quadrant abdominal pain otherwise no complaints at this time no chest pain no shortness of breath no palpitation no cough and no urinary symptoms On 08/24/2018, today the patient underwent expiratory laparotomy, sigmoid colectomy and colostomy. Patient remains nothing by mouth Colostomy site is noted and is clean for now. Surgical wound site is clean. The patient has epidural for pain control. She has also an NG tube in place. There is no fever or chills no headache no dizziness no chest pain no shortness of breath no cough no nausea or vomiting no abdominal pain and no urinary symptoms On 08/25/2018 patient is postop day 1 status post expiratory lap with sigmoid colectomy and colostomy. Patient is currently sitting up in chair. Patient is complaining of some incisional pain. Patient remains nothing by mouth. At this time patient has NG tube in place. Patient denies chest pain or shortness of breath. Patient denies nausea vomiting or diarrhea. Denies any urinary frequency On 08/26/2018 patient is postop day 2 status post exploratory lap with sigmoid colectomy and colostomy. Patient is currently sitting up in chair. Patient is feeling slightly improved. NG tube and epidural have been removed. Patient denies chest pain or shortness of breath. Patient denies any urinary burning or frequency. Patient denies nausea vomiting or diarrhea On 08/27/2018 patient is currently postop day 3 from exploratory left colectomy and colostomy. Patient is alert and oriented 3. Patient is currently sitting up in chair. Patient denies any complaints at this time. Patient denies chest pain shortness breath. Patient denies any urinary burning or frequency. Patient denies nausea vomiting or diarrhea. Patient currently on clear liquid diet per surgical services. Remains on cefepime and Flagyl per infectious disease. On 08/28/2018 patient is postop day 4. Patient is alert and oriented 3 sitting up in chair. Patient states abdominal pain is minimum at this time. Patient is having liquid stool in ostomy bag. Patient is on full liquid diet. Infectious disease recommending midline placement for IV antibiotics upon discharge. Physical therapy also consulted at this time. On 08/29/2018 patient is currently postop day 5. Patient's current ostomy nurse. Patient is alert and oriented 3. Patient has been up walking the halls with . Patient reports minimal pain in abdomen. White blood cell is increasing to 15.9. Infectious disease following and adding Diflucan. Patient is complaining of urinary burning. Urinary analysis has been ordered. Patient denies chest pain or shortness of breath. Patient denies vomiting or diarrhea. Patient has been tolerating diet. Small amount of stool noted to ostomy bag. On 08/30/2018 patient is postoperative day #6 she is alert and oriented 3 in no apparent distress she is still complaining of abdominal pain otherwise she denies any complaints there is no fever or chills no nausea or vomiting patient is able to tolerate diet well she is able to ambulate she is passing gas and having stool white blood count is a little bit down to 15.5 On 08/31/2018 patient was seen and examined on the medical floor she is alert and oriented 3 in no distress abdominal pain improved patient is tolerating diet well there is no nausea or vomiting no fever or chills no chest pain no shortness of breath no cough and no urinary symptoms white blood count is improving to 15.3 Objective - Vital Signs Vital signs: Vital Signs Temp 98.0 F 08/31/18 07:33 Pulse 98 08/31/18 07:33 Resp 16 08/31/18 07:33 BP 122/75 08/31/18 07:33 Pulse Ox 100 08/31/18 07:33 Intake & Output 08/30/18 08/31/18 08/31/18 19:59 06:59 18:59 Intake Total 300 Balance 300 Intake: IV Cefepime 2 gm In Sodium Chloride 0.9% 50 ml @ 100 mls/hr IVPB Q12H [facility] Rx# :[id number] Oral 300 Other: # Voids 1 # Bowel Movements 1 - Exam Head normocephalic and atraumatic Neck supple no JVD no goiter Lungs clear to auscultation bilaterally no wheezing or crackles Heart regular rate and rhythm S1-S2, no rub or gallop Abdomen is diffuse tenderness distended hypoactive bowel sounds, mostly tenderness in the right lower quadrant and left lower quadrant Extremities no edema no cyanosis or clubbing Neuro alert and orientated to 3 no gross focal deficit - Labs CBC & Chem 7: 08/31/18 07:12 08/31/18 07:12 Labs: Abnormal Lab Results - Last 24 Hours (Table) 08/31/18 08/31/18 Range/Units 07:12 07:12 WBC 15.3 H (3.8-10.6) k/uL Plt Count 765 H (150-450) k/uL Neutrophils # 11.1 H (1.3-7.7) k/uL Glucose 101 H (74-99) mg/dL Albumin 3.4 L (3.5-5.0) g/dL Assessment and Plan Plan: 1. Acute complicated diverticulitis perforation with sepsis: Computed tomography scan showing severe enterocolitis involving multiple small bowel loops transverse colon And sigmoid colon. Concerns of a possible acute diverticulitis with perforation. Patient started on Flagyl and cefepime in the ER. Repeat computed tomography scan the abdomen and pelvis showing improvement and he free air. She is currently postop day 5 status post surgery lap with sigmoid colectomy with colostomy. Patient remains on cefepime and Flagyl for antibiotics per infectious disease. Infectious disease recommending midline placement for IV Rocephin and by mouth Flagyl and Cipro for another 10 days outpatient per infectious disease. Patient had midline placed yesterday. 2. History of diverticulitis 3. Hypothyroidism: Continue Synthroid TSH 0.015 and free T4 1 33. Patient states she does take both Synthroid and a more [place] thyroid at home. Patient reports that she was getting treated for hypothyroidism. Patient states she does currently have her thyroid. Will DC Paisley thyroid at. this time 4. History of migraines 5. New onset of atrial fibrillation with rapid ventricular response. Patient did require Cardizem drip. converted to sinus rhythm. Per cardiology services patient will be started on Lopressor. Hold on any kind of anticoagulation In view of the perforation. Per cardiology services will follow rhythm and depending on that further recommendation will be made 6. Hypophosphatemia. Patient received phosphorus supplement. Phosphorus 0.9. Phosphorus will be replaced per protocol 7. Hypokalemia. Potassium 3.1. Will replace per protocol. Resolved 8. Hypertension. Patient maintained on Lopressor. Hydralazine when necessary added 9. Leukocytosis. Infectious disease is following. Diflucan has been added. Patient is complaining about burning with urination. Urinalysis has been ordered. GI prophylaxis Protonix and DVT prophylaxis heparin. I performed an examination of the patient and discussed their management with the Nurse Practitioner. I have reviewed the Nurse Practitioner's notes and agree with the documented findings and plan of care
--- NOTE | 2018-08-31 15:37 | P.PN ---
Subjective Progress Note Date: 08/31/18 Principal diagnosis: Diverticulitis Patient doing well today. Pain is improved. White blood cell 15.3. She is afebrile. She is tolerating diet. Objective - Vital Signs Vital signs: Vital Signs Temp 98.2 F 08/31/18 14:50 Pulse 58 L 08/31/18 14:50 Resp 16 08/31/18 07:33 BP 117/74 08/31/18 14:50 Pulse Ox 97 08/31/18 14:50 Intake & Output 08/30/18 08/31/18 08/31/18 19:59 06:59 18:59 Intake Total 300 Balance 300 Intake: IV Cefepime 2 gm In Sodium Chloride 0.9% 50 ml @ 100 mls/hr IVPB Q12H [facility] Rx# :[id number] Oral 300 Other: # Voids 1 # Bowel Movements 1 - Exam Abdomen: Soft, nondistended, dressing intact, ostomy function - Labs CBC & Chem 7: 08/31/18 07:12 08/31/18 07:12 Labs: Abnormal Lab Results - Last 24 Hours (Table) 08/31/18 08/31/18 Range/Units 07:12 07:12 WBC 15.3 H (3.8-10.6) k/uL Plt Count 765 H (150-450) k/uL Neutrophils # 11.1 H (1.3-7.7) k/uL Glucose 101 H (74-99) mg/dL Albumin 3.4 L (3.5-5.0) g/dL Assessment and Plan (1) Diverticulitis Narrative/Plan: Continue diet. Ambulate. Recheck CBC tomorrow. Current Visit: Yes Status: Acute Code(s): K57.92 - DVTRCLI OF INTEST, PART UNSP, W/O PERF OR ABSCESS W/O BLEED SNOMED Code(s): 618229942
[2018-08-31] MEDS ORDERED: HYDROCORTISONE 1% OINT 28.35 GM TUBE TOPICAL PRN (18:33)
--- NOTE | 2018-08-31 23:19 | PN ---
PROGRESS NOTE DATE OF SERVICE: 08/31/2018. REASON FOR FOLLOWUP VISIT: Secondary peritonitis from perforated sigmoid diverticulitis. INTERVAL HISTORY: The patient is currently afebrile. She is breathing comfortably. Denies having any chest pain, shortness of breath or cough. Abdominal pain has improved. No nausea, no vomiting. She did have output in her colostomy bag. EXAMINATION: Blood pressure 117/74 with a pulse of 98, temperature 98.2, she is 97% on room air. GENERAL DESCRIPTION: A middle-aged female up in the bed in no distress. RESPIRATORY SYSTEM: Unlabored breathing. Clear to auscultation anteriorly. HEART: S1, S2. Regular rate and rhythm. ABDOMEN: Soft, no tenderness. LABS: BUN of 11, creatinine 0.5. Hemoglobin is 14.1, white count 15.3. DIAGNOSTIC IMPRESSION AND PLAN: Patient with secondary peritonitis from perforated sigmoid diverticulitis, status post diverting colostomy. The patient did have a repeat CT which did show rectus sheath hematoma, but no evidence of any abscess. The patient is currently on cefepime and Flagyl, will switch to ceftriaxone and Flagyl for another 7 to 10 days with close outpatient followup. Elevated white count more likely because of the hematoma, as clinically doubt any worsening infection. Continue supportive care. MMODL / IJN: [id number] /
[2018-09-01] MEDS: HEPARIN SODIUM,PORCINE 5,000 UNIT/ML 1 ML VIAL SQ SCH ×2 (00:58→10:00)
[2018-09-01] MEDS: D5-0.45% NACL WITH KCL 20MEQ/L 1,000 ML IV SCH (04:30)
[2018-09-01] MEDS: LEVOTHYROXINE 25 MCG TAB PO SCH (05:38)
[2018-09-01 08:58] LABS: Basophils # (A) 0.1 k/uL (0-0.2); Basophils % (A) 1 %; Eosinophils # (A) 0.2 k/uL (0-0.7); Eosinophils % (A) 2 %; HCT 43.8 % (34.0-46.0); HGB 14.3 gm/dL (11.4-16.0); Lymphocytes # (A) 2.7 k/uL (1.0-4.8); Lymphocytes % (A) 23 %; MCH 31.2 pg (25.0-35.0); MCHC 32.6 g/dL (31.0-37.0); MCV 95.8 fL (80.0-100.0); Mean Platelet Volume 7.1; Monocytes # (A) 0.5 k/uL (0-1.0); Monocytes % (A) 5 %; Neutrophils # (A) 7.8 k/uL (1.3-7.7); Neutrophils % (A) 66 %; Platelet Count 756 k/uL (150-450); RBC 4.57 m/uL (3.80-5.40); RDW 14.3 % (11.5-15.5); WBC 11.7 k/uL (3.8-10.6)
[2018-09-01] MEDS ORDERED: cefTRIAXone 2,000 MG in SODIUM CHLORIDE 0.9% 100 ML IVPB SCH (09:00)
[2018-09-01 09:28] LABS: ALT 19 U/L (9-52); AST 27 U/L (14-36); Albumin 3.4 g/dL (3.5-5.0); Alkaline Phosphatase 56 U/L (38-126); Anion Gap 7 mmol/L; Blood Urea Nitrogen 10 mg/dL (7-17); Calcium 8.9 mg/dL (8.4-10.2); Carbon Dioxide 27 mmol/L (22-30); Chloride 101 mmol/L (98-107); Glucose 124 mg/dL (74-99); Potassium 5.5 mmol/L (3.5-5.1); Sodium 135 mmol/L (137-145); Total Bilirubin 0.5 mg/dL (0.2-1.3); Total Protein 6.8 g/dL (6.3-8.2)
[2018-09-01] MEDS: amLODIPine 10 MG TAB PO SCH (09:55)
[2018-09-01] MEDS: metroNIDAZOLE 500 MG TAB PO SCH ×2 (09:57→14:36)
[2018-09-01] MEDS: FAMOTIDINE 20 MG TAB PO SCH (09:57)
[2018-09-01] MEDS: METOPROLOL TARTRATE 50 MG TAB PO SCH (09:57)
[2018-09-01] MEDS: FLECAINIDE 50 MG TAB PO SCH (09:57)
[2018-09-01] MEDS: ACETAMINOPHEN TAB 325 MG TAB PO PRN (09:57)
--- NOTE | 2018-09-01 12:12 | P.PN ---
Subjective Progress Note Date: 09/01/18 62 year old female seen sitting up in a chair. Patient states she anxious to be discharged. moderate amount of stool in the ostomy. Surgical dressing dry. White count 9.9 afebrilestates plain Tylenol has been effective for pain controldid note the potassium is 5.5. Potassium is been removed from the IV fluid status post exploratory lap with sigmoid colectomy end colostomy. Drainage of interloop abscess done on 24 of August Objective - Vital Signs Vital signs: Vital Signs Temp 98 F 09/01/18 07:52 Pulse 63 09/01/18 07:52 Resp 14 09/01/18 07:52 BP 132/81 09/01/18 07:52 Pulse Ox 99 09/01/18 07:52 Intake & Output 08/31/18 09/01/18 09/01/18 18:59 06:59 18:59 Intake Total 690 0 222 Balance 690 0 222 Intake: Oral 690 0 222 Other: # Voids 1 2 # Bowel Movements 1 - Exam Physical exam 62-year-old female sitting up in a chair appearing in no acute distress. Denying abdominal pain when questioning. Lungs adequate air movement bilaterally on room air sats 98% denies shortness of breath Heart S1-S2 audible denies chest pain Abdomen surgical dressings dry active bowel tones no nausea no vomiting moderate amount brown stool in the ostomy bag nondistended nontender Extremities no edema - Labs CBC & Chem 7: 09/01/18 08:12 09/01/18 08:12 Labs: Abnormal Lab Results - Last 24 Hours (Table) 09/01/18 09/01/18 Range/Units 08:12 08:12 WBC 11.7 H (3.8-10.6) k/uL Plt Count 756 H (150-450) k/uL Neutrophils # 7.8 H (1.3-7.7) k/uL Sodium 135 L (137-145) mmol/L Potassium 5.5 H (3.5-5.1) mmol/L Creatinine 0.46 L (0.52-1.04) mg/dL Glucose 124 H (74-99) mg/dL Albumin 3.4 L (3.5-5.0) g/dL Assessment and Plan Assessment: Impression Present on admission left lower quadrant abdominal pain suspect due to acute complicated diverticulitis perforation with sepsis suspect intra-abdominal source of septicemia CAT scan of the abdomen and pelvis obtained in the emergency room report indicates severe enterocolitis involving multiple small bowel loops in the sigmoid colon History of diverticulitis July 14 2018 colonoscopy done report cecum ascending and transverse colon appeared normal and the descending moderate diverticulosis no evidence of diverticulitis Electrolyte abnormality hypo-kalemia and hypophosphorous New-onset of atrial fibrillation with rapid ventricular response Frequent loose stools we'll obtain stool for C. diff to rule out Paroxysmal atrial fibrillation cardiology following current maintaining sinus rhythm Postop August 24 exploratory laparotomy, sigmoid colectomy, end colostomy drainage of interloop abscess for perforated diverticulitis mild hyperkalemia Plan from a surgical perspective and okay to proceed with a discharge to further timing to the attending Continue ostomy teaching Continue antibiotics per infectious disease recommendation DVT and GI prophylaxis The above impression and plan of care have been discussed and directed by signing physician. Henny Graham nurse practitioner acting as scribe for signing physician.
--- NOTE | 2018-09-01 13:39 | P.DS ---
Providers Date of admission: 08/19/18 11:32 Expected date of discharge: 09/01/18 Attending physician: Kwadwo Ball Consults: 08/19/18 11:32 Consult Physician Routine Consulting Provider: Joesph Mireles Consult Reason/Comments: known Do you want consulting provider notified?: Yes 08/19/18 17:37 Consult Physician Urgent Consulting Provider: Nadia Sanon Consult Reason/Comments: Diverticulitis with rupture Do you want consulting provider notified?: Yes 08/19/18 18:09 Consult Physician Stat Consulting Provider: Fe Edwards Consult Reason/Comments: ICU Management Do you want consulting provider notified?: Already Contacted 08/21/18 11:33 Consult Physician Routine Consulting Provider: Bipin Navarro Consult Reason/Comments: Atrial fibrillation with RVR Do you want consulting provider notified?: Yes Primary care physician: Libertad Cintron Hospital Course: Discharge Diagnosis 1. Acute complicated diverticulitis perforation with sepsis: Computed tomography scan showing severe enterocolitis involving multiple small bowel loops transverse colon And sigmoid colon. Concerns of a possible acute diverticulitis with perforation. Patient started on Flagyl and cefepime in the ER. Repeat computed tomography scan the abdomen and pelvis showing improvement and he free air. She is currently postop day 5 status post surgery lap with sigmoid colectomy with colostomy. Patient remains on cefepime and Flagyl for antibiotics per infectious disease. Infectious disease recommending midline placement for IV Rocephin and by mouth Flagyl and Cipro for another 10 days outpatient per infectious disease. Patient had midline placed yesterday. Patient will be DC'd on Rocephin IV and Flagyl. 2. History of diverticulitis 3. Hypothyroidism: Continue Synthroid TSH 0.015 and free T4 1 33. Patient states she does take both Synthroid and a more [place] thyroid at home. Patient reports that she was getting treated for hypothyroidism. Patient states she does currently have her thyroid. Will DC [place] thyroid at this time. Patient will be DC'd home on only Synthroid. [place] synthroid D/C patient to follow-up with PCP and have thyroid levels rechecked in a few weeks. 4. History of migraines 5. New onset of atrial fibrillation with rapid ventricular response. Patient did require Cardizem drip. converted to sinus rhythm. Per cardiology services patient will be started on Lopressor. Hold on any kind of anticoagulation In view of the perforation. Per cardiology services will follow rhythm and depending on that further recommendation will be made. Per cardiology services patient will be started on Lopressor and Tambocor. Medications per cardiology 6. Hypophosphatemia. Patient received phosphorus supplement. Phosphorus 0.9. Phosphorus will be replaced per protocol 7. Hypokalemia. Potassium 3.1. Will replace per protocol. Resolved 8. Hypertension. Patient maintained on Lopressor. Hydralazine when necessary added 9. Leukocytosis. Infectious disease is following. Diflucan has been added. Patient is complaining about burning with urination. Urinalysis negative. White blood cell improving to 11.7. Per infectious disease elevated white blood cell likely due to hematoma. Patient will be discharged on Rocephin and Flagyl for 7-10 days 10. Hyperkalemia potassium 5.5 fluids with KCl discontinued. Recheck outpatient 2 days 11. Thrombocytosis. Platelets 756. CBC ordered for 2 days patient Hospital Course This is a 62-year-old female, patient of [email or web address]. She has a known past medical history of diverticulosis, hypothyroidism and migraines. Patient presents to the emergency room with complaints of severe abdominal pain throughout her whole abdomen that started around 2:00 this morning. She was having chills and nausea. No vomiting. Reports normal bowel movements. No blood in the stools. Computed tomography scan of the abdomen and pelvis shows moderate to severe enterocolitis involving multiple small bowel loops, transverse colon and sigmoid colon. There is sigmoid diverticulosis the bowel inflammation appears to involve multiple areas. Acute diverticulitis with perforation is also possible. Perforation into the intraperitoneal cavity of the left paramedian lower abdomen. Air collection measuring 3.0 cm. There is [id number] associated mesenteric edema/inflammation and moderate pelvic ascites. Patient was given cefepime and Flagyl in the ER. Morphine for pain. Surgery has been consulted. Patient denies any chest pain or shortness of breath. Denies any bowel movement changes or urinary symptoms. Patient was seen and examined in the ER. 08/20/2018 patient has moved to the intensive care unit last night due to elevated temperature and increased heart rate. At this time patient is still complaining of abdominal pain and right lower quadrant. Patient is being followed by critical care team Dr. amado and Dr. Mireles for surgical services. Plan for patient to get CAT scan today with contrast to assess whether patient will need surgical intervention. At this time patient denies chest pain or shortness breath. Denies urinary burning or frequency. 08/21/2018 patient remains in the ICU. She went to atrophic relation with rapid ventricular response last night. She required to be placed on a Cardizem drip. She's converted to sinus rhythm. Cardizem is currently turned off. And cardiology has been consulted. Patient's computed tomography scan of the abdomen and pelvis shows improvement in the free air. No surgery is scheduled at this time. Continue with antibiotics. Patient denies any chest pain or shortness of breath. Reports some improvement in her abdominal pain and distention. Denies any nausea or vomiting. She reports passing gas. No bowel movement. Has Malik catheter in place On 08/22/2018 patient remains in the intensive care unit. Heart rate is currently controlled. She has been started on Lopressor per cardiology services. No inspiration at this time per cardiology due to perforation. This time patient denies chest pain or shortness breath. Patient is having loose stools. C. diff will be ordered. Patient denies any urinary burning or frequency. On 08/23/2018 patient is alert and oriented 3 she was seen and examined in the intensive care unit she was evaluated earlier by surgery and plan is to proceed with surgery in a.m. tomorrow she is still complaining of bilateral lower quadrant abdominal pain otherwise no complaints at this time no chest pain no shortness of breath no palpitation no cough and no urinary symptoms On 08/24/2018, today the patient underwent expiratory laparotomy, sigmoid colectomy and colostomy. Patient remains nothing by mouth Colostomy site is noted and is clean for now. Surgical wound site is clean. The patient has epidural for pain control. She has also an NG tube in place. There is no fever or chills no headache no dizziness no chest pain no shortness of breath no cough no nausea or vomiting no abdominal pain and no urinary symptoms On 08/25/2018 patient is postop day 1 status post expiratory lap with sigmoid colectomy and colostomy. Patient is currently sitting up in chair. Patient is complaining of some incisional pain. Patient remains nothing by mouth. At this time patient has NG tube in place. Patient denies chest pain or shortness of breath. Patient denies nausea vomiting or diarrhea. Denies any urinary frequency On 08/26/2018 patient is postop day 2 status post exploratory lap with sigmoid colectomy and colostomy. Patient is currently sitting up in chair. Patient is feeling slightly improved. NG tube and epidural have been removed. Patient denies chest pain or shortness of breath. Patient denies any urinary burning or frequency. Patient denies nausea vomiting or diarrhea On 08/27/2018 patient is currently postop day 3 from exploratory left colectomy and colostomy. Patient is alert and oriented 3. Patient is currently sitting up in chair. Patient denies any complaints at this time. Patient denies chest pain shortness breath. Patient denies any urinary burning or frequency. Patient denies nausea vomiting or diarrhea. Patient currently on clear liquid diet per surgical services. Remains on cefepime and Flagyl per infectious disease. On 08/28/2018 patient is postop day 4. Patient is alert and oriented 3 sitting up in chair. Patient states abdominal pain is minimum at this time. Patient is having liquid stool in ostomy bag. Patient is on full liquid diet. Infectious disease recommending midline placement for IV antibiotics upon discharge. Physical therapy also consulted at this time. On 08/29/2018 patient is currently postop day 5. Patient's current ostomy nurse. Patient is alert and oriented 3. Patient has been up walking the halls with . Patient reports minimal pain in abdomen. White blood cell is increasing to 15.9. Infectious disease following and adding Diflucan. Patient is complaining of urinary burning. Urinary analysis has been ordered. Patient denies chest pain or shortness of breath. Patient denies vomiting or diarrhea. Patient has been tolerating diet. Small amount of stool noted to ostomy bag. On 08/30/2018 patient is postoperative day #6 she is alert and oriented 3 in no apparent distress she is still complaining of abdominal pain otherwise she denies any complaints there is no fever or chills no nausea or vomiting patient is able to tolerate diet well she is able to ambulate she is passing gas and having stool white blood count is a little bit down to 15.5 On 08/31/2018 patient was seen and examined on the medical floor she is alert and oriented 3 in no distress abdominal pain improved patient is tolerating diet well there is no nausea or vomiting no fever or chills no chest pain no shortness of breath no cough and no urinary symptoms white blood count is improving to 15.3 On 09/01/2018 patient is alert and oriented 3. currently at bedside. Patient is very eager to go home. Potassium 5.5 discussed with surgical services. Fluids with KCl have been DC'd and recheck will be ordered. White blood cell improving to 11.7. Discussed case with infectious disease. Patient will be DC'd home with antibiotics IV Rocephin and Flagyl. Patient does have midline in place. Awaiting case management final arrangement for IV antibiotics. Discussed case with cardiology services patient patient had episode of atrial fibrillation during stay. Patient has had no further episodes. Patient does not require anticoagulation per cardiology services. Cardiac meds per cardiology services. TSH level 0.015 [place] thyroid D/C and maintained on only Synthroid at this time. Patient advised to follow-up closely with PCP and have thyroid levels rechecked in a couple weeks. I performed an examination of the patient and discussed their management with the Nurse Practitioner. I have reviewed the Nurse Practitioner's notes and agree with the documented findings and plan of care Patient Condition at Discharge: Stable Plan - Discharge Summary Discharge Rx Participant: No New Discharge Prescriptions: New cefTRIAXone [Rocephin] 2,000 mg IVP Q24HR #10 syr HYDROcodone/APAP 7.5-325MG [[place] 7.5-325] 1 each PO Q4H PRN #18 tab PRN Reason: Pain metroNIDAZOLE [Flagyl] 500 mg PO Q8HR #30 tab Continue Fluticasone Nasal [place] [Flonase Nasal [place]] 2 spr EA NOSTRIL DAILY PRN PRN Reason: Allergy Symptoms Levothyroxine Sodium [Synthroid] 25 mcg PO DAILY Montelukast [Singulair] 10 mg PO DAILY Multivitamin,Therapeutic [Thera] 1 tab PO DAILY Cholecalciferol [Vitamin D3] 1,000 unit PO DAILY Vitamin B Complex 1 cap PO DAILY Discontinued Thyroid,Pork [Oxyacetylene Torch Operator Thyroid 120] 60 mg PO MOWEFR Doxycycline Monohydrate [Monodox] 100 mg PO Q12HR SUMAtriptan SUCCINATE [Sumatriptan Succinate] 100 mg PO DAILY PRN PRN Reason: Migraine Headache Naproxen Sodium [Aleve] 220 mg PO DAILY PRN PRN Reason: Pain Thyroid,Pork [Thyroid] 180 mg PO DAILY Discharge Medication List Fluticasone Nasal [place] [Flonase Nasal [place]] 2 spr EA NOSTRIL DAILY PRN [History] Cholecalciferol [Vitamin D3] 1,000 unit PO DAILY 08/19/18 [History] Levothyroxine Sodium [Synthroid] 25 mcg PO DAILY 08/19/18 [History] Montelukast [Singulair] 10 mg PO DAILY 08/19/18 [History] Multivitamin,Therapeutic [Thera] 1 tab PO DAILY 08/19/18 [History] Vitamin B Complex 1 cap PO DAILY 08/19/18 [History] cefTRIAXone [Rocephin] 2,000 mg IVP Q24HR #10 syr 08/28/18 [Rx] HYDROcodone/APAP 7.5-325MG [[place] 7.5-325] 1 each PO Q4H PRN #18 tab 08/29/18 [ Rx] metroNIDAZOLE [Flagyl] 500 mg PO Q8HR #30 tab 09/01/18 [Rx] Follow up Appointment(s)/Referral(s): Libertad Cintron DO [Primary Care Provider] - 1-2 days Nadia Sanon MD [STAFF PHYSICIAN] - 1 Week [facility] Visiting Nurse, [NON-STAFF] - As Needed Joesph Mireles MD [STAFF PHYSICIAN] - 1 Week Ambulatory/Diagnostic Orders: Complete Blood Count w/diff [LAB.AMB] Time Frame: 2 Days, Location: None Selected Comprehensive Metabolic Panel [LAB.AMB] Time Frame: 2 Days, Location: None Selected Comprehensive Metabolic Panel [LAB.AMB] Time Frame: 2 Days, Location: None Selected Patient Instructions/Handouts: Colostomy Care (GEN), How to Care for Your Midline Catheter (GEN) Activity/Diet/Wound Care/Special Instructions: IV antibiotics ordered through [facility] Infectious Disease Consultants: # Midline Incision care: Midline IV Insertion Site Care: Colostomy Care Instructions: Last pouching system change: 08.29.2018 The entire pouching system is to be changed every 3-5 days typically at the begining of the day in the morning Colosotmy supplies sent form the hospital to home as follows: Colosotmy Convatec Flanges #[id number] (three) Convatec Pouches with a filter #[id number] (three) No sting prep pads (12) This goes around the stoma prior to applying the flange around the stoma Ostomy powder (one) to be used only if the skin around the stoma becomes red or broekn down under the direction of the district or district office director. Mrs Wright to empty the pouch when it is 1/2 to 1/3 full int he bathroom Mrs Wright will change the pouching system every 3-5 days with the assistance of [facility] as needed Mrs Wright will be receiving sample supplies from [employer] and [employer] for use until permanent colostomy care supplies are decided upon and ordered with the assistance of Home Health [facility] RN. Home Health [facility] please assist to establish a DME and ordering of ostomy supplies priro to discharging from service. Discharge Disposition: HOME SELF-CARE
[2018-09-01 15:40] VITALS: BP 119/80; PULSE 59; RESP 16; TEMP 98.2
--- NOTE | 2018-09-01 21:45 | PN ---
PROGRESS NOTE DATE OF SERVICE: 09/01/2018 REASON FOR FOLLOWUP: Abdominal wall abscess from perforated sigmoid diverticulitis. INTERVAL HISTORY: The patient was seen on rounds early this afternoon for arrangement of outpatient antibiotic therapy. Patient has been afebrile. She has been breathing comfortably. Abdominal pain has resolved. No nausea, no vomiting and no diarrhea. PHYSICAL EXAMINATION: Blood pressure is 119/80, pulse of 63 with a temperature of 98.2. She is 98% on room air. General description is a middle-aged female up in the chair in no distress. RESPIRATORY SYSTEM: Unlabored breathing. Clear to auscultation anteriorly. HEART: S1, S2. Regular rate and rhythm. ABDOMEN: Soft. No tenderness. LABS: Hemoglobin is 14.3, white count 11.7, BUN of 10, creatinine 0.46. DIAGNOSTIC IMPRESSION AND PLAN: Patient with perforated sigmoid diverticulitis with abdominal abscess, failing medical therapy, status post laparotomy, diverting colostomy and drainage of the abscess. Her white count has shown a downward trend, currently on Rocephin 2 grams daily, to continue for another 10 days along with oral Flagyl with close outpatient followup. MMODL / IJN: [id number] /
== END 2018-09-01 16:12 | disposition home health service (06) | DRG 853 ==
LOC: EC 08:50 → 4SSUR 11:32 → 3NMEDONC 12:13 → 2SICU 19:00 → 4SSUR 08-25 14:38
PROVIDERS: ADMIT Internal Medicine; ATTEND Internal Medicine
PROC: 0D1N0Z4 Bypass Sigmoid Colon to Cutaneous, Open Approach (ICD-10-PCS; 2018-08-24)
PROC: 0W9J0ZZ Drainage of Pelvic Cavity, Open Approach (ICD-10-PCS; 2018-08-24)
PROC: 0DTN0ZZ Resection of Sigmoid Colon, Open Approach (ICD-10-PCS; principal; 2018-08-24 08:00)
DX: A41.9 Sepsis, unspecified organism (principal); K65.1 Peritoneal abscess; K57.20 Diverticulitis of large intestine with perforation and abscess without bleeding; E87.2 Acidosis; R18.8 Other ascites; K56.1 Intussusception; I48.0 Paroxysmal atrial fibrillation; E83.39 Other disorders of phosphorus metabolism; E87.5 Hyperkalemia; G43.909 Migraine, unspecified, not intractable, without status migrainosus; I10 Essential (primary) hypertension; S30.1XXA Contusion of abdominal wall, initial encounter; E87.6 Hypokalemia; K52.9 Noninfective gastroenteritis and colitis, unspecified; E03.9 Hypothyroidism, unspecified; Z79.890 Hormone replacement therapy; Z79.51 Long term (current) use of inhaled steroids; Z79.899 Other long term (current) drug therapy; Z98.51 Tubal ligation status; Z88.0 Allergy status to penicillin; Z88.2 Allergy status to sulfonamides; Z82.49 Family history of ischemic heart disease and other diseases of the circulatory system
CPT/HCPCS: 36415; 36569; 71045; 74176; 74177; 76937; 80048; 80053; 81003; 82150; 82550; 82553; 83605; 83690; 83735; 84100; 84132; 84439; 84443; 84484; 85025; 85730; 87040; 87086; 88307; 93306; 94760; 96361; 96374; 96375; 96376; 99285

== ENCOUNTER → 2018-10-30 | Outpatient (CLI) | payer BC ==
[2018-10-30 09:14] LABS: HCT 41.4 % (34.0-46.0); HGB 13.7 gm/dL (11.4-16.0); MCH 32.9 pg (25.0-35.0); MCHC 33.1 g/dL (31.0-37.0); MCV 99.3 fL (80.0-100.0); Mean Platelet Volume 7.5; Platelet Count 298 k/uL (150-450); RBC 4.17 m/uL (3.80-5.40); RDW 13.9 % (11.5-15.5); WBC 5.9 k/uL (3.8-10.6)
[2018-10-30 09:27] LABS: Potassium 4.8 mmol/L (3.5-5.1)
== END | disposition home or self-care (01) ==
LOC: LABPAT 07:51
PROVIDERS: ATTEND Surgery
DX: Z01.818 Encounter for other preprocedural examination (principal); Z01.812 Encounter for preprocedural laboratory examination; K57.92 Diverticulitis of intestine, part unspecified, without perforation or abscess without bleeding
CPT/HCPCS: 36415; 80051; 85027; 93005

== ENCOUNTER 2018-11-04 09:32 | Day surgery (SDC) | payer BC ==
[~2018-11-04 09:32] MED LIST changes: -LIDOCAINE 1% 20 ML VIAL (10MG/ML) FOR IV START INTRADERMA ONE; -PROPOFOL 10 MG/ML 20 ML VIAL IV ONE
[2018-11-04 09:43] VITALS: RESP 16; TEMP 98
[2018-11-04] MEDS ORDERED: LIDOCAINE 1% 20 ML VIAL (10MG/ML) FOR IV START INTRADERMA ONE (09:58)
[2018-11-04] MEDS ORDERED: PROPOFOL 10 MG/ML 20 ML VIAL IV ONE (10:20)
[2018-11-04] MEDS ORDERED: LIDOCAINE 1% INJ 10MG/ML (20 ML MDV) ONE (10:20)
--- NOTE | 2018-11-04 10:24 | P.GSHP ---
History of Present Illness H&P Date: 11/04/18 Chief Complaint: History of perforated diverticulitis This is a 63-year-old female who has history of perforated diverticulitis. Patient underwent previous colostomy. She is scheduled for reversal of colostomy tomorrow. She is undergoing colonoscopy today. Past Medical History Past Medical History: Atrial Fibrillation, Musculoskeletal Disorder, Thyroid Disorder Additional Past Medical History / Comment(s): Occasional migraines, Infrequent Raynaulds. TENDINITIS RT SHOULDER ROTATOR CUFF. FUNGAL INFECTION @ OSTOMY SITE CLEARING UP. HX Diverticular disease - HAD RUPTURE W/ RESECTION 07/2018; EPISODE OF A FIB POST-OP. hypothyroid. HAS PICC LINE - HAD SF BLOOD CLOT . History of Any Multi-Drug Resistant Organisms: None Reported Past Surgical History: Bowel Resection, Orthopedic Surgery, Tubal Ligation Additional Past Surgical History / Comment(s): 07/14/18 colonoscopy, previous colonoscopy, Sinus Surgery, Jaw surgery for overbite, Bunionectomy R foot. PICC LINE INSERTION. Bowel Resection with Ostomy placement 07/2018. Past Anesthesia/Blood Transfusion Reactions: Postoperative Nausea & Vomiting ( PONV) Smoking Status: Never smoker - Past Family History Mother Family Medical History: Coronary Artery Disease (CAD) Additional Family Medical History / Comment(s): Mother with CABG at the age of 72 yrs. Father Family Medical History: Cancer, Congestive Heart Failure (CHF) Additional Family Medical History / Comment(s): Father of CHF at the age of 72 yrs. Brother(s) Family Medical History: Cancer Additional Family Medical History / Comment(s): MELANOMA CA Medications and Allergies Home Medications Medication Instructions Recorded Confirmed Type Fluticasone Nasal [place] [Flonase 2 spr EA NOSTRIL DAILY PRN 07/10/18 11/04/18 History Nasal [place]] Cholecalciferol [Vitamin D3] 1,000 unit PO DAILY 08/19/18 11/04/18 History Levothyroxine Sodium [Synthroid] 25 mcg PO DAILY 08/19/18 11/04/18 History Montelukast [Singulair] 10 mg PO DAILY PRN 08/19/18 11/04/18 History Multivitamin,Therapeutic [Thera] 1 tab PO DAILY 08/19/18 11/04/18 History Vitamin B Complex 1 cap PO DAILY 08/19/18 11/04/18 History Metoprolol Tartrate [Lopressor] 50 mg PO BID #60 tab 09/01/18 11/04/18 Rx Aspirin EC [Ecotrin] 325 mg PO DAILY #30 tablet. 09/08/18 11/04/18 Rx Acetaminophen [Tylenol Extra 1,000 mg PO Q6H PRN 10/24/18 11/04/18 History Strength] Thyroid,Pork [Physical Therapy Director Thyroid] 90 mg PO DAILY 10/24/18 11/04/18 History Allergies Allergy/AdvReac Type Severity Reaction Status Date / Time amoxicillin Allergy Rash/Hives Verified 11/04/18 09:45 Sulfa (Sulfonamide Allergy Rash/Hives Verified 11/04/18 09:45 Antibiotics) Surgical - Exam Vital Signs Temp Pulse Resp BP Pulse Ox 98 F 65 16 136/66 100 11/04/18 09:41 11/04/18 09:41 11/04/18 09:41 11/04/18 09:41 11/04/18 09:41 - General well developed, no distress - Eyes PERRL - ENT normal pinna, normal nares - Neck no masses - Respiratory normal expansion - Cardiovascular Rhythm: regular - Abdomen Abdomen: soft, non tender Assessment and Plan Assessment: History of perforated diverticula is. We'll perform colonoscopy.
--- NOTE | 2018-11-04 10:38 | P.OP ---
Date of Procedure: 11/04/18 Preoperative Diagnosis: History of perforated diverticulitis Postoperative Diagnosis: Diverticulosis Procedure(s) Performed: Colonoscopy Anesthesia: MAC Surgeon: Joesph Mireles Pathology: none sent Condition: stable Disposition: PACU Description of Procedure: The patient's placed on the endoscopy table in the lateral position. She received IV sedation. Digital rectal exam is performed which revealed no abnormalities. Flexible colonoscope was then placed patient anus and passed into the rectal stump. The rectal stump measured approximately 17 cm. Scope was withdrawn. There is known to any inflammation or irritation of the rectal stump. Next the colonoscope was placed into the colostomy. Scope was placed throughout the colon. The ileocecal valve visualized. There was mild diverticular changes seen throughout the colon. The scope was withdrawn. The cecum appeared normal. There a few scattered diverticula in the right colon. There was a few scattered diverticula in the transverse colon. The descending colon and a few scattered diverticula as well. There were no polyps or tumors seen. Scope then withdrawn for patient.
[2018-11-04 11:09] VITALS: BP 138/92; PULSE 66
== END 2018-11-04 11:13 | disposition home or self-care (01) ==
LOC: ORWHC2ENDO 09:32
PROVIDERS: ATTEND Surgery
DX: K57.30 Diverticulosis of large intestine without perforation or abscess without bleeding (principal); Z43.3 Encounter for attention to colostomy; Z90.49 Acquired absence of other specified parts of digestive tract; Z87.19 Personal history of other diseases of the digestive system; K52.9 Noninfective gastroenteritis and colitis, unspecified; I48.91 Unspecified atrial fibrillation; I48.92 Unspecified atrial flutter; E07.9 Disorder of thyroid, unspecified; G43.909 Migraine, unspecified, not intractable, without status migrainosus; I73.00 Raynaud's syndrome without gangrene; Z79.82 Long term (current) use of aspirin; Z79.890 Hormone replacement therapy; Z79.899 Other long term (current) drug therapy; Z88.0 Allergy status to penicillin; Z88.2 Allergy status to sulfonamides; Z98.51 Tubal ligation status
CPT/HCPCS: 44388; 45330; J2001; J2704

== ENCOUNTER 2018-11-05 09:15 | Inpatient (IN) | payer BC ==
[~2018-11-05 09:15] MED LIST changes: +DEXAMETHASONE SOD PHOSPHATE 10 MG/ML 1 ML VIAL IV ONE; +HEPARIN SODIUM,PORCINE 5,000 UNIT/ML 1 ML VIAL SQ ONE; -LACTATED RINGERS 1,000 ML IV SCH; +LIDOCAINE 1% 20 ML VIAL (10MG/ML) FOR IV START INTRADERMA PRN; +MIDAZOLAM (PF) 2 MG/2 ML VIAL IV PRN; +ONDANSETRON 4 MG/2 ML VIAL IVP ONE; +SCOPOLAMINE 1.5MG/72HR PATCH TRANSDERM ONE; +ceFAZolin IN SWFI 2 GM/20 ML SYRINGE IVP ONE; +metroNIDAZOLE-NS PMX 500 MG in SALINE 1 100ML.BAG IVPB ONE
[2018-11-05] MEDS: LACTATED RINGERS 1,000 ML IV SCH (12:46)
--- NOTE | 2018-11-05 12:56 | P.GSHP ---
History of Present Illness H&P Date: 11/05/18 Chief Complaint: History of perforated diverticulitis This is a 63-year-old female who is appears history of perforated diverticulitis. Patient resents today for reversal of colostomy. Patient reversed surgery including wound infection and anastomotic leak. Past Medical History Past Medical History: Atrial Fibrillation, Musculoskeletal Disorder, Thyroid Disorder Additional Past Medical History / Comment(s): Occasional migraines, Infrequent Raynaulds. TENDINITIS RT SHOULDER ROTATOR CUFF. FUNGAL INFECTION @ OSTOMY SITE CLEARING UP. HX Diverticular disease - HAD RUPTURE W/ RESECTION 07/2018; EPISODE OF A FIB POST-OP. hypothyroid. HAS PICC LINE - HAD SF BLOOD CLOT . History of Any Multi-Drug Resistant Organisms: None Reported Past Surgical History: Bowel Resection, Orthopedic Surgery, Tubal Ligation Additional Past Surgical History / Comment(s): 07/14/18 colonoscopy, previous colonoscopy, Sinus Surgery, Jaw surgery for overbite, Bunionectomy R foot. PICC LINE INSERTION. Bowel Resection with Ostomy placement 07/2018. Past Anesthesia/Blood Transfusion Reactions: Postoperative Nausea & Vomiting ( PONV) Smoking Status: Never smoker - Past Family History Mother Family Medical History: Coronary Artery Disease (CAD) Additional Family Medical History / Comment(s): Mother with CABG at the age of 72 yrs. Father Family Medical History: Cancer, Congestive Heart Failure (CHF) Additional Family Medical History / Comment(s): Father of CHF at the age of 72 yrs. Brother(s) Family Medical History: Cancer Additional Family Medical History / Comment(s): MELANOMA CA Medications and Allergies Home Medications Medication Instructions Recorded Confirmed Type Fluticasone Nasal [place] [Flonase 2 spr EA NOSTRIL DAILY PRN 07/10/18 11/05/18 History Nasal [place]] Cholecalciferol [Vitamin D3] 1,000 unit PO DAILY 08/19/18 11/05/18 History Levothyroxine Sodium [Synthroid] 25 mcg PO DAILY 08/19/18 11/05/18 History Montelukast [Singulair] 10 mg PO DAILY PRN 08/19/18 11/05/18 History Multivitamin,Therapeutic [Thera] 1 tab PO DAILY 08/19/18 11/05/18 History Vitamin B Complex 1 cap PO DAILY 08/19/18 11/05/18 History Metoprolol Tartrate [Lopressor] 50 mg PO BID #60 tab 09/01/18 11/05/18 Rx Aspirin EC [Ecotrin] 325 mg PO DAILY #30 tablet. 09/08/18 11/05/18 Rx Acetaminophen [Tylenol Extra 1,000 mg PO Q6H PRN 10/24/18 11/05/18 History Strength] Thyroid,Pork [Investigation Officer Thyroid] 90 mg PO DAILY 10/24/18 11/05/18 History Allergies Allergy/AdvReac Type Severity Reaction Status Date / Time amoxicillin Allergy Rash/Hives Verified 11/05/18 12:28 Sulfa (Sulfonamide Allergy Rash/Hives Verified 11/05/18 12:28 Antibiotics) Surgical - Exam Vital Signs Temp Pulse Resp BP Pulse Ox 98.3 F 62 16 131/68 100 11/05/18 12:21 11/05/18 12:21 11/05/18 12:21 11/05/18 12:21 11/05/18 12:21 - General well developed, well nourished, no distress - Eyes PERRL - ENT normal pinna - Neck no masses - Respiratory normal expansion - Cardiovascular Rhythm: regular - Abdomen Colostomy in left lower quadrant, Abdomen: soft, non tender Assessment and Plan Assessment: History of perforated diverticula is. We'll perform reversal of colostomy.
[2018-11-05] MEDS ORDERED: MIDAZOLAM 2 MG/2 ML VIAL ONE (14:18)
[2018-11-05] MEDS ORDERED: fentaNYL (PF) 50 MCG/ML 2 ML AMP ONE (14:18)
[2018-11-05] MEDS ORDERED: DEXAMETHASONE SOD PHOS (MDV) 100 MG/10 ML VIAL ONE (14:18)
[2018-11-05] MEDS ORDERED: GLYCOPYRROLATE 0.2 MG/ML 2 ML VIAL ONE (14:18)
[2018-11-05] MEDS ORDERED: hydrALAZINE HCL 20 MG/ML 1 ML VIAL ONE (14:18)
[2018-11-05] MEDS ORDERED: diphenhydrAMINE 50 MG/ML 1 ML VIAL ONE (14:18)
[2018-11-05] MEDS ORDERED: LIDOCAINE 1% INJ 10MG/ML (20 ML MDV) ONE (14:18)
[2018-11-05] MEDS ORDERED: PROPOFOL 10 MG/ML 20 ML VIAL IV ONE (14:18)
[2018-11-05] MEDS ORDERED: ePHEDrine SULFATE/0.9% NACL/PF 50 MG/5 ML SYRINGE IV ONE (14:18)
[2018-11-05] MEDS ORDERED: HYDROmorphone (PF) 1 MG/ML ONE (14:18)
[2018-11-05] MEDS ORDERED: NEOSTIGMINE 1 MG/ML 10 ML VIAL ONE (14:18)
[2018-11-05] MEDS ORDERED: ROCURONIUM BROMIDE 10 MG/ML 10 ML VIAL IV ONE (14:18)
[2018-11-05] MEDS ORDERED: LACTATED RINGERS 1,000 ML IV ONE (14:51)
[2018-11-05] MEDS ORDERED: diphenhydrAMINE 50 MG/ML 1 ML VIAL IVP STA (15:11)
[2018-11-05] MEDS ORDERED: ONDANSETRON 4 MG/2 ML VIAL IVP PRN (16:19)
[2018-11-05] MEDS ORDERED: METOCLOPRAMIDE 5 MG/ML 2 ML VIAL IVP PRN (16:19)
--- NOTE | 2018-11-05 16:26 | P.OP ---
Date of Procedure: 11/05/18 Preoperative Diagnosis: History of perforated diverticulitis Postoperative Diagnosis: History of perforated diverticulitis Adhesions Procedure(s) Performed: Lysis of adhesions Takedown splenic flexure Reversal of colostomy Anesthesia: LISANDRA Surgeon: Joesph Mireles Estimated Blood Loss (ml): 200 Pathology: other (Colon) Condition: stable Description of Procedure: The patient's placed on the operating table in the supine position. She received general anesthesia. Her abdomen was prepped and draped in usual sterile fashion. She had been placed in dorsal lithotomy position. The abdomen was entered through a midline incision. There were adhesions encountered on entering the abdominal cavity. Approximate 30 minutes of operative time used to lyse adhesions. The Bookwalter retractors placed a wound. The colostomy site was visualized. The colon scope was then transected at the level of fascia using the TITO stapler. The colon was then mobilized by dividing the white line of Toldt's. The splenic flexure was divided. Using the Enseal and electrocautery. Once the colon was mobilized. An enterotomy was made at the distal colonic staple line and then the anvil for the 25 mm EEA stapler was placed into the colon. The distal colon was then transected with a GI stapler. And then the anvil was driven through the staple line. In the pelvis the rectum was mobilized. There was adhesions to the rectum and these were lysed with sharp dissection. The mesorectum was divided and then the rectum was transected using the contour stapler at the floor of the pelvis. Using the EEA stapler a anastomosis created between the colon and rectum. A hydrophilic was placed across the proximal colon. The rectum was insufflated with a rigid sigmoidoscope. With air insufflation the rectum and colon was insufflated. There is no evidence of any air leak. At this point the abdomen was irrigated. The fascia was closed the incisions. All PDS sutures used to close the fascia. The skin was closed rosalinda. The colostomy site was then excised using electrocautery. The fascia was closed with 0 Vicryl. Skin was closed rosalinda. The prevena wound system was placed on top of the stapled close skin. Patient was sent to recovery in stable condition.
[2018-11-05] MEDS: HYDROmorphone 0.5 MG/0.5 ML SYRINGE IVP PRN ×2 (16:51→16:56)
[2018-11-05] MEDS ORDERED: FLUTICASONE 50MCG/SPRAY NASAL 16GM EA NOSTRIL PRN (20:40)
[2018-11-05] MEDS ORDERED: MONTELUKAST 10 MG TAB PO PRN (20:40)
[2018-11-05 21:07] VITALS: BMI 21.6
[2018-11-05] MEDS: D5-0.45% NACL WITH KCL 20MEQ/L 1,000 ML IV SCH (22:01)
[2018-11-05] MEDS: HYDROmorphone 1 MG/ML 1 ML SYRINGE IVP PRN (22:13)
[2018-11-05] MEDS: FAMOTIDINE 20 MG/2 ML VIAL IV SCH (22:14)
[2018-11-05] MEDS: METOPROLOL TARTRATE 50 MG TAB PO SCH (22:14)
[2018-11-05] MEDS: HEPARIN SODIUM,PORCINE 5,000 UNIT/ML 1 ML VIAL SQ SCH (23:56)
[2018-11-06] MEDS: D5-0.45% NACL WITH KCL 20MEQ/L 1,000 ML IV SCH ×3 (00:06→16:49)
[2018-11-06] MEDS: HYDROmorphone 1 MG/ML 1 ML SYRINGE IVP PRN ×2 (02:00→05:58)
[2018-11-06] MEDS: LACTATED RINGERS 1,000 ML IV SCH (05:18)
[2018-11-06] MEDS: LEVOTHYROXINE 25 MCG TAB PO SCH (05:50)
[2018-11-06 08:10] LABS: Basophils % (A) 0 %; Eosinophils % (A) 0 %; Lymphocytes # (A) 1.1 k/uL (1.0-4.8); Lymphocytes % (A) 9 %; MCH 31.6 pg (25.0-35.0); MCHC 31.7 g/dL (31.0-37.0); MCV 99.8 fL (80.0-100.0); Mean Platelet Volume 6.8; Monocytes # (A) 0.6 k/uL (0-1.0); Monocytes % (A) 5 %; Neutrophils # (A) 10.6 k/uL (1.3-7.7); Neutrophils % (A) 85 %; Platelet Count 334 k/uL (150-450); RBC 4.11 m/uL (3.80-5.40); RDW 13.5 % (11.5-15.5); WBC 12.5 k/uL (3.8-10.6)
[2018-11-06 08:38] LABS: Anion Gap 7 mmol/L; Blood Urea Nitrogen 6 mg/dL (7-17); Calcium 8.9 mg/dL (8.4-10.2); Carbon Dioxide 25 mmol/L (22-30); Chloride 108 mmol/L (98-107); Glucose 164 mg/dL (74-99); Potassium 4.7 mmol/L (3.5-5.1); Sodium 140 mmol/L (137-145)
[2018-11-06] MEDS ORDERED: NON-FORMULARY DRUG (Vitamin B Complex [Vitamin B Complex] 1 CAP) PO SCH (09:00)
[2018-11-06] MEDS: FAMOTIDINE 20 MG/2 ML VIAL IV SCH ×2 (09:06→21:04)
[2018-11-06] MEDS: HEPARIN SODIUM,PORCINE 5,000 UNIT/ML 1 ML VIAL SQ SCH ×2 (09:07→16:47)
[2018-11-06] MEDS: METOPROLOL TARTRATE 50 MG TAB PO SCH ×2 (09:07→21:04)
--- NOTE | 2018-11-06 10:33 | P.PN ---
Subjective Progress Note Date: 11/06/18 63-year-old female who underwent reversal of colostomy, takedown of splenic flexure, and lysis of adhesions by Dr. Mireles. Patient is POD #1. She is sitting up in the chair this morning. States her pain is tolerable. Tolerating clear liquid diet. Denies nausea or vomiting. Denies flatus or bowel movement. Vital signs are stable. She is afebrile. PHYSICAL EXAM: GENERAL: This is a 63-year-old female in no apparent distress at the time of examination. Pleasant and cooperative. RESPIRATORY: Clear to auscultation. Equal expansion. CARDIOVASCULAR: Regular rate and rhythm. S1 and S2 noted. GASTROINTESTINAL: Soft and round. No distention noted. Hypoactive bowel sounds. Prevena wound vac in place. INTEGUMENTARY: No cyanosis. No jaundice. No rashes noted. No cellulitis noted. EXTREMITIES: 2+ peripheral pulses. No evidence of peripheral edema. NEUROLOGIC: Cranial nerves II-XII grossly intact. PSYCHIATRIC: Awake, alert, and oriented X 3. Appropriate affect. Intact judgement and insight. ASSESSMENT: History of perforated diverticulitis with colostomy placement Status post reversal of colostomy, lysis of adhesions, and takedown of splenic flexure, POD #1 PLAN: Medical management per Dr. Ball Continue clear liquid diet Await return of bowel function Increase activity as tolerated Incentive spirometry Nurse practitioner note has been reviewed by physician. Signing provider agrees with the documented findings, assessment, and plan of care. Objective - Vital Signs Vital signs: Vital Signs Temp 98.5 F 11/06/18 07:06 Pulse 75 11/06/18 07:06 Resp 16 11/06/18 07:06 BP 138/70 11/06/18 07:06 Pulse Ox 97 11/06/18 07:06 Intake & Output 11/05/18 11/06/18 11/06/18 18:59 06:59 18:59 Intake Total 2800 2000 Output Total 375 1750 Balance 2425 1999 -1749 Weight 59 kg Intake: IV 2800 Intake, IV Titration 2000 Amount D5-0.45% NaCl with KCl 2000 20Meq/l 1,000 ml @ 125 mls/hr IV .Q8H [facility] Rx#: [id number] Output: Urine 175 1750 Estimated Blood Loss 200 - Labs CBC & Chem 7: 11/06/18 07:28 11/06/18 07:28 Labs: Abnormal Lab Results - Last 24 Hours (Table) 11/06/18 11/06/18 Range/Units 07:28 07:28 WBC 12.5 H (3.8-10.6) k/uL Neutrophils # 10.6 H (1.3-7.7) k/uL Chloride 108 H (98-107) mmol/L BUN 6 L (7-17) mg/dL Creatinine 0.51 L (0.52-1.04) mg/dL Glucose 164 H (74-99) mg/dL
--- NOTE | 2018-11-06 11:43 | P.CONS ---
History of Present Illness - Reason for Consult Consult date: 11/06/18 Medical management Requesting physician: Joesph Mireles - Chief Complaint Diverticulitis - History of Present Illness This is a 63-year-old female patient of Dr. Cintron. Patient has a significant history for perforated diverticulitis with colostomy placement approximately one month ago. Patient presented to the hospital for an elective reversal of colostomy with lysis of adhesions and takedown of splenic flexure with Dr. Mireles. Patient is currently postop day 1. Patient does have a past medical history of atrial fibrillation. Episode of A. fib occurred during acute illness. Cardiology did not start patient on anticoagulation due to isolated episode. Additional history includes musculoskeletal disorder, thyroid disorder and migraines. At this time patient is currently sitting up in chair. Patient is having some abdominal discomfort. Patient is tolerating clear liquid diet. Abdominal dressing currently has wound VAC which is clean dry and intact. At this time patient denies chest pain or shortness breath. Patient denies nausea vomiting or diarrhea. Patient denies any urinary burning or frequency. Incentive spirometer encouraged. Review of Systems Please refer to HPI otherwise unremarkable Past Medical History Past Medical History: Atrial Fibrillation, Musculoskeletal Disorder, Thyroid Disorder Additional Past Medical History / Comment(s): Occasional migraines, Infrequent Raynaulds. TENDINITIS RT SHOULDER ROTATOR CUFF. FUNGAL INFECTION @ OSTOMY SITE CLEARING UP. HX Diverticular disease - HAD RUPTURE W/ RESECTION 07/2018; EPISODE OF A FIB POST-OP. hypothyroid. HAS PICC LINE - HAD SF BLOOD CLOT . History of Any Multi-Drug Resistant Organisms: None Reported Past Surgical History: Bowel Resection, Orthopedic Surgery, Tubal Ligation Additional Past Surgical History / Comment(s): 07/14/18 colonoscopy, previous colonoscopy, Sinus Surgery, Jaw surgery for overbite, Bunionectomy R foot. PICC LINE INSERTION. Bowel Resection with Ostomy placement 07/2018. Past Anesthesia/Blood Transfusion Reactions: Postoperative Nausea & Vomiting ( PONV) Past Psychological History: No Psychological Hx Reported Additional Psychological History / Comment(s): Pt resides with her spouse. 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 Smoking Status: Never smoker Past Alcohol Use History: Occasional Past Drug Use History: None Reported - Past Family History Mother Family Medical History: Coronary Artery Disease (CAD) Additional Family Medical History / Comment(s): Mother with CABG at the age of 72 yrs. Father Family Medical History: Cancer, Congestive Heart Failure (CHF) Additional Family Medical History / Comment(s): Father of CHF at the age of 72 yrs. Brother(s) Family Medical History: Cancer Additional Family Medical History / Comment(s): MELANOMA CA Medications and Allergies Home Medications Medication Instructions Recorded Confirmed Type Fluticasone Nasal Elba [Flonase 2 spr EA NOSTRIL DAILY PRN 07/10/18 11/05/18 History Nasal Elba] Cholecalciferol [Vitamin D3] 1,000 unit PO DAILY 08/19/18 11/05/18 History Levothyroxine Sodium [Synthroid] 25 mcg PO DAILY 08/19/18 11/05/18 History Montelukast [Singulair] 10 mg PO DAILY PRN 08/19/18 11/05/18 History Multivitamin,Therapeutic [Thera] 1 tab PO DAILY 08/19/18 11/05/18 History Vitamin B Complex 1 cap PO DAILY 08/19/18 11/05/18 History Metoprolol Tartrate [Lopressor] 50 mg PO BID #60 tab 09/01/18 11/05/18 Rx Aspirin EC [Ecotrin] 325 mg PO DAILY #30 tablet. 09/08/18 11/05/18 Rx Acetaminophen [Tylenol Extra 1,000 mg PO Q6H PRN 10/24/18 11/05/18 History Strength] Thyroid,Pork [Water Fabricator Operator Thyroid] 90 mg PO DAILY 10/24/18 11/05/18 History Allergies Allergy/AdvReac Type Severity Reaction Status Date / Time amoxicillin Allergy Rash/Hives Verified 11/05/18 19:05 cefazolin [From Kefzol] Allergy Rash/Hives Verified 11/05/18 19:05 Sulfa (Sulfonamide Allergy Rash/Hives Verified 11/05/18 19:05 Antibiotics) Physical Exam Vitals: Vital Signs Temp Pulse Resp BP Pulse Ox 11/06/18 07:06 98.5 F 75 16 138/70 97 11/06/18 00:04 98.2 F 88 16 127/75 97 11/05/18 19:00 97.9 F 93 16 150/81 100 11/05/18 18:17 98.3 F 96 185/91 100 11/05/18 17:45 84 16 154/79 100 11/05/18 17:30 90 14 167/89 100 11/05/18 17:15 85 16 156/83 100 11/05/18 17:00 82 14 162/80 100 11/05/18 16:45 98.6 F 85 12 181/86 100 11/05/18 12:21 98.3 F 62 16 131/68 100 Intake and Output 11/05/18 11/06/18 11/06/18 22:59 06:59 14:59 Intake Total 1700 1000 Output Total 375 1750 Balance 1325 1000 -1750 Intake: IV 700 Intake, IV Titration 1000 1000 Amount D5-0.45% NaCl with KCl 1000 1000 20Meq/l 1,000 ml @ 125 mls/hr IV .Q8H [facility] Rx#: [id number] Output: Urine 175 1750 Estimated Blood Loss 200 Other: Weight 59 kg Head normocephalic Neck supple Lungs clear to auscultation bilaterally no wheezing or crackles Heart regular rate and rhythm S1-S2, no rub or gallop Abdomen is soft nontender. Absent bowel sounds. Wound VAC dressing clean dry and intact Extremities no edema Neuro alert and orientated to 3 Results CBC & Chem 7: 11/06/18 07:28 11/06/18 07:28 Labs: Abnormal Lab Results - Last 24 Hours (Table) 11/06/18 11/06/18 Range/Units 07:28 07:28 WBC 12.5 H (3.8-10.6) k/uL Neutrophils # 10.6 H (1.3-7.7) k/uL Chloride 108 H (98-107) mmol/L BUN 6 L (7-17) mg/dL Creatinine 0.51 L (0.52-1.04) mg/dL Glucose 164 H (74-99) mg/dL Assessment and Plan Assessment: 1. Status post colostomy reversal with lysis of adhesions and takedown of splenic flexure Dr. Mireles. History of perforated diverticulitis with colostomy placement. Patient is currently postop day 1. Patient is currently on clear liquid diet. 2. History of hypothyroidism 3. History of osteoarthritis 4. Leukocytosis. white blood cell elevated at 12.5. Will order urinary analysis and repeat CBC. We'll continue to monitor closely 5. History of one of the proximal atrial fibrillation patient currently on Lopressor. Patient not recommending any anticoagulation or cardiology Repeat labs have been ordered Acute for this consult we will continue to follow patient closely throughout stay Time with Patient: Greater than 30 (Greater than 60% of the total time spent in counseling and coordination of care. I performed an examination of the patient and discussed their management with the Nurse Practitioner. I have reviewed the Nurse Practitioner's notes and agree with the documented findings and plan of care)
[2018-11-06] MEDS: MULTIVITAMINS, THERA 1 EACH TAB PO SCH (13:22)
[2018-11-06] MEDS: ACETAMINOPHEN TAB 325 MG TAB PO PRN ×3 (13:22→21:04)
[2018-11-06 18:49] LABS: Appearance,Urine Clear (Clear); Bilirubin,Urine Negative (Negative); Blood,Urine Negative (Negative); Color,Urine Colorless; Glucose,Urine (UA) Negative (Negative); Ketones,Urine Negative (Negative); Leukocyte Esterase,Urine Negative (Negative); Nitrite,Urine Negative (Negative); Protein,Urine Negative (Negative); Specific Gravity,Urine 1.002 (1.001-1.035); Urobilinogen,Urine <2.0 mg/dL (<2.0)
[2018-11-07] MEDS: HEPARIN SODIUM,PORCINE 5,000 UNIT/ML 1 ML VIAL SQ SCH ×3 (01:28→17:00)
[2018-11-07] MEDS: ACETAMINOPHEN TAB 325 MG TAB PO PRN ×5 (01:28→21:17)
[2018-11-07] MEDS: D5-0.45% NACL WITH KCL 20MEQ/L 1,000 ML IV SCH ×3 (01:29→17:00)
[2018-11-07] MEDS: LACTATED RINGERS 1,000 ML IV SCH (01:30)
[2018-11-07] MEDS: LEVOTHYROXINE 25 MCG TAB PO SCH (06:01)
[2018-11-07] MEDS: METOPROLOL TARTRATE 50 MG TAB PO SCH ×2 (07:47→19:55)
[2018-11-07] MEDS: MULTIVITAMINS, THERA 1 EACH TAB PO SCH (07:47)
[2018-11-07] MEDS: FAMOTIDINE 20 MG/2 ML VIAL IV SCH ×2 (07:48→19:59)
[2018-11-07 08:28] LABS: Basophils % (A) 0 %; Eosinophils % (A) 0 %; HCT 36.8 % (34.0-46.0); HGB 12.4 gm/dL (11.4-16.0); Lymphocytes % (A) 25 %; MCH 33.1 pg (25.0-35.0); MCHC 33.6 g/dL (31.0-37.0); MCV 98.7 fL (80.0-100.0); Mean Platelet Volume 7.2; Monocytes # (A) 0.7 k/uL (0-1.0); Monocytes % (A) 6 %; Neutrophils # (A) 8.2 k/uL (1.3-7.7); Neutrophils % (A) 68 %; Platelet Count 264 k/uL (150-450); RBC 3.73 m/uL (3.80-5.40); RDW 13.6 % (11.5-15.5); WBC 12.1 k/uL (3.8-10.6)
[2018-11-07 08:41] LABS: ALT 20 U/L (9-52); AST 20 U/L (14-36); Albumin 3.4 g/dL (3.5-5.0); Alkaline Phosphatase 35 U/L (38-126); Anion Gap 4 mmol/L; Blood Urea Nitrogen 3 mg/dL (7-17); Calcium 8.8 mg/dL (8.4-10.2); Carbon Dioxide 27 mmol/L (22-30); Chloride 110 mmol/L (98-107); Glucose 105 mg/dL (74-99); Potassium 4.3 mmol/L (3.5-5.1); Sodium 141 mmol/L (137-145); Total Bilirubin 0.4 mg/dL (0.2-1.3)
--- NOTE | 2018-11-07 10:35 | P.PN ---
Subjective Progress Note Date: 11/07/18 This is a 63-year-old female patient of Dr. Cintron. Patient has a significant history for perforated diverticulitis with colostomy placement approximately one month ago. Patient presented to the hospital for an elective reversal of colostomy with lysis of adhesions and takedown of splenic flexure with Dr. Mireles. Patient is currently postop day 1. Patient does have a past medical history of atrial fibrillation. Episode of A. fib occurred during acute illness. Cardiology did not start patient on anticoagulation due to isolated episode. Additional history includes musculoskeletal disorder, thyroid disorder and migraines. At this time patient is currently sitting up in chair. Patient is having some abdominal discomfort. Patient is tolerating clear liquid diet. Abdominal dressing currently has wound VAC which is clean dry and intact. At this time patient denies chest pain or shortness breath. Patient denies nausea vomiting or diarrhea. Patient denies any urinary burning or frequency. Incentive spirometer encouraged. On 11/07/2018 patient's alert and oriented 3 currently sitting up in chair. Patient is currently postop day 2. Discussed case with surgical services. Planning to advance diet removed fully catheter. This time patient denies cough shortness breath or chest pain. Patient denies any urinary burning or frequency. Patient denies any nausea vomiting or diarrhea. Objective - Vital Signs Vital signs: Vital Signs Temp 97.8 F 11/07/18 07:00 Pulse 59 L 11/07/18 07:00 Resp 14 11/07/18 07:00 BP 149/75 11/07/18 07:00 Pulse Ox 96 11/07/18 07:00 Intake & Output 11/06/18 11/07/18 11/07/18 18:59 06:59 18:59 Intake Total 1000 780 Output Total 3550 1999 900 Balance -0680 -1220 -900 Intake: Intake, IV Titration 1000 Amount D5-0.45% NaCl with KCl 1000 20Meq/l 1,000 ml @ 125 mls/hr IV .Q8H [facility] Rx#: [id number] Oral 780 Output: Urine 3550 1999 900 Uretheral (Malik) 700 900 Other: Voiding Method Indwelling Catheter Indwelling Catheter - Exam Head normocephalic Neck supple Lungs clear to auscultation bilaterally no wheezing or crackles Heart regular rate and rhythm S1-S2, no rub or gallop Abdomen is soft nontender. Hypoactive bowel sounds. Wound VAC dressing clean dry and intact Extremities no edema Neuro alert and orientated to 3 - Labs CBC & Chem 7: 11/07/18 07:50 11/07/18 07:50 Labs: Abnormal Lab Results - Last 24 Hours (Table) 11/07/18 11/07/18 Range/Units 07:50 07:50 WBC 12.1 H (3.8-10.6) k/uL RBC 3.73 L (3.80-5.40) m/uL Neutrophils # 8.2 H (1.3-7.7) k/uL Chloride 110 H (98-107) mmol/L BUN 3 L (7-17) mg/dL Glucose 105 H (74-99) mg/dL Alkaline Phosphatase 35 L (38-126) U/L Total Protein 6.0 L (6.3-8.2) g/dL Albumin 3.4 L (3.5-5.0) g/dL Assessment and Plan Assessment: 1. Status post colostomy reversal with lysis of adhesions and takedown of splenic flexure Dr. Mireles. History of perforated diverticulitis with colostomy placement. Patient is currently postop day 2. Patient is currently on clear liquid diet. Diet to be advanced per surgical services 2. History of hypothyroidism 3. History of osteoarthritis 4. Leukocytosis. white blood cell elevated at 12.5. Urinary analysis negative. Repeat WBC 12.1 we'll continue to monitor closely. At this time patient denies any cough or acute infection symptoms 5. History of one of the proximal atrial fibrillation patient currently on Lopressor. Cardiolgoy not recommending any anticoagulation DVT prophylaxis heparin. GI prophylaxis Pepcid Repeat labs have been ordered Thank you for this consult we will continue to follow patient closely throughout stay I performed an examination of the patient and discussed their management with the Nurse Practitioner. I have reviewed the Nurse Practitioner's notes and agree with the documented findings and plan of care
--- NOTE | 2018-11-07 11:31 | P.PN ---
Subjective Progress Note Date: 11/07/18 63-year-old female who underwent reversal of colostomy, takedown of splenic flexure, and lysis of adhesions by Dr. Mireles. Patient is POD #2. States her pain is tolerable. Tolerating clear liquid diet. Denies nausea or vomiting. Patient reports she is passing flatus and had a small bowel movement today. Vital signs are stable. She is afebrile. PHYSICAL EXAM: GENERAL: This is a 63-year-old female in no apparent distress at the time of examination. Pleasant and cooperative. RESPIRATORY: Clear to auscultation. Equal expansion. CARDIOVASCULAR: Regular rate and rhythm. S1 and S2 noted. GASTROINTESTINAL: Soft and round. No distention noted. Hypoactive bowel sounds. Prevena wound vac in place. INTEGUMENTARY: No cyanosis. No jaundice. No rashes noted. No cellulitis noted. EXTREMITIES: 2+ peripheral pulses. No evidence of peripheral edema. NEUROLOGIC: Cranial nerves II-XII grossly intact. PSYCHIATRIC: Awake, alert, and oriented X 3. Appropriate affect. Intact judgement and insight. ASSESSMENT: History of perforated diverticulitis with colostomy placement Status post reversal of colostomy, lysis of adhesions, and takedown of splenic flexure, POD #2 PLAN: Medical management per Dr. Ball Advance diet to full liquid Increase activity as tolerated Incentive spirometry Discontinue urinary catheter Likely discharge home tomorrow Nurse practitioner note has been reviewed by physician. Signing provider agrees with the documented findings, assessment, and plan of care. Objective - Vital Signs Vital signs: Vital Signs Temp 97.8 F 11/07/18 07:00 Pulse 59 L 11/07/18 07:00 Resp 14 11/07/18 07:00 BP 149/75 11/07/18 07:00 Pulse Ox 96 11/07/18 07:00 Intake & Output 11/06/18 11/07/18 11/07/18 18:59 06:59 18:59 Intake Total 1000 780 Output Total 3550 1999 900 Balance -2550 -1220 -900 Intake: Intake, IV Titration 1000 Amount D5-0.45% NaCl with KCl 1000 20Meq/l 1,000 ml @ 125 mls/hr IV .Q8H [facility] Rx#: [id number] Oral 780 Output: Urine 3550 1999 900 Uretheral (Malik) 700 900 Other: Voiding Method Indwelling Catheter Indwelling Catheter - Labs CBC & Chem 7: 11/07/18 07:50 11/07/18 07:50 Labs: Abnormal Lab Results - Last 24 Hours (Table) 11/07/18 11/07/18 Range/Units 07:50 07:50 WBC 12.1 H (3.8-10.6) k/uL RBC 3.73 L (3.80-5.40) m/uL Neutrophils # 8.2 H (1.3-7.7) k/uL Chloride 110 H (98-107) mmol/L BUN 3 L (7-17) mg/dL Glucose 105 H (74-99) mg/dL Alkaline Phosphatase 35 L (38-126) U/L Total Protein 6.0 L (6.3-8.2) g/dL Albumin 3.4 L (3.5-5.0) g/dL
[2018-11-07 23:29] VITALS: RESP 16
[2018-11-08] MEDS: D5-0.45% NACL WITH KCL 20MEQ/L 1,000 ML IV SCH ×3 (00:43→15:57)
[2018-11-08] MEDS: HEPARIN SODIUM,PORCINE 5,000 UNIT/ML 1 ML VIAL SQ SCH ×3 (00:46→15:54)
[2018-11-08] MEDS: ACETAMINOPHEN TAB 325 MG TAB PO PRN ×4 (00:48→20:36)
[2018-11-08] MEDS: LACTATED RINGERS 1,000 ML IV SCH (02:09)
[2018-11-08] MEDS: LEVOTHYROXINE 25 MCG TAB PO SCH (05:57)
[2018-11-08 08:34] LABS: ALT 21 U/L (9-52); AST 24 U/L (14-36); Albumin 3.9 g/dL (3.5-5.0); Alkaline Phosphatase 49 U/L (38-126); Anion Gap 8 mmol/L; Blood Urea Nitrogen 5 mg/dL (7-17); Calcium 9.3 mg/dL (8.4-10.2); Carbon Dioxide 28 mmol/L (22-30); Chloride 105 mmol/L (98-107); Glucose 89 mg/dL (74-99); Potassium 4.4 mmol/L (3.5-5.1); Sodium 141 mmol/L (137-145); Total Bilirubin 0.6 mg/dL (0.2-1.3); Total Protein 6.9 g/dL (6.3-8.2)
[2018-11-08 08:40] LABS: Basophils # (A) 0.1 k/uL (0-0.2); Basophils % (A) 1 %; Eosinophils # (A) 0.5 k/uL (0-0.7); Eosinophils % (A) 5 %; HCT 42.8 % (34.0-46.0); HGB 13.6 gm/dL (11.4-16.0); Lymphocytes % (A) 38 %; MCH 32.5 pg (25.0-35.0); MCHC 31.9 g/dL (31.0-37.0); MCV 102.1 fL (80.0-100.0); Macrocytosis Slight; Mean Platelet Volume 6.9; Monocytes # (A) 0.4 k/uL (0-1.0); Monocytes % (A) 4 %; Neutrophils # (A) 5.5 k/uL (1.3-7.7); Neutrophils % (A) 51 %; Platelet Count 257 k/uL (150-450); RBC 4.19 m/uL (3.80-5.40); RDW 13.7 % (11.5-15.5); WBC 10.7 k/uL (3.8-10.6)
[2018-11-08] MEDS: FAMOTIDINE 20 MG/2 ML VIAL IV SCH ×2 (09:01→20:37)
[2018-11-08] MEDS: MULTIVITAMINS, THERA 1 EACH TAB PO SCH (09:01)
[2018-11-08] MEDS: METOPROLOL TARTRATE 50 MG TAB PO SCH ×2 (09:01→20:37)
--- NOTE | 2018-11-08 13:47 | P.PN ---
Subjective Progress Note Date: 11/08/18 This is a 63-year-old female patient of Dr. Cintron. Patient has a significant history for perforated diverticulitis with colostomy placement approximately one month ago. Patient presented to the hospital for an elective reversal of colostomy with lysis of adhesions and takedown of splenic flexure with Dr. Mireles. Patient is currently postop day 1. Patient does have a past medical history of atrial fibrillation. Episode of A. fib occurred during acute illness. Cardiology did not start patient on anticoagulation due to isolated episode. Additional history includes musculoskeletal disorder, thyroid disorder and migraines. At this time patient is currently sitting up in chair. Patient is having some abdominal discomfort. Patient is tolerating clear liquid diet. Abdominal dressing currently has wound VAC which is clean dry and intact. At this time patient denies chest pain or shortness breath. Patient denies nausea vomiting or diarrhea. Patient denies any urinary burning or frequency. Incentive spirometer encouraged. On 11/07/2018 patient's alert and oriented 3 currently sitting up in chair. Patient is currently postop day 2. Discussed case with surgical services. Planning to advance diet removed fully catheter. This time patient denies cough shortness breath or chest pain. Patient denies any urinary burning or frequency. Patient denies any nausea vomiting or diarrhea. On 11/08/2018 patient is alert and oriented 3 of protocol. Patient feels much improved. Patient has missing spirometer. Patient also had a bowel movement this AM. Patient is maintained on full liquid diet. Patient denies chest pain or shortness of breath. Denies nausea vomiting or diarrhea. Patient denies any urinary frequency or burning Objective - Vital Signs Vital signs: Vital Signs Temp 97.8 F 11/08/18 07:03 Pulse 63 11/08/18 07:03 Resp 16 11/08/18 07:03 BP 150/85 11/08/18 07:03 Pulse Ox 95 11/08/18 07:03 Intake & Output 11/07/18 11/08/18 11/08/18 18:59 06:59 18:59 Intake Total 875 1100 Output Total 900 Balance -25 1100 Intake: Intake, IV Titration 875 1000 Amount D5-0.45% NaCl with KCl 875 1000 20Meq/l 1,000 ml @ 125 mls/hr IV .Q8H [facility] Rx#: [id number] Oral 100 Output: Urine 900 Uretheral (Malik) 900 Other: Voiding Method Toilet Toilet # Voids 4 2 - Exam Head normocephalic Neck supple Lungs clear to auscultation bilaterally no wheezing or crackles Heart regular rate and rhythm S1-S2, no rub or gallop Abdomen is soft nontender. Hypoactive bowel sounds. Wound VAC dressing clean dry and intact Extremities no edema Neuro alert and orientated to 3 - Labs CBC & Chem 7: 11/08/18 07:31 11/08/18 07:31 Labs: Abnormal Lab Results - Last 24 Hours (Table) 11/08/18 11/08/18 Range/Units 07:31 07:31 WBC 10.7 H (3.8-10.6) k/uL MCV 102.1 H (80.0-100.0) fL BUN 5 L (7-17) mg/dL Assessment and Plan Assessment: 1. Status post colostomy reversal with lysis of adhesions and takedown of splenic flexure Dr. Mireles. History of perforated diverticulitis with colostomy placement. Patient is currently postop day . Patient is currently on clear liquid diet. Diet to be advanced per surgical services. She maintained on full liquid diet. Patient being seen 2. History of hypothyroidism 3. History of osteoarthritis 4. Leukocytosis. white blood cell elevated at 12.5. Urinary analysis negative. Repeat WBC 12.1 we'll continue to monitor closely. At this time patient denies any cough or acute infection symptoms. WHIte blood cell improving to 10.7 5. History of one of the proximal atrial fibrillation patient currently on Lopressor. Cardiolgoy not recommending any anticoagulation DVT prophylaxis heparin. GI prophylaxis Pepcid Possible discharge today per surgical services. Thank you for this consult we will continue to follow patient closely throughout stay I performed an examination of the patient and discussed their management with the Nurse Practitioner. I have reviewed the Nurse Practitioner's notes and agree with the documented findings and plan of care
[2018-11-09] MEDS: D5-0.45% NACL WITH KCL 20MEQ/L 1,000 ML IV SCH ×2 (01:13→08:47)
[2018-11-09] MEDS: HEPARIN SODIUM,PORCINE 5,000 UNIT/ML 1 ML VIAL SQ SCH ×2 (01:28→08:52)
[2018-11-09] MEDS: LACTATED RINGERS 1,000 ML IV SCH (05:21)
[2018-11-09] MEDS: LEVOTHYROXINE 25 MCG TAB PO SCH (06:16)
[2018-11-09] MEDS: ACETAMINOPHEN TAB 325 MG TAB PO PRN (06:57)
[2018-11-09 07:48] LABS: Basophils % (A) 0 %; Eosinophils # (A) 0.6 k/uL (0-0.7); Eosinophils % (A) 6 %; HCT 42.5 % (34.0-46.0); HGB 14.6 gm/dL (11.4-16.0); Lymphocytes % (A) 32 %; MCH 33.5 pg (25.0-35.0); MCHC 34.4 g/dL (31.0-37.0); MCV 97.5 fL (80.0-100.0); Mean Platelet Volume 7.1; Monocytes # (A) 0.5 k/uL (0-1.0); Monocytes % (A) 5 %; Neutrophils # (A) 5.4 k/uL (1.3-7.7); Neutrophils % (A) 56 %; Platelet Count 305 k/uL (150-450); RBC 4.36 m/uL (3.80-5.40); RDW 13.4 % (11.5-15.5); WBC 9.7 k/uL (3.8-10.6)
[2018-11-09 07:57] VITALS: BP 152/81; PULSE 72; TEMP 98.1
[2018-11-09 08:13] LABS: ALT 29 U/L (9-52); AST 19 U/L (14-36); Albumin 3.9 g/dL (3.5-5.0); Alkaline Phosphatase 52 U/L (38-126); Anion Gap 7 mmol/L; Blood Urea Nitrogen 8 mg/dL (7-17); Calcium 9.5 mg/dL (8.4-10.2); Carbon Dioxide 29 mmol/L (22-30); Chloride 102 mmol/L (98-107); Glucose 94 mg/dL (74-99); Potassium 4.5 mmol/L (3.5-5.1); Sodium 138 mmol/L (137-145); Total Bilirubin 0.8 mg/dL (0.2-1.3); Total Protein 6.9 g/dL (6.3-8.2)
[2018-11-09] MEDS: FAMOTIDINE 20 MG/2 ML VIAL IV SCH ×2 (08:51→08:53)
[2018-11-09] MEDS: MULTIVITAMINS, THERA 1 EACH TAB PO SCH (08:51)
[2018-11-09] MEDS: METOPROLOL TARTRATE 50 MG TAB PO SCH (08:51)
--- NOTE | 2018-11-09 11:13 | P.PN ---
Subjective Progress Note Date: 11/08/18 Objective - Vital Signs Vital signs: Vital Signs Temp 98.1 F 11/09/18 07:26 Pulse 72 11/09/18 07:26 Resp 16 11/09/18 07:26 BP 152/81 11/09/18 07:26 Pulse Ox 99 11/09/18 07:26 Intake & Output 11/08/18 11/09/18 11/09/18 18:59 06:59 18:59 Other: Voiding Method Toilet Toilet Toilet # Voids 2 2 - Exam CHIEF COMPLAINT: Status post colostomy reversal HISTORY OF PRESENT ILLNESS: The patient is an 77-year-old female status post colostomy reversal and small bowel resection, 11/05/2018. Postop day 3. She is tolerating diet. She had a small bowel movement. She is passing flatus. Pain is controlled with Tylenol. PHYSICAL EXAM: VITAL SIGNS: Reviewed GENERAL: Well-developed in no acute distress. HEENT: No sclera icterus. Extraocular movements grossly intact. Moist buccal mucosa. Head is atraumatic, normocephalic. Hears conversational speech. No nasal drainage. NECK: Supple without lymphadenopathy. CHEST: Non-labored respirations and equal bilateral excursions. CARDIOVASCULAR: Palpable 2+ radial pulses. Regular rate and regular rhythm ABDOMEN: Soft. Midline dressing clean dry and intact with PREVENA MUSCULOSKELETAL: No clubbing, cyanosis. NEUROLOGIC: No focal or lateralizing signs. Cranial nerves II through XII grossly intact. PSYCH: Appropriate affect. Alert and oriented to person, place and time. SKIN: Well perfused. Good skin turgor. LABS: Reviewed ASSESSMENT: 1. Diverticulitis with perforation and takedown of colostomy PLAN: 1. Continue liquid diet for optimal bowel recovery 2. May discharge home tomorrow. 3. Per patient request, Tylenol or ibuprofen has been prescribed to her local pharmacy 4. Follow-up with her operating surgeon in 5 days - Labs CBC & Chem 7: 11/09/18 07:24 11/09/18 07:24 Assessment and Plan (1) Hypothyroidism Current Visit: Yes Status: Acute Code(s): E03.9 - HYPOTHYROIDISM, UNSPECIFIED SNOMED Code(s): 88020083 (2) Seasonal allergies Current Visit: Yes Status: Acute Code(s): J30.2 - OTHER SEASONAL ALLERGIC RHINITIS SNOMED Code(s): 826521632 (3) Diverticulitis Current Visit: Yes Status: Acute Code(s): K57.92 - DVTRCLI OF INTEST, PART UNSP, W/O PERF OR ABSCESS W/O BLEED SNOMED Code(s): 120202987 (4) Status post colostomy takedown Current Visit: Yes Status: Acute Code(s): Z98.890 - OTHER SPECIFIED POSTPROCEDURAL STATES SNOMED Code(s): 02074677463980460
--- NOTE | 2018-11-09 11:15 | P.DS ---
Providers Date of admission: 11/05/18 11:54 Expected date of discharge: 11/09/18 Attending physician: Joesph Mireles Consults: 11/05/18 16:19 Consult Physician Routine Consulting Provider: Kwadwo Ball Consult Reason/Comments: Medical management Do you want consulting provider notified?: Yes Primary care physician: Libertad Cintron - Discharge Diagnosis(es) (1) Hypothyroidism Current Visit: Yes Status: Acute (2) Seasonal allergies Current Visit: Yes Status: Acute (3) Diverticulitis Current Visit: Yes Status: Acute (4) Status post colostomy takedown Current Visit: Yes Status: Acute Hospital Course: CHIEF COMPLAINT: Status post colostomy reversal HISTORY OF PRESENT ILLNESS: The patient is an 63-year-old female status post colostomy reversal, 11/05/2018. Postop day 3. She had done well postoperatively. No reports of nausea and vomiting. Discharge instructions were reviewed in detail. PHYSICAL EXAM: VITAL SIGNS: Reviewed GENERAL: Well-developed in no acute distress. HEENT: No sclera icterus. Extraocular movements grossly intact. Moist buccal mucosa. Head is atraumatic, normocephalic. Hears conversational speech. No nasal drainage. NECK: Supple without lymphadenopathy. CHEST: Non-labored respirations and equal bilateral excursions. CARDIOVASCULAR: Palpable 2+ radial pulses. Regular rate and regular rhythm ABDOMEN: Soft. Midline dressing clean dry and intact with PREVENA MUSCULOSKELETAL: No clubbing, cyanosis. NEUROLOGIC: No focal or lateralizing signs. Cranial nerves II through XII grossly intact. PSYCH: Appropriate affect. Alert and oriented to person, place and time. SKIN: Well perfused. Good skin turgor. LABS: Reviewed ASSESSMENT: 1. Diverticulitis with perforation and takedown of colostomy PLAN: 1. Discharge home today Plan - Discharge Summary Discharge Rx Participant: No New Discharge Prescriptions: New Docusate [Colace] 100 mg PO BID #20 capsule HYDROcodone/APAP 7.5-325MG [[place] 7.5-325] 1 tab PO Q4H PRN 3 Days #18 tab PRN Reason: Pain Ibuprofen [Motrin] 600 mg PO Q8HR PRN #30 tab PRN Reason: Pain Continue Fluticasone Nasal [place] [Flonase Nasal [place]] 2 spr EA NOSTRIL DAILY PRN PRN Reason: Allergy Symptoms Levothyroxine Sodium [Synthroid] 25 mcg PO DAILY Montelukast [Singulair] 10 mg PO DAILY PRN PRN Reason: SHORTNESS OF BREATH/ALLERGY SX Multivitamin,Therapeutic [Thera] 1 tab PO DAILY Metoprolol Tartrate [Lopressor] 50 mg PO BID #60 tab Aspirin EC [Ecotrin] 325 mg PO DAILY #30 tablet. Thyroid,Pork [[facility] Administrator Thyroid] 90 mg PO DAILY Acetaminophen [Tylenol Extra Strength] 1,000 mg PO Q6H PRN #30 tablet PRN Reason: Pain Discontinued Cholecalciferol [Vitamin D3] 1,000 unit PO DAILY Vitamin B Complex 1 cap PO DAILY Discharge Medication List Fluticasone Nasal [place] [Flonase Nasal [place]] 2 spr EA NOSTRIL DAILY PRN [History] Levothyroxine Sodium [Synthroid] 25 mcg PO DAILY 08/19/18 [History] Montelukast [Singulair] 10 mg PO DAILY PRN 08/19/18 [History] Multivitamin,Therapeutic [Thera] 1 tab PO DAILY 08/19/18 [History] Metoprolol Tartrate [Lopressor] 50 mg PO BID #60 tab 09/01/18 [Rx] Aspirin EC [Ecotrin] 325 mg PO DAILY #30 tablet. 09/08/18 [Rx] Thyroid,Pork [Center Administrator Thyroid] 90 mg PO DAILY 10/24/18 [History] Docusate [Colace] 100 mg PO BID #20 capsule 11/07/18 [Rx] HYDROcodone/APAP 7.5-325MG [[place] 7.5-325] 1 tab PO Q4H PRN 3 Days #18 tab 11/07 [Rx] Acetaminophen [Tylenol Extra Strength] 1,000 mg PO Q6H PRN #30 tablet 11/09/18 [ Rx] Ibuprofen [Motrin] 600 mg PO Q8HR PRN #30 tab 11/09/18 [Rx] Follow up Appointment(s)/Referral(s): Joesph Mireles MD [STAFF PHYSICIAN] - 1 Week Patient Instructions/Handouts: Colectomy Diet (DC) Activity/Diet/Wound Care/Special Instructions: No lifting over 10 pounds in 2 weeks. Sponge bath only. No showering. No bath tub soaks. Dressing to be discontinued in surgeon's office. Liquid diet including protein shakes advised. Discharge Disposition: HOME SELF-CARE
== END 2018-11-09 11:15 | disposition home or self-care (01) | DRG 331 ==
LOC: 2ORMAIN 11:54 → 4SSUR 17:52
PROVIDERS: ADMIT Surgery; ATTEND Surgery
PROC: 0DQL0ZZ Repair Transverse Colon, Open Approach (ICD-10-PCS; 2018-11-05)
PROC: 0DQP0ZZ Repair Rectum, Open Approach (ICD-10-PCS; principal; 2018-11-05 15:45)
DX: Z43.3 Encounter for attention to colostomy (principal); D72.829 Elevated white blood cell count, unspecified; E03.9 Hypothyroidism, unspecified; I48.0 Paroxysmal atrial fibrillation; J30.2 Other seasonal allergic rhinitis; G43.909 Migraine, unspecified, not intractable, without status migrainosus; K57.90 Diverticulosis of intestine, part unspecified, without perforation or abscess without bleeding; M19.90 Unspecified osteoarthritis, unspecified site; I73.00 Raynaud's syndrome without gangrene; Z79.82 Long term (current) use of aspirin; Z79.890 Hormone replacement therapy; Z79.899 Other long term (current) drug therapy; Z90.49 Acquired absence of other specified parts of digestive tract; Z98.51 Tubal ligation status; Z88.0 Allergy status to penicillin; Z88.2 Allergy status to sulfonamides; Z80.8 Family history of malignant neoplasm of other organs or systems; Z82.49 Family history of ischemic heart disease and other diseases of the circulatory system
CPT/HCPCS: 80048; 80053; 81003; 85025; 86850; 86900; 86901; 88304; 88307